=== PATIENT | female | born 1975 | race Caucasian/White ===

== ENCOUNTER 2021-12-21 12:29 | Emergency (ER) | payer MEDICARE, MEDICAID, SELFPAY ==
--- NOTE | ~2021-12-21 | CT_ITS ---
EXAMINATION: CT ABDOMEN AND PELVIS WITH CONTRAST CLINICAL INFORMATION: Right lower quadrant pain with question of appendicitis COMPARISON: CT abdomen pelvis 03/29/2012 TECHNIQUE: Multidetector volumetric images were obtained from the superior aspect of the liver through the pubic symphysis following administration 85 mL of Omnipaque 350 intravenous contrast. Sagittal and coronal reformatted images were obtained on the technologist's workstation. Oral contrast: No This CT examination was performed using dose optimization techniques as appropriate, variously including the following: *Automated exposure control *Adjustment of mA and/or kV according to patient size (this includes techniques or standardized protocols for targeted exams where dose is matched to indication/reason for exam; i.e. extremities or head) *Use of iterative reconstruction technique DLP: 594 mGy-cm FINDINGS: LUNG BASES: The visualized lung bases are unremarkable. LIVER, GALLBLADDER, AND BILIARY TREE: The liver is enlarged measuring 19 cm in greatest length with slightly decreased attenuation suggestive of hepatic steatosis. No focal hepatic lesion or biliary ductal dilatation is present. The gallbladder is unremarkable with no evidence of radiopaque gallstones, gallbladder wall thickening, or obvious pericholecystic inflammatory changes. PANCREAS: Unremarkable. SPLEEN: Unremarkable. ADRENAL GLANDS: Unremarkable. KIDNEYS AND URETERS: The kidneys are normal in size, shape, and attenuation. A 5 mm hypodensity seen in the lower pole the right kidney consistent with a benign cyst which needs no further imaging or follow-up. This was not visible in 2011. No hydronephrosis, hydroureter, or calculi seen. No perinephric stranding. BLADDER: Unremarkable. GASTROINTESTINAL TRACT: The small and large bowel are unremarkable. The appendix is unremarkable. ABDOMINAL WALL: No significant hernia is appreciated. LYMPH NODES: No retroperitoneal lymphadenopathy. VASCULAR: Unremarkable. PELVIC VISCERA: Surgically removed OSSEOUS STRUCTURES: Degenerative changes present at L5-S1 and to a lesser extent at other lumbar levels. Limbus vertebrae at L4. Schmorl's node superior surface of L2 and L3. CT/CT abdomen pelvis w con IMPRESSION: No significant abnormality. The appendix appears normal and an apparent etiology for the patient's right lower quadrant pain is not seen. Fleischner guidelines were followed.
[2021-12-21 13:53] VITALS: BP 143/91; PULSE 94; RESP 18; TEMP 36.8; O2SAT 100; BMI 30.1
[2021-12-21 14:15] LABS: Hematocrit 40.9 % (37.0-47.0); Hemoglobin 13.4 g/dl (12.0-16.0); Mean Corpuscular HGB Conc 32.8 g/dl (31.0-35.0); Mean Corpuscular Hemoglobin 29.5 pg (27.0-33.0); Mean Corpuscular Volume 89.9 fL (80.0-98.0); Mean Platelet Volume 8.7 fL (9.4-12.3); Platelet Count 303 X10*3/uL (160-400); Red Blood Count 4.55 X10*6/uL (4.20-5.50); Red Cell Distribution Width 13.4 % (11.0-16.0); White Blood Count 10.6 X10*3/uL (4.8-10.8)
[2021-12-21 14:24] LABS: COVID-19 Test Negative (Negative); IDNOW Serial# 55D5AD1C
[2021-12-21 14:42] LABS: Anion Gap 9 (12-20); Blood Urea Nitrogen 17 mg/dL (9-16); Calcium 9.4 mg/dL (8.4-10.2); Carbon Dioxide 30 mmol/L (22-29); Chloride 105 mmol/L (96-108); Creatinine Clr Calc Pharmacy 83.5; Estimated Glomerular Filt Rate > 60; Glucose Random 116 mg/dL (60-115); Lipase 22 U/L (8-78); Potassium 4.3 mmol/L (3.3-5.1); Sodium 140 mmol/L (135-145)
--- NOTE | 2021-12-21 18:42 | ED_ITS ---
HPI - Abdominal Pain General Chief Complaint: Abdominal Pain Stated Complaint: lower abd pain-sent from urgent care Time Seen by Provider: 12/21/21 12:50 Source: patient Mode of arrival: ambulatory Limitations: no limitations History of Present Illness HPI narrative: Patient is a 46-year-old female with a past medical history significant for POTS, migraines, depression, s/p partial hysterectomy, history of pyelon ephritis. Patient presents emergency department for evaluation of abdominal pain for 3 days. She reports right greater than left lower abdominal pain and become progressively worse and radiates to her back. She was evaluated at urgent care prior and referred to the emergency department to rule out appendicitis. In addition, she is reporting a migraine headache due to her pain, she takes venlafaxine daily as migraine prevention, reports Tylenol is not helping. Denies fevers, chills, nausea, vomiting, diarrhea, constipation, dysuria, urinary frequency, urinary urgency, hematuria, pelvic pain, vaginal bleeding. MD elicited complaint: abdominal pain and flank pain Onset (ago): day(s) Pain Consistency: constant Location: RLQ and LLQ Severity: moderate Pain scale (0-10): 7 Quality: aching and sharp Radiation: bilateral flank Associated symptoms: denies other symptoms Related Data Previous Rx's Medication Instructions Recorded dicyclomine 10 mg capsule 10 mg PO BID #20 cap 12/21/21 Allergies Allergy/AdvReac Type Severity Reaction Status Date / Time No Known Allergies Allergy Unverified 08/07/20 16:26 Review of Systems Review of Systems Constitutional: No weight loss, fever, chills, weakness or fatigue. HEENT: No visual loss, blurred vision, double vision or yellow sclera. No hearing loss, sneezing, congestion, runny nose or sore throat. Skin: No rash or itching. Cardiovascular: No chest pain, chest pressure or chest discomfort. No palpitations or pedal edema. Respiratory: No shortness of breath, cough or sputum production. Gastrointestinal: + abdominal pain. No anorexia, nausea, vomiting or diarrhea. No blood in stool. Genitourinary: No burning micturition. No urinary frequency or incontinence. Neurologic: No headache, dizziness, syncope, numbness or tingling in the extremities. Musculoskeletal: No muscle pain, back pain, joint pain or stiffness. Hematologic: No bleeding or bruising. Lymphatics: No enlarged lymph nodes. Psychiatric:No depression or anxiety. Endocrine: No polyuria or polydipsia. Physical Exam Verdana 4l Vital Signs: Verdana 4d Verdana 4d Vital Signs: Verdana 4d Verdana 4Bd Last Vital Signs Verdana 4d Rn Case Management New 4d Amelia New 4d Temp 98.0 F 12/21/21 19:42 Rn Case Management New 4d Pulse 86 12/21/21 19:42 Rn Case Management New 4d Resp 17 12/21/21 19:42 BP 155/93 H 12/21/21 19:42 Pulse Ox 98 12/21/21 19:42 BMI result Body Mass Index 30.1 Vital signs have been reviewed as normal and appeared to be correct. Blood pressure initially elevated 143/91. Heart rate normal.? Respiration rate normal. Temperature normal.? Oxygen saturation normal. Appearance: Alert.?Oriented to person, place and time. No acute distress.?Normal affect. Eyes: Pupils equal, round and reactive to light.? ENT: Pharynx normal.?? Neck: Normal inspection.? Neck supple.?? CVS: Heart sounds normal. Normal heart rate and rhythm.? Pulses normal.?? Respiratory: No respiratory distress.? Lung sounds clear to auscultation bilaterally?? Abdomen: Soft with diffuse lower abdominal tenderness, rebound tenderness to the right lower quadrant. Positive psoas sign. Positive obturator sign. Normoactive bowel sounds. No pulsatile mass.?? : bilateral CVA tenderness. Skin: Skin warm and dry.? Normal skin color.? Normal skin turgor.?? Extremities: No lower extremity edema.? Neuro: Moves all extremities spontaneously. Sensation intact bilaterally. No focal neuro deficits. Ambulates with normal steady gait. Course Course Course Narrative: Patient is a 46-year-old female being evaluated for abdominal pain. Will obtain CBC and BMP in addition to urinalysis. CT of the abdomen and pelvis with contrast to exclude appendicitis, though given her bilateral CVA tenderness for there is additional concern for hydronephrosis secondary to renal calculi. Unfortunately, given is the need to rule out appendicitis CT must be performed with contrast which is not exam of choice for renal calculi. History and physical exam not consistent with GI bleed, AAA, aortic dissection. Not consistent with strangulated hernia, bowel obstruction, pulmonary embolism, mesenteric ischemia, diverticulitis. Reevaluation(s) Reevaluation #1: CBC unremarkable without leukocytosis or anemia, BMP unremarkable without abnorm al electrolytes are abnormal renal function. COVID-19 is negative. Urinalysis unremarkable for infection or microscopic hematuria. CT of the abdomen reveals normal-appearing appendix and no etiology for right lower quadrant pain. Kidneys with no hydronephrosis, hydroureter, or calculi seen, no perinephric stranding. Patient is well appearing, remains afebrile, tachycardic. She is tolerating p.o. intake. Patient to be discharged home with new prescription for dicyclomine. Patient noted to have persistent elevated blood pressure while in the ER, she is currently asymptomatic; no persistent headaches, vision changes, dizziness/ lightheadedness, chest pain, shortness of breath, palpitations, dyspnea on exertion or pedal edema. We discussed that she should have her blood pressure re-evaluated with her primary care provider to determine if her blood pressure is persistently elevated and he verbalized understanding. Patient advised to follow-up with the PCP in 1-3 days, discussed reasons to return to the emergency department, questions answered, patient agrees with plan. Time: 20:44 MDM - Abdominal Pain Medical Records Attestation: I reviewed the patient's medical records. Lab Data Attestation: I reviewed the patient's lab results. Result diagrams: 12/21/21 14:02 12/21/21 14:02 Labs: Lab Results 12/21/21 12/21/21 12/21/21 Range/Units 14:02 14:02 14:02 WBC 10.6 (4.8-10.8) X10*3/uL RBC 4.55 (4.20-5.50) X10*6/uL Hgb 13.4 (12.0-16.0) g/dl Hct 40.9 (37.0-47.0) % MCV 89.9 (80.0-98.0) fL MCH 29.5 (27.0-33.0) pg MCHC 32.8 (31.0-35.0) g/dl RDW 13.4 (11.0-16.0) % Plt Count 303 (160-400) X10*3/uL MPV 8.7 L (9.4-12.3) fL Absolute Nucleated RBC 0.000 (0.0-0.012) X10*3/uL Nucleated RBC % (auto) 0.0 (0.0-0.2) /100WBC Sodium 140 (135-145) mmol/L Potassium 4.3 (3.3-5.1) mmol/L Chloride 105 (96-108) mmol/L Carbon Dioxide 30 H (22-29) mmol/L Anion Gap 9 L (12-20) BUN 17 H (9-16) mg/dL Creatinine 0.81 (0.5-1.4) mg/dL Estim Creat Clear Calc 83.5 Estimated GFR > 60 Random Glucose 116 H (60-115) mg/dL Calcium 9.4 (8.4-10.2) mg/dL Lipase 22 (8-78) U/L Urine Color Urine Appearance Urine pH (5.0-8.0) Ur Specific Spooner (1.005-1.025) Urine Protein (NEG-TRACE) MG/DL Urine Glucose (UA) (NEG) MG/DL Urine Ketones (NEG) MG/DL Urine Blood (NEG) Urine Nitrite (NEG) Ur Leukocyte Esterase (NEG) Urine Test (NEGATIVE) COVID-19 ([facility]) Negative (Negative) COVID-19 Clin Com See Note 12/21/21 12/21/21 Range/Units 18:52 18:52 WBC (4.8-10.8) X10*3/uL RBC (4.20-5.50) X10*6/uL Hgb (12.0-16.0) g/dl Hct (37.0-47.0) % MCV (80.0-98.0) fL MCH (27.0-33.0) pg MCHC (31.0-35.0) g/dl RDW (11.0-16.0) % Plt Count (160-400) X10*3/uL MPV (9.4-12.3) fL Absolute Nucleated RBC (0.0-0.012) X10*3/uL Nucleated RBC % (auto) (0.0-0.2) /100WBC Sodium (135-145) mmol/L Potassium (3.3-5.1) mmol/L Chloride (96-108) mmol/L Carbon Dioxide (22-29) mmol/L Anion Gap (12-20) BUN (9-16) mg/dL Creatinine (0.5-1.4) mg/dL Estim Creat Clear Calc Estimated GFR Random Glucose (60-115) mg/dL Calcium (8.4-10.2) mg/dL Lipase (8-78) U/L Urine Color YELLOW Urine Appearance HAZY Urine pH 5.5 (5.0-8.0) Ur Specific Spooner >= 1.030 H (1.005-1.025) Urine Protein NEG (NEG-TRACE) MG/DL Urine Glucose (UA) NEG (NEG) MG/DL Urine Ketones NEG (NEG) MG/DL Urine Blood NEG (NEG) Urine Nitrite NEG (NEG) Ur Leukocyte Esterase NEG (NEG) Urine Test NEGATIVE (NEGATIVE) COVID-19 ([facility]) (Negative) COVID-19 Clin Com Imaging Data CT scan - abdomen: Attestation: I personally reviewed and interpreted this imaging study as follows: Radiologist's impression: IMPRESSION: No significant abnormality. The appendix appears normal and an apparent etiology for the patient's right lower quadrant pain is not seen. ? Fleischner guidelines were followed. Discharge Plan Discharge Clinical Impression: Abdominal pain Patient Disposition: Home, Self-Care Additional Instructions: You were evaluated in the emergency department for concerns of right lower abdominal pain, you had a CT of your abdomen which indicated do not have appendicitis, your kidneys are normal, your blood work was normal, your urine is also normal. The cause of your pain is unclear at this time, you have been given a new prescription for Bentyl for abdominal pain. Please contact your primary care provider to schedule follow-up visit in 1-3 days, you may return to the emergency department with any new or worsening symptoms or concerns. Prescriptions: New dicyclomine 10 mg capsule 10 mg PO BID Qty: 20 0RF Interventions: ED Discharge Assessment Last Done: 12/21/21 20:59 [facility] Past Medical History Attestation statement: The following information was validated with the patient. Source: old records reviewed Medical History Depressed Migraines POTS (postural orthostatic tachycardia syndrome) Surgical History H/O: hysterectomy Social History Social History Alcohol intake: unknown Use of substances other than those prescribed or required for medical reasons: No Advance Directives: No Advance Directives Information Provided: No Patient : No
[2021-12-21 19:09] LABS: Appearance Urine HAZY; Color Urine YELLOW; Glucose Urine UA NEG (NEG); Leukocyte Esterase Urine NEG (NEG); Nitrite Urine NEG (NEG); PH 5.5 (5.0-8.0); Specific Gravity - Urine >= 1.030 (1.005-1.025); Urine Blood NEG (NEG); Urine Ketones NEG (NEG); Urine Protein NEG (NEG-TRACE)
[2021-12-21 19:12] LABS: UPreg QC Valid YES; Urine Pregnancy NEGATIVE (NEGATIVE)
[2021-12-21] MEDS: iohexoL 350 MG/ML 100 ML INFUS..BTL IV (19:16)
[2021-12-21 19:42] VITALS: BP 155/93; PULSE 86; RESP 17; TEMP 36.7; O2SAT 98
[2021-12-21] MEDS: 0.9 % Sodium Chloride 1,000 ML 999 ML IV (19:55)
[2021-12-21] MEDS: Butalb/Acetamin/Caff 50/325/40 TABLET 1 TAB PO (19:55)
== END 2021-12-21 21:18 | disposition home or self-care (01) ==
PROVIDERS: Emergency Provider Emergency Medicine; PCP Internal Medicine
DX: R10.30 Lower abdominal pain, unspecified (principal); R03.0 Elevated blood-pressure reading, without diagnosis of hypertension; Z20.822 Contact with and (suspected) exposure to COVID-19
CPT/HCPCS: 74177; 80048; 81003; 81025; 83690; 85027; 87635; 96360; 99284; 99285; Q9967

== ENCOUNTER 2024-04-06 12:51 | Emergency (ER) | payer MEDICARE, MEDICAID, SELFPAY ==
[2024-04-06 13:03] VITALS: BP 132/87; PULSE 105; RESP 20; TEMP 36.6; O2SAT 98; BMI 32.0
--- NOTE | 2024-04-06 13:03 | ED_ITS ---
HPI - General Adult General Chief complaint: Back Pain/Injury Stated complaint: back pain/leg pain had MRI tuesday Time Seen by Provider: 04/06/24 18:10 Source: patient Mode of arrival: ambulatory Limitations: no limitations History of Present Illness HPI narrative: Patient with chronic back pain for more than 10 years been followed by neurosurgeon who did MRI of the cervical spine and thoracic spine 4 days ago was negative for any surgical management comes here for ongoing pain in the lower spine when goes upstairs radiates to both lower extremity no bladder or bowel involvement no recent trauma Related Data Previous Rx's ?Medication ?Instructions ?Recorded dicyclomine 10 mg capsule 10 mg PO BID #20 caps 12/21/21 cyclobenzaprine 10 mg tablet 10 mg PO Q8H #20 tabs 04/06/24 oxycodone 5 mg tablet 5 mg PO Q6H PRN pain #20 tabs 04/06/24 Allergies Allergy/AdvReac Type Severity Reaction Status Date / Time No Known Allergies Allergy Verified 04/06/24 13:06 Review of Systems Review of Systems: Yes all other systems are reviewed and are negative PMF Past Medical History Medical History Migraines Depressed POTS (postural orthostatic tachycardia syndrome) Surgical History H/O: hysterectomy Social History Social History Alcohol intake: unknown Advance Directives: No Advance Directives Information Provided: Yes Do you have a plan to hurt others: No Plan Physical Exam ED Vital Signs: Vital Signs - 24 hr 04/06/24 13:03 Temperature 97.9 F Pulse Rate 105 H Respiratory Rate 20 Blood Pressure 132/87 Pulse Oximetry 98 Oxygen Delivery Method Room Air BMI result Body Mass Index 32.0 Appearance: Alert. Oriented X3. No acute distress. Eyes: PERRLA, No Nystagmus ENT: Pharynx normal. Oral Mucosa moist Neck: Normal inspection. Neck supple. CVS: Normal heart rate and rhythm. Pulses normal. Respiratory: No respiratory distress. Equal air entry bilateral, no wheezing/rales/rhonchi Abdomen: Soft and nontender. Bowel sounds are present, no mass palpable, no CVA tenderness Skin: Skin warm and dry. Normal skin color. Normal skin turgor. Extremities: No lower extremity edema. No calf tenderness back: Diffuse tenderness lumbar spine area no focal spinal tenderness SLR negative sacral sensation intact Neuro: Oriented X 3. No motor deficit. No sensory deficit.No cerebellar signs , cranial nerves II-XII intact Course Course Course Narrative: 1303 48 year old female hx of POTS, migraines, depression, s/p partial hysterectomy, history of pyelonephritis presents w/ lower back pain b/l w/ radiation to b/l LE down to her toes this has been going on for the past year. Pain has just been worsening now 06/30. Reports numbness to b/l thighs and tingling down both legs this has also been going on for about a year. Normal urinary and bowel habits no incontience. Reports she came in today due to increasing pain. Had an MRI tuesday but no results yet , doesn't have a follow up appointment. MRI done by mobile MRI Will request MRI results from [facility] Appearance: Alert.? Oriented X3.? No acute cardiopulmonary distress distress.? Head: Normocephalic, atraumatic, no step-offs or deformities Neck: Normal inspection.? Neck supple.? CVS: Pulses normal.? Respiratory: No respiratory distress.? Abdomen: Soft and nontender.? Skin: ? Normal skin color. Extremities: 5/5 strength to bilateral upper and lower extremities Back: No midline tenderness, no C-spine tenderness, full range of motion, No CVA tenderness bilaterally + diffuse lower back ttp on exam. Neuro: Oriented X 3.? No motor deficit.? No sensory deficit. No saddle parethesias. Ambulatory into triage Medications Administered Discontinued Medications Generic Name Dose Route Start Last Admin Trade Name Freq PRN Reason Stop Dose Admin Ketorolac Tromethamine 30 mg 04/06/24 13:07 04/06/24 16:19 Ketorolac Tromethamine 30 Mg/Ml Vial IM 04/06/24 13:08 30 mg ONCE ONE Administration Lidocaine 1 patch 04/06/24 13:07 04/06/24 16:19 Lidocaine 4 % Patch Adh..Patch TRANSDERMA 04/06/24 13:08 1 patch ONCE ONE Administration Protocol Medical Decision Making Medical Decision Making [facility] Narrative: Patient with chronic low back lumbar canal stenosis advised to follow with pain clinic Discharge Plan Discharge Clinical Impression: Lumbar canal stenosis Patient Disposition: Home, Self-Care Instructions: Lumbar Spinal Stenosis (ED) Additional Instructions: Take pain medication muscle relaxant as prescribed Follow with pain clinic/neurosurgery for further management Prescriptions: New oxycodone 5 mg tablet 5 mg PO Q6H PRN (Reason: pain) Qty: 20 0RF Rx Instructions: Partial Fill upon patient request. cyclobenzaprine 10 mg tablet 10 mg PO Q8H Qty: 20 0RF No Action dicyclomine 10 mg capsule 10 mg PO BID Qty: 20 0RF Referrals: Bill Vinson MD [Physician] - 1 week Print Language: Georgian
[2024-04-06] MEDS: Lidocaine 4 % Patch ADH..PATCH 1 PATCH TRANSDERMA (16:19)
[2024-04-06] MEDS: Ketorolac Tromethamine 30 MG/ML VIAL IM (16:19)
[2024-04-06 19:06] VITALS: BP 136/85; PULSE 79; RESP 16; TEMP 36.7; O2SAT 100
== END 2024-04-06 19:06 | disposition home or self-care (01) ==
PROVIDERS: Emergency Provider Internal Medicine; PCP Internal Medicine
DX: M48.061 Spinal stenosis, lumbar region without neurogenic claudication (principal); M54.9 Dorsalgia, unspecified
CPT/HCPCS: 96372; 99283; 99284; J1885

== ENCOUNTER 2024-07-13 20:02 | Emergency (ER) | payer MEDICARE, MEDICAID, SELFPAY ==
--- NOTE | ~2024-07-13 | CT_ITS ---
EXAMINATION CT HEAD WITHOUT CONTRAST CT CERVICAL SPINE WITHOUT CONTRAST CLINICAL INFORMATION: Migraine, neck/right upper extremity pain COMPARISON: None TECHNIQUE: CT of the head was performed without intravenous contrast. Reformatted axial, coronal, and sagittal images were reviewed. Then, multidetector CT of the cervical spine was performed without intravenous contrast. Reformatted axial, coronal and sagittal images were reviewed. This CT examination was performed using dose optimization techniques as appropriate, variously including the following: *Automated exposure control *Adjustment of mA and/or kV according to patient size (this includes techniques or standardized protocols for targeted exams where dose is matched to indication/reason for exam; i.e. extremities or head) *Use of iterative reconstruction technique DLP: 436 mGy-cm FINDINGS: HEAD: No intracranial hemorrhage, extra-axial fluid collection, or midline shift is identified. Donaldson-white matter differentiation is preserved. The ventricles are within normal limits. Basal cisterns are within normal limits. Paranasal sinuses are clear. Mastoid air cells and middle ear cavities are clear. No acute calvarial fractures. CERVICAL SPINE: There is no fracture, malalignment or prevertebral soft tissue abnormality seen in the cervical spine. There is no abnormal widening of the predental space, separation of the lateral masses of C1 or facet joint distraction. Anterior cervical fusion of C5-C7 with bony fusion. Large anterior osteophyte at C3-4. No significant central canal or neuroforaminal stenosis. The visualized portions of the lung parenchyma is unremarkable. CT/CT cervical spine wo IV con IMPRESSION: CT HEAD: 1. No acute intracranial abnormality. CT CERVICAL SPINE: 1. No acute fracture or malalignment of the cervical spine. 2. Anterior spinal fixation hardware from C5 to C7 with bony fusion. Electronically signed by: Jeff Hernandez DO 07/13/2024 10:24 PM EDT
--- NOTE | ~2024-07-13 | CT_ITS ---
EXAMINATION CT HEAD WITHOUT CONTRAST CT CERVICAL SPINE WITHOUT CONTRAST CLINICAL INFORMATION: Migraine, neck/right upper extremity pain COMPARISON: None TECHNIQUE: CT of the head was performed without intravenous contrast. Reformatted axial, coronal, and sagittal images were reviewed. Then, multidetector CT of the cervical spine was performed without intravenous contrast. Reformatted axial, coronal and sagittal images were reviewed. This CT examination was performed using dose optimization techniques as appropriate, variously including the following: *Automated exposure control *Adjustment of mA and/or kV according to patient size (this includes techniques or standardized protocols for targeted exams where dose is matched to indication/reason for exam; i.e. extremities or head) *Use of iterative reconstruction technique DLP: 436 mGy-cm FINDINGS: HEAD: No intracranial hemorrhage, extra-axial fluid collection, or midline shift is identified. Donaldson-white matter differentiation is preserved. The ventricles are within normal limits. Basal cisterns are within normal limits. Paranasal sinuses are clear. Mastoid air cells and middle ear cavities are clear. No acute calvarial fractures. CERVICAL SPINE: There is no fracture, malalignment or prevertebral soft tissue abnormality seen in the cervical spine. There is no abnormal widening of the predental space, separation of the lateral masses of C1 or facet joint distraction. Anterior cervical fusion of C5-C7 with bony fusion. Large anterior osteophyte at C3-4. No significant central canal or neuroforaminal stenosis. The visualized portions of the lung parenchyma is unremarkable. CT/CT head/brain wo IV con IMPRESSION: CT HEAD: 1. No acute intracranial abnormality. CT CERVICAL SPINE: 1. No acute fracture or malalignment of the cervical spine. 2. Anterior spinal fixation hardware from C5 to C7 with bony fusion. Electronically signed by: Jeff Hernandez DO 07/13/2024 10:24 PM EDT
[2024-07-13 20:06] VITALS: BP 127/95; PULSE 104; RESP 18; TEMP 36.6; O2SAT 98; BMI 32.2
--- NOTE | 2024-07-13 20:07 | ED_ITS ---
HPI - General Adult General Chief complaint: General Medical Stated complaint: R arm feels heavy, had headache that went away Time Seen by Provider: 07/13/24 23:25 Source: patient Mode of arrival: ambulatory Limitations: no limitations History of Present Illness HPI narrative: Patient is a 48-year-old female presents to the emergency department for evaluation. She reports that she awoke at 02:00 this morning with her right arm feeling numb and tingling, ?like my arm was ?, approximately 45 minutes later she developed a headache on the right side extending into her right lateral neck pain down the arm and into her right anterior chest. She admits to a history of migraine headaches but states that this feels a typical of what she has experienced in the past. She usually takes Excedrin and sumatriptan for her migraines. She tried Excedrin today without improvement. She denies any recent trauma or injury. She does admit to a history of cervical spine fusion, but has not had any chronic radicular like symptoms. She denies recent URI symptoms, shortness of breath, neck stiffness, dizziness, lightheadedness. Related Data Previous Rx's ?Medication ?Instructions ?Recorded dicyclomine 10 mg capsule 10 mg PO BID #20 caps 12/21/21 cyclobenzaprine 10 mg tablet 10 mg PO Q8H #20 tabs 04/06/24 oxycodone 5 mg tablet 5 mg PO Q6H PRN pain #20 tabs 04/06/24 Allergies Allergy/AdvReac Type Severity Reaction Status Date / Time No Known Allergies Allergy Verified 07/13/24 20:11 Review of Systems 2 Review of Systems: Yes all other systems are reviewed and are negative [facility] Past Medical History Attestation statement: The following information was validated with the patient. Source: old records reviewed Medical History Migraines Depressed POTS (postural orthostatic tachycardia syndrome) Surgical History H/O: hysterectomy Social History Social History Alcohol intake: unknown Advance Directives: No Advance Directives Information Provided: No Do you have a plan to hurt others: No Plan Physical Exam ED Vital Signs: Vital Signs - 24 hr 07/13/24 20:06 07/13/24 23:46 Temperature 97.8 F 98.7 F Pulse Rate 104 H 62 Respiratory Rate 18 16 Blood Pressure 127/95 H 123/72 Pulse Oximetry 98 97 Oxygen Delivery Method Room Air Room Air BMI result Body Mass Index 32.2 Appearance: Alert.?Oriented to person, place and time. No acute distress.?Normal affect. Eyes: Pupils equal, round and reactive to light.? EOMI. No nystagmus. ENT: Pharynx normal.??TM normal bilaterally Neck: Normal inspection.? Neck supple.??Full range of motion. No nuchal rigidity. No cervical adenopathy CVS: Heart sounds normal. Normal heart rate and rhythm.? Pulses normal.?? Respiratory: No respiratory distress.? Lung sounds clear to auscultation bilaterally?? Abdomen: Soft and non-tender. Normoactive bowel sounds. Skin: Skin warm and dry.? Normal skin color.? Extremities: No lower extremity edema.? No calf ttp.?full range of motion to right upper extremity. Neuro: Moves all extremities spontaneously. Sensation intact bilaterally. Ambulates with normal steady gait. Course Course Course Narrative: This is a Rapid Medical Examination (RME) performed by Terry Siegel PA-C in triage. Full HPI, ROS, assessment and treatment plan per primary provider in the Main ED. 48 yo female here for eval of RUE pain/ tingling since 0200 this morning. reports pain extends from her head, into her neck, into the right side of her chest and down her RUE. admits to history of migraines. Takes Excedrin and sumatriptan. States this does not feel like her typical migraine. admits to previous cervical spine surgery w/ hardwear. + neurologically intact. ambulating w/ steady gait. rrr. lungs clear. Plan: labs, trop, ekg, cts ordered Medications Administered Discontinued Medications Generic Name Dose Route Start Last Admin Trade Name Freq PRN Reason Stop Dose Admin Ketorolac Tromethamine 15 mg 07/13/24 23:48 07/14/24 00:15 Ketorolac Tromethamine 15 Mg/Ml Vial IM 07/13/24 23:49 15 mg ONCE ONE Administration Medical Decision Making Medical Decision Making MDM Narrative: Patient is a 48-year-old female with past medical history of migraines, depression, PO OTS who presents emergency department for evaluation of headache, chest pain, and right arm pain/paresthesias as per HPI. Overall appears well, nontoxic, afebrile. Admits to a history of similar numbness tingling sensation in her extremities particularly her lower extremities for which she is being followed by Neurology. No precipitating cervical spine injury. Has a history of cervical fusion but denies any chronic radicular symptoms. Has no focal neurological deficits on examination, suspect less likely CVA or intracranial mass. CT of the head was obtained no acute intracranial pathology, CT of the cervical spine anterior fixation hardware from C5-C7 with bony fusion no notable central canal or neuroforaminal stenosis. Right upper extremity is neurovascularly intact distally. CBC is without leukocytosis anemia or thrombocytopenia. No electrolyte derangement. No IZAIAH. High sensitive troponin within normal range, delta troponin negative, EKG revealing sinus tachycardia with ventricular rate of 104, QTC 481, no ST elevation, no ST depression, no acute abnormalities when compared with prior, no acute ischemic findings unlikely ACS. Differential Diagnosis Differential Diagnoses: The differential diagnosis associated with the presentation includes (ACS, muscular strain, cervical radiculopathy, migraine) Admission/Observation Consideration of admission/observation: Escalation of care including admission/observation considered Lab Data MDM Lab Attestation statement: I reviewed the patient's lab results. (See narrative above) 07/13/24 20:26 07/13/24 20:26 Labs: Lab Results 07/13/24 07/14/24 Range/Units 20:26 00:05 WBC 9.5 (4.8-10.8) X10*3/uL RBC 4.39 (4.20-5.50) X10*6/uL Hgb 13.0 (12.0-16.0) g/dl Hct 39.4 (37.0-47.0) % MCV 89.7 (80.0-98.0) fL MCH 29.6 (27.0-33.0) pg MCHC 33.0 (31.0-35.0) g/dl RDW 13.3 (11.0-16.0) % Plt Count 325 (160-400) X10*3/uL MPV 8.7 L (9.4-12.3) fL Immature Gran % (Auto) 0.5 H (0.0-0.4) % Neut % (Auto) 58.9 (45-73) % Lymph % (Auto) 31.9 (20-40) % [place] % (Auto) 6.1 (2-11) % Eos % (Auto) 2.1 (0-4) % Baso % (Auto) 0.5 (0-2) % Lymph # (Auto) 3.0 (1.2-4.9) X10*3/uL [place] # (Auto) 0.6 (0.1-1.2) X10*3/uL Eos # (Auto) 0.2 (0.0-0.4) X10*3/uL Baso # (Auto) 0.1 (0.0-0.2) X10*3/uL Abs Immat Gran (auto) 0.05 H (0.00-0.03) X10*3/uL Absolute Neuts (auto) 5.6 (2.0-8.3) x10*3/uL Absolute Nucleated RBC 0.000 (0.0-0.012) X10*3/uL Nucleated RBC % (auto) 0.0 (0.0-0.2) /100WBC Sodium 140 (135-145) mmol/L Potassium 3.9 (3.3-5.1) mmol/L Chloride 108 (96-108) mmol/L Carbon Dioxide 24 (22-29) mmol/L Anion Gap 12 (12-20) BUN 18 H (9-16) mg/dL Creatinine 0.98 (0.5-1.4) mg/dL Estim Creat Clear Calc 69.8 Estimated GFR > 60 Random Glucose 73 (60-115) mg/dL Calcium 9.3 (8.4-10.2) mg/dL Magnesium 2.3 (1.6-2.6) mg/dL Total Bilirubin 0.4 (0.0-1.0) mg/dL AST 18 (5-31) U/L ALT 14 (0-31) U/L Alkaline Phosphatase 156 H (39-117) U/L Troponin I High Sens 15.8 16.0 (<3.5-17.0) ng/L Total Protein 7.5 (6.5-8.0) g/dL Albumin 4.1 (3.5-5.0) g/dL Lipase 21 (8-78) U/L COVID-19 ([facility]) Negative (Negative) COVID-19 Clin Com See Note Independent Interpretation I performed an independent interpretation of an: EKG (See narrative above) Radiology Impression Discussion of test interpretation with radiology: I have reviewed the radiologist's reading. Radiologist Impression: CT/CT head/brain wo IV con IMPRESSION: CT HEAD: 1. No acute intracranial abnormality. CT CERVICAL SPINE: 1. No acute fracture or malalignment of the cervical spine. 2. Anterior spinal fixation hardware from C5 to C7 with bony fusion. External Record Review External record reviewed: Outpatient record Prescription Management I considered prescription management with: Pain Medication Discharge Plan Discharge Clinical Impression: Arm paresthesia, right, Chest pain, Headache Patient Disposition: Home, Self-Care Instructions: Chest Pain (ED), General Headache (ED), Paresthesia (ED) Additional Instructions: EKG and cardiac enzymes; Troponin were checked twice, no evidence of damage to the heart muscle or heart attack. CT of your head was without abnormality, CT of your cervical spine reveals findings consistent with fixation hardware otherwise no new findings. Blood work today was very reassuring. COVID-19 testing was negative. You can take ibuprofen 200 mg, 3 tablets (600mg) every 6-8 hours as needed for pain, in addition to Tylenol 500 mg, 2 tablets (1,000mg) every 4-6 hours as needed for pain, but not to exceed 3 doses daily (3,000mg).? Please follow-up with your primary care doctor. Return to the emergency department with any new or worsening symptoms or concerns. Prescriptions: No Action dicyclomine 10 mg capsule 10 mg PO BID Qty: 20 0RF oxycodone 5 mg tablet 5 mg PO Q6H PRN (Reason: pain) Qty: 20 0RF Rx Instructions: Partial Fill upon patient request. cyclobenzaprine 10 mg tablet 10 mg PO Q8H Qty: 20 0RF Referrals: Shanice Lr MD [Primary Care Provider] - Print Language: [place] Citizen
--- NOTE | 2024-07-13 20:08 | ECG_ITS ---
Test Reason : HEADACHE/R ARM AND CHEST PAIN Blood Pressure : / mmHG Vent. Rate : 104 BPM Atrial Rate : 104 BPM P-R Int : 130 ms QRS Dur : 086 ms QT Int : 366 ms P-R-T Axes : 046 010 020 degrees QTc Int : 481 ms Sinus tachycardia Possible Left atrial enlargement Left ventricular hypertrophy ( R in aVL , Donato product ) Nonspecific ST abnormality Abnormal ECG When compared with ECG of 29-JAN-2013 17:46, T wave inversion no longer evident in Inferior leads Nonspecific T wave abnormality no longer evident in Lateral leads Referred By: Lisa Siegel Electronically Signed By:VONDA MANJARREZ
--- NOTE | 2024-07-13 20:30 | MHC.EDTECH ---
Patient ekg taken and was read by Provider ,blood drawn and covid swab collected all sent to lab .
[2024-07-13 20:31] LABS: MANUAL DIFF FLAG NO
[2024-07-13 20:32] LABS: Basophils Absolute Auto 0.1 X10*3/uL (0.0-0.2); Basophils Percent Auto 0.5 % (0-2); Eosinophils Absolute Auto 0.2 X10*3/uL (0.0-0.4); Eosinophils Percent Auto 2.1 % (0-4); Hematocrit 39.4 % (37.0-47.0); Imm Gran Abs Auto 0.05 X10*3/uL (0.00-0.03); Imm Gran Pct Auto 0.5 % (0.0-0.4); Lymphocytes Percent Auto 31.9 % (20-40); Mean Corpuscular Hemoglobin 29.6 pg (27.0-33.0); Mean Corpuscular Volume 89.7 fL (80.0-98.0); Mean Platelet Volume 8.7 fL (9.4-12.3); Monocytes Absolute Auto 0.6 X10*3/uL (0.1-1.2); Monocytes Percent Auto 6.1 % (2-11); Neutrophils Absolute Auto 5.6 x10*3/uL (2.0-8.3); Neutrophils Percent Auto 58.9 % (45-73); Platelet Count 325 X10*3/uL (160-400); Red Blood Count 4.39 X10*6/uL (4.20-5.50); Red Cell Distribution Width 13.3 % (11.0-16.0); White Blood Count 9.5 X10*3/uL (4.8-10.8)
[2024-07-13 20:45] LABS: COVID-19 Test Negative (Negative); IDNOW Serial# 6674DD1D
[2024-07-13 20:51] LABS: Alanine Aminotransferase 14 U/L (0-31); Albumin Level 4.1 g/dL (3.5-5.0); Alkaline Phosphatase 156 U/L (39-117); Anion Gap 12 (12-20); Aspartate Amino Transferase 18 U/L (5-31); Bilirubin Total 0.4 mg/dL (0.0-1.0); Blood Urea Nitrogen 18 mg/dL (9-16); Calcium 9.3 mg/dL (8.4-10.2); Carbon Dioxide 24 mmol/L (22-29); Chloride 108 mmol/L (96-108); Creatinine Clr Calc Pharmacy 69.8; Estimated Glomerular Filt Rate > 60; Glucose Random 73 mg/dL (60-115); Lipase 21 U/L (8-78); Magnesium 2.3 mg/dL (1.6-2.6); Potassium 3.9 mmol/L (3.3-5.1); Sodium 140 mmol/L (135-145); Total Protein 7.5 g/dL (6.5-8.0)
[2024-07-13 20:59] LABS: Troponin-I High Sensitivity 15.8 ng/L (<3.5-17.0)
[2024-07-13 23:46] VITALS: BP 123/72; PULSE 62; RESP 16; TEMP 37.1; O2SAT 97
--- NOTE | 2024-07-13 23:55 | MHC.EDTECH ---
This pct assumed care of pt at 2300 ,vitals taken ,no apparent distress noted ,plan of care continue .
[2024-07-14] MEDS: Ketorolac Tromethamine 15 MG/ML VIAL IM (00:15)
[2024-07-14 01:43] VITALS: BP 111/70; PULSE 83; RESP 16; TEMP 36.1; O2SAT 98
[2024-07-14 02:02] VITALS: BP 111/70; PULSE 83; RESP 16; TEMP 36.1; O2SAT 98
== END 2024-07-14 01:47 | disposition home or self-care (01) ==
PROVIDERS: Nurse Practitioner Family; Physician Assistant Medical; Emergency Provider Emergency Medicine Emergency Medical Services; PCP Internal Medicine
DX: R07.9 Chest pain, unspecified (principal); R51.9 Headache, unspecified; R20.2 Paresthesia of skin; M79.601 Pain in right arm; G90.A Postural orthostatic tachycardia syndrome [POTS]
CPT/HCPCS: 36415; 70450; 72125; 80053; 83690; 83735; 84484; 85025; 87635; 93005; 96372; 99284; 99285; J1885

== ENCOUNTER 2024-09-07 06:09 | Emergency (ER) | payer MEDICARE, MEDICAID, SELFPAY ==
[2024-09-07] VITALS (24 sets, daily range): BP systolic 109–158; BP diastolic 65–101; PULSE 110–140; RESP 20–35; TEMP 36.7–36.9; O2SAT 87–99; BMI 33.5
--- NOTE | 2024-09-07 | ECG_ITS ---
Test Reason : SOB/CP Blood Pressure : / mmHG Vent. Rate : 126 BPM Atrial Rate : 126 BPM P-R Int : 136 ms QRS Dur : 080 ms QT Int : 332 ms P-R-T Axes : -01 011 003 degrees QTc Int : 480 ms Sinus tachycardia Premature ventricular complexes Nonspecific ST and T wave abnormality Abnormal ECG When compared with ECG of 13-JUL-2024 20:10, Premature ventricular complexes present Referred By: Generic ED Physician Electronically Signed By:MANUEL MCGUIRE
--- NOTE | ~2024-09-07 | XR_ITS ---
EXAMINATION: XR CHEST CLINICAL INFORMATION: Chest pain, shortness of breath COMPARISON: Chest radiograph 01/29/2013 TECHNIQUE: Frontal view of the chest was obtained. FINDINGS: The lungs are well-expanded. There is bilateral interstitial prominence. Patchy opacities in the right lung base. Small right pleural effusion better evaluated on CT performed on the same date. Stable chronic blunting of the left costophrenic angle. No pneumothorax. The cardiac silhouette is mildly prominent. Degenerative changes of the visualized spine. Cervical spine fusion hardware. XR/XR chest 1V IMPRESSION: Bilateral interstitial prominence which can be seen with mild interstitial edema. Patchy opacities in the right lung base which may represent atelectasis or developing infectious/inflammatory process. Electronically signed by: Heber Isaac MD 09/07/2024 08:46 AM EDT
--- NOTE | ~2024-09-07 | CT_ITS ---
EXAMINATION: CT ANGIOGRAM CHEST CLINICAL INFORMATION: Hypoxia, tachycardia, chest pain COMPARISON: Chest radiograph performed on the same date. TECHNIQUE: Multiple axial images were obtained through the chest after the administration of 65 mL of Omnipaque 350 intravenous contrast. Extensive vascular post-processing including two-dimensional and three-dimensional reformatted images were created and reviewed on an independent workstation. This CT examination was performed using dose optimization techniques as appropriate, variously including the following: *Automated exposure control *Adjustment of mA and/or kV according to patient size (this includes techniques or standardized protocols for targeted exams where dose is matched to indication/reason for exam; i.e. extremities or head) *Use of iterative reconstruction technique DLP: 371 mGy-cm FINDINGS: QUALITY OF STUDY/CONTRAST BOLUS: Satisfactory. PULMONARY ARTERIES: No central or segmental pulmonary emboli. THORACIC AORTA: No aneurysm. LUNG: Evaluation of lung parenchyma is slightly limited due to motion. Central airways are patent. There is bilateral bronchial wall thickening with scattered areas of mucus plugging in the lower lobes. There is bilateral smooth interlobular septal thickening most pronounced within the upper lobes. Patchy groundglass opacities, most pronounced within the right middle and lower lobes. Bibasilar atelectasis. PLEURA: Small right pleural effusion. No significant left-sided pleural effusion. MEDIASTINUM: Heart is mildly enlarged.No pericardial effusion.No hilar or mediastinal lymphadenopathy. No evidence of septal bowing or right heart strain. CORONARY ARTERY CALCIFICATION: None visualized on this study. CHEST WALL/AXILLA: No axillary or internal mammary lymphadenopathy. OSSEOUS STRUCTURES: No acute or suspicious osseous abnormality. Degenerative changes of the visualized spine. UPPER ABDOMEN: Unremarkable. No reflux of contrast into the hepatic veins to suggest elevated right heart pressures. There is a 1.4 cm well-circumscribed enhancing lesion seen in relation to distal splenic artery likely representing splenic artery aneurysm., 19:34 CT/CT angio chest PE protocol IMPRESSION: 1. No central or segmental pulmonary emboli. 2. Bilateral smooth interlobular septal thickening with patchy groundglass opacities most pronounced within the right middle and lower lobes. Findings may represent pulmonary edema. Although superimposed infectious or inflammatory proces is not excluded. Short-term follow-up can be considered to assess for resolution. 3. Bilateral bronchial wall thickening with scattered areas of mucous plugging within the lower lobes. 4. 1.4 cm splenic artery aneurysm. VTE: negative Electronically signed by: Heber Isaac MD 09/07/2024 09:14 AM EDT RP
[2024-09-07 06:37] LABS: MANUAL DIFF FLAG NO
[2024-09-07 06:39] LABS: Basophils Absolute Auto 0.1 X10*3/uL (0.0-0.2); Basophils Percent Auto 0.5 % (0-2); Eosinophils Absolute Auto 0.1 X10*3/uL (0.0-0.4); Eosinophils Percent Auto 1.5 % (0-4); Hematocrit 37.8 % (37.0-47.0); Hemoglobin 12.6 g/dl (12.0-16.0); Imm Gran Abs Auto 0.03 X10*3/uL (0.00-0.03); Imm Gran Pct Auto 0.3 % (0.0-0.4); Lymphocytes Absolute Auto 2.1 X10*3/uL (1.2-4.9); Lymphocytes Percent Auto 22.1 % (20-40); Mean Corpuscular HGB Conc 33.3 g/dl (31.0-35.0); Mean Corpuscular Hemoglobin 30.1 pg (27.0-33.0); Mean Corpuscular Volume 90.4 fL (80.0-98.0); Mean Platelet Volume 8.8 fL (9.4-12.3); Monocytes Absolute Auto 0.5 X10*3/uL (0.1-1.2); Monocytes Percent Auto 5.6 % (2-11); Neutrophils Absolute Auto 6.7 x10*3/uL (2.0-8.3); Platelet Count 285 X10*3/uL (160-400); Red Blood Count 4.18 X10*6/uL (4.20-5.50); Red Cell Distribution Width 14.3 % (11.0-16.0); White Blood Count 9.5 X10*3/uL (4.8-10.8)
--- NOTE | 2024-09-07 06:41 | ED_ITS ---
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 Patient states that over the last 2 days she has had crushing chest pain with shortness of breath. Patient denies any recent travel. Patient states that she is not a smoker. Patient states that her mother of a pulmonary embolism however, she has never had any blood clots. Patient denies any dizziness, lightheadedness, abdominal pain, nausea, vomiting, fever, chills, blurry vision, double vision, loss of vision, back pain, night sweats, pain with urination, increased urinary frequency, increased urinary urgency, blood in her urine or stool, syncope or a near syncopal episode, recent trauma or falls, bowel incontinence, bladder incontinence, or any other complaints at this time. Related Data Previous Rx's ?Medication ?Instructions ?Recorded dicyclomine 10 mg capsule 10 mg PO BID #20 caps 12/21/21 cyclobenzaprine 10 mg tablet 10 mg PO Q8H #20 tabs 04/06/24 oxycodone 5 mg tablet 5 mg PO Q6H PRN pain #20 tabs 04/06/24 Allergies Allergy/AdvReac Type Severity Reaction Status Date / Time No Known Allergies Allergy Verified 09/07/24 06:13 Review of Systems 2 Constitutional: Constitutional: Reports no additional constitutional complaints, Denies chills, Denies fever(s) and Denies night sweats Eyes: Eyes: Reports no additional eye complaints, Denies blurry vision, Denies change in vision, Denies diplopia, Denies eye discharge, Denies loss of vision and Denies eye pain ENT: Denies dizziness Cardiovascular: Cardiovascular: Reports no additional cardiovascular complaints, Reports chest pain, Denies lightheadedness, Denies Loss of Consciousness and Reports dyspnea Respiratory: Respiratory: Reports no additional respiratory complaints and Reports dyspnea Gastrointestinal: Gastrointestinal: Reports no additional gastrointestinal complaints, Denies abdominal pain, Denies melena, Denies hematochezia, Denies change in bowel habits and Denies change in stool character Genitourinary: Genitourinary: Denies hematuria, Denies urinary frequency, Denies dysuria, Denies urinary incontinence, Denies urinary hesitancy and Denies urinary urgency Musculoskeletal: Musculoskeletal: Reports no additional musculoskeletal complaints, Denies numbness and Denies tingling Neurologic: Denies dizziness, Denies loss of vision, Denies numbness and Denies tingling Psychiatric: Psychiatric: Reports no additional psychiatric complaints Endocrine: Endocrine: Reports no additional endocrine complaints Hematologic/Lymphatic: Hematologic/Lymphatic: Reports no additional hematologic/lymphatic complaints Allergic/Immunologic: Allergic/Immunologic: Reports no additional allergic/immunologic complaints PMFSH Past Medical History Attestation statement: The following information was validated with the patient. Source: old records reviewed and nursing notes reviewed Medical History Migraines Depressed POTS (postural orthostatic tachycardia syndrome) Surgical History H/O: hysterectomy Family History Family History (Updated 09/07/24 @ 11:00 by Kaz Rachel MD) Mother Bladder cancer Father Diabetes ALS (amyotrophic lateral sclerosis) Social History Social History Alcohol intake: unknown Smoked in Last 30 Days: No Use of substances other than those prescribed or required for medical reasons: No Advance Directives: No Advance Directives Information Provided: No Do you have a plan to hurt others: No Plan Patient : No Physical Exam 2 Vital Signs: Vital Signs: Last Vital Signs Temp 98.0 F 09/07/24 06:12 Pulse 119 H 09/07/24 11:08 Resp 22 H 09/07/24 11:08 BP 109/73 09/07/24 11:08 Pulse Ox 95 09/07/24 11:08 O2 Del Method BiPAP 09/07/24 11:08 O2 Flow Rate 40 09/07/24 10:42 FiO2 40 09/07/24 09:47 BMI result Body Mass Index 33.5 Const: General: cooperative, no acute distress, alert and awake Nutritional Appearance: well nourished Orientation/consciousness: patient oriented x3 Limitations: no limitations HEENT: Head: Yes normal to inspection and Yes atraumatic Ears: hearing grossly normal bilaterally and external ears normal General nose exam: Normal external nose present, no nasal discharge noted and no epistaxis Face and sinus: Yes normal facial exam, No abrasion and No laceration Mouth: Normal oral and palatal mucosa present, no drooling and no muffled voice Eyes: General: appearance normal, both eyes and all related structures P eriorbital: periorbital findings normal Eyelids: Yes eyelids normal C onjunctivae: conjunctivae normal Pupils: Equal, round and reactive pupils present EOM: EOMs intact bilaterally Neck: Neck: Yes normal visual inspection, Yes full ROM and Yes no lymphadenopathy Chest: Chest palpation & inspection: normal inspection of the chest Resp: Effort & Inspection: normal respiratory effort and able to speak in complete sentences Auscultation: clear to auscultation bilaterally Cardio: Rate: tachycardic Rhythm: regular rhythm GI: Inspection: Yes normal to inspection Neuro: General: patient oriented x3 and moves all extremities Cranial nerves: Yes Equal, round and reactive pupils present Cognition (Neuro): n ormal cognition Extrem: General: Yes normal to inspection, Yes full ROM and Yes capillary refill normal Psych: Appearance: grossly normal Mental Status: mental status grossly normal Affect: normal affect Attitude: cooperative Thought process: N ormal thought process present Thought content: Normal thought content present Insight: Good insight present (Psych) Medications Administered Generic Name Dose Route Start Last Admin Trade Name Freq PRN Reason Stop Dose Admin Heparin Sodium/Sodium Chloride 25,000 unit in 250 mls @ 0 mls/hr 09/07/24 09:30 09/07/24 10:15 Heparin Sodium,Porcine/1/2ns IVCONT 11.64 units/kg/hr .Q0M LOLY 10 mls/hr Administration Protocol Per Protocol Nitroglycerin/Dextrose 100 mg in 250 mls @ 0 mls/hr 09/07/24 10:00 09/07/24 10:33 Nitroglycerin/D5w IVCONT 20 mcg/min .Q0M LOLY 3 mls/hr Administration Protocol Per Protocol Discontinued Medications Generic Name Dose Route Start Last Admin Trade Name Freq PRN Reason Stop Dose Admin Aspirin 324 mg 09/07/24 09:20 09/07/24 09:27 Aspirin 81 Mg Tab.Chew PO 09/07/24 09:21 324 mg ONCE ONE Administration Fentanyl 50 mcg 09/07/24 08:22 09/07/24 08:33 Fentanyl Citrate/Pf 100 Mcg/2 Ml Vial IVPUSH 09/07/24 08:23 50 mcg ONCE ONE Administration Protocol Furosemide 20 mg 09/07/24 09:00 09/07/24 09:03 Furosemide 20 Mg/2 Ml Vial IVPUSH 09/07/24 09:01 20 mg ONCE ONE Administration Protocol Furosemide 20 mg 09/07/24 09:04 09/07/24 09:12 Furosemide 20 Mg/2 Ml Vial IVPUSH 09/07/24 09:05 20 mg ONCE ONE Administration Protocol Furosemide 40 mg 09/07/24 09:54 09/07/24 10:28 Furosemide 40 Mg/4 Ml Vial IVPUSH 09/07/24 09:55 40 mg ONCE ONE Administration Protocol Heparin Sodium (Porcine) 4,000 unit 09/07/24 09:20 09/07/24 10:13 Heparin Sodium,Porcine 5,000 Unit/Ml Vial IVPUSH 09/07/24 09:21 4,000 unit ONCE ONE Administration Sodium Chloride 1,000 mls @ 999 mls/hr 09/07/24 07:00 09/07/24 09:02 Ns IV 09/07/24 08:00 Infused .Q1H1M LOLY Infusion Iohexol 100 ml 09/07/24 08:16 09/07/24 08:16 Iohexol 350 Mg/Ml 100 Ml Infus..Btl IV 09/07/24 08:17 65 ml ONCE ONE Administration Lorazepam 0.5 mg 09/07/24 10:38 09/07/24 10:40 Lorazepam 2 Mg/Ml Vial IVPUSH 09/07/24 10:39 0.5 mg ONCE ONE Administration Lorazepam 0.5 mg 09/07/24 10:47 09/07/24 10:53 Lorazepam 2 Mg/Ml Vial IVPUSH 09/07/24 10:48 0.5 mg STAT STA Administration Morphine Sulfate 2 mg 09/07/24 09:05 09/07/24 09:11 Morphine Sulfate 2 Mg/Ml Cartridge IVPUSH 09/07/24 09:06 2 mg ONCE ONE Administration Protocol Morphine Sulfate 4 mg 09/07/24 09:51 09/07/24 09:56 Morphine Sulfate 4 Mg/Ml Cartridge IVPUSH 09/07/24 09:52 4 mg ONCE ONE Administration Protocol Nitroglycerin 1 inch 09/07/24 09:15 09/07/24 09:22 Nitroglycerin 2 % Oint 1 Gm Packet TRANSDERMA 09/07/24 09:16 1 inch ONCE ONE Administration Medical Decision Making Medical Decision Making [facility] Narrative: Patient is a 49 year old assigned female at with a history of cardiomyopathy and POTS for which she 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 Patient's initial physical exam showed tachycardia. Patient's blood work showed an initial trop of 51 with a first repeat of 58.2 and second repeat of 53.4 with a BNP of 384. The rest of the patient's blood work was unremarkable. Patient's urine showed no acute process. Patient's initial EKG showed sinus tachycardia. Patient's repeat EKG showed the same. Patient's chest x-ray showed evidence of interstitial edema. Patient's CT PE study showed pulmonary edema, scattered areas of mucous plugging in the lower lobes and a 1.4cm splenic artery aneurysm. While in the department the patient began to have increased work of breathing and chest pain. Patient was given IV fentanyl, morphine, lasix, nitro paste, and a nitro drip. Patient continued to have chest pain and increased shortness of breath. Patient was placed on CPAP and then adjusted to BiPaP. I spoke with the exterminator helper, Dr. Rachel who recommended a state echo and transfer to [facility]. Patient's echo showed severe left ventricular dysfunction. Dr. Rachel arranged acceptance of the patient at the [facility] CCU by Dr. Medina. I explained my physical exam findings as well as all test results to the patient and the patient's . I answered all questions asked by the patient and the patient's . Patient and the patient's verbalized agreement and understanding with this treatment plan and transfer to [facility]. Differential Diagnosis Differential Diagnoses: The differential diagnosis associated with the presentation includes Heart failure Congestive heart failure Severe ventricular dysfunction Shortness of breath NSTEMI STEMI Admission/Observation Consideration of admission/observation: Escalation of care including admission/observation considered Patient transferred to [facility] CCU. 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 My interpretation of these results are in the MDM Rationale portion of this note. 09/07/24 06:32 09/07/24 06:32 Labs: Lab Results 09/07/24 09/07/24 09/07/24 Range/Units 06:32 07:54 09:40 WBC 9.5 (4.8-10.8) X10*3/uL RBC 4.18 L (4.20-5.50) X10*6/uL Hgb 12.6 (12.0-16.0) g/dl Hct 37.8 (37.0-47.0) % MCV 90.4 (80.0-98.0) fL MCH 30.1 (27.0-33.0) pg MCHC 33.3 (31.0-35.0) g/dl RDW 14.3 (11.0-16.0) % Plt Count 285 (160-400) X10*3/uL MPV 8.8 L (9.4-12.3) fL Immature Gran % (Auto) 0.3 (0.0-0.4) % Neut % (Auto) 70.0 (45-73) % Lymph % (Auto) 22.1 (20-40) % [place] % (Auto) 5.6 (2-11) % Eos % (Auto) 1.5 (0-4) % Baso % (Auto) 0.5 (0-2) % Lymph # (Auto) 2.1 (1.2-4.9) X10*3/uL [place] # (Auto) 0.5 (0.1-1.2) X10*3/uL Eos # (Auto) 0.1 (0.0-0.4) X10*3/uL Baso # (Auto) 0.1 (0.0-0.2) X10*3/uL Abs Immat Gran (auto) 0.03 (0.00-0.03) X10*3/uL Absolute Neuts (auto) 6.7 (2.0-8.3) x10*3/uL Absolute Nucleated RBC 0.000 (0.0-0.012) X10*3/uL Nucleated RBC % (auto) 0.0 (0.0-0.2) /100WBC PT 10.5 L (10.9-12.4) SEC INR 0.9 (0.9-1.1) APTT 30.0 (26.0-36.8) SEC aPTT Heparin Protocol 29.1 L (53-77.9) SEC Sodium 140 (135-145) mmol/L Potassium 4.1 (3.3-5.1) mmol/L Chloride 106 (96-108) mmol/L Carbon Dioxide 24 (22-29) mmol/L Anion Gap 14 (12-20) BUN 14 (9-16) mg/dL Creatinine 0.95 (0.5-1.4) mg/dL Estim Creat Clear Calc 72.8 Estimated GFR > 60 Random Glucose 121 H (60-115) mg/dL Calcium 9.2 (8.4-10.2) mg/dL Magnesium 1.8 (1.6-2.6) mg/dL Total Bilirubin 0.4 (0.0-1.0) mg/dL Direct Bilirubin 0.1 (0.0-0.5) mg/dL AST 21 (5-31) U/L ALT 20 (0-31) U/L Alkaline Phosphatase 153 H (39-117) U/L Troponin I High Sens 51.0 H* D 58.2 H* 53.4 H* (<3.5-17.0) ng/L B-Natriuretic Peptide 384 H (<100) pg/mL Total Protein 6.9 (6.5-8.0) g/dL Albumin 3.6 (3.5-5.0) g/dL Lipase 26 (8-78) U/L Urine Color Yellow Urine Appearance Clear Urine pH 6.0 (5.0-9.0) Ur Specific [place] 1.015 (1.005-1.025) Urine Protein Negative (Neg-Trace) mg/dL Urine Glucose (UA) Negative (Negative) mg/dL Urine Ketones Negative (Negative) mg/dL Urine Blood Negative (Negative) Urine Nitrite Negative (Negative) Ur Leukocyte Esterase Negative (Negative) Urine Test NEGATIVE (NEGATIVE) Influenza Type A (PCR) NEGATIVE (Negative) Influenza Type B (PCR) NEGATIVE (Negative) RSV RNA Qual (PCR) NEGATIVE (Negative) SARS-CoV-2 RNA (RT-PCR) NEGATIVE (Negative) Independent Interpretation I performed an independent interpretation of an: EKG, Plain X-Ray and CT Scan Interpretation: My interpretation is in agreement with the radiologist's impression of these imaging studies. L EXAMINATION: XR CHEST CLINICAL INFORMATION: Chest pain, shortness of breath COMPARISON: Chest radiograph 01/29/2013 TECHNIQUE: Frontal view of the chest was obtained. FINDINGS: The lungs are well-expanded. There is bilateral interstitial prominence. Patchy opacities in the right lung base. Small right pleural effusion better evaluated on CT performed on the same date. Stable chronic blunting of the left costophrenic angle. No pneumothorax. The cardiac silhouette is mildly prominent. Degenerative changes of the visualized spine. Cervical spine fusion hardware. XR/XR chest 1V IMPRESSION: Bilateral interstitial prominence which can be seen with mild interstitial edema. Patchy opacities in the right lung base which may represent atelectasis or developing infectious/inflammatory process. Electronically signed by: Heber Isaac MD 09/07/2024 08:46 AM EDT Dictated By: Heber Isaac Signed By: Electronically signed by Heber Isaac 09/07/24 0846 EXAMINATION: CT ANGIOGRAM CHEST CLINICAL INFORMATION: Hypoxia, tachycardia, chest pain COMPARISON: Chest radiograph performed on the same date. TECHNIQUE: Multiple axial images were obtained through the chest after the administration of 65 mL of Omnipaque 350 intravenous contrast. Extensive vascular post- processing including two-dimensional and three-dimensional reformatted images were created and reviewed on an independent workstation. This CT examination was performed using dose optimization techniques as appropriate, variously including the following: *Automated exposure control *Adjustment of mA and/or kV according to patient size (this includes techniques or standardized protocols for targeted exams where dose is matched to indication/reason for exam; i.e. extremities or head) *Use of iterative reconstruction technique DLP: 371 mGy-cm FINDINGS: QUALITY OF STUDY/CONTRAST BOLUS: Satisfactory. PULMONARY ARTERIES: No central or segmental pulmonary emboli. THORACIC AORTA: No aneurysm. LUNG: Evaluation of lung parenchyma is slightly limited due to motion. Central airways are patent. There is bilateral bronchial wall thickening with scattered areas of mucus plugging in the lower lobes. There is bilateral smooth interlobular septal thickening most pronounced within the upper lobes. Patchy groundglass opacities, most pronounced within the right middle and lower lobes. Bibasilar atelectasis. PLEURA: Small right pleural effusion. No significant left-sided pleural effusion. MEDIASTINUM: Heart is mildly enlarged.No pericardial effusion.No hilar or mediastinal lymphadenopathy. No evidence of septal bowing or right heart strain. CORONARY ARTERY CALCIFICATION: None visualized on this study. CHEST WALL/AXILLA: No axillary or internal mammary lymphadenopathy. OSSEOUS STRUCTURES: No acute or suspicious osseous abnormality. Degenerative changes of the visualized spine. UPPER ABDOMEN: Unremarkable. No reflux of contrast into the hepatic veins to suggest elevated right heart pressures. There is a 1.4 cm well-circumscribed enhancing lesion seen in relation to distal splenic artery likely representing splenic artery aneurysm., 19:34 CT/CT angio chest PE protocol IMPRESSION: 1. No central or segmental pulmonary emboli. 2. Bilateral smooth interlobular septal thickening with patchy groundglass opacities most pronounced within the right middle and lower lobes. Findings may represent pulmonary edema. Although superimposed infectious or inflammatory proces is not excluded. Short-term follow-up can be considered to assess for resolution. 3. Bilateral bronchial wall thickening with scattered areas of mucous plugging within the lower lobes. 4. 1.4 cm splenic artery aneurysm. VTE: negative Electronically signed by: Heber Isaac MD 09/07/2024 09:14 AM EDT Dictated By: Heber Isaac Signed By: Electronically signed by Heber Isaac 09/07/24 0914 Vent. Rate: 126 BPM Atrial Rate: 126 BPM P-R Int: 136 ms QRS Dur: 080 ms QT Int: 332 ms P-R-T Axes: -01 011 003 degrees QTc Int: 480 ms Sinus tachycardia with Fusion complexes Nonspecific ST and T wave abnormality Abnormal ECG When compared with ECG of 13-JUL-2024 20:10, Fusion complexes are now Present DD/ [id number] Vent. Rate: 133 BPM Atrial Rate: 133 BPM P-R Int: 126 ms QRS Dur: 078 ms QT Int: 306 ms P-R-T Axes: 071 057 074 degrees QTc Int: 455 ms Sinus tachycardia Left atrial enlargement Nonspecific ST and T wave abnormality Abnormal ECG When compared with ECG of 07-SEP-2024 06:08, Fusion complexes are no longer Present Nonspecific T wave abnormality no longer evident in Inferior leads DD/ [id number] Radiology Impression Discussion of test interpretation with radiology: I have reviewed the radiologist's reading. Critical Care Time Critical Care Time Critical Care Time: Yes Total Critical Care Time: 67 Attestation: I spent 67 minutes of Critical Care Time with this patient. This does not include time spent on separately reported billable procedures. Discharge Plan Discharge Clinical Impression: Acute pulmonary edema, Acute systolic (congestive) heart failure Patient Disposition: [facility] Transfer Details: [facility] CCU, accepted by Dr. Medina Prescriptions: No Action dicyclomine 10 mg capsule 10 mg PO BID Qty: 20 0RF oxycodone 5 mg tablet 5 mg PO Q6H PRN (Reason: pain) Qty: 20 0RF Rx Instructions: Partial Fill upon patient request. cyclobenzaprine 10 mg tablet 10 mg PO Q8H Qty: 20 0RF Print Language: Arabic
[2024-09-07 06:51] LABS: Anion Gap 14 (12-20); Blood Urea Nitrogen 14 mg/dL (9-16); Calcium 9.2 mg/dL (8.4-10.2); Carbon Dioxide 24 mmol/L (22-29); Chloride 106 mmol/L (96-108); Creatinine Clr Calc Pharmacy 72.8; Estimated Glomerular Filt Rate > 60; Glucose Random 121 mg/dL (60-115); Potassium 4.1 mmol/L (3.3-5.1); Sodium 140 mmol/L (135-145)
--- NOTE | 2024-09-07 06:55 | PC.NURSE ---
report given to Cris GONZALEZ
--- NOTE | 2024-09-07 07:00 | CA_ITS ---
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 - The left ventricular systolic function is severely decreased. The visually estimated ejection fraction is <10%. - No obvious valvular pathology seen on this study. Findings Left Ventricle Moderately increased left ventricular cavity size. There is normal left ventricular wall thickness. The left ventricular systolic function is severely decreased. The visually estimated ejection fraction is <10%. There is severe global hypokinesis. Diastolic function is indeterminate on the basis of available data. Right Ventricle Normal right ventricular cavity size and systolic function. Atria The left atrium is normal in size. The right atrium is normal in size. Aortic Valve The aortic valve was not well visualized. There is no aortic valve stenosis. There is no aortic valve regurgitation. Mitral Valve The mitral valve appears normal. There is no mitral valve regurgitation. There is no mitral valve stenosis. Pulmonic Valve The pulmonic valve is likely normal. Tricuspid Valve There is trace tricuspid valve regurgitation. There is no evidence of pulmonary hypertension. Great Vessels The asc aorta is normal in size. Venous The inferior vena cava is normal in size and collapses greater than 50% with inspiration. Pericardium/Pleural There is a trivial pericardial effusion. Prior Study Comparison No prior study available for comparison. Recommendations, Care & Conclusions No obvious valvular pathology seen on this study. Measurements 2D Linear Measurements IVSd: 0.92 0.6-0.9/0.6-1.0 cm LVIDd: 6.03 3.9-5.3/4.2-5.9 cm LVIDd Index: 3.19 2.4-3.2/2.2-3.1 cm/m2 LVIDs: 5.32 2.0-3.6 cm LVPWd: 0.87 0.7-1.1 cm LA Diam: 2.60 2.7-3.8/3.0-4.0 cm LAIDs Index: 1.38 1.5-2.3 cm/m2 LV Mass: 268.74 67-162/88-224 g LV Mass Index: 142.19 43-95/49-115 g/m2 LVOT Diam: 1.90 3.0+(-)1.3 cm Mitral Valve MV Pk E: 1.06 MV Decel Time: 103.00 E'Lateral: 10.20 E'Medial: 10.00 E/E' Med: 10.60 E/E' Lat: 10.40 Aortic Valve AoV Pk Kapil: 1.18 AoV Mn Kapil: 0.86 AoV VTI: 0.18 AoV Pk Grad: 6.00 Aov Mn Grad: 3.00 MIKE Cont.VTI: 1.53 LVOT LVOT Pk Kapil: 0.61 LVOT Mn Kapil: 0.41 LVOT VTI: 0.10 LVOT Pk Grad: 2.00 LVOT Mn Grad: 1.00 LVOT Diam: 1.90 LVOT Area: 2.84 Diastolic Function MV Pk E: 1.06 E'Medial: 10.00 E/E' Med: 10.60 E' Laterial: 10.20 E/E' Lat: 10.40 Right Ventricle TAPSE (mm): 25.00 TVS' Kapil: 11.00 Tricuspid Valve TR Pk Kapil: 1.66 TR Pk Grad: 11.00 RA Press: 3.00 RVSP: 14.00 Pulmonary Valve PV Pk Kapil: 0.79 Peak PV Grad: 2.00 Updated in Other Vendor System with Status of Final Kaz Rachel MD electronically signed on 09/07/2024 12:17:50 PM with status of Final
[2024-09-07 08:08] LABS: Appearance Urine Clear; Color Urine Yellow; Glucose Urine UA Negative (Negative); Leukocyte Esterase Urine Negative (Negative); Nitrite Urine Negative (Negative); Specific Gravity - Urine 1.015 (1.005-1.025); Urine Blood Negative (Negative); Urine Ketones Negative (Negative); Urine Protein Negative (Neg-Trace)
[2024-09-07 08:09] LABS: UPreg QC Valid YES; Urine Pregnancy NEGATIVE (NEGATIVE)
[2024-09-07 08:16] LABS: INTERNATIONAL NORM RATIO 0.9 (0.9-1.1); Prothrombin Time 10.5 SEC (10.9-12.4)
[2024-09-07] MEDS: iohexoL 350 MG/ML 100 ML INFUS..BTL IV (08:16)
[2024-09-07] MEDS: 0.9 % Sodium Chloride 1,000 ML 999 ML IV (08:18)
[2024-09-07 08:32] LABS: Troponin-I High Sensitivity 58.2 ng/L (<3.5-17.0)
[2024-09-07] MEDS: fentaNYL citrate/PF 100 MCG/2 ML VIAL 50 MCG IVPUSH (08:33)
--- NOTE | 2024-09-07 08:40 | ECG_ITS ---
Test Reason : repeat ekg Blood Pressure : / mmHG Vent. Rate : 133 BPM Atrial Rate : 133 BPM P-R Int : 126 ms QRS Dur : 078 ms QT Int : 306 ms P-R-T Axes : 071 057 074 degrees QTc Int : 455 ms Sinus tachycardia Left atrial enlargement Nonspecific ST and T wave abnormality Abnormal ECG When compared with ECG of 07-SEP-2024 06:08, Premature ventricular complexes not present Referred By: Soha Garrett Electronically Signed By:MANUEL MCGUIRE
[2024-09-07 08:50] LABS: Influenza A PCR NEGATIVE (Negative); Influenza B PCR NEGATIVE (Negative); Resp Syncy Virus RNA Qual PCR NEGATIVE (Negative); SARS COV2 PCR INHOUSE NEGATIVE (Negative)
[2024-09-07 08:52] LABS: Alanine Aminotransferase 20 U/L (0-31); Albumin Level 3.6 g/dL (3.5-5.0); Alkaline Phosphatase 153 U/L (39-117); Aspartate Amino Transferase 21 U/L (5-31); Bilirubin Direct 0.1 mg/dL (0.0-0.5); Bilirubin Total 0.4 mg/dL (0.0-1.0); Lipase 26 U/L (8-78); Magnesium 1.8 mg/dL (1.6-2.6); Total Protein 6.9 g/dL (6.5-8.0)
--- NOTE | 2024-09-07 08:55 | PC.NURSE ---
Pt presents to ED with sharp chest pains and chest pressure since tuesday worsening, substernal with radiation to left chest. Along with SOB and general malaise. Alert and oriented, breathing labored and elevated, skin clammy. Sinus tach on bedisde monitor.
[2024-09-07] MEDS: Furosemide 20 MG/2 ML VIAL IVPUSH ×2 (09:03→09:12)
--- NOTE | 2024-09-07 09:07 | PC.NURSE ---
Pt had sudden increase in SOB and hypoxia to 87-88% RA, slowly titrated up on O2 until reached 12L Oxy aashish 94-95% and sat upright. RT called, aware
[2024-09-07] MEDS: Morphine Sulfate 2 MG/ML CARTRIDGE IVPUSH (09:11)
[2024-09-07] MEDS: Nitroglycerin 2 % Oint 1 GM Packet 1 INCH TRANSDERMA (09:22)
[2024-09-07 09:27] LABS: B Type Natriuretic Peptide 384 pg/mL (<100)
[2024-09-07] MEDS: Aspirin 81 MG TAB.CHEW 324 MG PO (09:27)
--- NOTE | 2024-09-07 09:36 | PC.NURSE ---
CPAP started by RT, 10 PEEP, 40%, pt tolerated well
--- NOTE | 2024-09-07 09:54 | P.CONCA_ITS ---
History of Present Illness History of Present Illness Date of Service: 09/07/24 Chief complaint: SOB Chest Pain Narrative: This is a cardiology consultation regarding chest pain and shortness of breath. Last seen at [facility], Dr. Kaur 2018. She carries a diagnosis of nonischemic cardiomyopathy and POTS. Per outpatient notes, LVEF in 2010 was around 35-40% and thought to be nonischemic cardiomyopathy as patient had no angina. Her LVEF at different times have apparently range from 35-60%. It does not appear that she is actually on any guideline based medical therapy due to coexisting cardiomyopathy/POTS as well as recovered LVEF. Patient states that for the last 2 days, she is having pain across the front of the chest as well as shortness of breath. This has been somewhat persistent and she presented to the ER. She has been in distress, hypoxic and had to be put on BiPAP. Also hypertensive. We were asked to assess her for further evaluation. Patient states that till 2 days ago she was actually doing fine and did not have any specific concerns. She was functional without any major limitations. She is on the BiPAP and hence history is somewhat limited as she cannot talk appropriately. Review of Systems 2 Review of Systems: Yes all other systems are reviewed and are negative Constitutional: Constitutional: Reports as per HPI and Reports no additional constitutional complaints Eyes: Eyes: Reports as per HPI and Denies no additional eye complaints ENT: Denies system reviewed and no additional complaints, except as documented and Reports as per HPI Cardiovascular: Cardiovascular: Reports as per HPI, Reports no additional cardiovascular complaints, Denies acrocyanosis, Denies cool extremities, Reports chest pain, Denies leg edema, Denies lightheadedness, Denies palpitations and Reports dyspnea Respiratory: Respiratory: Reports as per HPI, Denies no additional respiratory complaints and Reports dyspnea Gastrointestinal: Gastrointestinal: Reports as per HPI and Denies no additional gastrointestinal complaints Genitourinary: Genitourinary: Reports as per HPI Musculoskeletal: Musculoskeletal: Reports no additional musculoskeletal complaints and Reports as per HPI Integumentary/Breasts: Skin/Breast: Reports system reviewed and no additional complaints, except as docu Neurologic: Reports system reviewed and no additional complaints, except as documented and Reports as per HPI Psychiatric: Psychiatric: Reports no additional psychiatric complaints and Reports as per HPI Endocrine: Endocrine: Reports no additional endocrine complaints, Reports as per HPI and Denies palpitations Hematologic/Lymphatic: Hematologic/Lymphatic: Reports no additional hematologic/lymphatic complaints and Reports as per HPI Allergic/Immunologic: Allergic/Immunologic: Reports no additional allergic/immunologic complaints and Reports as per HPI [facility] Past Medical History Medical History Migraines Depressed POTS (postural orthostatic tachycardia syndrome) Family History Family History (Updated 09/07/24 @ 11:00 by Kaz Rachel MD) Mother Bladder cancer Father Diabetes ALS (amyotrophic lateral sclerosis) Surgical History Surgical History H/O: hysterectomy Social History Social History Alcohol intake: unknown Smoked in Last 30 Days: No Use of substances other than those prescribed or required for medical reasons: No Advance Directives: No Advance Directives Information Provided: No Do you have a plan to hurt others: No Plan Patient : No Meds Allergies Allergy/AdvReac Type Severity Reaction Status Date / Time No Known Allergies Allergy Verified 09/07/24 06:13 Active Medications: Current Medications Heparin Sodium (Porcine) (Heparin Sodium,Porcine 5,000 Unit/Ml Vial) 3,400 unit 40 unit/kg (3400 unit) IVPUSH PROTOCOL BOLUS PRN; Protocol PRN Reason: 40 unit/kg - Heparin Protocol Heparin Sodium (Porcine) (Heparin Sodium,Porcine 5,000 Unit/Ml Vial) 6,900 unit 80 unit/kg (6900 unit) IVPUSH PROTOCOL BOLUS PRN; Protocol PRN Reason: 80 unit/kg - Heparin Protocol Heparin Sodium/Sodium Chloride (Heparin Sodium,Porcine/1/2ns) 25,000 unit in 250 mls @ 0 mls/hr IVCONT .Q0M LOLY; Protocol Nitroglycerin/Dextrose (Nitroglycerin/D5w) 100 mg in 250 mls @ 0 mls/hr IVCONT .Q0M LOLY; Protocol Physical Exam 2 Vital Signs: Vital Signs: Last Vital Signs Temp 98.0 F 09/07/24 06:12 Pulse 125 H 09/07/24 09:47 Resp 25 H 09/07/24 09:47 BP 147/89 H 09/07/24 09:47 Pulse Ox 95 09/07/24 09:47 O2 Del Method CPAP 09/07/24 09:47 O2 Flow Rate 12 09/07/24 09:00 FiO2 40 09/07/24 09:47 BMI result Body Mass Index 33.5 Const: General: in distress and ill appearing Orientation/consciousness: p atient oriented x3 HEENT: Other: Unremarkable Head: Yes normal to inspection Neck: Neck: Yes normal visual inspection Chest: Chest palpation & inspection: normal inspection of the chest Resp: Auscultation: crackles, rhonchi and diminished lung sounds Cardio: Palpation: normal PMI Heart sounds: S1 normal heart sound present, S2 normal heart sound present, no gallops, no murmurs and no rubs GI: Palpation (GI): Soft to palpation Back/Spine/Pelvis: Other: unremarkable Skin: General skin exam: no rashes or lesions noted Neuro: General: patient oriented x3 Extrem: General: Yes normal to inspection Psych: Mental Status: mental status grossly normal Objective Labs and Meds 09/07/24 06:32 09/07/24 06:32 Lab results: Laboratory Results - last 24 hr 09/07/24 09/07/24 06:32 07:54 WBC 9.5 RBC 4.18 L Hgb 12.6 Hct 37.8 MCV 90.4 MCH 30.1 MCHC 33.3 RDW 14.3 Plt Count 285 MPV 8.8 L Immature Gran % (Auto) 0.3 Neut % (Auto) 70.0 Lymph % (Auto) 22.1 Coffee % (Auto) 5.6 Eos % (Auto) 1.5 Baso % (Auto) 0.5 Lymph # (Auto) 2.1 Coffee # (Auto) 0.5 Eos # (Auto) 0.1 Baso # (Auto) 0.1 Abs Immat Gran (auto) 0.03 Absolute Neuts (auto) 6.7 Absolute Nucleated RBC 0.000 Nucleated RBC % (auto) 0.0 PT 10.5 L INR 0.9 APTT 30.0 Sodium 140 Potassium 4.1 Chloride 106 Carbon Dioxide 24 Anion Gap 14 BUN 14 Creatinine 0.95 Estim Creat Clear Calc 72.8 Estimated GFR > 60 Random Glucose 121 H Calcium 9.2 Magnesium 1.8 Total Bilirubin 0.4 Direct Bilirubin 0.1 AST 21 ALT 20 Alkaline Phosphatase 153 H Troponin I High Sens 51.0 H* D 58.2 H* B-Natriuretic Peptide 384 H Total Protein 6.9 Albumin 3.6 Lipase 26 Urine Color Yellow Urine Appearance Clear Urine pH 6.0 Ur Specific [place] 1.015 Urine Protein Negative Urine Glucose (UA) Negative Urine Ketones Negative Urine Blood Negative Urine Nitrite Negative Ur Leukocyte Esterase Negative Urine Test NEGATIVE Influenza Type A (PCR) NEGATIVE Influenza Type B (PCR) NEGATIVE RSV RNA Qual (PCR) NEGATIVE SARS-CoV-2 RNA (RT-PCR) NEGATIVE ECG Interpretation: EKG shows sinus tachycardia at 01:26/Min; nonspecific ST-T changes; normal TN and corrected QT. Imaging Radiologist's impression: Impressions Chest X-Ray 09/07/24 06:17 IMPRESSION: Bilateral interstitial prominence which can be seen with mild interstitial edema. Patchy opacities in the right lung base which may represent atelectasis or developing infectious/inflammatory process. Electronically signed by: Heber Isaac MD 09/07/2024 08:46 AM EDT RP Chest CTA 09/07/24 08:07 IMPRESSION: 1. No central or segmental pulmonary emboli. 2. Bilateral smooth interlobular septal thickening with patchy groundglass opacities most pronounced within the right middle and lower lobes. Findings may represent pulmonary edema. Although superimposed infectious or inflammatory proces is not excluded. Short-term follow-up can be considered to assess for resolution. 3. Bilateral bronchial wall thickening with scattered areas of mucous plugging within the lower lobes. 4. 1.4 cm splenic artery aneurysm. VTE: negative Electronically signed by: Heber Isaac MD 09/07/2024 09:14 AM EDT RP Assessment and Plan (1) Acute systolic (congestive) heart failure: Status: Acute (2) Acute pulmonary edema: Status: Acute Plan High sensitivity troponin levels are 51, 58 and 53. Cardiac BNP is 384. Chest x-ray/CT scan shows bilateral pulmonary infiltrates. Bedside echocardiogram with severe LV dysfunction. Overall, acute systolic heart failure/pulmonary edema. Troponin elevation could be just from heart failure itself. Less likely this is ACS. At the current time, continue BiPAP. If respiratory status worsens, consider intubation. For medications, diuretics. IV Lasix boluses and if necessary start IV drip. IV morphine. Nitroglycerin drip. Discussed with CCU attending, Dr. Medina at [facility]. Accepted for transfer. Discussed with ER team as well. Procedures Date of Service Date of Service: 09/07/24
[2024-09-07] MEDS: Morphine Sulfate 4 MG/ML CARTRIDGE IVPUSH (09:56)
[2024-09-07 10:08] LABS: PTT Heparin Drip 29.1 SEC (53-77.9)
[2024-09-07] MEDS: Heparin Sodium,Porcine 5,000 UNIT/ML VIAL 4000 UNIT IVPUSH (10:13)
[2024-09-07] MEDS: Heparin Sodium,Porcine/1/2NS 25,000 UNIT/250 ML IV.SOLN 10 UNIT IVCONT (10:15)
--- NOTE | 2024-09-07 10:20 | PC.NURSE ---
Heparin drip started per protocol, 2 RNs verifying
[2024-09-07 10:28] LABS: Troponin-I High Sensitivity 53.4 ng/L (<3.5-17.0)
[2024-09-07] MEDS: Furosemide 40 MG/4 ML VIAL IVPUSH (10:28)
[2024-09-07] MEDS: Nitroglycerin/D5W 100 MG/250 ML INFUS..BTL IVCONT (10:33)
[2024-09-07] MEDS: LORazepam 2 MG/ML VIAL 0.5 MG IVPUSH ×3 (10:40→12:39)
--- NOTE | 2024-09-07 10:47 | PC.NURSE ---
RT changed resp to BIPAP, 12/, 40%
--- NOTE | 2024-09-07 11:08 | PC.NURSE ---
Pt having improvements with breathing post-ativan and BIPAP
--- NOTE | 2024-09-07 11:09 | PC.NURSE ---
LATE ENTRY: per ED MD and [employer]ia[employer]er, start nitro drip even tho BP is below threshold. VERBAL ORDERS, 2 RNS CONFIRMED. Nitro drip was started per MAR
--- NOTE | 2024-09-07 11:47 | PC.NURSE ---
Verbal report given to Aleksandra RN at [facility]
[2024-09-07 12:35] LABS: ABG Base Excess 2.6 mmol/L; ABG HCO3 26 mmol/L (22-26); ABG pCO2 37 mmHg (32-45); ABG pH 7.45 (7.35-7.45); ABG pO2 118 mmHg (83-108)
--- NOTE | 2024-09-07 12:56 | PC.NURSE ---
total of 1400 cc output of urine since lasix.
== END 2024-09-07 12:58 | disposition short-term general hospital (02) ==
PROVIDERS: Physician Assistant Medical; Emergency Provider Emergency Medicine; PCP Internal Medicine
DX: I50.21 Acute systolic (congestive) heart failure (principal); J81.0 Acute pulmonary edema; R07.9 Chest pain, unspecified; R06.02 Shortness of breath; G90.A Postural orthostatic tachycardia syndrome [POTS]; Z03.818 Encounter for observation for suspected exposure to other biological agents ruled out; Z79.899 Other long term (current) drug therapy
CPT/HCPCS: 0241U; 36415; 71045; 71275; 80048; 80076; 81003; 81025; 82803; 83690; 83735; 83880; 84484; 85025; 85610; 85730; 93005; 93306; 96361; 96374; 96375; 96376; 99285; J1644; J1940; J2060; J2270; J2305; J3010; Q9957; Q9967

== ENCOUNTER → 2024-09-07 06:41 | Outpatient (BNV) | payer MEDICARE, MEDICAID, SELFPAY | PROVIDERS: Emergency Provider Emergency Medicine; PCP Internal Medicine; Visit Provider Internal Medicine | DX: I50.21 Acute systolic (congestive) heart failure (principal); J81.0 Acute pulmonary edema | CPT/HCPCS: 93010; 93306; 99291 ==

== ENCOUNTER 2025-07-08 13:38 | Outpatient (AMB) | payer MEDICARE, MEDICAID, SELFPAY ==
--- OUTSIDE RECORDS SUMMARY | 2025-07-08 14:32 | XMS_ITS ---
Author Name [facility] Organization Unknown Care Team Organization Name Specialty Phone Email Start Date End Da te [facility] [place] Shanice Lr Primary [facility] 11/02/2023 07/09/2024 [facility] [place] Harper Sargent Primary [facility] 01/26/20232023 [facility] [place] Emilia Oneil Primary Care 09/28/2022
--- OUTSIDE RECORDS SUMMARY | 2025-07-08 14:32 | XMS_ITS | Clinical Summary ---
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 03/01/20 22 Active carvediloL (COREG) 3.125 mg tablet TAKE 1 TABLET BY MOUTH TWO TIMES A DAY. FURTHER REFILLS PER CARDIOLOGY 09/12/20 24 Active Entresto 24-26 mg per tablet Take 1 tablet by mouth 2 (two) times a day. 09/12/20 24 Active spironolactone (ALDACTONE) 25 mg tablet TAKE 1 TABLET BY MOUTH EVERY DAY. FURTHER REFILLS PER CARDIOLOGY 09/12/20 24 Active dapagliflozin propanediol (Farxiga) 10 mg tablet Take 1 tablet (10 mg total) by mouth 1 (one) time each day. Active Emgality Pen 120 mg/mL injection pen USE SUBCUTANEOUSLY MONTHLY DIRECTED 11/29/19 25 Active buPROPion XL (WELLBUTRIN XL) 300 mg 24 hr tablet Take 1 tablet (300 mg total) by mouth 1 (one) time each day. 30 each 5 06/11/20 25 026 Active naltrexone (DEPADE) 50 mg tabletIndicatio ns:Over weight Take 0.5 tablets (25 mg total) by mouth 1 (one) time each day. 15 each 5 06/11/20 25 026 Active buPROPion XL (WELLBUTRIN XL) 300 mg 24 hr tablet Take 1 tablet (300 mg total) by mouth 1 (one) time each day in the morning. 06/23/20 23 025 Discontin ued(Reord er) naltrexone (DEPADE) 50 mg tabletIndicatio ns:Over weight Take 0.5 tablets (25 mg total) by mouth 1 (one) time each day. 15 each 2 03/07/20 25 025 Discontin ued(Reord er) Active Problems Problem Noted Date Diagnosed Date Overweight (BMI 25.0-29.9) 01/17/2025 Acute on chronic systolic he art failure (CMS/HCC V24, CMS/HCC V28) 11/20/2024 Aneurysm of other specified arteries (CMS/[facility] V2 4) 11/20/2024 Low back pain, unspecified 11/20/2024 Alcohol use, unspecified, uncomplicated 11/20/20 24 Depression, unspecified 11/20/2024 Prediabetes 09/29/2023 Overview (09/14/2024): Lab Results Component Value Date HGBA1C 6.1 09/22/2023 Assessment & Plan (12/30/2024 6:07 PM EST): Well controlled. Currently on Semaglutide for weight management. Orders: Comprehensive metabolic panel; Future Lipid panel with reflex to direct LDL; Future Nonischemic congestive cardi omyopathy (CMS/HCC V24, CMS/HCC V28) 09/08/2021 Overview (09/14/2024): Nonischemic congestive cardiomyopathy Assessment & Plan (06/04/2025 3:30 PM EDT): Follows with cardiology. On Entresto, carvedilol, farxiga, spironolactone. No signs of exacerbation. Continue Cervicalgia 10/10/2015 Chronic low back pain 10/10/2015 POTS (postural orthostatic tachycardia syndrome) 10/09/2013 Overview (09/14/2024): Previously dx with this by Arturo - Francesco - no longer taking ,no symptoms. ILR no arrhythmia Excessive or frequent menstruation 06/14/2013 Dysmenorrhea 06/14/2013 Headache 08/31/2011 Overview (09/14/2024): Being treated by Dr. Pitts for migraine Vitamin D deficiency 07/02/2011 Bradycardia 09/14/2010 Anxiety 09/11/2010 Resolved Problems Problem Noted Date Diagnosed Date Resolved Date Acute respiratory failure wi th hypoxia ([facility] V24, [facility] V28) 11/20/2024 06/04/2025 Encounters Date Type Department Care Team Description 06/11/2025 8:30 AM EDT Office Visit Bariatric Surgery [facility] [address] [facility] [address] [place] [address] Alexander Silva MD Over weight 06/07/2025 8:00 AM EDT Telemedicine Bariatric Surgery [facility] [address] [facility] [address] [place] [phone] Overweight (BMI 25.0-29.9) (Primary Dx) 06/04/2025 3:00 PM EDT Office Visit Adult Medicine [address] [phone] Shanice Shelton MD Adult general medical examination (Primary Dx); Acute bilateral thoracic back pain; Nonischemic congestive cardiomyopathy ([facility] V24, CMS/[facility] V28) 05/23/2025 9:30 AM EDT Office Visit Vascular Surgery [facility] [address] [facility] [address] [place] [phone] Veronika Lamb MD Splenic artery aneurysm ([facility] V24) (Primary Dx) from Last 3 Months Immunizations Name Administration Dates Next Due Pfizer SARS-CoV-2 COVID-19, mRNA, LNP-S, preservative free 09/02/2021,02/24/2021 Surgical History Surgery Date Site/Laterality Comments WISDOM TOOTH EXTRACTION PROCEDURE: HISTORICAL WISDOM TEETH EXTRACTION OTHER SURGICAL HISTORY PROCEDURE: IL DILATION & CURETTAGE DX&/THER NONOBSTETRIC NECK SURGERY 07/01/2008 PROCEDURE: HISTORICAL NECK SURGERY; COMMENT: decompression and fusion C5-6, C6-7 ENDOMETRIAL ABLATION 2009 PROCEDURE: IL ENDOMETRIAL ABLTJ THERMAL W/O HYSTEROSCOPIC GUID HYSTERECTOMY 09/12/2013 PROCEDURE: HISTORICAL VAGINAL HYSTERECTOMY W/O BSO; COMMENT: da Raisa total hysterectomy performed by Dr. Marks OTHER SURGICAL HISTORY 09/12/2013 PROCEDURE: INSERT URETERAL CATHETER/STENT; COMMENT: urgently done during hysterectomy OTHER SURGICAL HISTORY PROCEDURE: ---- OTHER ----; COMMENT: sebaceous cyst back BREAST BIOPSY 12/2015 Right PROCEDURE: BX BREAST; PERC NEEDLE CORE W/IMAG GUID; COMMENT: benign EYE SURGERY 2016 Bilateral PROCEDURE: IL TRABECULOPLASTY BY LASER SURGERY; COMMENT: Dr. Marylou Key Medical History Medical History Date Comments Migraines DX:Migraines Cardiomyopathy (CMS/HCC V24, CMS/HCC V28) 09/14/2010 DX:Cardiomyopathy (HCC) Anxiety 09/11/2010 DX:Anxiety FH: migraines DX:FH: migraines HTN (hypertension) 04/02/2011 DX:HTN (hyper tension) Vitamin D deficiency 07/02/2011 DX:Vitamin D deficiency Cervicalgia 10/10/2015 DX:Cervicalgia Chronic low back pain 10/10/2015 DX:Chronic low back pain POTS (postural orthostatic t achycardia syndrome) 10/09/2013 DX:POTS (postural orthostati c tachycardia syndrome); COMMENT: Previously dx with this by Cardio - Kimf - no longer taking ,no symptoms. ILR no arrhythmia Excessive or frequent menstruation 06/14/2013 DX:Excessive or frequent menstruation Dysmenorrhea 06/14/2013 DX:Dysmenorrhea Bradycardia 09/14/2010 DX:Bradycardia Sebaceous cyst DX:Sebaceous cys t Acute respiratory failure wi th hypoxia (CMS/HCC V24, CMS/HCC V28) 11/20/2024 Family History Medical History Relation Name Comments No Known Problems Brother 1 No Known Problems Brother 2 No Known Problems Daughter ALS Father Diabetes Father peripheral neur opathy, htn Bladder Cancer Mother bladder cance r, stomach, age 49 Lung cancer Paternal Grandfather PA, dec eased Diabetes Paternal Grandmother d No Known Problems Sister Other: Autism Son 1 No Known Problems Son 2 Breast cancer Neg Hx Cervical cancer Neg Hx Colon cancer Neg Hx Ovarian cancer Neg Hx Relation Name Status Comments Brother 1 Alive Brother 2 Alive Daughter Alive Father Maternal Grandfather Maternal Grandmother Mother Paternal Grandfather Paternal Grandmother Sister Alive Son 1 Alive Son 2 Alive Social History Tobacco Use Types Packs/Day Years Used Date Smoking Tobacco: Never Smokeless Tobacco: Never Tobacco Cessation:Counseling Given: Not Answered Alcohol Use Standard Drinks/Week Comments Yes 0 (1 standard drink = 0.6 oz pur e alcohol) Housing Instability Answer Date Recorde d Are you worried that in the next 2 months you may not have stable housing? No 09/24/2024 Food Access & Nutrition Answer Date Rec orded Do you have access to a vari ety of food including fruits and vegetables? Yes 09/24/2024 Access to Healthcare Answer Date Record ed Within the last 3 months, ho w many times did you visit the emergency department for your medical care? 2 09/24/2024 Health Literacy Answer Date Recorded How often do you need to hav e someone help you when you read instructions, pamphlets, or other written material from your doctor or pharmacy? Never 09/24/2024 Caregiver: How often do you need to have someone help you when you read instructions, pamphlets, or other written material from your doctor or pharmacy? Not on file 09/24/2024 Financial Risk Answer Date Recorded How hard is it for you to pa y for the very basics like food, housing, medical care, and air conditioning / heating? Not very hard 09/24/2024 Transportation Answer Date Recorded Has the lack of transportati on kept you from meetings, work, or from getting things needed for daily living? No Has the lack of transportati on kept you from medical appointments or from getting medications? No 09/24/2024 Social Isolation Answer Date Recorded How often do you feel lonely or isolated from th ose around you? Always 09/24/2024 Food Risk Answer Date Recorded Within the past 12 months we worried whether our food would run out before we got money to buy more. Never true 09/24/2024 Within the past 12 months th e food we bought just didn't last and we didn't have money to get more. Never true 09/24/2024 Dependent Care Answer Date Recorded Do you need help finding or paying for care for your loved ones. For example, early childhood associate teacher or elderly care for an older adult? No 09/24/2024 Education Answer Date Recorded Do you think completing more education or training, like finishing a GED, going to college, or learning a trade, would be helpful for you? No 09/24/2024 Employment and Income Answer Date Recor ded During the last four weeks, have you been actively looking for work? No 09/24/2024 Living Situation Answer Date Recorded What is your living situation? 1 11/24/2023 Comments No Sex and Gender Information Value Date Recorded Sex Assigned at Not on file Legal Sex Female 12:58 PM EST Gender Identity Not on file Sexual Orientation Not on file Obstetrics History Para Term AB IAB SAB Ectopic Multiple Livin g Live Births 3 3 3 3 Date Outcome GA Total Labor Labor/2nd/3rd Weight Sex Type Anes PTL Alondra A1 A5 Name Clin Term Term Term Last Filed Vital Signs Vital Sign Reading Time Taken Comments Blood Pressure 87/48 06/11/2025 8:44 AM EDT Pulse 51 06/11/2025 8:44 AM EDT Temperature 36.4 C (97.6 F) 06/11/2025 8:44 AM EDT Respiratory Rate 15 06/04/2025 3:00 PM EDT Oxygen Saturation - - Inhaled Oxygen Concentration - - Weight 72.6 kg (160 lb) 06/11/2025 8:44 AM EDT Height 160 cm (5' 3 ) 06/11/2025 8:44 AM EDT Body Mass Index 28.34 06/11/2025 8:44 AM EDT Plan of Treatment Upcoming Encounters Date Type Department Care Team (Late st Contact Info) Description 07/10/2025 4:30 PM EDT Evaluation Outpatient Rehabilitation - [address] [phone] Mike Crawford, PT 08/30/2025 12:30 PM EDT Telemedicine Bariatric Surgery - [address] [phone] Nevaeh Cunha, RD [address] [phone] 12/12/2025 9:15 AM EST Office Visit Bariatric Surgery - [place] [address] [place] [address] Alexander Silva MD [address] [place] [address] 05/28/2026 9:30 AM EDT Office Visit Vascular Surgery - [place] [address] [place] [phone] Veronika Lamb MD [address] [place] [address] Health Maintenance Due Date Last Done Comments Medicare Annual Wellness Visit 10/30/2022 COVID-19 Vaccine ( season) 2024 09/24/2021, 09/02/2021, 02/24/2021, Additional history exists Social Influencers of Health Screening 09/24/2025 09/24/2024 Hypertension/CHF/CAD Annual BMP Blood Test 06/04/2026 06/04/2025 Colorectal Cancer Screening: FIT-DNA (Cologuard) 10/05/2026 10/05/2023, 10/05/2023 Breast Cancer Screening 01/16/2027 01/16/20 25, 01/13/2024, 01/06/2023, Additional history exists Cholesterol Screening (Lipid Panel) 06/04/2030 06/04/2025, 09/22/2023 Hepatitis C Screening Completed 05/25/2012 Depression Screening Completed 12/27/2024 DTaP,Tdap,and Td Vaccines Discontinued HIB Vaccines Aged Out No longer eligi ble based on patient's age to complete this topic HIV Screening Discontinued HPV Vaccines Aged Out No longer eligi ble based on patient's age to complete this topic Hepatitis A Vaccines Discontinued Hepatitis B Vaccines Discontinued IPV Vaccines Aged Out No longer eligi ble based on patient's age to complete this topic Influenza Vaccine Discontinued MMR Vaccines Aged Out No longer eligi ble based on patient's age to complete this topic Meningococcal ACWY Vaccine Aged Out N o longer eligible based on patient's age to complete this topic Meningococcal B Vaccine Aged Out No l onger eligible based on patient's age to complete this topic Pneumococcal Vaccine: 50+ Years Discontinued RSV Immunization Patients Under 20 months Aged Out No longer eligible based on patient's age to complete this topic Varicella Vaccines Aged Out No longer eligible based on patient's age to complete this topic Zoster Vaccines Discontinued Procedures Procedure Name Priority Date/Time Associated Diagnosis Comments COMPREHENSIVE METABOLIC PANEL Routine 06/04/2025 1:08 PM EDT Other cardiomyopathy (CMS/HCC V24, CMS/HCC V28) LIPID PANEL WITH REFLEX TO DIRECT LDL Routine 06/04/2025 1:08 PM EDT Other cardiomyopathy (CMS/HCC V24, CMS/HCC V28) Essential (primary) hypertension MG MAMMO DIGITAL SCREENING W JEFFREY BILAT Routine 01/16/2025 7:52 AM EST Encounter for screening mammogram for breast cancer FIT-DNA Routine 10/05/2023 HEPATITIS C SCREENING Routine 05/25/2012 from Last 3 Months or Most Recently Relevant to Health Maintenance Results * (ABNORMAL) Lipid panel with reflex to direct LDL (06/04/2025 1:08 PM EDT) Cholesterol 163 0 - 200 mg/dL LAB CHEMISTRY METHOD 06/04/2025 5:25 PM EDT [facility] Triglycerides 91 0 - 150 mg/dL LAB CHEMISTRY METHOD 06/04/2025 5:25 PM EDT [facility] HDL 43 >=40 mg/dL LAB CHEMISTRY METHOD 06/04/2025 5:25 PM EDT [facility] LDL Calculated 102(H) 0 - 100 mg/dL LAB CHEMISTRY METHOD 06/04/2025 5:25 PM EDT [facility] VLDL Cholesterol Myke 18.2 mg/dL LAB CHEMISTRY METHOD 06/04/2025 5:25 PM EDT [facility] Non HDL Chol. (LDL+VLDL) 120 <145 mg/dL LAB CHEMISTRY METHOD 06/04/2025 5:25 PM EDT [facility] Chol/HDL Ratio 3.8 0.0 - 4.4 LAB CHEMISTRY METHOD 06/04/2025 5:25 PM [facility] Blood Venous blood specimen / Unknown Venipuncture / Unknown 06/04/2025 1:08 PM EDT 06/04/2025 1:08 PM EDT us Shanice Shelton MD LAB BLOOD ORDERABL ES Final Result [facility] [address] [place] [address], [place] [phone] * (ABNORMAL) Comprehensive metabolic panel (06/04/2025 1:08 PM EDT) Sodium 137 133 - 145 mmol/L LAB CHEMISTRY METHOD 06/04/2025 5:41 PM [facility] Potassium 4.0 3.5 - 5.5 mmol/L LAB CHEMISTRY METHOD 06/04/2025 5:41 PM [facility] Chloride 107 96 - 110 mmol/L LAB CHEMISTRY METHOD 06/04/2025 5:41 PM [facility] CO2 26 21 - 32 mmol/L LAB CHEMISTRY METHOD 06/04/2025 5:41 PM [facility] Anion Gap 4 3 - 11 LAB CHEMISTRY METHOD 06/04/2025 5:41 PM [facility] Glucose 79 70 - 100 mg/dL LAB CHEMISTRY METHOD 06/04/2025 5:41 PM [facility] BUN 14 5 - 25 mg/dL LAB CHEMISTRY METHOD 06/04/2025 5:41 PM [facility] Creatinine 0.86 0.50 - 1.10 mg/dL LAB CHEMISTRY METHOD 06/04/2025 5:41 PM [facility] eGFR 82 >=60 mL/min/1. 73m2 LAB CHEMISTRY METHOD 06/04/2025 5:41 PM [facility] Comment:Calculation based on the Chronic Kidney Disease Epidemiology Collaboration (CKD-EPI) equation refit without adjustment for race. BUN/Creatinine Ratio 16.3 LAB CHEMISTRY METHOD 06/04/2025 5:41 PM [facility] Calcium 9.2 8.5 - 10.5 mg/dL LAB CHEMISTRY METHOD 06/04/2025 5:41 PM [facility] AST (SGOT) 11 10 - 42 unit/L LAB CHEMISTRY METHOD 06/04/2025 5:41 PM [facility] ALT (SGPT) 21 10 - 60 unit/L LAB CHEMISTRY METHOD 06/04/2025 5:41 PM [facility] Alkaline Phosphatase 134(H) 42 - 121 unit/L LAB CHEMISTRY METHOD 06/04/2025 5:41 PM [facility] Total Protein 7.3 6.0 - 8.0 g/dL LAB CHEMISTRY METHOD 06/04/2025 5:41 PM [facility] Albumin 3.3 3.2 - 5.0 g/dL LAB CHEMISTRY METHOD 06/04/2025 5:41 PM [facility] Total Bilirubin 0.3 0.0 - 1.4 mg/dL LAB CHEMISTRY METHOD 06/04/2025 5:41 PM [facility] Blood Venous blood specimen / Unknown Venipuncture / Unknown 06/04/2025 1:08 PM EDT 06/04/2025 1:08 PM EDT us Shanice Shelton MD LAB BLOOD ORDERABL ES Final Result [facility] [address] [place] [address], [place] [phone] * MG Mammo Digital Screening w Jeffrey bilat (01/16/2025 7:52 AM EST) Anatomical Region Laterality Modality Breast Bilateral Mammography 01/16/2025 3:09 PM EST Impressions 01/16/2025 3:11 PM EST BILATERAL BREASTS: Benign, no evidence of malignancy. Normal interval follow-up is recommended in 12 months. BREAST DENSITY: B - There are scattered areas of fibroglandular density. BI-RADS CATEGORY: 2 - BENIGN RECOMMENDATION: Screening bilateral mammogram is recommended in 1 year. Mammo Location: [facility], [address] [place] [address], [id number], . -------- FINAL REPORT -------- Dictated By: Rosa Maria Elizabeth Dictated Date: 01/16/2025 15:09 ET Assigned Physician: Rosa Maria Elizabeth Reviewed and Electronically Signed By: Rosa Maria Elizabeth Signed Date: 01/16/2025 15:11 ET Workstation ID: [id number] Transcribed By: Self Edit Transcribed Date: 01/16/2025 15:09 ET Narrative 01/16/2025 3:11 PM EST STUDY: Bilateral screening mammography with tomosynthesis and CAD TECHNIQUE: Bilateral full-field digital screening mammography is obtained and read in conjunction with computer-aided detection. Tomosynthesis as well as 2-D C view imaging were obtained. COMPARISON: Comparison made to multiple prior, most recent January 13, 2024, and most remote December 11, 2015. RIGHT BREAST: Tissue marker from previous needle core biopsy. No significant masses, suspicious calcifications or other abnormalities are seen. LEFT BREAST: No significant masses, suspicious calcifications or other abnormalities are seen. Procedure Note Rosa Maria Elizabeth MD - 01/16/2025 STUDY: Bilateral screening mammography with tomosynthesis and CAD TECHNIQUE: Bilateral full-field digital screening mammography is obtainedand read in conjunction with computer-aided detection. Tomosynthesis aswell as 2-D C view imaging were obtained. COMPARISON: Comparison made to multiple prior, most recent December, and most remote December 11, 2015. RIGHT BREAST: Tissue marker from previous needle core biopsy. Nosignificant masses, suspicious calcifications or other abnormalities areseen. LEFT BREAST: No significant masses, suspicious calcifications or otherabnormalities are seen. IMPRESSION: BILATERAL BREASTS: Benign, no evidence of malignancy. Normal intervalfollow-up is recommended in 12 months. BREAST DENSITY: B - There are scattered areas of fibroglandular density. BI-RADS CATEGORY: 2 - BENIGN RECOMMENDATION: Screening bilateral mammogram is recommended in 1 year. Mammo Location: [facility], [address] [place] [address], [id number], . -------- FINAL REPORT -------- Dictated By: Rosa Maria Elizabeth Dictated Date: 01/16/2025 15:09 ET Assigned Physician: Rosa Maria Elizabeth Reviewed and Electronically Signed By: Rosa Maria Elizabeth Signed Date: 01/16/2025 15:11 ET Workstation ID: [id number] Transcribed By: Self Edit Transcribed Date: 01/16/2025 15:09 ET Shanice Shelton MD IMG BI PROCEDURES Final Result * FIT-DNA (Cologuard) (10/05/2023) [facility] Colorectal Cancer Screening: FIT-DNA (Cologuard) Negative, Abstracted Historical Provider HEALTH MAINTENANCE Final Result * Hepatitis C Screening (05/25/2012) [facility] Hepatitis C Screening Abstracted Historical Provider HEALTH MAINTENANCE Final Result from Last 3 Months or Most Recently Relevant to Health Maintenance Insurance MEDICARE [place]ICAID - [place] Care Teams Radius Corner Machine Operator Relationship Specialty Start Date End Date Shanice Shelton MD [address] [place] [id number] PCP - General Internal Medicine 08/16/22
== END 2025-07-08 13:45 | disposition home or self-care (01) ==
LOC: HO.HMGAL 13:38
PROVIDERS: PCP Internal Medicine; Visit Provider Registered Nurse Emergency
DX: J30.89 Other allergic rhinitis (principal)
CPT/HCPCS: 95117; 95165

== ENCOUNTER 2025-07-15 13:18 | Outpatient (AMB) | payer MEDICARE, MEDICAID, SELFPAY ==
--- OUTSIDE RECORDS SUMMARY | 2025-07-10 10:30 | XMS_ITS | Encounter Summary ---
Author Organization [facility] Address [address] [place] [address] Care Team Providers Care Specialized Developer Name Role Phone Shanice Shelton MD Primary Care Prov ider Reason for Visit * Consultation (Routine) - Authorized Specialty Diagnoses / Procedures Referred By Mc gallardo Referred To Contact Physical Therapy Diagnoses Acute bilateral thoracic back pain Shanice Shelton MD [address] [place] [address] Phone: tel: fax: Outpatient Rehabilitation - [address] Phone: tel: fax: Referral ID Status Reason Start Date Expiration Date Visits Requested Visits Authorized [id number] Authorized Specialty Services Required 06/04/2025 06/04/2026 1 12 Encounter Details Date Type Department Care Team (Latest Contact Info) Description 07/10/2025 10:30 AM EDT Evaluation Outpatient Rehabilitation [address] [phone] Mike Crawford PT Acute bilateral thoracic back pain Social History Tobacco Use Types Packs/Day Years Used Date Smoking Tobacco: Never Smokeless Tobacco: Never Alcohol Use Standard Drinks/Week Comments Yes 0 [...] your loved ones. For example, early childhood lead teacher or elderly care for an older [...] Information Value Date Recorded Sex Assigned at Female 07/11/2025 8:34 AM EDT Legal Sex Female 12:58 PM EST Gender Identity Female 07/11/2025 8:34 AM EDT Sexual Orientation Choose not to disclose 2024 8:34 AM EDT documented as of this encounter Last Filed Vital Signs Vital Sign Reading Time Taken Comments Blood Pressure 93/62 07/10/2025 10:00 AM EDT Pulse 75 07/10/2025 10:00 AM EDT Temperature - - Respiratory Rate - - Oxygen Saturation - - Inhaled Oxygen Concentration - - Weight - - Height - - Body Mass Index - - documented in this encounter Progress Notes * Mike Crawford PT - 07/10/2025 10:30 AM EDT Images from the original note were not included. [facility] - Outpatient [facility] PHYSICAL THERAPY EVALUATION Date: 07/10/2025 Visit Number: 1 Patient Name: Annabelle Coppola : 1975 Age: 49 y.o. Gender: female Diagnosis: ICD-10-CM ICD-9-CM 1. Acute bilateral thoracic back pain M54.6 724.1 Ambulatory referral to Physical Therapy and Athletic Training Date of Referral: 06/04/2025 Referring Provider: Shanice Shelton* Insurance: Payor: MEDICARE / Plan: MEDICARE PART A & B / Product Type: Medicare / Patient identified by: Mike Crawford PT Language: Speaks and understands Swedish as preferred language with no apprenticeship consultant required Swedish Chart Reviewed: Yes Medications: Current Outpatient Medications on File Prior to Visit Medication Sig Dispense Refill buPROPion XL (WELLBUTRIN XL) 300 mg 24 hr tablet Take 1 tablet (300 mg total) by mouth 1 (one) timeeach day. 30 each 5 carvediloL (COREG) 3.125 mg tablet TAKE 1 TABLET BY MOUTH TWO TIMES A DAY. FURTHER REFILLS PER CARDIOLOGY dapagliflozin propanediol (Farxiga) 10 mg tablet Take 1 tablet (10 mg total) by mouth 1 (one) time each day. Emgality Pen 120 mg/mL injection pen USE SUBCUTANEOUSLY MONTHLY DIRECTED Entresto 24-26 mg per tablet Take 1 tablet by mouth 2 (two) times a day. meclizine (ANTIVERT) 25 mg tablet Take 1 Tablet by mouth 3 times daily as needed (dizziness). naltrexone (DEPADE) 50 mg tablet Take 0.5 tablets (25 mg total) by mouth 1 (one) time each day. 15 each 5 spironolactone (ALDACTONE) 25 mg tablet TAKE 1 TABLET BY MOUTH EVERY DAY. FURTHER REFILLS PER CARDIOLOGY No current facility-administered medications on file prior to visit. Discussed current medications that may impact therapy. Medication list obtained and reviewed. Referto document in medical record. Advised Patient to contact MD with any questions regarding medications and importance of managing medication information. Past Medical History: has a past medical history of Acute respiratory failure with hypoxia (CMS/[facility] V24, CMS/[facility] V28) (11/20/2024), Anxiety (09/11/2010), Bradycardia (09/14/2010), Cardiomyopathy (CMS/[facility] V24, [facility] V28)(09/14/2010), Cervicalgia (10/10/2015), Chronic low back pain (10/10/2015), Dysmenorrhea (06/14/2013), Excessive or frequent menstruation (06/14/2013), FH: migraines, HTN (hypertension) (04/02/2011),Migraines, POTS (postural orthostatic tachycardia syndrome) (10/09/2013), Sebaceous cyst, and Vitamin D deficiency (07/02/2011). Past Surgical History: has a past surgical history that includes [place] tooth extraction; Other surgical history; Neck surgery (07/01/2008); Endometrial ablation (2009); Hysterectomy (09/12/2013); Other surgical history (09/12/2013); Other surgical history; Breast biopsy (Right, 12/2015); and Eye surgery (Bilateral, 2017). Allergies: has No Known Allergies. Precautions: Precautions Medical Precautions: (Cardiac- hx of CHF. (+) Arrythmia- will be seeing someone for potential defib. implantation, (+) C/S fusion 2007). Was also recently diagnosed w/ POTS. Concurrent Services: none Previous Medical Care/Therapy: none SUBJECTIVE History of Present Illness/Subjective Report: Onset of upper back pain a couple of mos ago w/o incident or injury questions if it was due to increased workload that week at work. Discussed the sxs w/her PCP at the time of her 06/04/25 for her Annual Wellness Visit. Was referred to PT. Here today for PT ganesh. Did see a Neurologist and had EMGs today. Was told she has CTS B. Pain: Does get a pressure in her upper back w/ pn. Feels like she is being squeezed from the front and the back. Sxs come and go and it has felt like this for the past 3 days. Did see Cardio 2 weeks ago, did EKG and was told that they are going to do more testing including a stress test. Will get pain in the upper back that travels to the UT and neck. (+) EDWARD's- a lot, 5 of 7 d/wk.) Tylenol does not help. Best: 03/30 Current: 06/30 Worst: 08/30 - last happened on Tuesday when getting OOB. Quality: Tightness, throb, ache, sometimes sharp - Provocation: work, reaching up; simple housework, standing doing dishes - Alleviation: nothing Current Functional Limitations: Reported by Patient: has poor sleep due to pain and other issues, wakes 3-5x/night Prior Level of Function: Cardiac hx, chronic LBP. Imaging: C/S Xray 09/09/2022 Narrative & Impression History: Increasing neck pain. Work injury. Cervical spine, 4 views: There has been anterior plate and screw fixation at C5- C7. There is some anterior bowing of the mid plate and an oblique orientation, of uncertain significance. There is a large anterior marginal endplate spur at C3-4 and disc space narrowing at C4-5. There is severe neuroforaminal narrowing on the right at C3-4 mild narrowing at C4-6. On the left and neuroforamina are patent. Alignment is normal. Soft tissues are unremarkable. IMPRESSION: IMPRESSION: Postoperative and degenerative changes as above with neuroforaminal narrowing most significant at C3-4 on the right. Home Environment: Lives w/ w/ 2 of her 3 kids in a single level home w/ the W/D in the basement which her son does as she struggles w/ stairs. 3 steps then landing and 4 steps to enter the home w/ B railing on the 2nd set of steps. 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 OBJECTIVE: Vitals: Vitals: 07/10/25 1000 BP: 93/62 BP Location: Left arm Patient Position: Sitting Pulse: 75 ; Vital Signs Heart Rate: 75 BP: 93/62 MAP (Calculated): 72 mm Hg BP Method: Automatic BP Location: Left arm Patient Position: Sitting Functional Mobility/Gait: Fwd flexed posture, w/ decreased arm swing Extremity Dominance: UE: [x] Right [] Left [] Ambidextrous [] N/A LE: [] Right [] Left [] Ambidextrous [x] N/A Posture: Mod FHP, rounded shlds B, L>R w/ scap ant tilt/protraction Range of Motion: T/L ROM AROM Flexion 13 in from the floor w/ LBP PMH Extension 11 deg, midline T to L pn Right Side bend 14 deg w/ midline T/S pn Left Side bend 12 deg w/ midline T/S pn Right Rotation 31 deg Left Rotation 35 deg C/S SB R= 23 deg w/ L UT/cervical sxs; L=20 deg CROT R= 62 deg, L=65 deg Shld flex AROM R=138 deg L=135 deg each limited by pain, Full PROM w/ increased L/S lordosis due toLAT tightness and decreased T/S extension mobility Shld Abd 165 deg B w/ general UT and mid back pn Strength: UT 5/5 w/ sxs Shld flex 4/5 w/ inc upper T pn Shld Abd R=5/5, L=4+/5 w/ mild inc upper back sx Shld ER 4+/5 B Shld IR 5/5 B MT 4-/5 B w/ general pn RH R=4/5, L=4-/5 w/ general pn LAT 5/5 B w/ general pn LT 3-/5- unable to fully raise arms prone. AAROM- FROM achieved Palpation: Mod TTP w/ withdrawal B MT/RH/LT, L>R lev, B UT, B thoracic paraspinals Mod T/S segmental hypomobility all levels T1-12 PA mobs and R/L UPA Rib springing is painful w/o referral/radiation Special Tests: Mild lat tightness B w/ PROM shld flex supine as noted by inc L/S lordosis TREATMENT INTERVENTION: Therapeutic exercise: [x] N/A Manual: [x] N/A Modalities: [x] N/A Patient Education: [x] Discussed, with patient the evaluation findings, the recommended plan of care/goals, the importance of therapy and appointment compliance in order to achieve goals in a timely manner. Education provided: Postural importance stressed w/ demonstration and cues. Added to HEP: shld girdle rolls, no minies w/o resistance, pec stretch low hold in doorway (HEP2Go Code [id number]). Education Provided To: Patient utilizing Explanation, Demonstration, and Printed Material as mode(s) of education. Response to Education: Verbal Understanding and Demonstrated Skills ASSESSMENT: Annabelle Coppola is a 49 y.o. female w/ PMH of C/S fusion, chronic LBP, CHF w/ arrhythmia, recent POTS dx, presenting for outpatient physical therapy evaluation with complaints of mid back pain that radiates to the neck w/ decreased ADL tolerances w/o incident or injury. Significant clinical findings include: moderate postural faults; impaired ROM; moderate segmental hypomobility; weakness; and TTP w/ withdrawal. Skilled Physical therapy is medically necessary to address these findings and meet the established goals. Rehabilitation Potential: Rehab Potential: Condition Has Potential to Improve Motivation for Rehab: Good Support Structure: Good Learning Needs: Were Patient Learning needs assessed: Yes Learning Preferences: Explanation Barriers to Learning: No Barriers to Learning Response to Therapy Session: Fair Comments: Pt was able to complete all eval procedures. Pt is w/o questions after instruction and review. GOALS: Short Term Goals: Demo I w/ initial HEP; progress to include T/S ext ROM (static w/ towel roll and/or AROM) and beginning postural strengthening Demo improved postural awareness when asked w/o cues Increase seated T/S ROT to >/= 40 deg B Increase LAT length to allow full PROM shld ext Be able to stand >/= 10 min doing dishes w/o mid back pn Bliss Press Operator Goals: (12 visits) Demo I w/ final HEP of postural mm strengthening Improve upper to mid T segmental mobility to min restrictions w/o provocations Increase MT/RH MMT to 5/5, LT to >/= 4/5 to allow greater ease assuming and maintaining proper posture Decrease max T/S pn to </= 2/10 after work Sleep >/= 5n/wk w/o waking due to upper back pain PLAN: POC Development/Review: Initial Evaluation; Participants: Patient Skilled Therapy Plan Required: YES- Reasons for Rehab and Medical Necessity -- Return to Premorbid Environment, Reduce Need for Assist with Functional Activity/ADL's/Mobility, and Function in Community Planned Therapy Interventions: Hot Pack, Kinesiotaping, Manual Therapy, and Therapeutic Exercise Recommended Consults: Pt may benefit from thoracic xrays for further assessment Equipment Recommended: none; Equipment Provided: none Frequency/Duration: 2x/wk x 12 visits BILLING: Interventions Time Entry: Modalities: Therapeutic procedures: TOTAL TREATMENT TIME: 55 Minutes Evaluation Medium Complexity Justification ::: A history of present problem with 1 - 2 personal factors and/or co-morbidities that impact the plan of care, An examination of body systems using standardized tests and measures in addressing a total of 3 or more elements from any of the following bodystructures and functions, activity limitations, and/or participation restrictions, and An evolving clinical presentation with changing characteristics Documentation completed by Mike Crawford PT OUTPATIENT [address] Dept: [phone] Dept PATIENT NAME: Annabelle Coppola : 1975 Referring provider : Shanice Shelton documented in this encounter Plan of Treatment Upcoming Encounters Date Type Department Care Team (Late st Contact Info) Description 07/29/2025 5:00 PM EDT Treatment Outpatient [address] [phone] Usha Williamson PTA 08/01/2025 3:30 PM EDT Treatment Outpatient [address] [phone] Usha Williamson, LIFE GUARD 08/05/2025 5:00 PM EDT Treatment Outpatient Rehabilitation - [address] [phone] Usha Williamson, LIFE GUARD 08/08/2025 3:30 PM EDT Treatment Outpatient Rehabilitation - [address] [phone] Usha Williamson, LIFE GUARD 08/12/2025 5:00 PM EDT Treatment Outpatient Rehabilitation - [address] [phone] Mike Crawford, PT 08/15/2025 3:30 PM EDT Treatment Outpatient Rehabilitation - [address] [phone] Usha Williamson, LIFE GUARD 08/19/2025 5:00 PM EDT Treatment Outpatient Rehabilitation - [address] [phone] Usha Williamson, LIFE GUARD 08/23/2025 1:30 PM EDT Treatment Outpatient Rehabilitation - [address] [phone] Mike Crawford, PT 08/30/2025 12:30 PM EDT Telemedicine Bariatric Surgery [facility] [address] [phone] Nevaeh Cunha, JOANNA [address] [phone] 12/12/2025 9:15 AM EST Office Visit Bariatric Surgery [facility] [address] [phone] Alexander Silva MD [address] [phone] 05/28/2026 9:30 AM EDT Office Visit Vascular Surgery - [place] [address] [place] [address] Veronika Lamb MD [address] [place] [address] documented as of this encounter Visit Diagnoses Diagnosis Acute bilateral thoracic back pain documented in this encounter Orders Outpatient Referral Count Last Ordered Date Fir st Ordered Date AMB REFERRAL TO [facility]ICAL [facility] 1 07/10/2025 documented in this encounter Additional Health Concerns Assessment Noted Time PHQ-9 Depression Total Score: 23 025 4:56 PM EST documented as of this encounter Care Teams Specialized Developer Relationship Specialty Start Date End Date Shanice Shelton MD [address] [place] [phone] PCP - General Internal Medicine 08/16/22 documented as of this encounter
--- OUTSIDE RECORDS SUMMARY | 2025-07-15 14:40 | XMS_ITS | Encounter Summary ---
Author Organization [facility] Address [address] [place] [address] Care Team Providers Care Water Pipe Installer Name Role Phone Shanice Shelton MD Primary Care Prov ider Encounter Details Date Type Department Care Team (Latest Contact Info) Description 07/10/2025 Plan of Care Documentation Outpatient Rehabilitation - [address] [phone] Social History Tobacco Use Types Packs/Day Years [...] care for your loved ones. For example, child support officer or elderly care for an older adult? [...] AM EDT documented as of this encounter Progress Notes * Mike Crawford, PT - 07/10/2025 1:10 PM EDT Images from the original note were not included. [facility] Rehabilitation - Outpatient Physical Therapy[facility] PHYSICAL THERAPY EVALUATION Date: 07/10/2025 Visit Number: [...] Mike Crawford PT Language: Speaks and understands Citizen Of [place] as preferred language with no cigar packer and grader required Citizen Of [place] Chart Reviewed: Yes Medications: Current Outpatient Medications [...] history of Acute respiratory failure with hypoxia (CMS/[facility] V24, CMS/[facility] V28) (11/20/2024), Anxiety (09/11/2010), Bradycardia (09/14/2010), Cardiomyopathy (CMS/[facility] V24, CMS/[facility] V28)(09/14/2010), Cervicalgia (10/10/2015), Chronic low back pain (10/10/2015), Dysmenorrhea (06/14/2013), Excessive or frequent menstruation (06/14/2013), FH: migraines, HTN (hypertension) (04/02/2011),Migraines, POTS (postural orthostatic tachycardia syndrome) (10/09/2013), Sebaceous cyst, and Vitamin D deficiency (07/02/2011). Past Surgical History: has a past surgical history that includes [place] tooth extraction; Other surgical history; Neck surgery (07/01/2008); Endometrial ablation (2009); Hysterectomy (09/12/2013); Other surgical history (09/12/2013); Other surgical history; Breast biopsy (Right, 12/2015); and Eye surgery (Bilateral, 2016). Allergies: has No Known Allergies. Precautions: Precautions [...] of steps. 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 Education Provided To: Patient utilizing Explanation, Demonstration, and Printed Material as mode(s) of education. Response to Education: Verbal Understanding and Demonstrated Skills ASSESSMENT: Ananbelle Coppola is a 49 y.o. female w/ [...] min doing dishes w/o mid back pn Skilled Nursing Goals: (12 visits) Demo I w/ final [...] Documentation completed by Mike Crawford PT OUTPATIENT REHABILITATION - [address] Dept: [phone] Dept PATIENT NAME: Annabelle Coppola : 1975 Referring provider : Shanice Shelton documented in this encounter Plan of Treatment Upcoming Encounters Date Type Department Care Team (Late st Contact Info) Description 07/29/2025 5:00 PM EDT Treatment Outpatient [facility] - [address] [phone] Usha Williamson, TARIFF PUBLISHING AGENT 08/01/2025 3:30 PM EDT Treatment Outpatient [facility] - [address] [phone] Usha Williamson, TARIFF PUBLISHING AGENT 08/05/2025 5:00 PM EDT Treatment Outpatient [facility] - [address] [phone] Usha Williamson, TARIFF PUBLISHING AGENT 08/08/2025 3:30 PM EDT Treatment Outpatient [address] [phone] Usha Williamson, TARIFF PUBLISHING AGENT 08/12/2025 5:00 PM EDT Treatment Outpatient Rehabilitation - [address] [phone] Mike Crawford, PT 08/15/2025 3:30 PM EDT Treatment Outpatient [address] [phone] Usha Williamson, TARIFF PUBLISHING AGENT 08/19/2025 5:00 PM EDT Treatment Outpatient [address] [phone] Usha Williamson, TARIFF PUBLISHING AGENT 08/23/2025 1:30 PM EDT Treatment Outpatient Rehabilitation [facility] [address] [place] [address] Mike Crawford, PT 08/30/2025 12:30 PM EDT Telemedicine Bariatric Surgery - [place] [address] [phone] Nevaeh Cunha, RD [address] [phone] 12/12/2025 9:15 AM EST Office Visit Bariatric Surgery [facility] [address] [phone] Alexander Silva MD [address] [phone] 05/28/2026 9:30 AM EDT Office Visit Vascular Surgery - [place] [address] [phone] Veronika Lamb MD [address] [address] documented as of this encounter Visit Diagnoses Not on filedocumented in this encounter Additional Health Concerns Assessment Noted Time PHQ-9 Depression Total Score: 23 025 4:56 PM EST documented as of this encounter Care Teams Water Pipe Installer Relationship Specialty Start Date End Date Shanice Shelton MD [address] [place] [phone] PCP - General Internal Medicine 08/16/22 documented as of this encounter
--- OUTSIDE RECORDS SUMMARY | 2025-07-15 14:40 | XMS_ITS | Clinical Summary ---
Author Organization [facility] [address] [place] [address] Address [address] [place] [address] Phone Care Team Providers Care Solar Designer/Installer Name Role Phone Shanice Shelton MD Primary [...] 15 each 5 06/11/20 25 026 Active Active Problems Problem Noted Date Diagnosed Date Overweight (BMI 25.0-29.9) 01/17/2025 Acute on chronic systolic he art failure ([facility] V24, [facility] V28) 11/20/2024 Aneurysm of other specified arteries ([facility] V2 4) 11/20/2024 Low back pain, unspecified 11/20/2024 Alcohol use, unspecified, uncomplicated 11/20/20 24 Depression, unspecified 11/20/2024 Prediabetes 09/29/2023 Overview (09/14/2024): Lab Results Component Value Date HGBA1C 6.1 09/22/2023 Assessment & Plan (12/30/2024 6:07 PM EST): Well controlled. Currently on Semaglutide for weight management. Orders: Comprehensive metabolic panel; Future Lipid panel with reflex to direct LDL; Future Nonischemic congestive cardi omyopathy ([facility] V24, [facility] V28) 09/08/2021 Overview (09/14/2024): Nonischemic congestive cardiomyopathy Assessment & Plan (06/04/2025 3:30 PM EDT): Follows with cardiology. On Entresto, carvedilol, farxiga, spironolactone. No signs of exacerbation. Continue Cervicalgia 10/10/2015 Chronic low back pain 10/10/2015 POTS (postural orthostatic tachycardia syndrome) 10/09/2013 Overview (09/14/2024): Previously dx with this by Cardio - Kimf - no longer taking ,no symptoms. ILR no arrhythmia Excessive or frequent menstruation 06/14/2013 Dysmenorrhea 06/14/2013 Headache 08/31/2011 Overview (09/14/2024): Being treated by Dr. Hazratji for migraine Vitamin D deficiency 07/02/2011 Bradycardia 09/14/2010 Anxiety 09/11/2010 Resolved Problems Problem Noted Date Diagnosed Date Resolved Date Acute respiratory failure wi th hypoxia ([facility] V24, [facility] V28) 11/20/2024 06/04/2025 Encounters Date Type Department Care Team Description 07/10/2025 10:30 AM EDT Evaluation Outpatient Rehabilitation [address] [phone] Mike Crawford, PT Acute bilateral thoracic back pain 07/10/2025 Plan of Care Documentation Outpatient Rehabilitation [address] [phone] 06/11/2025 8:30 AM EDT Office Visit Bariatric Surgery [address] [phone] Alexander Silva MD Over weight 06/07/2025 8:00 AM EDT Telemedicine Bariatric Surgery [address] [phone] Norman cardenas, Nevaeh, RD Overweight (BMI 25.0-29.9) (Primary Dx) 06/04/2025 3:00 PM EDT Office Visit Adult Medicine [address] [phone] Shanice Gutierrez MD Adult general medical examination (Primary Dx); Acute bilateral thoracic back pain; Nonischemic congestive cardiomyopathy ([facility] V24, [facility] V28) 05/23/2025 9:30 AM EDT Office Visit Vascular Surgery [facility] [address] [place] [phone] Veronika Lamb MD Splenic artery aneurysm ([facility] V24) (Primary Dx) from Last 3 Months Immunizations Name Administration Dates Next Due Pfizer SARS-CoV-2 COVID-19, mRNA, LNP-S, preservative free 09/02/2021,02/24/2021 Surgical History Surgery Date Site/Laterality Comments WISDOM TOOTH EXTRACTION PROCEDURE: HISTORICAL WISDOM TEETH EXTRACTION OTHER SURGICAL HISTORY PROCEDURE: ND DILATION & CURETTAGE DX&/THER NONOBSTETRIC NECK SURGERY 07/01/2008 PROCEDURE: HISTORICAL NECK SURGERY; COMMENT: decompression and fusion C5-6, C6-7 ENDOMETRIAL ABLATION 2009 PROCEDURE: ND ENDOMETRIAL ABLTJ THERMAL W/O HYSTEROSCOPIC GUID HYSTERECTOMY [...] COMMENT: benign EYE SURGERY 2016 Bilateral PROCEDURE: ND TRABECULOPLASTY BY LASER SURGERY; COMMENT: Dr. Marylou [...] stomach, age 47 Lung cancer Paternal Grandfather [place], dec eased Diabetes Paternal Grandmother d No [...] care for your loved ones. For example, childcare worker or elderly care for an older adult? [...] not to disclose 2024 8:34 AM EDT Obstetrics History Para Term AB IAB SAB Ectopic Multiple Livin g Live Births 3 3 3 3 Date Outcome GA Total Labor Labor/2nd/3rd Weight Sex Type Anes PTL Alondra A1 A5 Name Clin Term Term Term Last Filed Vital Signs Vital Sign Reading Time Taken Comments Blood Pressure 93/62 07/10/2025 10:00 AM EDT Pulse 75 07/10/2025 10:00 AM EDT Temperature 36.4 C (97.6 F) [...] Description 07/29/2025 5:00 PM EDT Treatment Outpatient Rehabilitation - [address] [phone] Usha Williamson, RIVKA 08/01/2025 3:30 PM EDT Treatment Outpatient Rehabilitation - [address] [phone] Usha Williamson PTA 08/05/2025 5:00 PM EDT Treatment Outpatient Rehabilitation - [address] [phone] Usha Williamson, SPECIMEN TECHNICIAN 08/08/2025 3:30 PM EDT Treatment Outpatient Rehabilitation - [address] [phone] Usha Williamson, SPECIMEN TECHNICIAN 08/12/2025 5:00 PM EDT Treatment Outpatient Rehabilitation - [address] [phone] Mike Crawford, PT 08/15/2025 3:30 PM EDT Treatment Outpatient Rehabilitation - [address] [phone] Usha Williamson, SPECIMEN TECHNICIAN 08/19/2025 5:00 PM EDT Treatment Outpatient Rehabilitation - [address] [phone] Usha Williamson, SPECIMEN TECHNICIAN 08/23/2025 1:30 PM EDT Treatment Outpatient Rehabilitation - [address] [phone] Mike Crawford, PT 08/30/2025 12:30 PM EDT Telemedicine Bariatric Surgery [address] [phone] Nevaeh Cunha, RD [address] [phone] 12/12/2025 9:15 AM EST Office Visit Bariatric Surgery [facility] [address] [phone] Alexander Silva MD [address] [phone] 05/28/2026 9:30 AM EDT Office Visit Vascular Surgery - [place] [address] [facility] [address] [place] [phone] Veronika Lamb MD [address] [phone] Health Maintenance Due Date Last Done Comments Medicare Annual Wellness Visit 10/30/2022 COVID-19 Vaccine ( season) 2024 09/24/2021, 09/02/2021, 02/24/2021, Additional history exists Social Influencers of Health Screening 09/24/2025 09/24/2024 Hypertension/CHF/CAD Annual BMP Blood Test 06/04/2026 06/04/2025 Colorectal Cancer Screening: FIT-DNA (Cologuard) 10/05/2026 10/05/2023, 10/05/2023 Breast Cancer Screening 01/16/2027 01/16/20, 01/13/2024, 01/06/2023, Additional history exists Cholesterol Screening [...] LAB CHEMISTRY METHOD 06/04/2025 5:25 PM EDT [facility] Triglycerides 91 0 - 150 mg/dL LAB CHEMISTRY METHOD 06/04/2025 5:25 PM EDT [facility] HDL 43 >=40 mg/dL LAB CHEMISTRY METHOD 06/04/2025 5:25 PM EDT [facility] LDL Calculated 102(H) 0 - 100 mg/dL LAB CHEMISTRY METHOD 06/04/2025 5:25 PM EDT [facility] VLDL Cholesterol Myke 18.2 mg/dL LAB CHEMISTRY METHOD 06/04/2025 5:25 PM EDT [facility] Non HDL Chol. (LDL+VLDL) 120 <145 mg/dL LAB CHEMISTRY METHOD 06/04/2025 5:25 PM EDT [facility] Chol/HDL Ratio 3.8 0.0 - 4.4 LAB CHEMISTRY METHOD 06/04/2025 5:25 PM EDT [facility] Blood Venous blood specimen / Unknown Venipuncture / Unknown 06/04/2025 1:08 PM EDT 06/04/2025 1:08 PM EDT us Shanice Jessica Meléndez-Foss MD LAB BLOOD ORDERABL ES Final Result [facility] [address] [place] [address], * (ABNORMAL) Comprehensive metabolic panel (06/04/2025 1:08 PM EDT) Sodium 137 133 - 145 mmol/L LAB CHEMISTRY METHOD 06/04/2025 5:41 PM EDT [facility] Potassium 4.0 3.5 - 5.5 mmol/L LAB CHEMISTRY METHOD 06/04/2025 5:41 PM [facility] Chloride 107 96 - 110 mmol/L LAB CHEMISTRY METHOD 06/04/2025 5:41 PM [facility] CO2 26 21 - 32 mmol/L LAB CHEMISTRY METHOD 06/04/2025 5:41 PM [facility] Anion Gap 4 3 - 11 LAB CHEMISTRY METHOD 06/04/2025 5:41 PM [facility] Glucose 79 70 - 100 mg/dL LAB CHEMISTRY METHOD 06/04/2025 5:41 PM [facility] BUN 14 5 - 25 mg/dL LAB CHEMISTRY METHOD 06/04/2025 5:41 PM [facility] Creatinine 0.86 0.50 - 1.10 mg/dL LAB CHEMISTRY METHOD 06/04/2025 5:41 PM [facility] eGFR 82 >=60 mL/min/1. 73m2 LAB CHEMISTRY METHOD 06/04/2025 5:41 PM [facility] Comment:Calculation based on the Chronic Kidney Disease Epidemiology Collaboration (CKD-EPI) equation refit without adjustment for race. BUN/Creatinine Ratio 16.3 LAB CHEMISTRY METHOD 06/04/2025 5:41 PM [facility] Calcium 9.2 8.5 - 10.5 mg/dL LAB CHEMISTRY METHOD 06/04/2025 5:41 PM EDT [facility] AST (SGOT) 11 10 - 42 unit/L LAB CHEMISTRY METHOD 06/04/2025 5:41 PM EDT [facility] ALT (SGPT) 21 10 - 60 unit/L LAB CHEMISTRY METHOD 06/04/2025 5:41 PM T [facility] Alkaline Phosphatase 134(H) 42 - 121 unit/L LAB CHEMISTRY METHOD 06/04/2025 5:41 PM EDT [facility] Total Protein 7.3 6.0 - 8.0 g/dL LAB CHEMISTRY METHOD 06/04/2025 5:41 PM EDT [facility] Albumin 3.3 3.2 - 5.0 g/dL LAB CHEMISTRY METHOD 06/04/2025 5:41 PM [facility] Total Bilirubin 0.3 0.0 - 1.4 mg/dL LAB CHEMISTRY METHOD 06/04/2025 5:41 PM EDT [facility] Blood Venous blood specimen / Unknown Venipuncture / Unknown 06/04/2025 1:08 PM EDT 06/04/2025 1:08 PM EDT us Shanice Shelton MD LAB BLOOD ORDERABL ES Final Result [facility] [address] [place] [address], [place] [phone] * MG Mammo Digital Screening w Jeffrey [...] is recommended in 1 year. Mammo Location: [facility], [address] [place] [address], [address], . -------- FINAL REPORT -------- Dictated By: Rosa Maria Elizabeth Dictated Date: 01/16/2025 15:09 ET Assigned Physician: Rosa Maria Elizabeth Reviewed and Electronically Signed By: Rosa Maria Elizabeth Signed Date: 01/16/2025 15:11 ET Workstation ID: [id number] Transcribed By: Self Edit Transcribed Date: 01/16/2025 [...] is recommended in 1 year. Mammo Location: [facility], [address] [place] [address], [address], . -------- FINAL REPORT -------- Dictated By: Rosa Maria Elizabeth Dictated Date: 01/16/2025 15:09 ET Assigned Physician: Rosa Maria Elizabeth Reviewed and Electronically Signed By: Rosa Maria Elizabeth Signed Date: 01/16/2025 15:11 ET Workstation ID: [id number] Transcribed By: Self Edit Transcribed Date: 01/16/2025 15:09 ET Shanice Shelton MD IM BI PROCEDURES Final Result * FIT-DNA (Cologuard) (10/05/2023) [facility] Colorectal Cancer Screening: FIT-DNA (Cologuard) Negative, Abstracted Historical Provider HEALTH MAINTENANCE Final Result * Hepatitis C Screening (05/25/2012) [facility] Hepatitis C Screening Abstracted Historical Provider HEALTH MAINTENANCE Final Result from Last 3 Months or Most Recently Relevant to Health Maintenance Insurance MEDICARE MEDICAID - [place] Care Teams Solar Designer/Installer Relationship Specialty Start Date End Date Shanice Shelton MD [address] [place] [id number] PCP - General Internal Medicine 08/16/22
== END 2025-07-16 11:31 | disposition home or self-care (01) ==
LOC: HO.HMGAL 13:18
PROVIDERS: PCP Internal Medicine; Visit Provider Registered Nurse Emergency
DX: J30.89 Other allergic rhinitis (principal)
CPT/HCPCS: 95117; 95165

== ENCOUNTER 2025-07-29 13:14 | Outpatient (AMB) | payer MEDICARE, MEDICAID, SELFPAY ==
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
--- OUTSIDE RECORDS SUMMARY | 2025-07-29 15:35 | XMS_ITS | Clinical Summary ---
Author Organization [facility] [address] [place] [address] Address [address] [place] [address] Phone Care Team Providers Care Tile Fitter Name Role Phone Shanice Shelton MD Primary [...] 15 each 5 06/11/20 25 026 Active furosemide (LASIX) 20 mg tablet Take 1 tablet (20 mg total) by mouth 1 (one) time each day. 07/15/20 25 Active zolpidem (AMBIEN) 10 mg tablet Take 1 tablet (10 mg total) by mouth at bedtime as needed. Max Daily Amount: 10 mg 03/26/20 25 Active lidocaine (LIDODERM) 5 % patch Apply 1 patch topically 1 (one) time each day. Remove & discard patch within 12 hours. 28 patch 07/18/20 25 Active doxycycline hyclate (VIBRA-TABS) 100 mg tablet Take 1 tablet (100 mg total) by mouth 2 (two) times a day for 21 days. Take with a full glass of water and do not lie down for at least 30 minutes after. 42 tablet 07/19/20 25 025 Active Active Problems Problem Noted Date Diagnosed Date Lyme disease 07/19/2025 Paresthesia of hand, bilateral 07/18/2025 Myalgia 07/18/2025 Overweight (BMI 25.0-29.9) 01/17/2025 Acute on chronic systolic he art failure ([facility] V24, [facility] V28) 11/20/2024 Aneurysm of other specified arteries ([facility] V2 4) 11/20/2024 Low back pain, unspecified 11/20/2024 Alcohol use, unspecified, uncomplicated 11/20/20 24 Depression, unspecified 11/20/2024 Prediabetes 09/29/2023 Overview (09/14/2024): Lab Results Component Value Date HGBA1C 6.1 09/22/2023 Assessment & Plan (12/30/2024 6:07 PM EST): Well controlled. Currently on Semaglutide for weight management. Orders: Comprehensive metabolic panel; Future Lipid panel with reflex to direct LDL; Future Nonischemic congestive cardi omyopathy (CMS/[facility] V24, CMS/[facility] V28) 09/08/2021 Overview (09/14/2024): Nonischemic congestive cardiomyopathy [...] Date Acute respiratory failure wi th hypoxia (CMS/HCC V24, CMS/HCC V28) 11/20/2024 06/04/2025 Encounters Date Type Department Care Team Description 07/18/2025 10:25 AM EDT - 07/18/2025 11:59 PM EDT Hospital Encounter [address] [phone] Acute bilateral thoracic back pain Discharge Disposition: Home or Self Care 07/18/2025 10:24 AM EDT - 07/18/2025 11:59 PM EDT Hospital Encounter [address] [phone] Chronic bilateral low back pain, unspecified whether sciatica present; Acute bilateral low back pain, unspecified whether sciatica present Discharge Disposition: Home or Self Care 07/18/2025 10:00 AM EDT Office Visit Adult Medicine [address] [phone] Anastasiya Reis PA Acute bilateral thoracic back pain (Primary Dx); Chronic bilateral low back pain, unspecified whether sciatica present; Acute bilateral low back pain, unspecified whether sciatica present; Myalgia; Cervicalgia; Paresthesia of hand, bilateral; Nonintractable episodic headache, unspecified headache type; Chronic systolic heart failure (CMS/HCC V24, CMS/HCC V28); Lyme disease 07/18/2025 Telephone Adult Medicine [address] [phone] Anastasiya Reis PA 07/17/2025 Telephone Adult Medicine [address] [phone] Shanice Gutierrez MD 07/16/2025 Telephone Adult [address] [phone] Shanice Gutierrez MD 07/10/2025 10:30 AM EDT Evaluation Outpatient Rehabilitation [address] [phone] Mike Crawford PT Acute bilateral thoracic back pain 07/10/2025 Plan of Care Documentation Outpatient Rehabilitation [address] [phone] 06/11/2025 8:30 AM EDT Office Visit Bariatric Surgery [address] [phone] Alexander Silva MD Over weight 06/07/2025 8:00 AM EDT Telemedicine Bariatric Surgery [address] [phone] Nevaeh Blanco, RD Overweight (BMI 25.0-29.9) (Primary Dx) 06/04/2025 3:00 PM EDT Office Visit Adult [address] [phone] Shanice Gutierrez MD Adult general medical examination (Primary Dx); Acute bilateral thoracic back pain; Nonischemic congestive cardiomyopathy (CMS/HCC V24, CMS/HCC V28) 05/23/2025 9:30 AM EDT Office Visit Vascular Surgery - [place] [address] [place] [address] Veronika Lamb MD Splenic artery aneurysm ([facility] V24) (Primary Dx) from Last 3 Months Immunizations Name Administration Dates Next Due Pfizer SARS-CoV-2 COVID-19, mRNA, LNP-S, preservative free 09/02/2021,02/24/2021 Surgical History Surgery Date Site/Laterality Comments WISDOM TOOTH EXTRACTION PROCEDURE: HISTORICAL WISDOM TEETH EXTRACTION OTHER SURGICAL HISTORY PROCEDURE: NV DILATION & CURETTAGE DX&/THER NONOBSTETRIC NECK SURGERY 07/01/2008 PROCEDURE: HISTORICAL NECK SURGERY; COMMENT: decompression and fusion C5-6, C6-7 ENDOMETRIAL ABLATION 2009 PROCEDURE: NV ENDOMETRIAL ABLTJ THERMAL W/O HYSTEROSCOPIC GUID HYSTERECTOMY [...] COMMENT: benign EYE SURGERY 2016 Bilateral PROCEDURE: NV TRABECULOPLASTY BY LASER SURGERY; COMMENT: Dr. Marylou Key Medical History Medical History Date Comments Migraines DX:Migraines Cardiomyopathy ([facility] V24, [facility] V28) 09/14/2010 DX:Cardiomyopathy (HCC) Anxiety 09/11/2010 DX:Anxiety FH: migraines DX:FH: migraines HTN (hypertension) 04/02/2011 DX:HTN (hyper tension) Vitamin D deficiency 07/02/2011 DX:Vitamin D deficiency Cervicalgia 10/10/2015 DX:Cervicalgia Chronic low back pain 10/10/2015 DX:Chronic low back pain POTS (postural orthostatic t achycardia syndrome) 10/09/2013 DX:POTS (postural orthostati c tachycardia syndrome); COMMENT: Previously dx with this by Cardio - Florinef - no longer taking ,no symptoms. ILR no arrhythmia Excessive or frequent menstruation 06/14/2013 DX:Excessive or frequent menstruation Dysmenorrhea 06/14/2013 DX:Dysmenorrhea Bradycardia 09/14/2010 DX:Bradycardia Sebaceous cyst DX:Sebaceous cys t Acute respiratory failure wi th hypoxia ([facility] V24, [facility] V28) 11/20/2024 Family History Medical History Relation Name Comments No Known Problems Brother 1 No Known Problems Brother 2 No Known Problems Daughter ALS Father Diabetes Father peripheral neur opathy, htn Bladder Cancer Mother bladder cance r, stomach, age 49 Lung cancer Paternal Grandfather [place], dec eased Diabetes Paternal Grandmother d No [...] Not Answered Alcohol Use Standard Drinks/Week Comments Not Currently 0 (1 standard drink = 0.6 oz [...] care for your loved ones. 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 [...] Sign Reading Time Taken Comments Blood Pressure 91/53 07/18/2025 9:54 AM EDT Pulse 71 07/18/2025 9:54 AM EDT Temperature 36.3 C (97.4 F) 07/18/2025 9:54 AM EDT Respiratory Rate 13 07/18/2025 9:54 AM EDT Oxygen Saturation 97% 07/18/2025 9:54 AM EDT Inhaled Oxygen Concentration - - Weight 69.6 kg (153 lb 6.4 oz) 07/18/2025 9:54 A M EDT Height 160 cm (5' 3 ) 07/18/2025 9:54 AM EDT Body Mass Index 27.17 07/18/2025 9:54 AM EDT Plan of Treatment Upcoming Encounters Date Type Department Care Team (Late st Contact Info) Description 07/29/2025 5:00 PM EDT Treatment Outpatient Rehabilitation - [address] [phone] Usha Williamson, SIDE SEAM TENDER 08/01/2025 3:30 PM EDT Treatment Outpatient Rehabilitation - [address] [phone] Usha Williamson, SIDE SEAM TENDER 08/05/2025 5:00 PM EDT Treatment Outpatient Rehabilitation - [address] [phone] Usha Williamson, SIDE SEAM TENDER 08/08/2025 3:30 PM EDT Treatment Outpatient [facility] - [address] [phone] Usha Williamson, SIDE SEAM TENDER 08/12/2025 5:00 PM EDT Treatment Outpatient [facility] - [address] [phone] Mike Crawford, PT 08/15/2025 3:30 PM EDT Treatment Outpatient [facility] - [address] [phone] Usha Williamson, SIDE SEAM TENDER 08/19/2025 5:00 PM EDT Treatment Outpatient Rehabilitation - [address] [phone] Usha Williamson, SIDE SEAM TENDER 08/23/2025 1:30 PM EDT Treatment Outpatient Rehabilitation - [address] [phone] Mike Crawford, PT 08/30/2025 12:30 PM EDT Telemedicine Bariatric Surgery - [address] [place] [phone] Nevaeh Cunha, RD [address] [facility] [address] [place] [address] 12/12/2025 9:15 AM EST Office Visit Bariatric Surgery - [place] [address] [facility] [address] [place] [phone] Alexander Silva MD [address] [place] [phone] 05/28/2026 9:30 AM EDT Office Visit Vascular Surgery - [place] [address] [place] [address] Veronika Lamb MD [address] [place] [address] Health Maintenance Due Date Last Done Comments Medicare Annual Wellness Visit 10/30/2022 COVID-19 Vaccine ( season) 2025 09/24/2021, 09/02/2021, 02/24/2021, Additional history exists Social Influencers of Health Screening 09/24/2025 09/24/2024 Hypertension/CHF/CAD Annual BMP Blood Test 07/18/2026 07/18/2025, 06/04/2025 Colorectal Cancer Screening: FIT-DNA (Cologuard) 10/05/2026 10/05/2023, 10/05/2023 Breast Cancer Screening 01/16/2027 01/16/20 25, 01/13/2024, 01/06/2023, Additional history exists Cholesterol Screening (Lipid Panel) 07/18/2030 07/18/2025, 06/04/2025, 09/22/2023 Hepatitis C Screening Completed 05/25/2012 [...] Associated Diagnosis Comments COMPREHENSIVE METABOLIC PANEL Routine 07/18/2025 11:04 AM EDT Other cardiomyopathy (CMS/HCC V24, CMS/HCC V28) Prediabetes Mixed hyperlipidemia LIPID PANEL WITH REFLEX TO DIRECT LDL Routine 07/18/2025 11:04 AM EDT Other cardiomyopathy (CMS/HCC V24, CMS/HCC V28) Prediabetes Mixed hyperlipidemia SYED IFA WITH TITER AND PATTERN Routine 07/18/2025 11:04 AM EDT Chronic bilateral low back pain, unspecified whether sciatica present Myalgia BORRELIA BURGDORFERI ANTIBODY Routine 07/18/2025 11:04 AM EDT Chronic bilateral low back pain, unspecified whether sciatica present Myalgia C-REACTIVE PROTEIN Routine 07/18/2025 11 :04 AM EDT Chronic bilateral low back pain, unspecified whether sciatica present Myalgia RHEUMATOID FACTOR Routine 07/18/2025 11: 04 AM EDT Chronic bilateral low back pain, unspecified whether sciatica present Myalgia URIC ACID Routine 07/18/2025 11:04 AM EDT Chronic bilateral low back pain, unspecified whether sciatica present Myalgia XR THORACIC SPINE 2 VIEWS Routine 07/18/2025 10:45 AM EDT Acute bilateral thoracic back pain XR LUMBAR SPINE 4+ VIEWS Routine 07/18/2025 10:45 AM EDT Chronic bilateral low back pain, unspecified whether sciatica present Acute bilateral low back pain, unspecified whether sciatica present EXTERNAL NEUROLOGY REPORT Routine 07/10/2025 3:20 PM EDT COMPREHENSIVE METABOLIC PANEL Routine 06/04/2025 1:08 PM [...] Recently Relevant to Health Maintenance Results * Lipid panel with reflex to direct LDL (07/18/2025 11:04 AM EDT) Only the most recent of2 resultswithin the time period is included. Cholesterol 155 0 - 200 mg/dL LAB CHEMISTRY METHOD 07/18/2025 3:02 PM EDT [facility] Triglycerides 81 0 - 150 mg/dL LAB CHEMISTRY METHOD 07/18/2025 3:02 PM EDT [facility] HDL 41 >=40 mg/dL LAB CHEMISTRY METHOD 07/18/2025 3:02 PM EDT [facility] LDL Calculated 98 0 - 100 mg/dL LAB CHEMISTRY METHOD 07/18/2025 3:02 PM EDT [facility] Comment:Estimated LDL Calcul ated using equation: Total cholesterol - HDL cholesterol - (Triglycerides/5) VLDL Cholesterol Myke 16.2 mg/dL LAB CHEMISTRY METHOD 07/18/2025 3:02 PM EDT [facility] Non HDL Chol. (LDL+VLDL) 114 <145 mg/dL LAB CHEMISTRY METHOD 07/18/2025 3:02 PM EDT [facility] Chol/HDL Ratio 3.8 0.0 - 4.4 LAB CHEMISTRY METHOD 07/18/2025 3:02 PM EDT [facility] Blood Venous blood specimen / Unknown Venipuncture / Unknown 07/18/2025 11:04 AM EDT 07/18/2025 11:04 AM EDT Shanice Shelton MD LAB BLOOD ORDERABL ES Final Result Performing Organization Address [facility]/ZIP Co de Phone Number [facility] [address] [place] [address], [place] [phone] * SYED IFA with titer and pattern (07/18/2025 11:04 AM EDT) Pathologist [facility] SYED Negative Negative 07/23/2025 3:12 PM EDT [facility] Comment:SYED performed by ind irect immunofluorescence (IFA) using HEp-2 substrate. Blood Venous blood specimen / Unknown Venipuncture / Unknown 07/18/2025 11:04 AM EDT 07/18/2025 11:04 AM EDT Anastasiya MCLAUGHLIN LAB BLOOD ORDERABLES Final Resul t Performing Organization Address [facility]/ZIP Co de Phone Number [facility] [address] [place] [address], [place] [phone] * (ABNORMAL) Borrelia burgdorferi antibody (07/18/2025 11:04 AM EDT) Lyme IgG Antibody Positive( A) Negative LAB CHEMISTRY METHOD 07/19/2025 9:35 AM EDT [facility] Lyme IgM Antibody Positive( A) Negative LAB CHEMISTRY METHOD 07/19/2025 9:35 AM EDT [facility] Lyme Ab Positive( A) Negative LAB CHEMISTRY METHOD 07/19/2025 9:35 AM EDT [facility] Comment: Results are consistent with B. burgdorferi (Lyme disease) in the recent or remote past. Antibodies may remain detectable for months to years following resolution of infection. Results SHOULD NOT be used to monitor or establish adequate response to therapy. Response to therapy is confirmed through resolution of clinical symptoms; additional laboratory testing SHOULD NOT be performed. If both tests are equivocal consider repeat testing in 7-14 days if clinically warranted Blood Venous blood specimen / Unknown Venipuncture / Unknown 07/18/2025 11:04 AM EDT 07/18/2025 11:04 AM EDT Anastasiya MCLAUGHLIN LAB BLOOD ORDERABLES Final Resul t Performing Organization Address City/[facility] Co de Phone Number [facility] [address] [place] [address], * Rheumatoid factor (07/18/2025 11:04 AM EDT) Rheumatoid Factor <10.0 <15.0 I Unit/mL LAB CHEMISTRY METHOD 07/18/2025 3:02 PM EDT [facility] Blood Venous blood specimen / Unknown Venipuncture / Unknown 07/18/2025 11:04 AM EDT 07/18/2025 11:04 AM EDT Anastasiya MCLAUGHLIN LAB BLOOD ORDERABLES Final Resul t [facility] [address] [place] [address], [place] [phone] * (ABNORMAL) C-reactive protein (07/18/2025 11:04 AM EDT) C-Reactive Protein 9.15(H) <=0.50 mg/dL LAB CHEMISTRY METHOD 07/18/2025 2:58 PM EDT [facility] Blood Venous blood specimen / Unknown Venipuncture / Unknown 07/18/2025 11:04 AM EDT 07/18/2025 11:04 AM EDT Anastasiya MCLAUGHLIN LAB BLOOD ORDERABLES Final Resul t Performing Organization Address [facility]/ZIP Co de Phone Number [facility] [address] [place] [address], [place] [phone] * Uric acid (07/18/2025 11:04 AM EDT) [facility] Uric Acid 4.3 3.1 - 7.8 mg/dL LAB CHEMISTRY METHOD 07/18/2025 2:58 PM EDT [facility] Blood Venous blood specimen / Unknown Venipuncture / Unknown 07/18/2025 11:04 AM EDT 07/18/2025 11:04 AM EDT Anastasiya MCLAUGHLIN LAB BLOOD ORDERABLES Final Resul t Performing Organization Address [facility] Co de Phone Number [facility] [address] [place] [address], [place] [phone] * Comprehensive metabolic panel (07/18/2025 11:04 AM EDT) Only the most recent of2 resultswithin the time period is included. Pathologist [facility] Sodium 136 133 - 145 mmol/L LAB CHEMISTRY METHOD 07/18/2025 3:02 PM EDT [facility] Potassium 4.3 3.5 - 5.5 mmol/L LAB CHEMISTRY METHOD 07/18/2025 3:02 PM EDT [facility] Chloride 104 96 - 110 mmol/L LAB CHEMISTRY METHOD 07/18/2025 3:02 PM EDT [facility] CO2 28 21 - 32 mmol/L LAB CHEMISTRY METHOD 07/18/2025 3:02 PM EDT [facility] Anion Gap 4 3 - 11 LAB CHEMISTRY METHOD 07/18/2025 3:02 PM EDT [facility] Glucose 89 70 - 100 mg/dL LAB CHEMISTRY METHOD 07/18/2025 3:02 PM [facility] BUN 20 5 - 25 mg/dL LAB CHEMISTRY METHOD 07/18/2025 3:02 PM [facility] Creatinine 1.03 0.50 - 1.10 mg/dL LAB CHEMISTRY METHOD 07/18/2025 3:02 PM [facility] eGFR 66 >=60 mL/min/1. 73m2 LAB CHEMISTRY METHOD 07/18/2025 3:02 PM [facility] Comment:Calculation based on the Chronic Kidney Disease Epidemiology Collaboration (CKD-EPI) equation refit without adjustment for race. BUN/Creatinine Ratio 19.4 LAB CHEMISTRY METHOD 07/18/2025 3:02 PM [facility] Calcium 9.4 8.5 - 10.5 mg/dL LAB CHEMISTRY METHOD 07/18/2025 3:02 PM [facility] AST (SGOT) 10 10 - 42 unit/L LAB CHEMISTRY METHOD 07/18/2025 3:02 PM [facility] ALT (SGPT) 23 10 - 60 unit/L LAB CHEMISTRY METHOD 07/18/2025 3:02 PM [facility] Alkaline Phosphatase 111 42 - 121 unit/L LAB CHEMISTRY METHOD 07/18/2025 3:02 PM [facility] Total Protein 7.2 6.0 - 8.0 g/dL LAB CHEMISTRY METHOD 07/18/2025 3:02 PM [facility] Albumin 3.3 3.2 - 5.0 g/dL LAB CHEMISTRY METHOD 07/18/2025 3:02 PM [facility] Total Bilirubin 0.4 0.0 - 1.4 mg/dL LAB CHEMISTRY METHOD 07/18/2025 3:02 PM [facility] Blood Venous blood specimen / Unknown Venipuncture / Unknown 07/18/2025 11:04 AM EDT 07/18/2025 11:04 AM EDT us Shanice Shelton MD LAB BLOOD ORDERABL ES Final Result [facility] ([facility]) [facility] [address] [place] [address], [place] [phone] * XR Thoracic Spine 2 Views (07/18/2025 10:45 AM EDT) Anatomical Region Laterality Modality Spine, T-spine Radiographic Yanelis ging 07/19/2025 11:5 8 AM EDT Impressions 07/19/2025 12:01 PM EDT Mild degenerative changes. POS - [id number] -------- FINAL REPORT -------- Dictated By: Lisa Collins Dictated Date: 07/19/2025 11:58 ET Assigned Physician: Lisa Collins Reviewed and Electronically Signed By: Lisa Collins Signed Date: 07/19/2025 12:01 ET Workstation ID: [id number] Transcribed By: Self Edit Transcribed Date: 07/19/2025 11:58 ET Narrative 07/19/2025 12:01 PM EDT EXAM: Thoracic spine x-ray HISTORY: Acute bilateral thoracic back pain. COMPARISON: None, correlation with chest radiography 04/13/2021 FINDINGS: AP and lateral views performed. Vertebral body heights are maintained. Multilevel mild disc space narrowing and endplate spurring. No subluxation. Pedicles are intact. Anterior spinal fusion plate superimposes the lower cervical spine. Procedure Note Lisa Collins MD - 07/19/2025 EXAM: Thoracic spine x-ray HISTORY: Acute bilateral thoracic back pain. COMPARISON: None, correlation with chest radiography 04/13/2021 FINDINGS: AP and lateral views performed. Vertebral body heights are maintained. Multilevel mild disc spacenarrowing and endplate spurring. No subluxation. Pedicles are intact.Anterior spinal fusion plate superimposes the lower cervical spine. IMPRESSION: Mild degenerative changes. POS - [id number] -------- FINAL REPORT -------- Dictated By: Lisa Collins Dictated Date: 07/19/2025 11:58 ET Assigned Physician: Lisa Collins Reviewed and Electronically Signed By: Lisa Collins Signed Date: 07/19/2025 12:01 ET Workstation ID: [id number] Transcribed By: Self Edit Transcribed Date: 07/19/2025 11:58 ET Anastasiya MCLAUGHLIN IMG XR PROCEDURES Final Result * XR Lumbar Spine 4+ Views (07/18/2025 10:45 AM EDT) Anatomical Region Laterality Modality Spine, L-spine Radiographic Yanelis ging 07/19/2025 12:0 1 PM EDT Impressions 07/19/2025 12:07 PM EDT Multilevel degenerative changes with progressive facet arthropathy. POS - [id number] -------- FINAL REPORT -------- Dictated By: Lisa Collins Dictated Date: 07/19/2025 12:01 ET Assigned Physician: Lisa Collins Reviewed and Electronically Signed By: Lisa Collins Signed Date: 07/19/2025 12:07 ET Workstation ID: [id number] Transcribed By: Self Edit Transcribed Date: 07/19/2025 12:01 ET Narrative 07/19/2025 12:07 PM EDT EXAM: Lumbar spine x-ray HISTORY: Chronic bilateral low back pain. COMPARISON: 09/20/2023 FINDINGS: 4 views of the lumbar spine were performed. 5 lumbar type vertebral bodies. No new compression deformities. Severe disc space narrowing again noted at L5-S1. Stable bulky bridging endplate osteophytes on the left side at L1-2. Milder spurring at other levels. No definite spondylolysis or spondylolisthesis. Progressive multilevel facet arthropathy. 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 Procedure Note Lisa Collins MD - 07/19/2025 EXAM: Lumbar spine x-ray HISTORY: Chronic bilateral low back pain. COMPARISON: 09/20/2023 FINDINGS: 4 views of the lumbar spine were performed. 5 lumbar type vertebral bodies. No new compression deformities. Severedisc space narrowing again noted at L5-S1. Stable bulky bridging endplateosteophytes on the left side at L1-2. Milder spurring at other levels. Nodefinite spondylolysis or spondylolisthesis. Progressive multilevel facetarthropathy. Chronic ossification of the left iliolumbar ligament from theleft L5 transverse process to the ileum. IMPRESSION: Multilevel degenerative changes with progressive facet arthropathy. POS - [id number] -------- FINAL REPORT -------- Dictated By: Lisa Collins Dictated Date: 07/19/2025 12:01 ET Assigned Physician: Lisa Collins Reviewed and Electronically Signed By: Lisa Collins Signed Date: 07/19/2025 12:07 ET Workstation ID: [id number] Transcribed By: Self Edit Transcribed Date: 07/19/2025 12:01 ET Anastasiya MCLAUGHLIN IMG XR PROCEDURES Final Result * External Neurology Report (07/10/2025 3:20 PM EDT) Historical Provider NEUROLOGY ORDERABLES Michaelle ledezma Result * MG Mammo Digital Screening w Jeffrey [...] is recommended in 1 year. Mammo Location: [facility], [address] [place] [address], [id number], . -------- FINAL REPORT -------- Dictated By: Rosa Maria Elizabeth Dictated Date: 01/16/2025 15:09 ET Assigned Physician: Rosa Maria Elizabeth Reviewed and Electronically Signed By: Rosa Maria Elizabeth Signed Date: 01/16/2025 15:11 ET Workstation ID: [id number] Transcribed By: Self Edit Transcribed Date: 01/16/2025 [...] is recommended in 1 year. Mammo Location: [facility], [address] [place] [address], [id number], . -------- FINAL REPORT -------- Dictated By: Rosa Maria Elizabeth Dictated Date: 01/16/2025 15:09 ET Assigned Physician: Rosa Maria Elizabeth Reviewed and Electronically Signed By: Rosa Maria Elizabeth Signed Date: 01/16/2025 15:11 ET Workstation ID: [id number] Transcribed By: Self Edit Transcribed Date: 01/16/2025 15:09 ET Shanice Shelton MD IMG BI PROCEDURES Final Result * FIT-DNA (Cologuard) (10/05/2023) [facility] Colorectal Cancer Screening: FIT-DNA (Cologuard) Negative, Abstracted Historical Provider HEALTH MAINTENANCE Final Result * Hepatitis C Screening (05/25/2012) [facility] Hepatitis C Screening Abstracted Historical Provider HEALTH MAINTENANCE Final Result from Last 3 Months or Most Recently Relevant to Health Maintenance Insurance MEDICARE MEDICA[place] - [place] Care Teams Tile Fitter Relationship Specialty Start Date End Date Shanice Shelton MD [address] [place] [address] PCP - General Internal Medicine 08/16/22
--- OUTSIDE RECORDS SUMMARY | 2025-07-29 15:35 | XMS_ITS | Encounter Summary ---
Author Organization [facility] Address [address] [place] [address] Care Team Providers Care Historical Society Director Name Role Phone Shanice Shelton MD Primary Care Prov ider Reason for Visit * Reason Onset Date Comments Error 07/17/2025 Encounter Details Date Type Department Care Team (Late st Contact Info) Description 07/17/[address] [facility] [address] [place] [address] Shanice Shelton MD [address] [place], [place] Social History Tobacco Use Types Packs/Day [...] for your loved ones. For example, child adolescent psychiatrist or elderly care for an older adult? [...] AM EDT documented as of this encounter Plan of Treatment Upcoming Encounters Date Type Department Care Team (Late st Contact Info) Description 07/29/2025 5:00 PM EDT Treatment Outpatient Rehabilitation [address] [phone] Usha Williamson, CONFERENCE SERVICES COORDINATOR 08/01/2025 3:30 PM EDT Treatment Outpatient Rehabilitation - [address] [phone] Usha Williamson, CONFERENCE SERVICES COORDINATOR 08/05/2025 5:00 PM EDT Treatment Outpatient Rehabilitation - [address] [phone] Usha Williamson, CONFERENCE SERVICES COORDINATOR 08/08/2025 3:30 PM EDT Treatment Outpatient Rehabilitation - [address] [phone] Usha Williamson, CONFERENCE SERVICES COORDINATOR 08/12/2025 5:00 PM EDT Treatment Outpatient Rehabilitation - [address] [phone] Mike Crawford, PT 08/15/2025 3:30 PM EDT Treatment Outpatient Rehabilitation - [address] [phone] Usha Williamson, CONFERENCE SERVICES COORDINATOR 08/19/2025 5:00 PM EDT Treatment Outpatient Rehabilitation - [address] [phone] Usha Williamson, CONFERENCE SERVICES COORDINATOR 08/23/2025 1:30 PM EDT Treatment Outpatient Rehabilitation - [address] [phone] Mike Crawford, PT 08/30/2025 12:30 PM EDT Telemedicine Bariatric Surgery - [address] [phone] Nevaeh Cunha, RD [address] [phone] 12/12/2025 9:15 AM EST Office Visit Bariatric Surgery - [address] [phone] Alexander Silva MD [address] [place] [address] 05/28/2026 9:30 AM EDT Office Visit Vascular Surgery - [place] [address] [place] [address] Veronika Lamb MD [address] [place] [address] documented as of this encounter Visit Diagnoses Not on filedocumented in this encounter Additional Health Concerns Assessment Noted Time PHQ-9 Depression Total Score: 23 025 4:56 PM EST documented as of this encounter Care Teams Historical Society Director Relationship Specialty Start Date End Date Shanice Shelton MD [address] [place] [address] PCP - General Internal Medicine 08/16/22 documented as of this encounter
== END 2025-07-29 13:16 | disposition home or self-care (01) ==
LOC: HO.HMGAL 13:14
PROVIDERS: PCP Internal Medicine; Visit Provider Registered Nurse Emergency
DX: J30.89 Other allergic rhinitis (principal)
CPT/HCPCS: 95117; 95165

== ENCOUNTER 2025-08-05 13:29 | Outpatient (AMB) | payer MEDICARE, MEDICAID, SELFPAY ==
--- OUTSIDE RECORDS SUMMARY | 2025-08-01 15:30 | XMS_ITS | Encounter Summary ---
Author Organization [facility] Address [address] [place] [address] Care Team Providers Care Sonography Technologist Name Role Phone Shanice Shelton MD Primary Care Prov ider Reason for Visit * Consultation (Routine) - Authorized Specialty Diagnoses / Procedures Referred By Mc t Referred To Contact Physical Therapy Diagnoses Acute bilateral thoracic back pain Shanice Shelton MD [address] [place] [address] Phone: tel: fax: Outpatient Rehabilitation [address] Phone: tel: fax: Referral ID Status Reason Start Date Expiration Date Visits Requested Visits Authorized [id number] Authorized Specialty Services Required 06/04/2025 06/04/2026 1 12 Encounter Details Date Type Department Care Team (Late st Contact Info) Description 08/01/2025 3:30 PM EDT Treatment Outpatient Rehabilitation [address] [phone] Usha Williamson PTA Acute bilateral thoracic back pain (Primary Dx) Social History Tobacco Use Types Packs/Day Years Used Date Smoking Tobacco: Never Smokeless Tobacco: Never Alcohol Use Standard Drinks/Week Comments Not Currently [...] care for your loved ones. For example, rn maternal child or elderly care for an older adult? [...] as of this encounter Progress Notes * Usha Williamson PTA - 08/01/2025 3:30 PM EDT [facility] - Outpatient PHYSICAL THERAPY DAILY TREATMENT NOTE - OP Date: 08/01/2025 Visit Number: 3 Patient Name: Annabelle Coppola : 1975 Age: 49 y.o. Gender: female Diagnosis: ICD-10-CM ICD-9-CM 1. Acute bilateral thoracic back pain M54.6 724.1 Date of Onset/Surgery: 06/04/2025 Referring Provider: Shanice Shelton* Insurance: Payor: MEDICARE / Plan: MEDICARE PART A & B / Product Type: Medicare / Patient Identified by: Usha Williamson PTA Language: Argentine Medications: Current Outpatient Medications on File Prior [...] by mouth 1 (one) time each day. doxycycline hyclate (VIBRA-TABS) 100 mg tablet Take 1 tablet (100 mg total) by mouth 2 (two) times a day for 21 days. Take with a full glass of water and do not lie down for at least 30 minutes after. 42 tablet 0 Emgality Pen 120 mg/mL injection pen USE SUBCUTANEOUSLY MONTHLY DIRECTED Entresto 24-26 mg per tablet Take 1 tablet by mouth 2 (two) times a day. furosemide (LASIX) 20 mg tablet Take 1 tablet (20 mg total) by mouth 1 (one) time each day. lidocaine (LIDODERM) 5 % patch APPLY 1 PATCH TOPICALLY ONCE DAILY. REMOVE AND DISCARD PATCH WITHIN 12 HOURS. 28 each 0 meclizine (ANTIVERT) 25 mg tablet Take 1 Tablet by mouth 3 times daily as needed (dizziness). naltrexone (DEPADE) 50 mg tablet Take 0.5 tablets (25 mg total) by mouth 1 (one) time each day. 15 each 5 spironolactone (ALDACTONE) 25 mg tablet TAKE 1 TABLET BY MOUTH EVERY DAY. FURTHER REFILLS PER CARDIOLOGY zolpidem (AMBIEN) 10 mg tablet Take 1 tablet (10 mg total) by mouth at bedtime as needed. Max DailyAmount: 10 mg [DISCONTINUED] lidocaine (LIDODERM) 5 % patch Apply 1 patch topically 1 (one) time each day. Remove& discard patch within 12 hours. 28 patch 0 No current facility-administered medications on file prior to visit. Allergies: has No Known Allergies. Precautions: Fall risk: No Patient/Caregiver Goals: SUBJECTIVE Subjective Report: I fell at work the other day, my legs give out. I was sore and tired after the last rx Chart Reviewed: Yes Pain 7/10 all over OBJECTIVE TREATMENT INTERVENTION: Modalities: None performed Procedures: Nustep UE/LE x5min Seated red ball roll out 10 sec hold x10.. small range LTR x10 .. Small range Supine march with abd brace 2x10 Supine shoulder flexion with cane x10 Manual .. Prone STM to MIGDALIA QL . light touch due to pain HEP: shld girdle rolls, no monies w/o resistance, pec stretch low hold in doorway ASSESSMENT/Response to Treatment Good Low tolerance due to high pain levels, discussed call to MD to discuss xray, MRI and pain control to allow participation in PT. Pt educated to use TENS at home Patient Education: Education provided: Yes Education Provided To: Patient utilizing Explanation and Demonstration mode(s) of education Response to Education: Applied Knowledge and Verbal Understanding PLAN POC Development/Review: No Change in the Plan of Care; Participants: Patient Total Treatment Time: 30 Modalities: Therapeutic procedures: Documentation completed by Usha Williamson PTA documented in this encounter Plan of Treatment Upcoming Encounters Date Type Department Care Team (Late st Contact Info) Description 08/30/2025 12:30 PM EDT Telemedicine Bariatric Surgery [facility] [address] [facility] [address] [place] [phone] Nevaeh Cunha, RD 175 [facility] [address] [place] [phone] 09/24/2025 9:30 AM EST Office Visit Adult Medicine [facility] [address] [place], [place] [phone] Shanice Shelton MD [address] [place] [address] 12/12/2025 9:15 AM EST Office Visit Bariatric Surgery [facility] [address] [facility] [address] [place] [phone] Alexander Silva MD [address] [place] [phone] 05/28/2026 9:30 AM EDT Office Visit Vascular Surgery [facility] [address] [facility] [address] [place] [phone] Veronika Lamb MD [address] [place] [phone] documented as of this encounter Visit Diagnoses Diagnosis Acute bilateral thoracic back pain- Primary documented in this encounter Additional Health Concerns Assessment Noted Time PHQ-9 Depression Total Score: 23 025 4:56 PM EST documented as of this encounter Care Teams Sonography Technologist Relationship Specialty Start Date End Date Shanice Shelton MD [address] [place] [address] PCP - General Internal Medicine 08/16/22 documented as of this encounter
--- OUTSIDE RECORDS SUMMARY | 2025-08-05 18:45 | XMS_ITS | Clinical Summary ---
Author Organization [facility] [address] [place] [address] Address [address] [place] [address] Phone Care Team Providers Care Senior Technical Architect Name Role Phone Shanice Shelton MD Primary Care Prov ider Allergies No known active allergies Medications meclizine (ANTIVERT) 25 mg tablet Take 1 Tablet by mouth 3 times daily as needed (dizziness). Active carvediloL (COREG) 3.125 mg tablet TAKE 1 TABLET BY MOUTH TWO TIMES A DAY. FURTHER REFILLS PER CARDIOLOGY Active Entresto 24-26 mg per tablet Take 1 tablet by mouth 2 (two) times a day. Active spironolactone (ALDACTONE) 25 mg tablet TAKE 1 TABLET BY MOUTH EVERY DAY. FURTHER REFILLS PER CARDIOLOGY Active dapagliflozin propanediol (Farxiga) 10 mg tablet Take 1 tablet (10 mg total) by mouth 1 (one) time each day. Active Emgality Pen 120 mg/mL injection pen USE SUBCUTANEOUSLY MONTHLY DIRECTED Active buPROPion XL (WELLBUTRIN XL) 300 mg 24 hr tablet Take 1 tablet (300 mg total) by mouth 1 (one) time each day. 30 each 5 025 2025 Active naltrexone (DEPADE) 50 mg tabletIndicati ons:Over weight Take 0.5 tablets (25 mg total) by mouth 1 (one) time each day. 15 each 5 025 2025 Active furosemide (LASIX) 20 mg tablet Take 1 tablet (20 mg total) by mouth 1 (one) time each day. Active zolpidem (AMBIEN) 10 mg tablet Take 1 tablet (10 mg total) by mouth at bedtime as needed. Max Daily Amount: 10 mg Active doxycycline hyclate (VIBRA-TABS) 100 mg tablet Take 1 tablet (100 mg total) by mouth 2 (two) times a day for 21 days. Take with a full glass of water and do not lie down for at least 30 minutes after. 42 tablet 2024 Active lidocaine (LIDODERM) 5 % patchIndicatio ns:Lyme disease,Acute bilateral low back pain, unspecified whether sciatica present,Acute bilateral thoracic back pain,Myalgia APPLY 1 PATCH TOPICALLY ONCE DAILY. REMOVE AND DISCARD PATCH WITHIN 12 HOURS. 28 each Active lidocaine (LIDODERM) 5 % patch Apply 1 patch topically 1 (one) time each day. Remove & discard patch within 12 hours. 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) 11/20/2024 Low back pain, unspecified [...] Previously dx with this by Cardio - Francesco - no longer taking ,no [...] Encounters Date Type Department Care Team Description 08/01/2025 3:30 PM EDT Treatment Outpatient Rehabilitation [address] [phone] Usha Williamson, CATTLE DEHORNER Acute bilateral thoracic back pain (Primary Dx) 08/01/2025 Telephone Adult Medicine [facility] - [address] [phone] Shanice Gutierrez MD 07/29/2025 5:00 PM EDT Treatment Outpatient Rehabilitation [address] [phone] Weidler, Usha, CATTLE DEHORNER Acute bilateral thoracic back pain (Primary Dx) 07/18/2025 10:25 AM EDT - 07/18/2025 11:59 PM EDT Hospital Encounter [address] [phone] Acute bilateral thoracic back pain Discharge Disposition: Home or Self Care 07/18/2025 10:24 AM EDT - 07/18/2025 11:59 PM EDT Hospital Encounter [address] [phone] Chronic bilateral low back pain, unspecified whether sciatica present; Acute bilateral low back pain, unspecified whether sciatica present Discharge Disposition: Home or Self Care 07/18/2025 10:00 AM EDT Office Visit Adult Medicine [address] [phone] Anastasiya Reis PA Acute bilateral thoracic back pain (Primary Dx); Chronic bilateral low back pain, unspecified whether sciatica present; Acute bilateral low back pain, unspecified whether sciatica present; Myalgia; Cervicalgia; Paresthesia of hand, bilateral; Nonintractable episodic headache, unspecified headache type; Chronic systolic heart failure (CMS/HCC V24, CMS/HCC V28); Lyme disease 07/18/2025 Telephone Adult Medicine [address] [phone] Anastasiya Reis PA 07/17/2025 Telephone Adult Medicine [address] [phone] Shanice Gutierrez MD 07/16/2025 Telephone Adult Medicine [address] [phone] Shanice Gutierrez MD 07/10/2025 10:30 AM EDT Evaluation Outpatient Rehabilitation [address] [phone] Mike Crawford, PT Acute bilateral thoracic back pain 07/10/2025 Plan of Care Documentation Outpatient Rehabilitation [address] [phone] 06/11/2025 8:30 AM EDT Office Visit Bariatric Surgery [facility] 175 [facility] [address] [place] [phone] Alexander Silva MD Over weight 06/07/2025 8:00 AM EDT Telemedicine Bariatric Surgery [facility] 175 [facility] [address] [place] [phone] Norman cardenas, Nevaeh, RD Overweight (BMI 25.0-29.9) (Primary Dx) 06/04/2025 3:00 PM EDT Office Visit Adult Medicine [facility] [address] [place] [address] Talia glaser, Shanice Lopez MD Adult general medical examination (Primary Dx); Acute bilateral thoracic back pain; Nonischemic congestive cardiomyopathy (CMS/HCC V24, CMS/HCC V28) 05/23/2025 9:30 AM EDT Office Visit Vascular Surgery [facility] [address] [facility] [address] [place] [phone] Veronika Lamb MD Splenic artery aneurysm (CMS/HCC V24) (Primary Dx) from Last 3 Months Immunizations Name Administration Dates Next Due Pfizer SARS-CoV-2 COVID-19, mRNA, LNP-S, preservative free 09/02/2021,02/24/2021 Surgical History Surgery Date Site/Laterality Comments WISDOM TOOTH EXTRACTION PROCEDURE: HISTORICAL WISDOM TEETH EXTRACTION OTHER SURGICAL HISTORY PROCEDURE: [place] DILATION & CURETTAGE DX&/THER NONOBSTETRIC NECK SURGERY 07/01/2008 PROCEDURE: HISTORICAL NECK SURGERY; COMMENT: decompression and fusion C5-6, C6-7 ENDOMETRIAL ABLATION 2009 PROCEDURE: [place] ENDOMETRIAL ABLTJ THERMAL W/O HYSTEROSCOPIC GUID HYSTERECTOMY [...] COMMENT: benign EYE SURGERY 2016 Bilateral PROCEDURE: [place] TRABECULOPLASTY BY LASER SURGERY; COMMENT: Dr. Marylou [...] stomach, age 47 Lung cancer Paternal Grandfather [place], dec eased Diabetes Paternal Grandmother d No [...] for your loved ones. For example, childcare provider or elderly care for an older adult? [...] 08/30/2025 12:30 PM EDT Telemedicine Bariatric Surgery [address] [phone] Nevaeh Cunha, RD [address] [phone] 09/24/2025 9:30 AM EST Office Visit Adult [address] [phone] Shanice Shelton MD [address] [place] [address] 12/12/2025 9:15 AM EST Office Visit Bariatric Surgery [address] [phone] Alexander Silva MD [address] [place] [phone] 05/28/2026 9:30 AM EDT Office Visit Vascular Surgery - [place] [address] [place] [phone] Veronika Lamb MD [address] [place] [phone] Health Maintenance Due Date Last [...] mg/dL LAB CHEMISTRY METHOD 07/18/2025 3:02 PM [facility] Triglycerides 81 0 - 150 mg/dL LAB CHEMISTRY METHOD 07/18/2025 3:02 PM [facility] HDL 41 >=40 mg/dL LAB CHEMISTRY METHOD 07/18/2025 3:02 PM [facility] LDL Calculated 98 0 - 100 mg/dL LAB CHEMISTRY METHOD 07/18/2025 3:02 PM [facility] Comment:Estimated LDL Calcul ated using equation: Total cholesterol - HDL cholesterol - (Triglycerides/5) VLDL Cholesterol Myke 16.2 mg/dL LAB CHEMISTRY METHOD 07/18/2025 3:02 PM [facility] Non HDL Chol. (LDL+VLDL) 114 <145 mg/dL LAB CHEMISTRY METHOD 07/18/2025 3:02 PM [facility] Chol/HDL Ratio 3.8 0.0 - 4.4 LAB CHEMISTRY METHOD 07/18/2025 3:02 PM [facility] Blood Venous blood specimen / Unknown Venipuncture / Unknown 07/18/2025 11:04 AM EDT 07/18/2025 11:04 AM EDT Shanice Shelton MD LAB BLOOD ORDERABL ES Final Result Performing Organization Address [facility]/ZIP Co de Phone Number [facility] [address] [place] [address], * SYED IFA with titer and pattern (07/18/2025 11:04 AM EDT) SYED Negative Negative 07/23/2025 3:12 PM EDT [facility] Comment:SYED performed by ind irect immunofluorescence (IFA) using HEp-2 substrate. Blood Venous blood specimen / Unknown Venipuncture / Unknown 07/18/2025 11:04 AM EDT 07/18/2025 11:04 AM EDT Anastasiya MCLAUGHLIN LAB BLOOD ORDERABLES Final Resul t Performing Organization Address [facility]/ZIP Co de Phone Number [facility] [address] [place] [address], [place] [phone] * (ABNORMAL) Borrelia burgdorferi antibody (07/18/2025 11:04 AM EDT) Lyme IgG Antibody Positive( A) Negative LAB CHEMISTRY METHOD 07/19/2025 9:35 AM EDT [facility] Lyme IgM Antibody Positive( A) Negative LAB CHEMISTRY METHOD 07/19/2025 9:35 AM EDT [facility] Lyme Ab Positive( A) Negative LAB CHEMISTRY METHOD 07/19/2025 9:35 AM EDT [facility] Comment: Results are consistent with [...] ORDERABLES Final Resul t Performing Organization Address City/[facility]/ZIP Co de Phone Number [facility] [address] [place] [address], [place] [phone] * Rheumatoid factor (07/18/2025 11:04 AM EDT) Rheumatoid Factor <10.0 <15.0 I Unit/mL LAB CHEMISTRY METHOD 07/18/2025 3:02 PM EDT [facility] Blood Venous blood specimen / Unknown Venipuncture / Unknown 07/18/2025 11:04 AM EDT 07/18/2025 11:04 AM EDT us Anastasiya MCLAUGHLIN LAB BLOOD ORDERABLES Final Resul t Performing Organization Address [facility] de Phone Number [facility] [address] [place] [address], [place] [phone] * (ABNORMAL) C-reactive protein (07/18/2025 11:04 AM EDT) C-Reactive Protein 9.15(H) <=0.50 mg/dL LAB CHEMISTRY METHOD 07/18/2025 2:58 PM EDT [facility] Blood Venous blood specimen / Unknown Venipuncture / Unknown 07/18/2025 11:04 AM EDT 07/18/2025 11:04 AM EDT Anastasiya MCLAUGHLIN LAB BLOOD ORDERABLES Final Resul t Performing Organization Address City/[facility]/ZIP Co de Phone Number [facility] [address] [place] [address], [place] [phone] * Uric acid (07/18/2025 11:04 AM EDT) [facility] Uric Acid 4.3 3.1 - 7.8 mg/dL LAB CHEMISTRY METHOD 07/18/2025 2:58 PM EDT [facility] Blood Venous blood specimen / Unknown Venipuncture / Unknown 07/18/2025 11:04 AM EDT 07/18/2025 11:04 AM EDT Anastasiya MCLAUGHLIN LAB BLOOD ORDERABLES Final Resul t [facility] [address] [place] [address], [place] [phone] * Comprehensive metabolic panel (07/18/2025 11:04 AM EDT) Only the most recent of2 resultswithin the time period is included. [facility] Sodium 136 133 - 145 mmol/L LAB CHEMISTRY METHOD 07/18/2025 3:02 PM [facility] Potassium 4.3 3.5 - 5.5 mmol/L LAB CHEMISTRY METHOD 07/18/2025 3:02 PM [facility] Chloride 104 96 - 110 mmol/L LAB CHEMISTRY METHOD 07/18/2025 3:02 PM [facility] CO2 28 21 - 32 mmol/L LAB CHEMISTRY METHOD 07/18/2025 3:02 PM [facility] Anion Gap 4 3 - 11 LAB CHEMISTRY METHOD 07/18/2025 3:02 PM [facility] Glucose 89 70 - 100 mg/dL LAB CHEMISTRY METHOD 07/18/2025 3:02 PM [facility] BUN 20 5 - 25 mg/dL LAB CHEMISTRY METHOD 07/18/2025 3:02 PM [facility] Creatinine 1.03 0.50 - 1.10 mg/dL LAB CHEMISTRY METHOD 07/18/2025 3:02 PM [facility] eGFR 66 >=60 mL/min/1. 73m2 LAB CHEMISTRY METHOD 07/18/2025 3:02 PM [facility] Comment:Calculation based on the Chronic Kidney Disease Epidemiology Collaboration (CKD-EPI) equation refit without adjustment for race. BUN/Creatinine Ratio 19.4 LAB CHEMISTRY METHOD 07/18/2025 3:02 PM [facility] Calcium 9.4 8.5 - 10.5 mg/dL LAB CHEMISTRY METHOD 07/18/2025 3:02 PM [facility] AST (SGOT) 10 10 - 42 unit/L LAB CHEMISTRY METHOD 07/18/2025 3:02 PM [facility] ALT (SGPT) 23 10 - 60 unit/L LAB CHEMISTRY METHOD 07/18/2025 3:02 PM [facility] Alkaline Phosphatase 111 42 - 121 unit/L LAB CHEMISTRY METHOD 07/18/2025 3:02 PM [facility] Total Protein 7.2 6.0 - 8.0 g/dL LAB CHEMISTRY METHOD 07/18/2025 3:02 PM [facility] Albumin 3.3 3.2 - 5.0 g/dL LAB CHEMISTRY METHOD 07/18/2025 3:02 PM [facility] Total Bilirubin 0.4 0.0 - 1.4 mg/dL LAB CHEMISTRY METHOD 07/18/2025 3:02 PM [facility] Blood Venous blood specimen / Unknown Venipuncture / Unknown 07/18/2025 11:04 AM EDT 07/18/2025 11:04 AM EDT us Shanice Shelton MD LAB BLOOD ORDERABL ES Final Result [facility] [address] [place] [address], * XR Thoracic Spine 2 Views (07/18/2025 10:45 AM EDT) Anatomical Region Laterality Modality Spine, T-spine Radiographic Yanelis ging 07/19/2025 11:5 8 AM EDT Impressions 07/19/2025 12:01 PM EDT Mild degenerative changes. POS - [id number] -------- FINAL REPORT -------- Dictated By: Lisa Collins Dictated Date: 07/19/2025 11:58 ET Assigned Physician: Lisa Collins Reviewed and Electronically Signed By: Lisa Collins Signed Date: 07/19/2025 12:01 ET Workstation ID: [id number] Transcribed By: Self Edit Transcribed Date: 07/19/2025 [...] spine. IMPRESSION: Mild degenerative changes. POS - [id number] -------- FINAL REPORT -------- Dictated By: Lisa Collins Dictated Date: 07/19/2025 11:58 ET Assigned Physician: Lisa Collins Reviewed and Electronically Signed By: Lisa Collins Signed Date: 07/19/2025 12:01 ET Workstation ID: [id number] Transcribed By: Self Edit Transcribed Date: 07/19/2025 11:58 ET Anastasiya MCLAUGHLIN IMG XR PROCEDURES Final Result * XR Lumbar Spine 4+ Views (07/18/2025 10:45 AM EDT) Anatomical Region Laterality Modality Spine, L-spine Radiographic Yanelis ging 07/19/2025 12:0 1 PM EDT Impressions 07/19/2025 12:07 PM EDT Multilevel degenerative changes with progressive facet arthropathy. POS - [id number] -------- FINAL REPORT -------- Dictated By: Lisa Collins Dictated Date: 07/19/2025 12:01 ET Assigned Physician: Lisa Collins Reviewed and Electronically Signed By: Lisa Collins Signed Date: 07/19/2025 12:07 ET Workstation ID: [id number] Transcribed By: Self Edit Transcribed Date: 07/19/2025 [...] changes with progressive facet arthropathy. POS - [id number] -------- FINAL REPORT -------- Dictated By: Lisa Collins Dictated Date: 07/19/2025 12:01 ET Assigned Physician: Lisa Collins Reviewed and Electronically Signed By: Lisa Collins Signed Date: 07/19/2025 12:07 ET Workstation ID: [id number] Transcribed By: Self Edit Transcribed Date: 07/19/2025 12:01 ET Anastasiya MCLAUGHLIN IMG XR PROCEDURES Final Result * External Neurology Report (07/10/2025 3:20 PM EDT) Historical Provider NEUROLOGY ORDERABLES Michaelle l Result * MG Mammo Digital Screening w Jeffrey bilat (01/16/2025 7:52 AM EST) Anatomical Region Laterality Modality Breast Bilateral Mammography 01/16/2025 3:0 9 PM EST Impressions 01/16/2025 3:11 PM EST BILATERAL BREASTS: Benign, no evidence of malignancy. Normal interval follow-up is recommended in 12 months. BREAST DENSITY: B - There are scattered areas of fibroglandular density. BI-RADS CATEGORY: 2 - BENIGN RECOMMENDATION: Screening bilateral mammogram is recommended in 1 year. Mammo Location: [facility], [address] [place] [address], [id number], . -------- FINAL REPORT -------- Dictated By: Rosa Maria Elizabeth Dictated Date: 01/16/2025 15:09 ET Assigned Physician: Rosa Maria Elizabeth Reviewed and Electronically Signed By: Rosa Maria Elizabeth Signed Date: 01/16/2025 15:11 ET Workstation ID: [id number] Transcribed By: Self Edit Transcribed Date: 01/16/2025 [...] is recommended in 1 year. Mammo Location: [facility], [address] [place] [address], [address], . -------- FINAL REPORT -------- Dictated By: Rosa Maria Elizabeth Dictated Date: 01/16/2025 15:09 ET Assigned Physician: Rosa Maria Elizabeth Reviewed and Electronically Signed By: Rosa Maria Elizabeth Signed Date: 01/16/2025 15:11 ET Workstation ID: [id number] Transcribed By: Self Edit Transcribed Date: 01/16/2025 15:09 ET Shanice Shelton MD IMG BI PROCEDURES Final Result * FIT-DNA (Cologuard) (10/05/2023) [facility] Colorectal Cancer Screening: FIT-DNA (Cologuard) Negative, Abstracted Historical Provider HEALTH MAINTENANCE Final Result * Hepatitis C Screening (05/25/2012) [facility] Hepatitis C Screening Abstracted Historical Provider HEALTH MAINTENANCE Final Result from Last 3 Months or Most Recently Relevant to Health Maintenance Insurance MEDICARE MEDICAID - [place] Care Teams Senior Technical Architect Relationship Specialty Start Date End Date Shanice Shelton MD [address] [place] [phone] PCP - General Internal Medicine 08/16/22
--- OUTSIDE RECORDS SUMMARY | 2025-08-05 18:45 | XMS_ITS | Encounter Summary ---
Author Organization [facility] Address [address] [place] [address] Care Team Providers Care Cellar Pumper Name Role Phone Shanice Shelton MD Primary Care Prov ider Reason for Visit * Reason Onset Date Comments Error 07/17/2025 Encounter Details Date Type Department Care Team (Late st Contact Info) Description 07/17/2025 Telephone Adult Medicine [facility] [address] [place] [address] Shanice Shelton MD [address] [place], [place] Social History Tobacco Use Types Packs/Day [...] care for your loved ones. For example, child's nurse or elderly care for an older adult? [...] 12:30 PM EDT Telemedicine Bariatric Surgery - [place] 175 [facility] 120 [place] [phone] Alphonse Nevaeh, RD 175 [facility] [address] [place] [phone] 09/24/2025 9:30 AM EST Office Visit Adult Medicine [facility] [address] [place], [place] [phone] Shanice Shelton MD [address] [place] [address] 12/12/2025 9:15 AM EST Office Visit Bariatric Surgery [facility] 175 [facility] [address] [place] [phone] Alexander Silva MD [address] [place] [phone] 05/28/2026 9:30 AM EDT Office Visit Vascular Surgery [facility] [address] [facility] [address] [place] [phone] Veronika Lamb MD [address] [place] [phone] documented as of this encounter Visit Diagnoses Not on filedocumented in this encounter Additional Health Concerns Assessment Noted Time PHQ-9 Depression Total Score: 23 025 4:56 PM EST documented as of this encounter Care Teams Cellar Pumper Relationship Specialty Start Date End Date Shanice Shelton MD [address] [place] [address] PCP - General Internal Medicine 08/16/22 documented as of this encounter
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
--- OUTSIDE RECORDS SUMMARY | 2025-08-05 18:45 | XMS_ITS | Encounter Summary ---
Author Organization [facility] Address [address] [place] [address] Care Team Providers Care Emergency Medical Service Manager Name Role Phone Shanice Shelton MD Primary Care Prov ider Reason for Visit * Reason Onset Date Comments Medication Problem 08/01/2025 Encounter Details Date Type Department Care Team (Late st Contact Info) Description 08/01/[address] [facility] [address] [place] [address] Shanice Shelton MD [address] [place], [place] Social History Tobacco Use Types Packs/Day [...] for your loved ones. For example, child custody evaluator or elderly care for an older adult? [...] as of this encounter Progress Notes * Marybeth Brown MA - 08/02/2025 11:[address] Meléndez please advise on what else patient can take for pain * Miriam Jaquez - 08/01/2025 4:12 PM EDT Medication Problem: What is the name of the medication patient is having a problem with?: Would like to know what else she can take for her back pain. What is the problem?: increase back pain Who is calling about the problem? : The patient Is this a NEW medication?: How long has the patient been taking this medication? Who prescribed this medication for the patient? Who is patients PCP?: Shanice Foss MD Payor: MEDICARE / Plan: MEDICARE PART A & B / Product Type: Medicare / documented in this encounter Plan of Treatment Upcoming Encounters Date Type Department Care Team (Late st Contact Info) Description 08/30/2025 12:30 PM EDT Telemedicine Bariatric Surgery [facility] [address] [phone] Nevaeh Cunha, RD [address] [phone] 09/24/2025 9:30 AM EST Office Visit Adult Medicine [facility] [address] [place] [address] Shanice Shelton MD [address] [place], [place] 12/12/2025 9:15 AM EST Office Visit Bariatric Surgery [address] [phone] Alexander Silva MD [address] [place] [phone] 05/28/2026 9:30 AM EDT Office Visit Vascular Surgery - [place] [address] [place] [phone] Veronika Lamb MD [address] [place] [phone] documented as of this encounter Visit Diagnoses Not on filedocumented in this encounter Additional Health Concerns Assessment Noted Time PHQ-9 Depression Total Score: 23 025 4:56 PM EST documented as of this encounter Care Teams Emergency Medical Service Manager Relationship Specialty Start Date End Date Shanice Shelton MD [address] [place] [phone] PCP - General Internal Medicine 08/16/22 documented as of this encounter
== END 2025-08-05 13:31 | disposition home or self-care (01) ==
LOC: HO.HMGAL 13:29
PROVIDERS: PCP Internal Medicine; Visit Provider Registered Nurse Emergency
DX: J30.89 Other allergic rhinitis (principal)
CPT/HCPCS: 95117; 95165

== ENCOUNTER 2025-08-12 13:38 | Outpatient (AMB) | payer MEDICARE, MEDICAID, SELFPAY | END 2025-08-12 13:39 | disposition home or self-care (01) | LOC: HO.HMGAL 13:38 | PROVIDERS: PCP Internal Medicine; Visit Provider Registered Nurse Emergency | DX: J30.89 Other allergic rhinitis (principal) | CPT/HCPCS: 95117; 95165 ==

== ENCOUNTER 2025-08-28 13:50 | Outpatient (AMB) | payer MEDICARE, MEDICAID, SELFPAY | END 2025-08-28 13:51 | disposition home or self-care (01) | LOC: HO.HMGAL 13:50 | PROVIDERS: PCP Internal Medicine; Visit Provider Registered Nurse Emergency | DX: J30.89 Other allergic rhinitis (principal) | CPT/HCPCS: 95117; 95165 ==

== ENCOUNTER 2025-09-04 13:49 | Outpatient (AMB) | payer MEDICARE, MEDICAID, SELFPAY ==
--- OUTSIDE RECORDS SUMMARY | 2025-08-30 12:30 | XMS_ITS | Encounter Summary ---
Author Organization [facility] Address [address] [place] [address] Care Team Providers Care Job Specification Writer Name Role Phone Shanice Shelton MD Primary Care Prov ider Reason for Visit * Reason Comments Obesity Encounter Details Date Type Department Care Team ([facility] Contact Info) Description 08/30/2025 12:30 PM EDT Telemedicine Bariatric Surgery - [address] [phone] Nevaeh Cunha, RD [address] [phone] Overweight (Primary Dx) Social History Tobacco Use Types [...] Record ed Within the last 3 months, gabe w many times did you visit the [...] do you feel lonely or isolated from ose around you? Always 09/24/2024 Food Risk [...] for your loved ones. For example, child specialist or elderly care for an older adult? [...] Date Recorded What is your living situation? Unrecognized valu e 09/24/2024 Comments No Sex and Gender Information Value Date Recorded Sex Assigned at Female 07/11/2025 8:34 AM EDT Legal Sex Female 12:58 PM EST Gender Identity Female 07/11/2025 8:34 AM EDT Sexual Orientation Choose not to disclose 2024 8:34 AM EDT documented as of this encounter Last Filed Vital Signs Vital Sign Reading Time Taken Comments Blood Pressure - - Pulse - - Temperature - - Respiratory Rate - - Oxygen Saturation - - Inhaled Oxygen Concentration - - Weight 67.5 kg (148 lb 12.8 oz) 025 12:00 PM EDT Height - - Body Mass Index 26.36 07/18/2025 9:54 AM EDT documented in this encounter Progress Notes * Nevaeh Cunha RD - 08/30/2025 12:30 PM EDT Patient-created Goals: -60-80 grams protein/day -Add protein drink within 8 hour window of eating time -10-15 strength after work (utube) -You lost 37 lb since September, keep up the good work! Nevaeh Cunha RDN Bariatric Dietitian [email or web address] W [phone] F [phone] 175 [facility] 120 * Nevaeh Cunha RD - 08/30/2025 12:30 PM EDT The patient received guidance on receiving healthcare through telehealth, including the use of HIPAA privacy -compliant technology for remote communication and its associated privacy risks. The patient was also informed of the limitations of treatment provided through telehealth and that in the event of a lost or failed video connection, the provider may call back or reschedule the visit. Alternatively, the patient may opt for an in-person visit. The patient gave consent for the use of video communication and provided care and confirmed that they were in a quiet and private location to discuss their health freely. The patient understands the visit will be submitted to their insurance and that they are responsible for any copay or deductible charges. Additionally, if the patient is LimitedEnglish Proficient, deaf, or hard of hearing, speech impaired, or has another disability which impairs their ability to communicate, the services of a qualified freelance interpreter/translator will be provided during the visit. Patients Location: car Total Time: 30 minutes NUTRITION FOLLOW-UP NOTE: Patient Name: Annabelle Coppola Date of : 1975 Date of Service: 08/30/2025 SURGEON: Alexander Silva MD DESIRED SURGERY: Medication Management _never approved Pt losing on her own CHIEF COMPLAINT: Obesity HISTORY: Annabelle Coppola is a 49 y.o. female who presents for nutrition visit for Weight loss management 5th Ht Readings from Last 1 Encounters: 07/18/25 1.6 m (63 ) Wt today: Wt Readings from Last 14 Encounters: 08/30/25 67.5 kg (148 lb 12.8 oz) 07/18/25 69.6 kg (153 lb 6.4 oz) 06/11/25 72.6 kg (160 lb) 06/07/25 70.3 kg (155 lb) 06/04/25 71.2 kg (157 lb) 05/23/25 71.7 kg (158 lb) 03/08/25 72.1 kg (159 lb) 03/07/25 72.1 kg (159 lb) 01/17/25 75.3 kg (166 lb) 12/28/24 77.3 kg (170 lb 6.4 oz) 12/17/24 78 kg (172 lb) 12/11/24 78.9 kg (174 lb) 11/15/24 82.5 kg (181 lb 12.8 oz) 09/24/24 84.3 kg (185 lb 12.8 oz) Body mass index is 26.36 kg/m??. Wt at initial: 185 Wt change since initial: -37 EBW = current - wt at BMI of 25: 148 - 140 = 8 Challenges: defibrillator in October Changes since last visit: none EATING HABITS/DIET RECALL: skipping breakfast 3 days a week Breakfast: (9-12), apple with peanut butter, sometimes fruit and cheese (15 small cubes) Lunch: (11-12 pm) will skip if eat for breakfast, if no breakfast, will eat the same for lunch Dinner: (5-6 pm) small steak, potatoes and salad, salads and chicken Snacks: sherbet Beverages: water (45-60 ounces) Dines out: 1 x a week Exercise: work (12k-14k a day) Reasons pt cannot exercise: none Nutrition diagnosis: Overweight related to Inadequate Physical Activity as evidenced by A BMI 26 Patient-created Goals: -Add protein drink within 8 hour window of eating time -10-15 strength after work (utube) Literature Provided: Goal sheets and RD contact information Interventions: Discussed the importance of including protein with each meal and snack Nutrition assessment: Pt is 49 y.o. Female with h/o has a past medical history of Acute respiratoryfailure with hypoxia (CMS/HCC V24, CMS/HCC V28) (11/20/2024), Anxiety (09/11/2010), Bradycardia (09/14/2010), Cardiomyopathy (CMS/HCC V24, CMS/HCC V28) (09/14/2010), Cervicalgia (10/10/2015), Chroniclow back pain (10/10/2015), Dysmenorrhea (06/14/2013), Excessive or frequent menstruation (06/14/2013), FH: migraines, HTN (hypertension) (04/02/2011), Migraines, POTS (postural orthostatic tachycardia syndrome) (10/09/2013), Sebaceous cyst, and Vitamin D deficiency (07/02/2011). Overweight Stage of change/Barriers to understanding: Pt is motivated to make changes to diet and lifestyle and No barriers to understanding Concerns regarding considerations for bariatric surgery: No surgery plan for pt a this time Monitoring/Evaluation: Monitor weight and Monitor progress toward nutrition goals Patient nutritionally ready for surgery: n/a RD to see patient for follow-up nutrition visit in 4 months Visit Time: Total time of the visit was spent face to face in medical nutritional therapy was [address] NUTRITION SERVICES documented in this encounter Plan of Treatment Upcoming Encounters Date Type Department Care Team (Late st Contact Info) Description 09/24/2025 9:30 AM EST Office Visit Adult Medicine [address] [phone] Shanice Shelton MD [address] [place] [address] 12/12/2025 9:15 AM EST Office Visit Bariatric Surgery - [place] 175 [facility] 120 [place] [phone] Alexander Silva MD 230 [place] [phone] 01/03/2026 12:30 PM EST Telemedicine Bariatric Surgery - [place] 175 [facility] 120 [place] [phone] Nevaeh Cunha, RD 175 [facility] 120 [place] [phone] 05/28/2026 9:30 AM EDT Office Visit Vascular Surgery - [place] [address] [facility] 210 [place] [phone] Veronika Lamb MD [address] [place] [phone] documented as of this encounter Visit Diagnoses Diagnosis Overweight- Primary documented in this encounter Additional Health Concerns Assessment Noted Time PHQ-9 Depression Total Score: 23 025 4:56 PM EST documented as of this encounter Care Teams Job Specification Writer Relationship Specialty Start Date End Date Shanice Shelton MD [address] [place] [phone] PCP - General Internal Medicine 08/16/22 documented as of this encounter
--- OUTSIDE RECORDS SUMMARY | 2025-09-04 17:33 | XMS_ITS | Clinical Summary ---
Author Organization [facility] Address [address] [place] [address] Care Team Providers Care Life Skills Teacher Name Role Phone Provider, Generic External Data Primary Care Pro vider Unavailable Encounters Date Type Department Care Team Description 08/20/2025 Transcribe Orders [facility] - Electrophysiology [address] [place] [address] Yanick Caballero MD POTS (postural orthostatic tachycardia syndrome) (Primary Dx) 07/29/2025 Scanned Document [facility] - Electrophysiology [address] [place] [address] Yanick Caballero MD from Last 3 Months Social History Tobacco Use Types Packs/Day Years Used Date Smoking Tobacco: Never Assessed Comments Unknown Sex and Gender Information Value Date Recorded Sex Assigned at Not on file Legal Sex Female 6:46 PM EST Gender Identity Not on file Sexual Orientation Not on file Plan of Treatment Upcoming Encounters Date Type Department Care Team (Late st Contact Info) Description 01/09/2026 9:30 AM EST Consult [facility] - Electrophysiology [address] [place] [address] Yanick Caballero MD [address] [place] [phone] Health Maintenance Due Date Last Done Comments Hepatitis C Virus Screening 1975 HIV Screening 1986 DTaP/Tdap/Td Vaccines (1 - Tdap) 1992 Hepatitis B Vaccines (1 of 3 - 19+ 3-dose series) 08/21 Pneumococcal Vaccines 50+ (1 of 1 - PCV) 2023 Zoster (Shingles) Vaccine (1 of 2) 2023 COVID-19 Vaccine ( season) 2025 Care Teams Life Skills Teacher Relationship Specialty Start Date End Date Provider, Generic External Data PCP - General 08/21/25
--- OUTSIDE RECORDS SUMMARY | 2025-09-04 17:33 | XMS_ITS | Encounter Summary ---
Author Organization [facility] Address [address] [place] [address] Care Team Providers Care Commercial Journeyman Electrician Name Role Phone Provider, Generic External Data Primary Care Pro vider Unavailable Encounter Details Date Type Department Care Team (Late st Contact Info) Description 07/29/2025 Scanned Document [facility] Heart & Vascular [facility] - Electrophysiology [address] [place] [phone] Yanick Caballero MD [address] [place] [address] Social History Tobacco Use Types Packs/Day Years Used Date Smoking Tobacco: Never Assessed Comments Unknown Sex and Gender Information Value Date Recorded Sex Assigned at Not on file Legal Sex Female 6:46 PM EST Gender Identity Not on file Sexual Orientation Not on file documented as of this encounter Plan of Treatment Upcoming Encounters Date Type Department Care Team (Late st Contact Info) Description 01/09/2026 9:30 AM EST Consult [facility] Heart Vascular [facility] - Electrophysiology [address] [place] [phone] Yanick Caballero MD [address] [place] [address] documented as of this encounter Visit Diagnoses Not on filedocumented in this encounter Care Teams Commercial Journeyman Electrician Relationship Specialty Start Date End Date Provider, Generic External Data PCP - General 08/21/25 documented as of this encounter
--- OUTSIDE RECORDS SUMMARY | 2025-09-04 17:33 | XMS_ITS | Encounter Summary ---
Author Organization [facility] Address [address] [place] [address] Care Team Providers Care Industrial Engineering Technician Name Role Phone Shanice Shelton MD Primary Care Prov ider Reason for Visit * Reason Onset Date Comments Prior Authorization 08/06/2025 Encounter Details Date Type Department Care Team (Late st Contact Info) Description 08/06/2025 Telephone Adult Medicine [facility] [address] [place] [address] Shanice Shelton MD [address] [place], [place] Social History Tobacco Use Types Packs/Day [...] care for your loved ones. For example, children's lunchroom supervisor or elderly care for an older adult? [...] of this encounter Progress Notes * Mya Baez MA - 08/06/2025 2:14 PM EDT In response to you or your physician???s or other prescriber???s recent request, we have approved coverage of LIDOCAINE 5% PATCH. This authorization is good until 11/20/2025. * Mya Baez MA - 08/06/2025 2:05 PM EDT PA for Lidocaine patches initiated on cmm Dx M54.50, M79.10 * Lucho Conley - 08/06/2025 10:23 AM EDT Prior Authorization for Medication-do not complete and send this encounter unless you have the fax from the pharmacy. Is this a Cover My Meds request: Yes -- Olea Code [id number] Name of Medication lidocaine (LIDODERM) 5 % patch Sig: APPLY 1 PATCH TOPICALLY ONCE DAILY. REMOVE AND DISCARD PATCH WITHIN 12 HOURS. Sent to pharmacy as: lidocaine 5 % topical patch (LIDODERM) Class: Normal Notes to Pharmacy: DX CODE: M54.50, M54.6 E-Prescribing Status: Receipt confirmed by pharmacy (08/01/2025 1:45 PM EDT) What Pharmacy did the fax come from: [facility] Pharmacy fax #: [phone] documented in this encounter Plan of Treatment Upcoming Encounters Date Type Department Care Team (Late st Contact Info) Description 09/24/2025 9:30 AM EST Office Visit Adult Medicine [address] [phone] Shanice Shelton MD [address] [place] [address] 12/12/2025 9:15 AM EST Office Visit Bariatric Surgery [address] [phone] Alexander Silva MD [address] [place] [phone] 01/03/2026 12:30 PM EST Telemedicine Bariatric Surgery - [place] 175 [facility] 120 [place] [phone] Nevaeh Cunha, RD 175 [facility] 120 [place] [phone] 05/28/2026 9:30 AM EDT Office Visit Vascular Surgery - [place] [address] [facility] 210 [place] [phone] Veronika Lamb MD [address] [place] [phone] documented as of this encounter Visit Diagnoses Not on filedocumented in this encounter Additional Health Concerns Assessment Noted Time PHQ-9 Depression Total Score: 23 025 4:56 PM EST documented as of this encounter Care Teams Industrial Engineering Technician Relationship Specialty Start Date End Date Shanice Shelton MD [address] [place] [address] PCP - General Internal Medicine 08/16/22 documented as of this encounter
--- OUTSIDE RECORDS SUMMARY | 2025-09-04 17:33 | XMS_ITS | Clinical Summary ---
Author Organization [facility] [address] [place] [address] Address [address] [place] [address] Phone Care Team Providers Care Board Setter Name Role Phone Shanice Shelton MD Primary [...] 03/26/20 25 Active lidocaine (LIDODERM) 5 % patchIndication s:Lyme disease,Acute bilateral low back pain, unspecified whether sciatica present,Acute bilateral thoracic back pain,Myalgia APPLY 1 PATCH TOPICALLY ONCE DAILY. REMOVE AND DISCARD PATCH WITHIN 12 HOURS. 28 each 08/01/20 25 Active doxycycline hyclate (VIBRA-TABS) 100 mg tablet Take 1 tablet (100 mg total) by mouth 2 (two) times a day for 21 days. Take with a full glass of water and do not lie down for at least 30 minutes after. 42 tablet 07/19/20 25 025 Active Problems Problem Noted Date Diagnosed Date Lyme disease 07/19/2025 Paresthesia of hand, bilateral 07/18/2025 Myalgia 07/18/2025 Overweight 01/17/2025 Acute on chronic systolic he art failure ([facility] V24, CMS/[facility] V28) 11/20/2024 Aneurysm of other specified arteries ([facility] V2 4) 11/20/2024 Low back pain, unspecified 11/20/2024 Alcohol use, unspecified, uncomplicated 11/20/20 24 Depression, unspecified 11/20/2024 Prediabetes 09/29/2023 Overview (09/14/2024): Lab Results Component Value Date HGBA1C 6.1 09/22/2023 Assessment & Plan (12/30/2024 6:07 PM EST): Well controlled. Currently on Semaglutide for weight management. Orders: Comprehensive metabolic panel; Future Lipid panel with reflex to direct LDL; Future Nonischemic congestive cardi omyopathy ([facility] V24, CMS/[facility] V28) 09/08/2021 Overview (09/14/2024): Nonischemic congestive cardiomyopathy [...] Date Acute respiratory failure wi th hypoxia ([facility] V24, CMS/[facility] V28) 11/20/2024 06/04/2025 Encounters Date Type Department Care Team Description 08/30/2025 12:30 PM EDT Telemedicine Bariatric Surgery [address] [place] [address] Overweight (Primary Dx) 08/06/2025 Telephone Adult Medicine [address] [phone] Shanice Gutierrez MD 08/01/2025 3:30 PM EDT Treatment Outpatient Rehabilitation [address] [phone] Usha Williamson PTA Acute bilateral thoracic back pain (Primary Dx) 08/01/2025 Telephone Adult Medicine [address] [phone] Shanice Gutierrez MD 07/29/2025 5:00 PM EDT Treatment Outpatient Rehabilitation [address] [phone] Usha Williamson PTA Acute bilateral thoracic back pain (Primary Dx) 07/18/2025 10:25 AM EDT - 07/18/2025 11:59 PM EDT Hospital Encounter [address] [phone] Acute bilateral thoracic back pain Discharge Disposition: Home or Self Care 07/18/2025 10:24 AM EDT - 07/18/2025 11:59 PM EDT Hospital Encounter [address] [phone] Chronic bilateral low back pain, unspecified whether sciatica present; Acute bilateral low back pain, unspecified whether sciatica present Discharge Disposition: Home or Self Care 07/18/2025 10:00 AM EDT Office Visit Adult Medicine [address] [phone] Anastasiya Reis PA Acute bilateral thoracic back pain (Primary Dx); Chronic bilateral low back pain, unspecified whether sciatica present; Acute bilateral low back pain, unspecified whether sciatica present; Myalgia; Cervicalgia; Paresthesia of hand, bilateral; Nonintractable episodic headache, unspecified headache type; Chronic systolic heart failure (CMS/HCC V24, CMS/HCC V28); Lyme disease 07/18/2025 Telephone Adult Medicine [address] [phone] Anastasiya Reis PA 07/16/2025 Telephone Adult Medicine [address] [phone] Shanice Gutierrez MD 07/10/2025 10:30 AM EDT Evaluation Outpatient Rehabilitation [address] [phone] Mike Crawford, PT Acute bilateral thoracic back pain 07/10/2025 Plan of Care Documentation Outpatient Rehabilitation [address] [phone] 06/11/2025 8:30 AM EDT Office Visit Bariatric Surgery [address] [phone] Alexander Silva MD Over weight 06/07/2025 8:00 AM EDT Telemedicine Bariatric Surgery [address] [phone] Norman cardenas, Nevaeh, RD Overweight (BMI 25.0-29.9) (Primary Dx) 06/04/2025 3:00 PM EDT Office Visit Adult Medicine [address] [phone] Shanice Gutierrez MD Adult general medical examination (Primary Dx); Acute bilateral thoracic back pain; Nonischemic congestive cardiomyopathy (CMS/HCC V24, CMS/HCC V28) from Last 3 Months Immunizations Immunization Administration Dates Next Due Pfizer SARS-CoV-2 COVID-19, mRNA, LNP-S, preservative free 09/02/2021,02/24/2021 Surgical History Surgery Date Site/Laterality Comments WISDOM TOOTH EXTRACTION PROCEDURE: HISTORICAL WISDOM TEETH EXTRACTION OTHER SURGICAL HISTORY PROCEDURE: MI DILATION & CURETTAGE DX&/THER NONOBSTETRIC NECK SURGERY 07/01/2008 PROCEDURE: HISTORICAL NECK SURGERY; COMMENT: decompression and fusion C5-6, C6-7 ENDOMETRIAL ABLATION 2009 PROCEDURE: MI ENDOMETRIAL ABLTJ THERMAL W/O HYSTEROSCOPIC GUID HYSTERECTOMY 09/12/2013 PROCEDURE: HISTORICAL VAGINAL HYSTERECTOMY W/O BSO; COMMENT: da Raisa total hysterectomy performed by Dr. Marks OTHER SURGICAL HISTORY 09/12/2013 PROCEDURE: INSERT URETERAL CATHETER/STENT; COMMENT: urgently done during hysterectomy OTHER SURGICAL HISTORY PROCEDURE: ---- OTHER ----; COMMENT: sebaceous cyst back BREAST BIOPSY 12/2015 Right PROCEDURE: BX BREAST; PERC NEEDLE CORE W/IMAG GUID; COMMENT: benign EYE SURGERY 2017 Bilateral PROCEDURE: MI TRABECULOPLASTY BY LASER SURGERY; COMMENT: Dr. Marylou Key Medical History Medical History Date Comments Migraines DX:Migraines Cardiomyopathy (CMS/HCC V24, [facility] V28) 09/14/2010 DX:Cardiomyopathy (HCC) Anxiety 09/11/2010 DX:Anxiety FH: migraines DX:FH: migraines HTN (hypertension) 04/02/2011 DX:HTN (hyper tension) Vitamin D deficiency 07/02/2011 DX:Vitamin D deficiency Cervicalgia 10/10/2015 DX:Cervicalgia Chronic low back pain 10/10/2015 DX:Chronic low back pain POTS (postural orthostatic t achycardia syndrome) 10/09/2013 DX:POTS (postural orthostati c tachycardia syndrome); COMMENT: Previously dx with this by Arturo - Francesco - no longer taking ,no symptoms. ILR no arrhythmia Excessive or frequent menstruation 06/14/2013 DX:Excessive or frequent menstruation Dysmenorrhea 06/14/2013 DX:Dysmenorrhea Bradycardia 09/14/2010 DX:Bradycardia Sebaceous cyst DX:Sebaceous cys t Acute respiratory failure wi th hypoxia ([facility] V24, [facility] V28) 11/20/2024 Family History Medical History Relation Name Comments No Known Problems Brother 1 No Known Problems Brother 2 No Known Problems Daughter ALS Father Diabetes Father peripheral neur opathy, htn Bladder Cancer Mother bladder cance r, stomach, age 49 Lung cancer Paternal Grandfather ID, dec eased Diabetes Paternal Grandmother d No [...] ed Within the last 3 months, gabe hunt many times did you visit the emergency [...] for your loved ones. For example, child and family services specialist or elderly care for an older [...] EDT Inhaled Oxygen Concentration - - Weight 67.5 kg (148 lb 12.8 oz) 025 12:00 PM EDT Height 160 cm (5' 3 ) 07/18/2025 9:54 AM EDT Body Mass Index 26.36 07/18/2025 9:54 AM EDT Plan of Treatment Upcoming Encounters Date Type Department Care Team (Late st Contact Info) Description 09/24/2025 9:30 AM EST Office Visit Adult Medicine [address] [phone] Shanice Shelton MD [address] [place] [address] 12/12/2025 9:15 AM EST Office Visit Bariatric Surgery [facility] [address] [phone] Alexander Silva MD [address] [place] [address] 01/03/2026 12:30 PM EST Telemedicine Bariatric Surgery [address] [phone] Nevaeh Cunha, RD [address] [phone] 05/28/2026 9:30 AM EDT Office Visit Vascular Surgery - [place] [address] [place] [address] Veronika Lamb MD [facility] [place] [address] Health Maintenance Due Date Last Done Comments Medicare Annual Wellness Visit 10/30/2022 RSV Immunization Adult Patients (1 - Risk 50-74 years 1-dose series) 2023 COVID-19 Vaccine ( season) 2025 09/24/2021, 09/02/2021, [...] mg/dL LAB CHEMISTRY METHOD 07/18/2025 3:02 PM [facility] Triglycerides 81 0 - 150 mg/dL LAB CHEMISTRY METHOD 07/18/2025 3:02 PM [facility] HDL 41 >=40 mg/dL LAB CHEMISTRY METHOD 07/18/2025 3:02 PM [facility] LDL Calculated 98 0 - 100 mg/dL LAB CHEMISTRY METHOD 07/18/2025 3:02 PM [facility] Comment:Estimated LDL Calcul ated using equation: Total cholesterol - HDL cholesterol - (Triglycerides/5) VLDL Cholesterol Myke 16.2 mg/dL LAB CHEMISTRY METHOD 07/18/2025 3:02 PM [facility] Non HDL Chol. (LDL+VLDL) 114 <145 mg/dL LAB CHEMISTRY METHOD 07/18/2025 3:02 PM [facility] Chol/HDL Ratio 3.8 0.0 - 4.4 LAB CHEMISTRY METHOD 07/18/2025 3:02 PM [facility] Blood Venous blood specimen / Unknown Venipuncture / Unknown 07/18/2025 11:04 AM EDT 07/18/2025 11:04 AM EDT Shanice Shelton MD LAB BLOOD ORDERABL ES Final Result Performing Organization Address City/[facility]/ZIP Co de Phone Number [facility] [address] [place] [address], [place] [phone] * SYED IFA with titer and pattern (07/18/2025 11:04 AM EDT) [facility] SYED Negative Negative 07/23/2025 3:12 PM EDT [facility] Comment:SYED performed by ind irect immunofluorescence (IFA) using HEp-2 substrate. Blood Venous blood specimen / Unknown Venipuncture / Unknown 07/18/2025 11:04 AM EDT 07/18/2025 11:04 AM EDT Anastasiya MCLAUGHLIN LAB BLOOD ORDERABLES Final Resul t Performing Organization Address City/[facility]/ZIP Co de Phone Number [facility] [address] [place] [address], [place] [phone] * (ABNORMAL) Borrelia burgdorferi antibody (07/18/2025 11:04 AM EDT) [facility] Lyme IgG Antibody Positive( A) Negative LAB CHEMISTRY METHOD 07/19/2025 9:35 AM EDT [facility] Lyme IgM Antibody Positive( A) Negative LAB CHEMISTRY METHOD 07/19/2025 9:35 AM EDT [facility] Lyme Ab Positive( A) Negative LAB CHEMISTRY METHOD 07/19/2025 9:35 AM EDT [facility] Comment: Results are consistent with B. [...] ORDERABLES Final Resul t Performing Organization Address [facility]/ZIP Co de Phone Number [facility] [address] [place] [address], [place] [phone] * Rheumatoid factor (07/18/2025 11:04 AM EDT) Rheumatoid Factor <10.0 <15.0 I Unit/mL LAB CHEMISTRY METHOD 07/18/2025 3:02 PM EDT [facility] Blood Venous blood specimen / Unknown Venipuncture / Unknown 07/18/2025 11:04 AM EDT 07/18/2025 11:04 AM EDT Anastasiya MCLAUGHLIN LAB BLOOD ORDERABLES Final Resul t Performing Organization Address [facility]/ZIP Co de Phone Number [facility] [address] [place] [address], [place] [phone] * (ABNORMAL) C-reactive protein (07/18/2025 11:04 AM EDT) Pathologist [facility] C-Reactive Protein 9.15(H) <=0.50 mg/dL LAB CHEMISTRY METHOD 07/18/2025 2:58 PM EDT [facility] Blood Venous blood specimen / Unknown Venipuncture / Unknown 07/18/2025 11:04 AM EDT 07/18/2025 11:04 AM EDT Anastasiya MCLAUGHLIN LAB BLOOD ORDERABLES Final Resul t [facility] [address] [place] [address], [place] [phone] * Uric acid (07/18/2025 11:04 AM EDT) Uric Acid 4.3 3.1 - 7.8 mg/dL LAB CHEMISTRY METHOD 07/18/2025 2:58 PM [facility] Blood Venous blood specimen / Unknown Venipuncture / Unknown 07/18/2025 11:04 AM EDT 07/18/2025 11:04 AM EDT us Anastasiya MCLAUGHLIN LAB BLOOD ORDERABLES Final Resul t [facility] [address] [place] [address], [place] [phone] * Comprehensive metabolic panel (07/18/2025 11:04 AM EDT) Only the most recent of2 resultswithin the time period is included. Sodium 136 133 - 145 mmol/L LAB CHEMISTRY METHOD 07/18/2025 3:02 PM [facility] Potassium 4.3 3.5 - 5.5 mmol/L LAB CHEMISTRY METHOD 07/18/2025 3:02 PM [facility] Chloride 104 96 - 110 mmol/L LAB CHEMISTRY METHOD 07/18/2025 3:02 PM [facility] CO2 28 21 - 32 mmol/L LAB CHEMISTRY METHOD 07/18/2025 3:02 PM [facility] Anion Gap 4 3 - 11 LAB CHEMISTRY METHOD 07/18/2025 3:02 PM [facility] Glucose 89 70 - 100 mg/dL LAB CHEMISTRY METHOD 07/18/2025 3:02 PM [facility] BUN 20 5 - 25 mg/dL LAB CHEMISTRY METHOD 07/18/2025 3:02 PM [facility] Creatinine 1.03 0.50 - 1.10 mg/dL LAB CHEMISTRY METHOD 07/18/2025 3:02 PM [facility] eGFR 66 >=60 mL/min/1. 73m2 LAB CHEMISTRY METHOD 07/18/2025 3:02 PM T [facility] Comment:Calculation based on the Chronic Kidney Disease Epidemiology Collaboration (CKD-EPI) equation refit without adjustment for race. BUN/Creatinine Ratio 19.4 LAB CHEMISTRY METHOD 07/18/2025 3:02 PM [facility] Calcium 9.4 8.5 - 10.5 mg/dL LAB CHEMISTRY METHOD 07/18/2025 3:02 PM [facility] AST (SGOT) 10 10 - 42 unit/L LAB CHEMISTRY METHOD 07/18/2025 3:02 PM [facility] ALT (SGPT) 23 10 - 60 unit/L LAB CHEMISTRY METHOD 07/18/2025 3:02 PM [facility] Alkaline Phosphatase 111 42 - 121 unit/L LAB CHEMISTRY METHOD 07/18/2025 3:02 PM [facility] Total Protein 7.2 6.0 - 8.0 g/dL LAB CHEMISTRY METHOD 07/18/2025 3:02 PM [facility] Albumin 3.3 3.2 - 5.0 g/dL LAB CHEMISTRY METHOD 07/18/2025 3:02 PM [facility] Total Bilirubin 0.4 0.0 - 1.4 mg/dL LAB CHEMISTRY METHOD 07/18/2025 3:02 PM [facility] Blood Venous blood specimen / Unknown Venipuncture / Unknown 07/18/2025 11:04 AM EDT 07/18/2025 11:04 AM EDT us Shanice Shelton MD LAB BLOOD ORDERABL ES Final Result [facility] [address] [place] [address], * XR Thoracic Spine 2 Views (07/18/2025 10:45 AM EDT) Anatomical Region Laterality Modality Spine, T-spine Radiographic Yanelis ging 07/19/2025 11:5 8 AM EDT Impressions 07/19/2025 12:01 PM EDT Mild degenerative changes. POS - [id number] -------- FINAL REPORT -------- Dictated By: Lisa Collins Dictated Date: 07/19/2025 11:58 ET Assigned Physician: Lisa Collins Reviewed and Electronically Signed By: Lisa Collins Signed Date: 07/19/2025 12:01 ET Workstation ID: [id number] Transcribed By: Self Edit Transcribed Date: 07/19/2025 [...] spine. IMPRESSION: Mild degenerative changes. POS - [id number] -------- FINAL REPORT -------- Dictated By: Lisa Collins Dictated Date: 07/19/2025 11:58 ET Assigned Physician: Lisa Collins Reviewed and Electronically Signed By: Lisa Collins Signed Date: 07/19/2025 12:01 ET Workstation ID: [id number] Transcribed By: Self Edit Transcribed Date: 07/19/2025 11:58 ET Anastasiya MCLAUGHLIN IMG XR PROCEDURES Final Result * XR Lumbar Spine 4+ Views (07/18/2025 10:45 AM EDT) Anatomical Region Laterality Modality Spine, L-spine Radiographic Yanelis ging 07/19/2025 12:0 1 PM EDT Impressions 07/19/2025 12:07 PM EDT Multilevel degenerative changes with progressive facet arthropathy. POS - [id number] -------- FINAL REPORT -------- Dictated By: Lisa Collins Dictated Date: 07/19/2025 12:01 ET Assigned Physician: Lisa Collins Reviewed and Electronically Signed By: Lisa Collins Signed Date: 07/19/2025 12:07 ET Workstation ID: [id number] Transcribed By: Self Edit Transcribed Date: 07/19/2025 [...] changes with progressive facet arthropathy. POS - [id number] -------- FINAL REPORT -------- Dictated By: Lisa Collins Dictated Date: 07/19/2025 12:01 ET Assigned Physician: Lisa Collins Reviewed and Electronically Signed By: Lisa Collins Signed Date: 07/19/2025 12:07 ET Workstation ID: [id number] Transcribed By: Self Edit Transcribed Date: 07/19/2025 [...] is recommended in 1 year. Mammo Location: [facility], [address] [place] [address], [address], . -------- FINAL REPORT -------- Dictated By: Rosa Maria Elizabeth Dictated Date: 01/16/2025 15:09 ET Assigned Physician: Rosa Maria Elizabeth Reviewed and Electronically Signed By: Rosa Maria Elizabeth Signed Date: 01/16/2025 15:11 ET Workstation ID: [id number] Transcribed By: Self Edit Transcribed Date: 01/16/2025 [...] is recommended in 1 year. Mammo Location: [facility], [address] [place] [address], [address], . -------- FINAL REPORT -------- Dictated By: Rosa Maria Elizabeth Dictated Date: 01/16/2025 15:09 ET Assigned Physician: Rosa Maria Elizabeth Reviewed and Electronically Signed By: Rosa Maria Elizabeth Signed Date: 01/16/2025 15:11 ET Workstation ID: [id number] Transcribed By: Self Edit Transcribed Date: 01/16/2025 15:09 ET us Shanice Shelton MD IMG BI PROCEDURES Final Result * Hm FIT-DNA (Cologuard) (10/05/2023) [facility] Colorectal Cancer Screening: FIT-DNA (Cologuard) Negative, Abstracted Historical Provider HEALTH MAINTENANCE Final Result * Hepatitis C Screening (05/25/2012) [facility] Hepatitis C Screening Abstracted Historical Provider HEALTH MAINTENANCE Final Result from Last 3 Months or Most Recently Relevant to Health Maintenance Insurance MEDICARE [place]ICA[place] - [place] Care Teams Board Setter Relationship Specialty Start Date End Date Shanice Shelton MD [place], [place] PCP - General Internal Medicine 08/16/22
== END 2025-09-04 13:49 | disposition home or self-care (01) ==
LOC: HO.HMGAL 13:49
PROVIDERS: PCP Internal Medicine; Visit Provider Registered Nurse Emergency
DX: J30.89 Other allergic rhinitis (principal)
CPT/HCPCS: 95117; 95165

== ENCOUNTER 2025-09-09 13:23 | Outpatient (AMB) | payer MEDICARE, MEDICAID, SELFPAY ==
--- OUTSIDE RECORDS SUMMARY | 2025-09-09 16:26 | XMS_ITS | Encounter Summary ---
Author Organization [facility] Address [address] [place] [address] Care Team Providers Care Logging Worker Name Role Phone Shanice Shelton MD Primary Care Prov ider Reason for Visit * Reason Onset Date Comments Prior Authorization 08/06/2025 Encounter Details Date Type Department Care Team (Late st Contact Info) Description 08/06/2025 Telephone Adult Medicine [facility] [address] [place] [address] Shanice Shelton MD [address] [place], [place] Social History Tobacco Use Types Packs/Day [...] care for your loved ones. For example, residential child care counselor or elderly care for an older adult? [...] My Meds request: Yes -- Olea Code [id number] Name of Medication lidocaine (LIDODERM) 5 % patch Sig: APPLY 1 PATCH TOPICALLY ONCE DAILY. REMOVE AND DISCARD PATCH WITHIN 12 HOURS. Sent to pharmacy as: lidocaine 5 % topical patch (LIDODERM) Class: Normal Notes to Pharmacy: DX CODE: M54.50, M54.6 E-Prescribing Status: Receipt confirmed by pharmacy (08/01/2025 1:45 PM EDT) What Pharmacy did the fax come from: [facility] Pharmacy fax #: [phone] documented in this encounter Plan of Treatment Upcoming Encounters Date Type Department Care Team (Late st Contact Info) Description 09/24/2025 9:30 AM EST Office Visit Adult Medicine [address] [phone] Shanice Shelton MD [address] [place] [address] 12/12/2025 9:15 AM EST Office Visit Bariatric Surgery [address] [phone] Alexander Silva MD [address] [place] [phone] 01/03/2026 12:30 PM EST Telemedicine Bariatric Surgery - [place] 175 [facility] [address] [place] [phone] Nevaeh Cunha, RD 175 [facility] [address] [place] [phone] 05/28/2026 9:30 AM EDT Office Visit Vascular Surgery - [place] [address] [facility]3] [address] [place] [phone] Veronika Lamb MD [address] [place] [phone] documented as of this encounter Visit Diagnoses Not on filedocumented in this encounter Additional Health Concerns Assessment Noted Time PHQ-9 Depression Total Score: 23 025 4:56 PM EST documented as of this encounter Care Teams Logging Worker Relationship Specialty Start Date End Date Shanice Shelton MD [address] [place] [address] PCP - General Internal Medicine 08/16/22 documented as of this encounter
--- OUTSIDE RECORDS SUMMARY | 2025-09-09 16:26 | XMS_ITS | Clinical Summary ---
Author Organization [facility] Address [address] [place] [address] Care Team Providers Care Medical Insurance Verifier Name Role Phone Provider, Generic External Data Primary Care Pro vider Unavailable Encounters Date Type Department Care Team Description 08/20/2025 Transcribe Orders [facility] - Electrophysiology [address] [place] [address] Yanick Caballero MD POTS (postural orthostatic tachycardia syndrome) (Primary Dx) 07/29/2025 Scanned Document [facility] - Electrophysiology [address] [place] [address] Yanick Caballero MD from Last [...] Info) Description 01/09/2026 9:30 AM EST Consult [facility] - Electrophysiology [address] [place] [address] Yanick Caballero MD [address] [place] [address] Health Maintenance Due Date Last Done Comments Hepatitis C Virus Screening 1973 HIV Screening 1986 DTaP/Tdap/Td Vaccines (1 - Tdap) 1992 Hepatitis B Vaccines (1 of 3 - 19+ 3-dose series) 08/21 Pneumococcal Vaccines 50+ (1 of 1 - PCV) 2023 Zoster (Shingles) Vaccine (1 of 2) 2023 COVID-19 Vaccine ( season) 2025 RSV Vaccine 50 years and old er and Patients (1 - 1-dose 75+ series) 2048 Care Teams Medical Insurance Verifier Relationship Specialty Start Date End Date Provider, Generic External Data PCP - General 08/21/25
--- OUTSIDE RECORDS SUMMARY | 2025-09-09 16:26 | XMS_ITS | Encounter Summary ---
Author Organization [facility] Address [address] [place] [address] Care Team Providers Care Director Facilities Maintenance Name Role Phone Provider, Generic External Data Primary Care Pro vider Unavailable Encounter Details Date Type Department Care Team (Late st Contact Info) Description 07/29/2025 Scanned Document [facility] Heart & Vascular [facility] - Electrophysiology [address] [place] [phone] Yanick Caballero MD [address] [place] [address] Social History Tobacco Use Types Packs/Day Years [...] Description 01/09/2026 9:30 AM EST Consult [facility] Heart Vascular [facility] - Electrophysiology [address] [place] [phone] Yanick Caballero MD [address] [place] [address] documented as of this encounter Visit Diagnoses Not on filedocumented in this encounter Care Teams Director Facilities Maintenance Relationship Specialty Start Date End Date Provider, Generic External Data PCP - General 08/21/25 documented as of this encounter
--- OUTSIDE RECORDS SUMMARY | 2025-09-09 16:26 | XMS_ITS | Clinical Summary ---
Author Organization [facility] [address] [place] [address] Address [address] [place] [address] Phone Care Team Providers Care Framing Mill Supervisor Name Role Phone Shanice Shelton MD Primary [...] needed. Max Daily Amount: 10 mg Active lidocaine (LIDODERM) 5 % patchIndicatio ns:Lyme disease,Acute bilateral low back pain, unspecified whether sciatica present,Acute bilateral thoracic back pain,Myalgia USE 1 PATCH TOPICALLY ONCE DAILY. REMOVE AND DISCARD PATCH WITHIN 12 HOURS. 28 patch 2 025 Active lidocaine (LIDODERM) 5 % patchIndicatio ns:Lyme disease,Acute bilateral low back pain, unspecified whether sciatica present,Acute bilateral thoracic back pain,Myalgia APPLY 1 PATCH TOPICALLY ONCE DAILY. REMOVE AND DISCARD PATCH WITHIN 12 HOURS. 28 each 025 2024 Discontinued Active Problems Problem Noted Date Diagnosed Date Lyme disease 07/19/2025 Paresthesia of hand, bilateral 07/18/2025 Myalgia 07/18/2025 Overweight 01/17/2025 Acute on chronic systolic he art failure (CMS/[facility] V24, CMS/[facility] V28) 11/20/2024 Aneurysm of other specified arteries ([facility] V2 4) 11/20/2024 Low back pain, unspecified 11/20/2024 Alcohol use, unspecified, uncomplicated 11/20/20 24 Depression, unspecified 11/20/2024 Prediabetes 09/29/2023 Overview (09/14/2024): Lab Results Component Value Date HGBA1C 6.1 09/22/2023 Assessment & Plan (12/30/2024 6:07 PM EST): Well controlled. Currently on Semaglutide for weight management. Orders: Comprehensive metabolic panel; Future Lipid panel with reflex to direct LDL; Future Nonischemic congestive cardi omyopathy (CMS/HCC V24, CMS/[facility] V28) 09/08/2021 Overview (09/14/2024): Nonischemic congestive cardiomyopathy Assessment & Plan (06/04/2025 3:30 PM EDT): Follows with cardiology. On Entresto, carvedilol, farxiga, spironolactone. No signs of exacerbation. Continue Cervicalgia 10/10/2015 Chronic low back pain 10/10/2015 POTS (postural orthostatic tachycardia syndrome) 10/09/2013 Overview (09/14/2024): Previously dx with this by Cardio - Flordavidf - no longer taking ,no symptoms. ILR no arrhythmia Excessive or frequent menstruation 06/14/2013 Dysmenorrhea 06/14/2013 Headache 08/31/2011 Overview (09/14/2024): Being treated by Dr. Pitts for migraine Vitamin D deficiency 07/02/2011 Bradycardia 09/14/2010 Anxiety 09/11/2010 Resolved Problems Problem Noted Date Diagnosed Date Resolved Date Acute respiratory failure wi th hypoxia (CMS/[facility] V24, [facility] V28) 11/20/2024 06/04/2025 Encounters Date Type Department Care Team Description 08/30/2025 12:30 PM EDT Telemedicine Bariatric Surgery [address] [place] [address] Overweight (Primary Dx) 08/06/2025 Telephone Adult Medicine [address] [phone] Shanice Barboza MD 08/01/2025 3:30 PM EDT Treatment Outpatient Rehabilitation [address] [phone] Usha Williamson PTA Acute bilateral thoracic back pain (Primary Dx) 08/01/2025 Telephone Adult Medicine [address] [phone] Shanice Barboza MD 07/29/2025 5:00 PM EDT Treatment Outpatient Rehabilitation [address] [phone] Usha Williamson PTA Acute bilateral thoracic back pain (Primary Dx) 07/18/2025 10:25 AM EDT - 07/18/2025 11:59 PM EDT Hospital Encounter [address] [phone] Acute bilateral thoracic back pain Discharge Disposition: Home or Self Care 07/18/2025 10:24 AM EDT - 07/18/2025 11:59 PM EDT Hospital Encounter [address] [phone] Chronic bilateral low back pain, unspecified whether sciatica present; Acute bilateral low back pain, unspecified whether sciatica present Discharge Disposition: Home or Self Care 07/18/2025 10:00 AM EDT Office Visit Adult Medicine [address] [phone] Anastasiya Reis PA Acute bilateral thoracic back pain (Primary Dx); Chronic bilateral low back pain, unspecified whether sciatica present; Acute bilateral low back pain, unspecified whether sciatica present; Myalgia; Cervicalgia; Paresthesia of hand, bilateral; Nonintractable episodic headache, unspecified headache type; Chronic systolic heart failure (CMS/HCC V24, CMS/HCC V28); Lyme disease 07/18/2025 Telephone Adult Medicine [address] [phone] Anastasiya Reis PA 07/16/2025 Telephone Adult Medicine [address] [phone] Shanice Barboza MD 07/10/2025 10:30 AM EDT Evaluation Outpatient [address] [phone] Mike Crawford PT Acute bilateral thoracic back pain 07/10/2025 Plan of Care Documentation Outpatient Rehabilitation - [place] [id number] [place] [phone] 06/11/2025 8:30 AM EDT Office Visit Bariatric Surgery - [place] [address] [facility] [address] [place] [address] Alexander Silva MD Over weight from Last 3 Months Immunizations Immunization Administration Dates Next Due Pfizer SARS-CoV-2 COVID-19, mRNA, LNP-S, preservative free 09/02/2021,02/24/2021 Surgical History Surgery Date Site/Laterality Comments WISDOM TOOTH EXTRACTION PROCEDURE: HISTORICAL WISDOM TEETH EXTRACTION OTHER SURGICAL HISTORY PROCEDURE: WI DILATION & CURETTAGE DX&/THER NONOBSTETRIC NECK SURGERY 07/01/2008 PROCEDURE: HISTORICAL NECK SURGERY; COMMENT: decompression and fusion C5-6, C6-7 ENDOMETRIAL ABLATION 2009 PROCEDURE: WI ENDOMETRIAL ABLTJ THERMAL W/O HYSTEROSCOPIC GUID HYSTERECTOMY [...] COMMENT: benign EYE SURGERY 2016 Bilateral PROCEDURE: WI TRABECULOPLASTY BY LASER SURGERY; COMMENT: Dr. Marylou [...] stomach, age 47 Lung cancer Paternal Grandfather [place], dec eased Diabetes Paternal Grandmother d No [...] care for your loved ones. For example, childbirth educator or elderly care for an older adult? [...] 9:30 AM EST Office Visit Adult Medicine [facility] [address] [place] [address] Shanice Shelton MD [address] [place] [phone] 12/12/2025 9:15 AM EST Office Visit Bariatric Surgery [facility] 175 [facility] 120 [place] [phone] Alexander Silva MD [address] [place] [phone] 01/03/2026 12:30 PM EST Telemedicine Bariatric Surgery [facility] [address] [phone] Nevaeh Cunha, RD 175 [facility] [address] [place] [phone] 05/28/2026 9:30 AM EDT Office Visit Vascular Surgery [facility] 300 [facility] 210 [place] [phone] Veronika Lamb MD [address] [place] [phone] Health Maintenance Due Date Last Done Comments [...] NEUROLOGY REPORT Routine 07/10/2025 3:20 PM EDT MG MAMMO DIGITAL SCREENING W JEFFREY BILAT Routine 01/16/2025 7:52 AM EST Encounter for screening mammogram for breast cancer FIT-DNA Routine 10/05/2023 HEPATITIS C SCREENING Routine 05/25/2012 from Last 3 Months or Most Recently Relevant to Health Maintenance Results * Lipid panel with reflex to direct LDL (07/18/2025 11:04 AM EDT) Cholesterol 155 0 - 200 mg/dL LAB CHEMISTRY METHOD 07/18/2025 3:02 PM EDT [facility] Triglycerides 81 0 - 150 mg/dL LAB CHEMISTRY METHOD 07/18/2025 3:02 PM EDT [facility] HDL 41 >=40 mg/dL LAB CHEMISTRY METHOD 07/18/2025 3:02 PM EDT [facility] LDL Calculated 98 0 - 100 mg/dL LAB CHEMISTRY METHOD 07/18/2025 3:02 PM EDT [facility] Comment:Estimated LDL Calcul ated using equation: Total cholesterol - HDL cholesterol - (Triglycerides/5) VLDL Cholesterol Myke 16.2 mg/dL LAB CHEMISTRY METHOD 07/18/2025 3:02 PM EDT [facility] Non HDL Chol. (LDL+VLDL) 114 <145 mg/dL LAB CHEMISTRY METHOD 07/18/2025 3:02 PM EDT [facility] Chol/HDL Ratio 3.8 0.0 - 4.4 LAB CHEMISTRY METHOD 07/18/2025 3:02 PM EDT [facility] Blood Venous blood specimen / Unknown Venipuncture / Unknown 07/18/2025 11:04 AM EDT 07/18/2025 11:04 AM EDT Shanice Shelton MD LAB BLOOD ORDERABL ES Final Result [facility] [address] [place] [address], * SYED IFA with titer and pattern (07/18/2025 11:04 AM EDT) SYED Negative Negative 07/23/2025 3:12 PM EDT [facility] Comment:SYED performed by ind irect immunofluorescence (IFA) using HEp-2 substrate. Blood Venous blood specimen / Unknown Venipuncture / Unknown 07/18/2025 11:04 AM EDT 07/18/2025 11:04 AM EDT Anastasiya MCLAUGHLIN LAB BLOOD ORDERABLES Final Resul t [facility] [address] [place] [address], [place] [phone] * (ABNORMAL) Borrelia burgdorferi antibody (07/18/2025 11:04 AM EDT) [facility] Lyme IgG Antibody Positive( A) Negative LAB CHEMISTRY METHOD 07/19/2025 9:35 AM EDT [facility] Lyme IgM Antibody Positive( A) Negative LAB CHEMISTRY METHOD 07/19/2025 9:35 AM EDT [facility] Lyme Ab Positive( A) Negative LAB CHEMISTRY METHOD 07/19/2025 9:35 AM EDT [facility] Comment: Results are consistent [...] MCLAUGHLIN LAB BLOOD ORDERABLES Final Resul t [facility] [address] [place] [address], [place] [phone] * Rheumatoid factor (07/18/2025 11:04 AM EDT) [facility] Rheumatoid Factor <10.0 <15.0 I Unit/mL LAB CHEMISTRY METHOD 07/18/2025 3:02 PM EDT [facility] Blood Venous blood specimen / Unknown Venipuncture / Unknown 07/18/2025 11:04 AM EDT 07/18/2025 11:04 AM EDT Anastasiya MCLAUGHLIN LAB BLOOD ORDERABLES Final Resul t [facility] [address] [place] [address], [place] [phone] * (ABNORMAL) C-reactive protein (07/18/2025 11:04 AM EDT) Pathologist [facility] C-Reactive Protein 9.15(H) <=0.50 mg/dL LAB CHEMISTRY METHOD 07/18/2025 2:58 PM EDT [facility] Blood Venous blood specimen / Unknown Venipuncture / Unknown 07/18/2025 11:04 AM EDT 07/18/2025 11:04 AM EDT Anastasiya MCLAUGHLIN LAB BLOOD ORDERABLES Final Resul t Performing Organization Address City/[facility] [[email or web address]] Co de Phone Number [facility] [address] [place] [address], [place] [phone] * Uric acid (07/18/2025 11:04 AM EDT) [facility] Uric Acid 4.3 3.1 - 7.8 mg/dL LAB CHEMISTRY METHOD 07/18/2025 2:58 PM EDT [facility] Blood Venous blood specimen / Unknown Venipuncture / Unknown 07/18/2025 11:04 AM EDT 07/18/2025 11:04 AM EDT Anastasiya MCLAUGHLIN LAB BLOOD ORDERABLES Final Resul t [facility] [address] [place] [address], [place] [phone] * Comprehensive metabolic panel (07/18/2025 11:04 AM EDT) Pathologist [facility] Sodium 136 133 - 145 mmol/L LAB CHEMISTRY METHOD 07/18/2025 3:02 PM EDT [facility] Potassium 4.3 3.5 - 5.5 mmol/L LAB CHEMISTRY METHOD 07/18/2025 3:02 PM [facility] Chloride 104 96 - 110 mmol/L LAB CHEMISTRY METHOD 07/18/2025 3:02 PM [facility] CO2 28 21 - 32 mmol/L LAB CHEMISTRY METHOD 07/18/2025 3:02 PM [facility] Anion Gap 4 3 - 11 LAB CHEMISTRY METHOD 07/18/2025 3:02 PM [facility] Glucose 89 70 - 100 mg/dL LAB CHEMISTRY METHOD 07/18/2025 3:02 PM [facility] BUN 20 5 - 25 mg/dL LAB CHEMISTRY METHOD 07/18/2025 3:02 PM [facility] Creatinine 1.03 0.50 - 1.10 mg/dL LAB CHEMISTRY METHOD 07/18/2025 3:02 PM [facility] eGFR 66 >=60 mL/min/1. 73m2 LAB CHEMISTRY METHOD 07/18/2025 3:02 PM [facility] Comment:Calculation based on the Chronic Kidney Disease Epidemiology Collaboration (CKD-EPI) equation refit without adjustment for race. BUN/Creatinine Ratio 19.4 LAB CHEMISTRY METHOD 07/18/2025 3:02 PM [facility] Calcium 9.4 8.5 - 10.5 mg/dL LAB CHEMISTRY METHOD 07/18/2025 3:02 PM [facility] AST (SGOT) 10 10 - 42 unit/L LAB CHEMISTRY METHOD 07/18/2025 3:02 [facility] ALT (SGPT) 23 10 - 60 unit/L LAB CHEMISTRY METHOD 07/18/2025 3:02 PM [facility] Alkaline Phosphatase 111 42 - 121 unit/L LAB CHEMISTRY METHOD 07/18/2025 3:02 PM [facility] Total Protein 7.2 6.0 - 8.0 g/dL LAB CHEMISTRY METHOD 07/18/2025 3:02 PM EDT [facility] Albumin 3.3 3.2 - 5.0 g/dL LAB CHEMISTRY METHOD 07/18/2025 3:02 PM EDT [facility] Total Bilirubin 0.4 0.0 - 1.4 mg/dL LAB CHEMISTRY METHOD 07/18/2025 3:02 PM EDT [facility] Blood Venous blood specimen / Unknown Venipuncture / Unknown 07/18/2025 11:04 AM EDT 07/18/2025 11:04 AM EDT us Shanice Shelton MD LAB BLOOD ORDERABL ES Final Result [facility]) [facility] [address] [place] [address], [place] [phone] * XR Thoracic Spine 2 Views (07/18/2025 10:45 AM EDT) Anatomical Region Laterality Modality Spine, T-spine Radiographic Yanelis ging 07/19/2025 11:5 8 AM EDT Impressions 07/19/2025 12:01 PM EDT Mild degenerative changes. POS - [id number] -------- FINAL REPORT -------- Dictated By: Lisa Collins Dictated Date: 07/19/2025 11:58 ET Assigned Physician: Lisa Collins Reviewed and Electronically Signed By: Lisa Collins Signed Date: 07/19/2025 12:01 ET Workstation ID: [id number] Transcribed By: Self Edit Transcribed Date: 07/19/2025 [...] spine. IMPRESSION: Mild degenerative changes. POS - [id number] -------- FINAL REPORT -------- Dictated By: Lisa Collins Dictated Date: 07/19/2025 11:58 ET Assigned Physician: Lisa Collins Reviewed and Electronically Signed By: Lisa Collins Signed Date: 07/19/2025 12:01 ET Workstation ID: [id number] Transcribed By: Self Edit Transcribed Date: 07/19/2025 11:58 ET Anastasiya MCLAUGHLIN IMG XR PROCEDURES Final Result * XR Lumbar Spine 4+ Views (07/18/2025 10:45 AM EDT) Anatomical Region Laterality Modality Spine, L-spine Radiographic Yanelis ging 07/19/2025 12:0 1 PM EDT Impressions 07/19/2025 12:07 PM EDT Multilevel degenerative changes with progressive facet arthropathy. POS - [id number] -------- FINAL REPORT -------- Dictated By: Lisa Collins Dictated Date: 07/19/2025 12:01 ET Assigned Physician: Lisa Collins Reviewed and Electronically Signed By: Lisa Collins Signed Date: 07/19/2025 12:07 ET Workstation ID: [id number] Transcribed By: Self Edit Transcribed Date: 07/19/2025 [...] changes with progressive facet arthropathy. POS - [id number] -------- FINAL REPORT -------- Dictated By: Lisa Collins Dictated Date: 07/19/2025 12:01 ET Assigned Physician: Lisa Collins Reviewed and Electronically Signed By: Lisa Collins Signed Date: 07/19/2025 12:07 ET Workstation ID: [id number] Transcribed By: Self Edit Transcribed Date: 07/19/2025 [...] is recommended in 1 year. Mammo Location: [facility], [address] [place] [address], [id number], . -------- FINAL REPORT -------- Dictated By: Rosa Maria Elizabeth Dictated Date: 01/16/2025 15:09 ET Assigned Physician: Rosa Maria Elizabeth Reviewed and Electronically Signed By: Rosa Maria Elizabeth Signed Date: 01/16/2025 15:11 ET Workstation ID: [id number] Transcribed By: Self Edit Transcribed Date: 01/16/2025 [...] is recommended in 1 year. Mammo Location: [facility], [address] [place] [address], [id number], . -------- FINAL REPORT -------- Dictated By: Rosa Maria Elizabeth Dictated Date: 01/16/2025 15:09 ET Assigned Physician: Rosa Maria Elizabeth Reviewed and Electronically Signed By: Rosa Maria Elizabeth Signed Date: 01/16/2025 15:11 ET Workstation ID: [id number] Transcribed By: Self Edit Transcribed Date: 01/16/2025 15:09 ET Shanice Shelton MD IMG BI PROCEDURES Final Result * FIT-DNA (Cologuard) (10/05/2023) [facility] Colorectal Cancer Screening: FIT-DNA (Cologuard) Negative, Abstracted Historical Provider HEALTH MAINTENANCE Final Result * Hepatitis C Screening (05/25/2012) [facility] Hepatitis C Screening Abstracted Historical Provider HEALTH MAINTENANCE Final Result from Last 3 Months or Most Recently Relevant to Health Maintenance Insurance MEDICARE MEDICAID - [place] Care Teams Framing Mill Supervisor Relationship Specialty Start Date End Date Shanice Shelton MD [address] [place] [phone] PCP - General Internal Medicine 08/16/22
== END 2025-09-09 14:05 | disposition home or self-care (01) ==
LOC: HO.HMGAL 13:23
PROVIDERS: PCP Internal Medicine; Visit Provider Registered Nurse Emergency
DX: J30.89 Other allergic rhinitis (principal)
CPT/HCPCS: 95117; 95165

== ENCOUNTER 2025-09-16 13:24 | Outpatient (AMB) | payer MEDICARE, MEDICAID, SELFPAY ==
--- OUTSIDE RECORDS SUMMARY | 2025-09-16 17:03 | XMS_ITS | Clinical Summary ---
Author Organization [facility] [address] [place] [address] Address [address] [place] [address] Phone Care Team Providers Care Customer Agent Name Role Phone Shanice Shelton MD Primary [...] Acute on chronic systolic he art failure (CMS/[facility] V24, CMS/[facility] V28) 11/20/2024 Aneurysm of other specified arteries ([facility] V2 4) 11/20/2024 Low back pain, [...] Future Nonischemic congestive cardi omyopathy (CMS/HCC V24, CMS/[facility] V28) 09/08/2021 Overview (09/14/2024): Nonischemic congestive [...] Date Acute respiratory failure wi th hypoxia (CMS/[facility] V24, [facility] V28) 11/20/2024 06/04/2025 Encounters Date Type Department Care Team Description 08/30/2025 12:30 PM EDT Telemedicine Bariatric Surgery [address] [place] [address] Nevaeh Meza ch, RD Overweight (Primary Dx) 08/06/2025 Telephone Adult Medicine [address] [phone] Shanice Villagomez MD 08/01/2025 3:30 PM EDT Treatment Outpatient Rehabilitation [address] [phone] Usha Williamson PTA Acute bilateral thoracic back pain (Primary Dx) 08/01/2025 Telephone Adult Medicine [address] [phone] Shanice Villagomez MD 07/29/2025 5:00 PM EDT Treatment Outpatient Rehabilitation [address] [phone] Usha Williamson PTA Acute bilateral thoracic back pain (Primary Dx) 07/18/2025 10:25 AM EDT - 07/18/2025 11:59 PM EDT Hospital Encounter [address] [phone] Acute bilateral thoracic back pain Discharge Disposition: Home or Self Care 07/18/2025 10:24 AM EDT - 07/18/2025 11:59 PM EDT Hospital Encounter [address] [phone] Chronic bilateral low back pain, unspecified whether sciatica present; Acute bilateral low back pain, unspecified whether sciatica present Discharge Disposition: Home or Self Care 07/18/2025 10:00 AM EDT Office Visit Adult Medicine [address] [phone] Anastasiya Reis PA Acute bilateral thoracic back pain (Primary Dx); Chronic bilateral low back pain, unspecified whether sciatica present; Acute bilateral low back pain, unspecified whether sciatica present; Myalgia; Cervicalgia; Paresthesia of hand, bilateral; Nonintractable episodic headache, unspecified headache type; Chronic systolic heart failure (CMS/HCC V24, CMS/HCC V28); Lyme disease 07/18/2025 Telephone Adult Medicine [address] [phone] Anastasiya Reis PA 07/16/2025 Telephone Adult Medicine [address] [phone] Shanice Villagomez MD 07/10/2025 10:30 AM EDT Evaluation Outpatient [address] [phone] Mike Crawford PT Acute bilateral thoracic back pain 07/10/2025 Plan of Care Documentation Outpatient [address] [phone] from Last 3 Months Immunizations Immunization Administration Dates Next Due Pfizer SARS-CoV-2 COVID-19, mRNA, LNP-S, preservative free 09/02/2021,02/24/2021 Surgical History Surgery Date Site/Laterality Comments WISDOM TOOTH EXTRACTION PROCEDURE: HISTORICAL WISDOM TEETH EXTRACTION OTHER SURGICAL HISTORY PROCEDURE: WA DILATION & CURETTAGE DX&/THER NONOBSTETRIC NECK SURGERY 07/01/2008 PROCEDURE: HISTORICAL NECK SURGERY; COMMENT: decompression and fusion C5-6, C6-7 ENDOMETRIAL ABLATION 2009 PROCEDURE: WA ENDOMETRIAL ABLTJ THERMAL W/O HYSTEROSCOPIC GUID HYSTERECTOMY [...] COMMENT: benign EYE SURGERY 2016 Bilateral PROCEDURE: WA TRABECULOPLASTY BY LASER SURGERY; COMMENT: Dr. Marylou [...] respiratory failure wi th hypoxia (CMS/HCC V24, [facility] V28) 11/20/2024 Family History Medical History Relation Name Comments No Known Problems Brother 1 No Known Problems Brother 2 No Known Problems Daughter ALS Father Diabetes Father peripheral neur opathy, htn Bladder Cancer Mother bladder cance r, stomach, age 49 Lung cancer Paternal Grandfather [place], dec eased Diabetes Paternal Grandmother d No [...] ed Within the last 3 months, ho gilbert many times did you visit the emergency [...] your loved ones. For example, child development instructor or elderly care for an older adult? [...] Medicine [facility] [address] [place], [place] [phone] Shanice Shelton MD [address] [place] [phone] 12/12/2025 9:15 AM EST Office Visit Bariatric Surgery [facility] 175 [facility] 120 [place] [phone] Alexander Silva MD [address] [place] [phone] 01/03/2026 12:30 PM EST Telemedicine Bariatric Surgery [facility] 175 [facility] 120 [place] [phone] Nevaeh Cunha, RD 175 [facility] 120 [place] [phone] 05/28/2026 9:30 AM EDT Office Visit Vascular Surgery [facility] [address] [facility] [address] [place] [phone] Veronika Lamb MD [address] [place] [phone] Health Maintenance Due Date Last Done Comments [...] LAB CHEMISTRY METHOD 07/18/2025 3:02 PM EDT [facility] Triglycerides 81 0 - 150 mg/dL LAB CHEMISTRY METHOD 07/18/2025 3:02 PM EDT [facility] HDL 41 >=40 mg/dL LAB CHEMISTRY METHOD 07/18/2025 3:02 PM EDT [facility] LDL Calculated 98 0 - 100 mg/dL LAB CHEMISTRY METHOD 07/18/2025 3:02 PM EDT [facility] Comment:Estimated LDL Calcul ated using equation: Total cholesterol - HDL cholesterol - (Triglycerides/5) VLDL Cholesterol Myke 16.2 mg/dL LAB CHEMISTRY METHOD 07/18/2025 3:02 PM EDT [facility] Non HDL Chol. (LDL+VLDL) 114 <145 mg/dL LAB CHEMISTRY METHOD 07/18/2025 3:02 PM EDT [facility] Chol/HDL Ratio 3.8 0.0 - 4.4 LAB CHEMISTRY METHOD 07/18/2025 3:02 PM EDT [facility] Blood Venous blood specimen / Unknown Venipuncture / Unknown 07/18/2025 11:04 AM EDT 07/18/2025 11:04 AM EDT Shanice Shelton MD LAB BLOOD ORDERABL ES Final Result Performing Organization Address City/[facility]/ZIP Co de Phone Number [facility] [address] [place] [address], [place] [phone] * SYED IFA with titer and pattern (07/18/2025 11:04 AM EDT) [facility] SYED Negative Negative 07/23/2025 3:12 PM EDT [facility] Comment:SYED performed by ind irect immunofluorescence (IFA) using HEp-2 substrate. Blood Venous blood specimen / Unknown Venipuncture / Unknown 07/18/2025 11:04 AM EDT 07/18/2025 11:04 AM EDT Anastasiya MCLAUGHLIN LAB BLOOD ORDERABLES Final Resul t [facility] [address] [place] [address], [place] [phone] * (ABNORMAL) Borrelia burgdorferi antibody (07/18/2025 11:04 AM EDT) [facility] Lyme IgG Antibody Positive( A) Negative LAB CHEMISTRY METHOD 07/19/2025 9:35 AM EDT [facility] Lyme IgM Antibody Positive( A) Negative LAB CHEMISTRY METHOD 07/19/2025 9:35 AM EDT [facility] Lyme Ab Positive( A) Negative LAB CHEMISTRY METHOD 07/19/2025 9:35 AM EDT [facility] Comment: Results are consistent [...] MCLAUGHLIN LAB BLOOD ORDERABLES Final Resul t [facility] [address] [place] [address], [place] [phone] * Rheumatoid factor (07/18/2025 11:04 AM EDT) Pathologist [facility] Rheumatoid Factor <10.0 <15.0 I Unit/mL LAB CHEMISTRY METHOD 07/18/2025 3:02 PM EDT [facility] Blood Venous blood specimen / Unknown Venipuncture / Unknown 07/18/2025 11:04 AM EDT 07/18/2025 11:04 AM EDT Anastasiya MCLAUGHLIN LAB BLOOD ORDERABLES Final Resul t [facility] [address] [place] [address], [place] [phone] * (ABNORMAL) C-reactive protein (07/18/2025 11:04 AM EDT) [facility] C-Reactive Protein 9.15(H) <=0.50 mg/dL LAB CHEMISTRY METHOD 07/18/2025 2:58 PM EDT [facility] Blood Venous blood specimen / Unknown Venipuncture / Unknown 07/18/2025 11:04 AM EDT 07/18/2025 11:04 AM EDT Anastasiya MCLAUGHLIN LAB BLOOD ORDERABLES Final Resul t Performing Organization Address City/[facility]/ZIP Co de Phone Number [facility] [address] [place] [address], [place] [phone] * Uric acid (07/18/2025 11:04 AM EDT) [facility] Uric Acid 4.3 3.1 - 7.8 mg/dL LAB CHEMISTRY METHOD 07/18/2025 2:58 PM EDT [facility] Blood Venous blood specimen / Unknown Venipuncture / Unknown 07/18/2025 11:04 AM EDT 07/18/2025 11:04 AM EDT Anastasiya MCLAUGHLIN LAB BLOOD ORDERABLES Final Resul t Performing Organization Address City/[facility]/ZIP Co de Phone Number [facility] [address] [place] [address], [place] [phone] * Comprehensive metabolic panel (07/18/2025 11:04 AM EDT) [facility] Sodium 136 133 - 145 mmol/L LAB CHEMISTRY METHOD 07/18/2025 3:02 PM EDT [facility] Potassium 4.3 3.5 - 5.5 mmol/L LAB CHEMISTRY METHOD 07/18/2025 3:02 PM EDT [facility] Chloride 104 96 - 110 mmol/L LAB CHEMISTRY METHOD 07/18/2025 3:02 PM EDT [facility] CO2 28 21 [...] LAB CHEMISTRY METHOD 07/18/2025 3:02 PM EDT [facility] Blood Venous blood specimen / Unknown Venipuncture / Unknown 07/18/2025 11:04 AM EDT 07/18/2025 11:04 AM EDT us Shanice Shelton MD LAB BLOOD ORDERABL ES Final Result [facility] [address] [place] [address], [place] [phone] * XR Thoracic Spine 2 Views (07/18/2025 10:45 AM EDT) Anatomical Region Laterality Modality Spine, T-spine Radiographic Yanelis ging 07/19/2025 11:5 8 AM EDT Impressions 07/19/2025 12:01 PM EDT Mild degenerative changes. POS - [id number] -------- FINAL REPORT -------- Dictated By: Lisa Collins Dictated Date: 07/19/2025 11:58 ET Assigned Physician: Lisa Collins Reviewed and Electronically Signed By: Lisa Collins Signed Date: 07/19/2025 12:01 ET Workstation ID: [id number] Transcribed By: Self Edit Transcribed Date: 07/19/2025 [...] spine. IMPRESSION: Mild degenerative changes. POS - [id number] -------- FINAL REPORT -------- Dictated By: Lisa Collins Dictated Date: 07/19/2025 11:58 ET Assigned Physician: Lisa Collins Reviewed and Electronically Signed By: Lisa Collins Signed Date: 07/19/2025 12:01 ET Workstation ID: [id number] Transcribed By: Self Edit Transcribed Date: 07/19/2025 11:58 ET Anastasiya MCLAUGHLIN IMG XR PROCEDURES Final Result * XR Lumbar Spine 4+ Views (07/18/2025 10:45 AM EDT) Anatomical Region Laterality Modality Spine, L-spine Radiographic Yanelis ging 07/19/2025 12:0 1 PM EDT Impressions 07/19/2025 12:07 PM EDT Multilevel degenerative changes with progressive facet arthropathy. POS - [id number] -------- FINAL REPORT -------- Dictated By: Lisa Collins Dictated Date: 07/19/2025 12:01 ET Assigned Physician: Lisa Collins Reviewed and Electronically Signed By: Lisa Collins Signed Date: 07/19/2025 12:07 ET Workstation ID: [id number] Transcribed By: Self Edit Transcribed Date: 07/19/2025 [...] changes with progressive facet arthropathy. POS - [id number] -------- FINAL REPORT -------- Dictated By: Lisa Collins Dictated Date: 07/19/2025 12:01 ET Assigned Physician: Lisa Collins Reviewed and Electronically Signed By: Lisa Collins Signed Date: 07/19/2025 12:07 ET Workstation ID: [id number] Transcribed By: Self Edit Transcribed Date: 07/19/2025 12:01 ET Anastasiya MCLAUGHLIN IMG XR PROCEDURES Final Result * External Neurology Report (07/10/2025 3:20 PM EDT) us Historical Provider NEUROLOGY ORDERABLES Michaelle ledezma Result [...] is recommended in 1 year. Mammo Location: [facility], [address] [place] [address], [address], . -------- FINAL REPORT -------- Dictated By: Rosa Maria Elizabeth Dictated Date: 01/16/2025 15:09 ET Assigned Physician: Rosa Maria Elizabeth Reviewed and Electronically Signed By: Rosa Maria Elizabeth Signed Date: 01/16/2025 15:11 ET Workstation ID: [id number] Transcribed By: Self Edit Transcribed Date: 01/16/2025 [...] is recommended in 1 year. Mammo Location: [facility], [address] [place], [place], [address], . -------- FINAL REPORT -------- Dictated By: Rosa Maria Elizabeth Dictated Date: 01/16/2025 15:09 ET Assigned Physician: Rosa Maria Elizabeth Reviewed and Electronically Signed By: Rosa Maria Elizabeth Signed Date: 01/16/2025 15:11 ET Workstation ID: [id number] Transcribed By: Self Edit Transcribed Date: 01/16/2025 15:09 ET Shanice Shelton MD IMG BI PROCEDURES Final Result * FIT-DNA (Cologuard) (10/05/2023) [facility] Colorectal Cancer Screening: FIT-DNA (Cologuard) Negative, Abstracted Historical Provider HEALTH MAINTENANCE Final Result * Hepatitis C Screening (05/25/2012) [facility] Hepatitis C Screening Abstracted Historical Provider HEALTH MAINTENANCE Final Result from Last 3 Months or Most Recently Relevant to Health Maintenance Insurance MEDICARE MEDICAID - [place] Care Teams Customer Agent Relationship Specialty Start Date End Date Shanice Shelton MD [address] [place] [phone] PCP - General Internal Medicine 08/16/22
--- OUTSIDE RECORDS SUMMARY | 2025-09-16 17:03 | XMS_ITS | Clinical Summary ---
Author Organization [facility] Address [address] [place] [address] Care Team Providers Care Warehouse Unloader Name Role Phone Provider, Generic External Data Primary Care Pro vider Unavailable Encounters Date Type Department Care Team Description 08/20/2025 Transcribe Orders [facility] - Electrophysiology [address] [place] [address] Yanick Caballero MD POTS (postural orthostatic tachycardia syndrome) (Primary Dx) 07/29/2025 Scanned Document [facility] - Electrophysiology [address] [place] [address] Yanick Caballero MD from Last [...] Info) Description 01/09/2026 9:30 AM EST Consult [facility] - Electrophysiology [address] [place] [address] Yanick Caballero MD [address] [place] [address] Health Maintenance Due Date Last Done Comments [...] - 1-dose 75+ series) 2048 Care Teams Warehouse Unloader Relationship Specialty Start Date End Date Provider, Generic External Data PCP - General 08/21/25
--- OUTSIDE RECORDS SUMMARY | 2025-09-16 17:03 | XMS_ITS | Encounter Summary ---
Author Organization [facility] Address [address] [place] [address] Care Team Providers Care Oliver Filter Operator Name Role Phone Provider, Generic External Data Primary Care Pro vider Unavailable Encounter Details Date Type Department Care Team (Late st Contact Info) Description 07/29/2025 Scanned Document [facility] Heart & Vascular [facility] - Electrophysiology [address] [place] [phone] Yanick Caballero MD [address] [place] [phone] Social History Tobacco Use Types Packs/Day Years [...] Info) Description 01/09/2026 9:30 AM EST Consult [facility] Heart Vascular [facility] - Electrophysiology [address] [place] [phone] Yanick Caballero MD [address] [place] [address] documented as of this encounter Visit Diagnoses Not on filedocumented in this encounter Care Teams Oliver Filter Operator Relationship Specialty Start Date End Date Provider, Generic External Data PCP - General 08/21/25 documented as of this encounter
== END 2025-09-16 13:25 | disposition home or self-care (01) ==
LOC: HO.HMGAL 13:24
PROVIDERS: PCP Internal Medicine; Visit Provider Registered Nurse Emergency
DX: J30.89 Other allergic rhinitis (principal)
CPT/HCPCS: 95117; 95165

== ENCOUNTER 2025-09-23 13:20 | Outpatient (AMB) | payer MEDICARE, MEDICAID, SELFPAY | END 2025-09-23 13:21 | disposition home or self-care (01) | LOC: HO.HMGAL 13:20 | PROVIDERS: PCP Internal Medicine; Visit Provider Registered Nurse Emergency | DX: J30.89 Other allergic rhinitis (principal) | CPT/HCPCS: 95117; 95165 ==

== ENCOUNTER 2025-09-30 13:30 | Outpatient (AMB) | payer MEDICARE, MEDICAID, SELFPAY ==
--- OUTSIDE RECORDS SUMMARY | 2025-09-25 17:57 | XMS_ITS | Encounter Summary ---
Author Organization [facility] Address [address] [place] [address] Care Team Providers Care Plant Nursery Worker Name Role Phone Shanice Shelton MD Primary Care Prov ider Reason for Referral * Imaging (Routine) - Closed Specialty Diagnoses / Procedures Referred By Mc gallardo Referred To Contact Radiology Diagnoses Chronic bilateral thoracic back pain Procedures MR Thoracic Spine wo Contrast Shanice Shelton MD [address] [place] [address] Phone: tel: fax: [address] [address] Phone: tel: Referral ID Status Reason Start Date Expiration Date Visits Re quested Visits Authorized [id number] Closed 09/24/2025 09/24/2026 1 1 Reason for Visit * Imaging (Routine) - Closed Specialty Diagnoses / Procedures Referred By Mc t Referred To Contact Radiology Diagnoses Chronic bilateral thoracic back pain Procedures MR Thoracic Spine wo Contrast Shanice Shelton MD [address] [place] [address] Phone: tel: fax: [address] [place] [address] Phone: tel: Referral ID Status Reason Start Date Expiration Date Visits Re quested Visits Authorized [id number] Closed 09/24/2025 09/24/2026 1 1 Encounter Details Date Type Department Care Team (Latest Contact Info) Description 09/25/2025 5:57 PM EST - 09/25/2025 11:59 PM EST Hospital Encounter Radiology Department - [address] [phone] Chronic bilateral thoracic back pain Discharge Disposition: Home or Self Care Social History Tobacco Use Types Packs/Day Years [...] for your loved ones. For example, child watch attendant or elderly care for an older adult? [...] AM EDT documented as of this encounter Medications at Time of Discharge buPROPion XL (WELLBUTRIN XL) 300 mg 24 hr tablet Take 1 tablet (300 mg total) by mouth 1 (one) time each day. 30 each 5 06/11/2025 12/08/19 26 carvediloL (COREG) 3.125 mg tablet TAKE 1 TABLET BY MOUTH TWO TIMES A DAY. FURTHER REFILLS PER CARDIOLOGY 09/12/2024 dapagliflozin propanediol (Farxiga) 10 mg tablet Take 1 tablet (10 mg total) by mouth 1 (one) time each day. Emgality Pen 120 mg/mL injection pen USE SUBCUTANEOUSLY MONTHLY DIRECTED 11/29/2024 Entresto 24-26 mg per tablet Take 1 tablet by mouth 2 (two) times a day. 09/12/2024 furosemide (LASIX) 20 mg tablet Take 1 tablet (20 mg total) by mouth 1 (one) time each day. 07/15/2025 lidocaine (LIDODERM) 5 % patchIndications :Lyme disease,Acute bilateral low back pain, unspecified whether sciatica present,Acute bilateral thoracic back pain,Myalgia USE 1 PATCH TOPICALLY ONCE DAILY. REMOVE AND DISCARD PATCH WITHIN 12 HOURS. 28 patch 2 09/09/2025 meclizine (ANTIVERT) 25 mg tablet Take 1 Tablet by mouth 3 times daily as needed (dizziness). 03/01/2022 naltrexone (DEPADE) 50 mg tabletIndication s:Over weight Take 0.5 tablets (25 mg total) by mouth 1 (one) time each day. 15 each 5 06/11/2025 12/08/19 26 spironolactone (ALDACTONE) 25 mg tablet TAKE 1 TABLET BY MOUTH EVERY DAY. FURTHER REFILLS PER CARDIOLOGY 09/12/2024 zolpidem (AMBIEN) 10 mg tablet Take 1 tablet (10 mg total) by mouth at bedtime as needed. Max Daily Amount: 10 mg 03/26/2025 documented as of this encounter Discharge Disposition Disposition Code Departure Means Destination Home or Self Care documented in this encounter Plan of Treatment Upcoming Encounters Date Type Department Care Team (Late st Contact Info) Description 12/12/2025 9:15 AM EST Office Visit Bariatric Surgery - [place] [address] [facility] [address] [place] [address] Alexander Silva MD [address] [place] [phone] 01/03/2026 12:30 PM EST Telemedicine Bariatric Surgery - [place] 175 [facility] [address] [place] [phone] Nevaeh Cunha, RD 175 [facility] [address] [place] [phone] 05/28/2026 9:30 AM EDT Office Visit Vascular Surgery - [place] [address] [facility] [address] [place] [phone] Veronika Lamb MD [address] [place] [address] documented as of this encounter Procedures Procedure Name Priority Date/Time Associated Diagnosis Comments THORACIC SPINE WO CONTRAST Routine 09/25/2025 6:31 PM EST Chronic bilateral thoracic back pain documented in this encounter Results * MR Thoracic Spine wo Contrast (09/25/2025 6:31 PM EST) Anatomical Region Laterality Modality T-spine, Spine Magnetic Resonan ce 09/27/2025 12:1 9 PM EST Impressions 09/27/2025 12:59 PM EST Impression: 1. Normal thoracic spine. 2. Incidentally noted are postoperative changes of the cervical spine and high signal abnormality at the cervical spine on the STIR images. This may represent sequela of postoperative changes. Recommend dedicated MRI of the cervical spine with IV contrast. -------- FINAL REPORT -------- Dictated By: Benja Hardwick Dictated Date: 09/27/2025 12:19 ET Assigned Physician: Benja Hardwick Reviewed and Electronically Signed By: Benja Hardwick Signed Date: 09/27/2025 12:59 ET Workstation ID: [id number] Transcribed By: Self Edit Transcribed Date: 09/27/2025 12:19 ET Narrative 09/27/2025 12:59 PM EST MRI THORACIC SPINE Clinical Statement: Chronic thoracic pain Comparison: None Technique: Multiplanar, multisequence MRI images of the thoracic spine were obtained without intravenous contrast. Findings: There is a normal thoracic kyphosis. Vertebral body and intervertebral disc space height are normal. Vertebral marrow and intervertebral disc signal are normal. Cord signal is normal. There is no evidence of significant neural foraminal stenosis or canal compromise. Incidentally noted are postoperative changes of the cervical spine and high signal abnormality at the cervical spine on the STIR images. Procedure Note Benja Hardwick MD - 09/27/2025 MRI THORACIC SPINE Clinical Statement: Chronic thoracic pain Comparison: None Technique: Multiplanar, multisequence MRI images of the thoracic spinewere obtained without intravenous contrast. Findings: There is a normal thoracic kyphosis. Vertebral body andintervertebral disc space height are normal. Vertebral marrow andintervertebral disc signal are normal. Cord signal is normal. There isno evidence of significant neural foraminal stenosis or canalcompromise. Incidentally noted are postoperative changes of the cervical spine andhigh signal abnormality at the cervical spine on the STIR images. IMPRESSION: Impression: 1. Normal thoracic spine. 2. Incidentally noted are postoperative changes of the cervical spine andhigh signal abnormality at the cervical spine on the STIR images. This mayrepresent sequela of postoperative changes. Recommend dedicated MRI of thecervical spine with IV contrast. -------- FINAL REPORT -------- Dictated By: Benja Hardwick Dictated Date: 09/27/2025 12:19 ET Assigned Physician: Benja Hardwick Reviewed and Electronically Signed By: Benja Hardwick Signed Date: 09/27/2025 12:59 ET Workstation ID: [id number] Transcribed By: Self Edit Transcribed Date: 09/27/2025 12:19 ET Shanice Shelton MD IMG MRI PROCEDURES Final Result documented in this encounter Visit Diagnoses Diagnosis Chronic bilateral thoracic back pain documented in this encounter Additional Health Concerns Assessment Noted Time PHQ-9 Depression Total Score: 23 025 4:56 PM EST documented as of this encounter Care Teams Plant Nursery Worker Relationship Specialty Start Date End Date Shanice Shelton MD [address] [place] [phone] PCP - General Internal Medicine 08/16/22 documented as of this encounter
--- OUTSIDE RECORDS SUMMARY | 2025-09-30 15:34 | XMS_ITS | Encounter Summary ---
Author Organization [facility] Address [address] [place] [address] Care Team Providers Care Summer Counselor Name Role Phone Shanice Shelton MD Primary Care Prov ider Reason for Referral * Imaging (Routine) - Authorized Specialty Diagnoses / Procedures Referred By Contac t Referred To Contact Radiology Diagnoses Abnormal MRI Procedures MR Cervical Spine wo and w Contrast MR Cervical Spine w Contrast Shanice Shelton MD [address] [place] [address] Phone: tel: fax: [address] [address] Phone: tel: Referral ID Status Reason Start Date Expiration Date V isits Requested Visits Authorized [id number] Authorized 09/30/2025 09/30/2026 1 1 * Consultation (Routine) - Closed Specialty Diagnoses / Procedures Referred By Contact Referred To Contact Physical Medicine and Rehabilitation Diagnoses Chronic bilateral thoracic back pain Shanice Shelton MD [address] [place] [address] Phone: tel: fax: Armando Vásquez DO [address] [address] Phone: tel:[phone] fax:[phone] Referral ID Status Reason Start Date Expiration Date V isits Requested Visits Authorized [id number] Closed Specialty Services Required 09/30/2025 09/30/2026 1 1 Encounter Details Date Type Department Care Team ([facility] st Contact Info) Description 09/30/2025 Results Follow-Up Adult Medicine [facility] [address] [place] [address] Shanice Shelton MD [address] [place], [place] Social History Tobacco Use Types Packs/Day [...] for your loved ones. For example, child care assistant or elderly care for an older [...] 9:15 AM EST Office Visit Bariatric Surgery [address] [address] Alexander Silva MD [address] [place] [phone] 01/03/2026 12:30 PM EST Telemedicine Bariatric Surgery - [address] [address] Nevaeh Cunha, RD [address] [address] 05/28/2026 9:30 AM EDT Office Visit Vascular Surgery - [place] [address] [place] [phone] Veronika Lamb MD [address] [place] [address] Scheduled Orders Name Type Priority Associated Diagnoses Orde r Schedule MR Cervical Spine wo and w Contrast Imaging Routine Abnormal MRI Expected: 09/30/2025, Expires: 09/30/2026 Scheduled Referrals Name Type Priority Associated Diagnoses Order Schedule Ambulatory referral to Physical Medicine Rehab Outpatient Referral Routine Chronic bilateral thoracic back pain 1 Occurrences starting 09/30/2025 until 09/30/2026 documented as of this encounter Visit Diagnoses Diagnosis Abnormal MRI- Primary Other nonspecific (abnormal) findings on radiological and other examinations of body structure Chronic bilateral thoracic back pain documented in this encounter Additional Health Concerns Assessment Noted Time PHQ-9 Depression Total Score: 23 025 4:56 PM EST documented as of this encounter Care Teams Summer Counselor Relationship Specialty Start Date End Date Shanice Shelton MD [address] [place] [phone] PCP - General Internal Medicine 08/16/22 documented as of this encounter
--- OUTSIDE RECORDS SUMMARY | 2025-09-30 15:34 | XMS_ITS | Clinical Summary ---
Author Organization [facility] [address] [place] [address] Address [address] [place] [address] Phone Care Team Providers Care Eyelet Riveter Name Role Phone Shanice Shelton MD Primary [...] Acute on chronic systolic he art failure (CMS/[facility] V24, CMS/[facility] V28) 11/20/2024 Aneurysm of other specified arteries ([facility] V2 4) 11/20/2024 Low back pain, unspecified 11/20/2024 Alcohol use, unspecified, uncomplicated 11/20/20 24 Depression, unspecified 11/20/2024 Prediabetes 09/29/2023 Overview (09/14/2024): Lab Results Component Value Date HGBA1C 6.1 09/22/2023 Assessment & Plan (12/30/2024 6:07 PM EST): Well controlled. Currently on Semaglutide for weight management. Orders: Comprehensive metabolic panel; Future Lipid panel with reflex to direct LDL; Future Nonischemic congestive cardi omyopathy (CMS/HCC V24, CMS/[facility] V28) 09/08/2021 Overview (09/14/2024): Nonischemic congestive cardiomyopathy [...] Date Acute respiratory failure wi th hypoxia (CMS/[facility] V24, CMS/[facility] V28) 11/20/2024 06/04/2025 Encounters Date Type Department Care Team Description 09/30/2025 Results Follow-Up Adult Medicine [address] [phone] Shanice Villagomez MD 09/25/2025 5:57 PM EST - 09/25/2025 11:59 PM EST Hospital Encounter Radiology Department - [address] [phone] Chronic bilateral thoracic back pain Discharge Disposition: Home or Self Care 09/24/2025 9:30 AM EST Office Visit Adult Medicine [address] [phone] Shanice Villagomez MD Chronic bilateral thoracic back pain (Primary Dx) 08/30/2025 12:30 PM EDT Telemedicine Bariatric Surgery [address] [phone] Nevaeh Meza ch, RD Overweight (Primary Dx) 08/06/2025 Telephone Adult Medicine [address] [phone] Shanice Villagomez MD 08/01/2025 3:30 PM EDT Treatment Outpatient Rehabilitation - [address] [phone] Usha Williamson PTA Acute bilateral thoracic back pain (Primary Dx) 08/01/[address] [phone] Shanice Villagomez MD 07/29/2025 5:00 PM EDT Treatment Outpatient [facility] - [address] [phone] Usha Williamson PTA Acute bilateral thoracic back pain (Primary Dx) 07/18/2025 10:25 AM EDT - 07/18/2025 11:59 PM EDT Hospital Encounter [address] [phone] Acute bilateral thoracic back pain Discharge Disposition: Home or Self Care 07/18/2025 10:24 AM EDT - 07/18/2025 11:59 PM EDT Hospital Encounter [address] [phone] Chronic bilateral low back pain, unspecified whether sciatica present; Acute bilateral low back pain, unspecified whether sciatica present Discharge Disposition: Home or Self Care 07/18/2025 10:00 AM EDT Office Visit Adult [address] [phone] Anastasiya Reis PA Acute bilateral thoracic back pain (Primary Dx); Chronic bilateral low back pain, unspecified whether sciatica present; Acute bilateral low back pain, unspecified whether sciatica present; Myalgia; Cervicalgia; Paresthesia of hand, bilateral; Nonintractable episodic headache, unspecified headache type; Chronic systolic heart failure (CMS/HCC V24, CMS/HCC V28); Lyme disease 07/18/2025 Telephone Adult Medicine [address] [phone] Anastasiya Reis PA 07/16/2025 Telephone Adult Medicine [address] [phone] Shanice Villagomez MD 07/10/2025 10:30 AM EDT Evaluation Outpatient Rehabilitation - [address] [phone] Mike Crawford, AJIT Acute bilateral thoracic back pain 07/10/2025 Plan of Care Documentation Outpatient Rehabilitation - [address] [phone] from Last 3 Months Immunizations Immunization Administration Dates Next Due Pfizer SARS-CoV-2 COVID-19, mRNA, LNP-S, preservative free 09/02/2021,02/24/2021 Surgical History Surgery Date Site/Laterality Comments WISDOM TOOTH EXTRACTION PROCEDURE: HISTORICAL WISDOM TEETH EXTRACTION OTHER SURGICAL HISTORY PROCEDURE: AL DILATION & CURETTAGE DX&/THER NONOBSTETRIC NECK SURGERY 07/01/2008 PROCEDURE: HISTORICAL NECK SURGERY; COMMENT: decompression and fusion C5-6, C6-7 ENDOMETRIAL ABLATION 2009 PROCEDURE: AL ENDOMETRIAL ABLTJ THERMAL W/O HYSTEROSCOPIC GUID HYSTERECTOMY [...] COMMENT: benign EYE SURGERY 2016 Bilateral PROCEDURE: AL TRABECULOPLASTY BY LASER SURGERY; COMMENT: Dr. Marylou [...] COMMENT: Previously dx with this by Arturo Maya - no longer taking ,no symptoms. ILR no arrhythmia Excessive or frequent menstruation 06/14/2013 DX:Excessive or frequent menstruation Dysmenorrhea 06/14/2013 DX:Dysmenorrhea Bradycardia 09/14/2010 DX:Bradycardia Sebaceous cyst DX:Sebaceous cys t Acute respiratory failure wi th hypoxia ([facility] V24, CMS/[facility] V28) 11/20/2024 Family History Medical History Relation Name Comments No Known Problems Brother 1 No Known Problems Brother 2 No Known Problems Daughter ALS Father Diabetes Father peripheral neur opathy, htn Bladder Cancer Mother bladder cance r, stomach, age 49 Lung cancer Paternal Grandfather [place], dec eased Diabetes Paternal Grandmother d No [...] Sign Reading Time Taken Comments Blood Pressure 101/57 09/24/2025 9:50 AM EST Pulse 64 09/24/2025 9:50 AM EST Temperature 36 C (96.8 F) 09/24/2025 9:50 AM EST Respiratory Rate 14 09/24/2025 9:50 AM EST Oxygen Saturation 94% 09/24/2025 9:50 AM EST Inhaled Oxygen Concentration - - Weight 68.7 kg (151 lb 6.4 oz) 09/24/2025 9:50 A M EST Height 160 cm (5' 3 ) 09/24/2025 9:50 AM EST Body Mass Index 26.82 09/24/2025 9:50 AM EST Plan of Treatment Upcoming Encounters Date Type Department Care Team (Late st Contact Info) Description 12/12/2025 9:15 AM EST Office Visit Bariatric Surgery [facility] 175 [facility] [address] [place] [address] Alexander Silva MD [address] [place] [phone] 01/03/2026 12:30 PM EST Telemedicine Bariatric Surgery [facility] 175 [facility] [address] [place] [address] Nevaeh Cunha, RD 175 [facility] [address] [place] [address] 05/28/2026 9:30 AM EDT Office Visit Vascular Surgery [facility] [address] [place] [phone] Veronika Lamb MD [address] [place] [phone] Health Maintenance Due Date Last Done Comments [...] Procedure Name Priority Date/Time Associated Diagnosis Comments MR THORACIC SPINE WO CONTRAST Routine 09/25/2025 6:31 PM EST Chronic bilateral thoracic back pain COMPREHENSIVE METABOLIC PANEL Routine 07/18/2025 11:04 AM EDT Other cardiomyopathy (CMS/HCC V24, CMS/HCC V28) Prediabetes Mixed hyperlipidemia LIPID PANEL WITH REFLEX TO DIRECT LDL Routine 07/18/2025 11:04 AM EDT Other cardiomyopathy (CMS/HCC V24, CMS/[facility] V28) Prediabetes Mixed hyperlipidemia SYED IFA WITH [...] Recently Relevant to Health Maintenance Results * MR Thoracic Spine wo Contrast [...] Signed Date: 09/27/2025 12:59 ET Workstation ID: [id number] Transcribed By: Self Edit Transcribed Date: 09/27/2025 [...] Signed Date: 09/27/2025 12:59 ET Workstation ID: [id number] Transcribed By: Self Edit Transcribed Date: 09/27/2025 12:19 ET us Shanice Shelton MD IM MRI PROCEDURES Final Result * Lipid panel with reflex to direct LDL (07/18/2025 11:04 AM EDT) Cholesterol 155 0 - 200 mg/dL LAB CHEMISTRY METHOD 07/18/2025 3:02 PM EDT [facility] Triglycerides 81 0 - 150 mg/dL LAB CHEMISTRY METHOD 07/18/2025 3:02 PM EDT [facility] HDL 41 >=40 mg/dL LAB CHEMISTRY METHOD 07/18/2025 3:[address] [facility] LDL Calculated 98 0 - 100 mg/dL LAB CHEMISTRY METHOD 07/18/2025 3:[address] [facility] Comment:Estimated LDL Calcul ated using equation: Total cholesterol - HDL cholesterol - (Triglycerides/5) VLDL Cholesterol Myke 16.2 mg/dL LAB CHEMISTRY METHOD 07/18[facility]2025 [facility] Non HDL Chol. (LDL+VLDL) 114 <145 mg/dL LAB CHEMISTRY METHOD 07/18/2025 3:[address] [facility] Chol/HDL Ratio 3.8 0.0 - 4.4 LAB CHEMISTRY METHOD 07/18/2025 3:[address] [facility] Blood Venous blood specimen / Unknown Venipuncture / Unknown 07/18/2025 11:04 AM EDT 07/18/2025 11:04 AM EDT us Shanice Shelton MD LAB BLOOD ORDERABL ES Final Result Performing Organization Address City/[facility]/ZIP Co de Phone Number [facility] [address] [place] [address], * SYED IFA with titer and pattern (07/18/2025 11:04 AM EDT) Pathologist [facility] SYED Negative Negative 07/23/2025 3:12 PM EDT [facility] Comment:SYED performed by ind irect immunofluorescence (IFA) using HEp-2 substrate. Blood Venous blood specimen / Unknown Venipuncture / Unknown 07/18/2025 11:04 AM EDT 07/18/2025 11:04 AM EDT Anastasiya MCLAUGHLIN LAB BLOOD ORDERABLES Final Resul t Performing Organization Address City/[facility]/ZIP Co de Phone Number [facility] [address] [place] [address], [place] [phone] * (ABNORMAL) Borrelia burgdorferi antibody (07/18/2025 11:04 AM EDT) [facility] Lyme IgG Antibody Positive( A) Negative LAB CHEMISTRY METHOD 07/19/2025 9:35 AM EDT [facility] Lyme IgM Antibody Positive( A) Negative LAB CHEMISTRY METHOD 07/19/2025 9:35 AM EDT [facility] Lyme Ab Positive( A) Negative LAB CHEMISTRY METHOD 07/19/2025 9:35 AM EDT [facility] Comment: Results are consistent with [...] ORDERABLES Final Resul t Performing Organization Address City/[facility]/ZIP Co de Phone Number [facility] [address] [place] [address], [place] [phone] * Rheumatoid factor (07/18/2025 11:04 AM EDT) Pathologist [facility] Rheumatoid Factor <10.0 <15.0 I Unit/mL LAB CHEMISTRY METHOD 07/18/2025 3:02 PM EDT [facility] Blood Venous blood specimen / Unknown Venipuncture / Unknown 07/18/2025 11:04 AM EDT 07/18/2025 11:04 AM EDT us Anastasiya MCLAUGHLIN LAB BLOOD ORDERABLES Final Resul t Performing Organization Address [facility] Co de Phone Number [facility] [address] [place] [address], [place] [phone] * (ABNORMAL) C-reactive protein (07/18/2025 11:04 AM EDT) [facility] C-Reactive Protein 9.15(H) <=0.50 mg/dL LAB CHEMISTRY METHOD 07/18/2025 2:58 PM EDT [facility] Blood Venous blood specimen / Unknown Venipuncture / Unknown 07/18/2025 11:04 AM EDT 07/18/2025 11:04 AM EDT Anastasiya MCLAUGHLIN LAB BLOOD ORDERABLES Final Resul t Performing Organization Address City/[facility]/ZIP Co de Phone Number [facility] [address] [place] [address], [place] [phone] * Uric acid (07/18/2025 11:04 AM EDT) [facility] Uric Acid 4.3 3.1 - 7.8 mg/dL LAB CHEMISTRY METHOD 07/18/2025 2:[address] [facility] Blood Venous blood specimen / Unknown Venipuncture / Unknown 07/18/2025 11:04 AM EDT 07/18/2025 11:04 AM EDT us Anastasiya MCLAUGHLIN LAB BLOOD ORDERABLES Final Resul t [facility] [address] [place] [address], [place] [phone] * Comprehensive metabolic panel (07/18/2025 11:04 AM EDT) Sodium 136 133 - 145 mmol/L LAB CHEMISTRY METHOD 07/18/2025 3:[address] [facility] Potassium 4.3 3.5 - 5.5 mmol/L LAB CHEMISTRY METHOD 07/18/2025 3:[address] [facility] Chloride 104 96 - 110 mmol/L LAB CHEMISTRY METHOD 07/18/2025 3:[address] [facility] CO2 28 21 - 32 mmol/L LAB CHEMISTRY METHOD 07/18/2025 3:[address] [facility] Anion Gap 4 3 - 11 LAB CHEMISTRY METHOD 07/18/2025 3:[address] [facility] Glucose 89 70 - 100 mg/dL LAB CHEMISTRY METHOD 07/18/2025 3:[address] [facility] BUN 20 5 - 25 mg/dL LAB CHEMISTRY METHOD 07/18/2025 3:[address] [facility] Creatinine 1.03 0.50 - 1.10 mg/dL LAB CHEMISTRY METHOD 07/18/2025 3:[address] [facility] eGFR 66 >=60 mL/min/1. 73m2 LAB CHEMISTRY METHOD 07/18/2025 3:[address] [facility] Comment:Calculation based on the Chronic Kidney Disease Epidemiology Collaboration (CKD-EPI) equation refit without adjustment for race. BUN/Creatinine Ratio 19.4 LAB CHEMISTRY METHOD 07/18/2025 3:[address] [facility] Calcium 9.4 8.5 - 10.5 mg/dL LAB CHEMISTRY METHOD 07/18/2025 3:[address] [facility] AST (SGOT) 10 10 - 42 unit/L LAB CHEMISTRY METHOD 07/18/2025 3:[address] [facility] ALT (SGPT) 23 10 - 60 unit/L LAB CHEMISTRY METHOD 07/18/2025 3:[address] [facility] Alkaline Phosphatase 111 42 - 121 unit/L LAB CHEMISTRY METHOD 07/18/2025 3:[address] [facility] Total Protein 7.2 6.0 - 8.0 g/dL LAB CHEMISTRY METHOD 07/18/2025 3:[address] [facility] Albumin 3.3 3.2 - 5.0 g/dL LAB CHEMISTRY METHOD 07/18/2025 3:[address] [facility] Total Bilirubin 0.4 0.0 - 1.4 mg/dL LAB CHEMISTRY METHOD 07/18/2025 3:[address] [facility] Blood Venous blood specimen / Unknown Venipuncture / Unknown 07/18/2025 11:04 AM EDT 07/18/2025 11:04 AM EDT us Shanice Shelton MD LAB BLOOD ORDERABL ES Final Result [facility] [address] [place] [address], * XR Thoracic Spine 2 Views (07/18/2025 10:45 AM EDT) Anatomical Region Laterality Modality Spine, T-spine Radiographic Yanelis ging 07/19/2025 11:5 8 AM EDT Impressions 07/19/2025 12:01 PM EDT Mild degenerative changes. POS - [id number] -------- FINAL REPORT -------- Dictated By: Lisa Collins Dictated Date: 07/19/2025 11:58 ET Assigned Physician: Lisa Collins Reviewed and Electronically Signed By: Lisa Collins Signed Date: 07/19/2025 12:01 ET Workstation ID: [id number] Transcribed By: Self Edit Transcribed Date: 07/19/2025 [...] spine. IMPRESSION: Mild degenerative changes. POS - [id number] -------- FINAL REPORT -------- Dictated By: Lisa Collins Dictated Date: 07/19/2025 11:58 ET Assigned Physician: Lisa Collins Reviewed and Electronically Signed By: Lisa Collins Signed Date: 07/19/2025 12:01 ET Workstation ID: [id number] Transcribed By: Self Edit Transcribed Date: 07/19/2025 11:58 ET us Anastasiya MCLAUGHLIN IMG XR PROCEDURES Final Result * XR Lumbar Spine 4+ Views (07/18/2025 10:45 AM EDT) Anatomical Region Laterality Modality Spine, L-spine Radiographic Yanelis ging 07/19/2025 12:0 1 PM EDT Impressions 07/19/2025 12:07 PM EDT Multilevel degenerative changes with progressive facet arthropathy. POS - [id number] -------- FINAL REPORT -------- Dictated By: Lisa Collins Dictated Date: 07/19/2025 12:01 ET Assigned Physician: Lisa Collins Reviewed and Electronically Signed By: Lisa Collins Signed Date: 07/19/2025 12:07 ET Workstation ID: [id number] Transcribed By: Self Edit Transcribed Date: 07/19/2025 [...] changes with progressive facet arthropathy. POS - [id number] -------- FINAL REPORT -------- Dictated By: Lisa Collins Dictated Date: 07/19/2025 12:01 ET Assigned Physician: Lisa Collins Reviewed and Electronically Signed By: Lisa Collins Signed Date: 07/19/2025 12:07 ET Workstation ID: [id number] Transcribed By: Self Edit Transcribed Date: 07/19/2025 [...] is recommended in 1 year. Mammo Location: [facility], [address] [place] [address], [id number], . -------- FINAL REPORT -------- Dictated By: Rosa Maria Elizabeth Dictated Date: 01/16/2025 15:09 ET Assigned Physician: Rosa Maria Elizabeth Reviewed and Electronically Signed By: Rosa Maria Elizabeth Signed Date: 01/16/2025 15:11 ET Workstation ID: [id number] Transcribed By: Self Edit Transcribed Date: 01/16/2025 [...] is recommended in 1 year. Mammo Location: [facility], [address] [place] [address], [address], . -------- FINAL REPORT -------- Dictated By: Rosa Maria Elizabeth Dictated Date: 01/16/2025 15:09 ET Assigned Physician: Rosa Maria Elizabeth Reviewed and Electronically Signed By: Rosa Maria Elizabeth Signed Date: 01/16/2025 15:11 ET Workstation ID: [id number] Transcribed By: Self Edit Transcribed Date: 01/16/2025 15:09 ET us Shanice Shelton MD IMG BI PROCEDURES Final Result * FIT-DNA (Cologuard) (10/05/2023) Colorectal Cancer Screening: FIT-DNA (Cologuard) Negative, Abstracted us Historical Provider HEALTH MAINTENANCE Final Result * Hepatitis C Screening (05/25/2012) HM Hepatitis C Screening Abstracted Historical Provider HEALTH MAINTENANCE Final Result from Last 3 Months or Most Recently Relevant to Health Maintenance Insurance MEDICARE [place]ICAID - [place] Care Teams Eyelet Riveter Relationship Specialty Start Date End Date Shanice Shelton MD [address] [place] [phone] PCP - General Internal Medicine 08/16/22
--- OUTSIDE RECORDS SUMMARY | 2025-09-30 15:34 | XMS_ITS | Clinical Summary ---
Author Organization [facility] Address [address] [place] [address] Care Team Providers Care Diversified Crops Supervisor Name Role Phone Provider, Generic External Data Primary Care Pro vider Unavailable Encounters Date Type Department Care Team Description 07/29/2025 Scanned Document [facility] Heart & Vascular [place] - Electrophysiology [address] [place] [address] Yanick Caballero MD from Last 3 Months Social History Tobacco Use Types Packs/Day Years Used Date Smoking Tobacco: Never Assessed Comments Unknown Sex and Gender Information Value Date Recorded Sex Assigned at Not on file Legal Sex Female 6:46 PM EST Gender Identity Not on file Sexual Orientation Not on file Plan of Treatment Health Maintenance Due Date Last Done Comments Hepatitis C Virus Screening 1973 HIV Screening 1986 DTaP/Tdap/Td Vaccines (1 - Tdap) 1992 Hepatitis B Vaccines (1 of 3 - 19+ 3-dose series) 08/21 Pneumococcal Vaccines 50+ (1 of 1 - PCV) 2023 Zoster (Shingles) Vaccine (1 of 2) 2023 COVID-19 Vaccine ( - season) 2025 RSV Vaccine 50 years and old er and Patients (1 - 1-dose 75+ series) 2048 Care Teams Diversified Crops Supervisor Relationship Specialty Start Date End Date Provider, Generic External Data PCP - General 08/21/25
--- OUTSIDE RECORDS SUMMARY | 2025-09-30 15:35 | XMS_ITS | Encounter Summary ---
Author Organization [facility] Address [address] [place] [address] Care Team Providers Care Supervisor Printing [employer] Stamping Name Role Phone Provider, Generic External Data Primary Care Pro vider Unavailable Encounter Details Date Type Department Care Team (Late st Contact Info) Description 07/29/2025 Scanned Document [facility] Heart & Vascular [place] - Electrophysiology [address] [place] [address] Yanick Caballero MD [address] [place], [place] [id number] Social History Tobacco Use Types Packs/Day Years Used Date Smoking Tobacco: Never Assessed Comments Unknown Sex and Gender Information Value Date Recorded Sex Assigned at Not on file Legal Sex Female 6:46 PM EST Gender Identity Not on file Sexual Orientation Not on file documented as of this encounter Plan of Treatment Not on file documented as of this encounter Visit Diagnoses Not on filedocumented in this encounter Care Teams Supervisor [employer]ing [employer] Stamping Relationship Specialty Start Date End Date Provider, Generic External Data PCP - General 08/21/25 documented as of this encounter
== END 2025-09-30 13:33 | disposition home or self-care (01) ==
LOC: HO.HMGAL 13:30
PROVIDERS: PCP Internal Medicine; Visit Provider Registered Nurse Emergency
DX: J30.89 Other allergic rhinitis (principal)
CPT/HCPCS: 95117; 95165

== ENCOUNTER 2025-10-07 13:29 | Outpatient (AMB) | payer MEDICARE, MEDICAID, SELFPAY | END 2025-10-07 13:30 | disposition home or self-care (01) | LOC: HO.HMGAL 13:29 | PROVIDERS: PCP Internal Medicine; Visit Provider Registered Nurse Emergency | DX: J30.89 Other allergic rhinitis (principal) | CPT/HCPCS: 95117; 95165 ==

== ENCOUNTER 2025-10-14 13:25 | Outpatient (AMB) | payer MEDICARE, MEDICAID, SELFPAY ==
--- OUTSIDE RECORDS SUMMARY | 2025-10-14 18:04 | XMS_ITS | Clinical Summary ---
Author Organization [facility] [address] [place] [address] Address [address] [place] [address] Phone Care Team Providers Care Workshop Manager Name Role Phone Shanice Shelton MD [...] mouth 1 (one) time each day. 07/15/20 Active zolpidem (AMBIEN) 10 mg tablet Take 1 tablet (10 mg total) by mouth at bedtime as needed. Max Daily Amount: 10 mg 03/26/20 Active lidocaine (LIDODERM) 5 % patchIndication s:Lyme disease,Acute bilateral low back pain, unspecified whether sciatica present,Acute bilateral thoracic back pain,Myalgia USE 1 PATCH TOPICALLY ONCE DAILY. REMOVE AND DISCARD PATCH WITHIN 12 HOURS. 28 patch 2 09/09/20 Active Active Problems Problem Noted Date Diagnosed [...] Team Description 09/30/2025 Results Follow-Up Adult Medicine [address] [phone] Shanice Villagomez MD 09/25/2025 5:57 PM EST - 09/25/2025 11:59 PM EST Hospital Encounter Radiology Department - [address] [phone] Chronic bilateral thoracic back pain Discharge Disposition: Home or Self Care 09/24/2025 9:30 AM EST Office Visit Adult Medicine [address] [phone] Shanice Villagomez MD Chronic bilateral thoracic back pain (Primary Dx) 08/30/2025 12:30 PM EDT Telemedicine Bariatric Surgery [address] [phone] Nevaeh Meza ch, RD Overweight (Primary Dx) 08/06/2025 Telephone Adult Medicine [address] [phone] Shanice Villagomez MD 08/01/2025 3:30 PM EDT Treatment Outpatient [address] [phone] Usha Williamson PTA Acute bilateral thoracic back pain (Primary Dx) 08/01/2025 Telephone Adult Medicine [address] [phone] Shanice Villagomez MD 07/29/2025 5:00 PM EDT Treatment Outpatient [address] [phone] Usha Williamson NUTRITION HELPER Acute bilateral thoracic back pain (Primary Dx) 07/18/2025 10:25 AM EDT - 07/18/2025 11:59 PM EDT Hospital Encounter [address] [phone] Acute bilateral thoracic back pain Discharge Disposition: Home or Self Care 07/18/2025 10:24 AM EDT - 07/18/2025 11:59 PM EDT Hospital Encounter [address] [phone] Chronic bilateral low back pain, unspecified whether sciatica present; Acute bilateral low back pain, unspecified whether sciatica present Discharge Disposition: Home or Self Care 07/18/2025 10:00 AM EDT Office Visit Adult [address] [phone] Anastasiya Reis PA Acute bilateral thoracic back pain (Primary Dx); Chronic bilateral low back pain, unspecified whether sciatica present; Acute bilateral low back pain, unspecified whether sciatica present; Myalgia; Cervicalgia; Paresthesia of hand, bilateral; Nonintractable episodic headache, unspecified headache type; Chronic systolic heart failure (CMS/HCC V24, CMS/HCC V28); Lyme disease 07/18/2025 Telephone Adult Medicine [address] [phone] Estes PA 07/16/2025 Telephone Adult Medicine [address] [phone] Shanice Villagomez MD from Last 3 Months Immunizations Immunization Administration Dates Next Due Pfizer SARS-CoV-2 COVID-19, mRNA, LNP-S, preservative free 09/02/2021,02/24/2021 Surgical History Surgery Date Site/Laterality Comments WISDOM TOOTH EXTRACTION PROCEDURE: HISTORICAL WISDOM TEETH EXTRACTION OTHER SURGICAL HISTORY PROCEDURE: CA DILATION & CURETTAGE DX&/THER NONOBSTETRIC NECK SURGERY 07/01/2008 PROCEDURE: HISTORICAL NECK SURGERY; COMMENT: decompression and fusion C5-6, C6-7 ENDOMETRIAL ABLATION 2009 PROCEDURE: CA ENDOMETRIAL ABLTJ THERMAL W/O HYSTEROSCOPIC GUID HYSTERECTOMY [...] COMMENT: benign EYE SURGERY 2016 Bilateral PROCEDURE: CA TRABECULOPLASTY BY LASER SURGERY; COMMENT: Dr. Marylou [...] t Acute respiratory failure wi th hypoxia ([facility] V24, CMS/[facility] V28) 11/20/2024 Family History Medical History Relation Name Comments No Known Problems Brother 1 No Known Problems Brother 2 No Known Problems Daughter ALS Father Diabetes Father peripheral neur opathy, htn Bladder Cancer Mother bladder cance r, stomach, age 49 Lung cancer Paternal Grandfather [place], dec eased Diabetes Paternal Grandmother d No [...] your loved ones. For example, child development consultant or elderly care for an older adult? [...] Care Team (Late st Contact Info) Description 10/15/2025 2:30 PM EST Appointment [facility] MRI [address] [place] [phone] 12/12/2025 9:15 AM EST Office Visit Bariatric Surgery - [facility] [address] [facility] [address] [place] [address] Alexander Silva MD [address] [place] [phone] 01/03/2026 12:30 PM EST Telemedicine Bariatric Surgery - [facility] [address] [phone] Nevaeh Cunha, RD [address] [phone] 05/28/2026 9:30 AM EDT Office Visit Vascular Surgery - [facility] [address] [place] [phone] Veronika Lamb MD [address] [place] [phone] Health Maintenance Due Date Last Done Comments [...] low back pain, unspecified whether sciatica present MG MAMMO DIGITAL SCREENING W JEFFREY BILAT [...] Signed Date: 09/27/2025 12:59 ET Workstation ID: [id number] Transcribed By: Self Edit Transcribed Date: 09/27/2025 [...] Signed Date: 09/27/2025 12:59 ET Workstation ID: [id number] Transcribed By: Self Edit Transcribed Date: 09/27/2025 12:19 ET us Shanice Shelton MD [facility] MRI PROCEDURES Final Result * Lipid panel with reflex to direct LDL (07/18/2025 11:04 AM EDT) Cholesterol 155 0 - 200 mg/dL LAB CHEMISTRY METHOD 07/18/2025 3:02 PM EDT [facility] Triglycerides 81 0 - 150 mg/dL LAB CHEMISTRY METHOD 07/18/2025 3:[address] [facility] HDL 41 >=40 mg/dL LAB CHE[facility]STR[facility] LDL Calculated 98 0 - 100 mg/dL LAB CHEMISTRY METHOD 07/18/2025 3:[address] [facility] Comment:Estimated LDL Calcul ated using equation: Total cholesterol - HDL cholesterol - (Triglycerides/5) VLDL Cholesterol Myke 16.2 mg/dL LAB CHEMISTRY METHOD 07/18/2025 3:[address] [facility] Non HDL Chol. (LDL+VLDL) 114 <145 mg/dL LAB CHEMISTRY METHOD 07/18/2025 3:[address] [facility] Chol/HDL Ratio 3.8 0.0 - 4.4 LAB CHEMISTRY METHOD 07/18/2025 3:[address] [facility] Blood Venous blood specimen / Unknown Venipuncture / Unknown 07/18/2025 11:04 AM EDT 07/18/2025 11:04 AM EDT us Shanice Shelton MD LAB BLOOD ORDERABL ES Final Result [facility] [address] [place] [address], [place] [phone] * SYED IFA with titer and pattern (07/18/2025 11:04 AM EDT) SYED Negative Negative 07/23/2025 3:12 PM EDT [facility] Comment:SYED performed by ind irect immunofluorescence (IFA) using HEp-2 substrate. Blood Venous blood specimen / Unknown Venipuncture / Unknown 07/18/2025 11:04 AM EDT 07/18/2025 11:04 AM EDT Anastasiya MCLAUGHLIN LAB BLOOD ORDERABLES Final Resul t Performing Organization Address City/[facility]/ZIP Co de Phone Number [facility] [address] [place] [address], * (ABNORMAL) Borrelia burgdorferi antibody (07/18/2025 11:04 AM EDT) [facility] Lyme IgG Antibody Positive( A) Negative [...] Final Resul t [facility] [address] [place] [address], [place] [phone] * Rheumatoid factor (07/18/2025 11:04 AM EDT) [facility] Rheumatoid Factor <10.0 <15.0 I Unit/mL LAB CHEMISTRY METHOD 07/18/2025 3:02 PM EDT [facility] Blood Venous blood specimen / Unknown Venipuncture / Unknown 07/18/2025 11:04 AM EDT 07/18/2025 11:04 AM EDT Anastasiya MCLAUGHLIN LAB BLOOD ORDERABLES Final Resul t Performing Organization Address City/[facility]/ZIP Co de Phone Number [facility] [address] [place] [address], [place] [phone] * (ABNORMAL) C-reactive protein (07/18/2025 11:04 AM EDT) C-Reactive Protein 9.15(H) <=0.50 mg/dL LAB CHEMISTRY METHOD 07/18/2025 2:58 PM EDT [facility] Blood Venous blood specimen / Unknown Venipuncture / Unknown 07/18/2025 11:04 AM EDT 07/18/2025 11:04 AM EDT us Anastasiya MCLAUGHLIN LAB BLOOD ORDERABLES Final Resul t Performing Organization Address [facility] Co de Phone Number [facility] [address] [place] [address], [place] [phone] * Uric acid (07/18/2025 11:04 AM EDT) Uric Acid 4.3 3.1 - 7.8 mg/dL LAB CHEMISTRY METHOD 07/18/2025 2:58 PM EDT [facility] Blood Venous blood specimen / Unknown Venipuncture / Unknown 07/18/2025 11:04 AM EDT 07/18/2025 11:04 AM EDT Anastasiya MCLAUGHLIN LAB BLOOD ORDERABLES Final Resul t Performing Organization Address City/[facility]/ZIP Co de Phone Number [facility] [address] [place] [address], [place] [phone] * Comprehensive metabolic panel (07/18/2025 11:04 AM EDT) Sodium 136 133 - 145 mmol/L LAB CHEMISTRY METHOD 07/18/2025 3:[address] [facility] Potassium 4.3 3.5 - 5.5 mmol/L LAB CHEMISTRY METHOD 07/18/2025 3:[address] [facility] Chloride 104 96 - 110 mmol/L LAB CHEMISTRY METHOD 07/18/2025 3:[address] [facility] CO2 28 21 - 32 mmol/L LAB CHEMISTRY METHOD 07/18/2025 3:[address] [facility] Anion Gap 4 3 - 11 LAB CHEMISTRY METHOD 07/18/2025 3:[address] [facility] Glucose 89 70 - 100 mg/dL LAB CHEMISTRY METHOD 07/18/2025 3:[address] [facility] BUN 20 5 - 25 mg/dL LAB CHEMISTRY METHOD 07/18/2025 3:[address] [facility] Creatinine 1.03 0.50 - 1.10 mg/dL LAB CHEMISTRY METHOD 07/18/2025 3:[address] [facility] eGFR 66 >=60 mL/min/1. 73m2 LAB CHEMISTRY METHOD 07/18/2025 3:[address] [facility] Comment:Calculation based on the Chronic Kidney Disease Epidemiology Collaboration (CKD-EPI) equation refit without adjustment for race. BUN/Creatinine Ratio 19.4 LAB CHEMISTRY METHOD 07/18/2025 3:[address] [facility] Calcium 9.4 8.5 - 10.5 mg/dL LAB CHEMISTRY METHOD 07/18/2025 3:[address] [facility] AST (SGOT) 10 10 - 42 unit/L LAB CHEMISTRY METHOD 07/18/2025 3:[address] [facility] ALT (SGPT) 23 10 - 60 unit/L LAB CHEMISTRY METHOD 07/18/2025 3:02 PM EDT [facility] Alkaline Phosphatase 111 42 - 121 unit/L LAB CHEMISTRY METHOD 07/18/2025 3:02 PM EDT [facility] Total Protein 7.2 6.0 - 8.0 g/dL LAB CHEMISTRY METHOD 07/18/2025 3:02 PM EDT [facility] Albumin 3.3 3.2 - 5.0 g/dL LAB CHEMISTRY METHOD 07/18/2025 3:02 PM EDT [facility] Total Bilirubin 0.4 0.0 - 1.4 mg/dL LAB CHEMISTRY METHOD 07/18/2025 3:02 PM EDT [facility] Blood Venous blood specimen / Unknown Venipuncture / Unknown 07/18/2025 11:04 AM EDT 07/18/2025 11:04 AM EDT us Shanice Shelton MD LAB BLOOD ORDERABL ES Final Result [facility] [address] [place] [address], * XR Thoracic Spine 2 Views (07/18/2025 10:45 AM EDT) Anatomical Region Laterality Modality Spine, T-spine Radiographic Yanelis ging 07/19/2025 11:5 8 AM EDT Impressions 07/19/2025 12:01 PM EDT Mild degenerative changes. POS - [id number] -------- FINAL REPORT -------- Dictated By: Lisa Collins Dictated Date: 07/19/2025 11:58 ET Assigned Physician: Lisa Collins Reviewed and Electronically Signed By: Lisa Collins Signed Date: 07/19/2025 12:01 ET Workstation ID: [id number] Transcribed By: Self Edit Transcribed Date: 07/19/2025 [...] spine. IMPRESSION: Mild degenerative changes. POS - [id number] -------- FINAL REPORT -------- Dictated By: Lisa Collins Dictated Date: 07/19/2025 11:58 ET Assigned Physician: Lisa Collins Reviewed and Electronically Signed By: Lisa Collins Signed Date: 07/19/2025 12:01 ET Workstation ID: [id number] Transcribed By: Self Edit Transcribed Date: 07/19/2025 11:58 ET Anastasiya MCLAUGHLIN IMG XR PROCEDURES Final Result * XR Lumbar Spine 4+ Views (07/18/2025 10:45 AM EDT) Anatomical Region Laterality Modality Spine, L-spine Radiographic Yanelis ging 07/19/2025 12:0 1 PM EDT Impressions 07/19/2025 12:07 PM EDT Multilevel degenerative changes with progressive facet arthropathy. POS - [id number] -------- FINAL REPORT -------- Dictated By: Lisa Collins Dictated Date: 07/19/2025 12:01 ET Assigned Physician: Lisa Collins Reviewed and Electronically Signed By: Lisa Collins Signed Date: 07/19/2025 12:07 ET Workstation ID: [id number] Transcribed By: Self Edit Transcribed Date: 07/19/2025 [...] changes with progressive facet arthropathy. POS - [id number] -------- FINAL REPORT -------- Dictated By: Lisa Clolins Dictated Date: 07/19/2025 12:01 ET Assigned Physician: Lisa Collins Reviewed and Electronically Signed By: Lisa Collins Signed Date: 07/19/2025 12:07 ET Workstation ID: [id number] Transcribed By: Self Edit Transcribed Date: 07/19/2025 12:01 ET us Anastasiya MCLAUGHLIN IMG XR PROCEDURES Final Result * MG Mammo Digital Screening w [...] is recommended in 1 year. Mammo Location: [facility], [address] [place] [address], [address], . -------- FINAL REPORT -------- Dictated By: Rosa Maria Elizabeth Dictated Date: 01/16/2025 15:09 ET Assigned Physician: Rosa Maria Elizabeth Reviewed and Electronically Signed By: Rosa Maria Elizabeth Signed Date: 01/16/2025 15:11 ET Workstation ID: [id number] Transcribed By: Self Edit Transcribed Date: 01/16/2025 [...] is recommended in 1 year. Mammo Location: [facility], [address] [place] [address], [address], . -------- FINAL REPORT -------- Dictated By: Rosa Maria Elizabeth Dictated Date: 01/16/2025 15:09 ET Assigned Physician: Rosa Maria Elizabeth Reviewed and Electronically Signed By: Rosa Maria Elizabeth Signed Date: 01/16/2025 15:11 ET Workstation ID: [id number] Transcribed By: Self Edit Transcribed Date: 01/16/2025 15:09 ET Shanice Shelton MD IM BI PROCEDURES Final Result * FIT-DNA (Cologuard) (10/05/2023) [facility] Colorectal Cancer Screening: FIT-DNA (Cologuard) Negative, Abstracted Historical Provider HEALTH MAINTENANCE Final Result * Hepatitis C Screening (05/25/2012) [facility] Hepatitis C Screening Abstracted Historical Provider HEALTH MAINTENANCE Final Result from Last 3 Months or Most Recently Relevant to Health Maintenance Insurance MEDICARE MEDICAID - [place] Care Teams Workshop Manager Relationship Specialty Start Date End Date Shanice Shelton MD [address] [place] [phone] PCP - General Internal Medicine 08/16/22
--- OUTSIDE RECORDS SUMMARY | 2025-10-14 18:04 | XMS_ITS | Encounter Summary ---
Author Organization [facility] Address [address] [place] [address] Care Team Providers Care Communications Programmer Name Role Phone Shanice Shelton MD Primary Care Prov ider Reason for Referral * Imaging (Routine) - Authorized Specialty Diagnoses / Procedures Referred By Contac t Referred To Contact Radiology Diagnoses Abnormal MRI Procedures MR Cervical Spine wo and w Contrast MR Cervical Spine w Contrast Shanice Shelton MD [address] [place] [address] Phone: tel: fax: [address] [phone] Phone: tel: Referral ID Status Reason Start Date Expiration Date V isits Requested Visits Authorized [id number] Authorized 09/30/2025 09/30/2026 1 1 * Consultation (Routine) - Closed Specialty Diagnoses / Procedures Referred By Contact Referred To Contact Physical Medicine and Rehabilitation Diagnoses Chronic bilateral thoracic back pain Shanice Shelton MD [address] [place] [address] Phone: tel: fax: Armando Vásquez DO [address] [address] Phone: tel:[phone] fax:[phone] Referral ID Status Reason Start Date Expiration Date V isits Requested Visits Authorized [id number] Closed Specialty Services Required 09/30/2025 09/30/2026 1 1 Encounter Details Date Type Department Care Team ([facility] st Contact Info) Description 09/30/2025 Results Follow-Up Adult Medicine [facility] [address] [place] [address] Shanice Shelton MD [address] [place], [place] Social History Tobacco Use Types Packs/Day [...] your loved ones. For example, child care coordinator or elderly care for an older adult? [...] Info) Description 10/15/2025 2:30 PM EST Appointment [facility] MRI [address] [place] [phone] 12/12/2025 9:15 AM EST Office Visit Bariatric Surgery [facility] [address] [phone] Alexander Silva MD [address] [place] [phone] 01/03/2026 12:30 PM EST Telemedicine Bariatric Surgery - [address] [phone] ShakaErnestineOmar Nevaeh, RD 175 [facility] [address] [place] [address] 05/28/2026 9:30 AM EDT Office Visit Vascular Surgery - [place] [address] [place] [address] Veronika Lamb MD [address] [place] [phone] Scheduled Orders Name Type Priority Associated Diagnoses [...] documented as of this encounter Care Teams Communications Programmer Relationship Specialty Start Date End Date Shanice Shelton MD [address] [place] [phone] PCP - General Internal Medicine 08/16/22 documented as of this encounter
--- OUTSIDE RECORDS SUMMARY | 2025-10-14 18:04 | XMS_ITS | Encounter Summary ---
Author Organization [facility] Address [address] [place] [address] Care Team Providers Care Insurance Actuary Name Role Phone Provider, Generic External Data Primary Care Pro vider Unavailable Encounter Details Date Type Department Care Team (Late st Contact Info) Description 07/29/2025 Scanned Document [facility] Heart & Vascular [place] - Electrophysiology [address] [place] [address] Yanick Caballero MD [address] [place], [place] [id number] Social History Tobacco Use Types Packs/Day Years [...] on filedocumented in this encounter Care Teams Insurance Actuary Relationship Specialty Start Date End Date Provider, Generic External Data PCP - General 08/21/25 documented as of this encounter
--- OUTSIDE RECORDS SUMMARY | 2025-10-14 18:04 | XMS_ITS | Clinical Summary ---
Author Organization [facility] Address [address] [place] [address] Care Team Providers Care Garment Fitter Name Role Phone Provider, Generic External Data Primary Care Pro vider Unavailable Encounters Date Type Department Care Team Description 07/29/2025 Scanned Document [facility] Heart & Vascular [place] - Electrophysiology [address] [place] [address] Yanick Caballero MD from Last [...] - 1-dose 75+ series) 2048 Care Teams Garment Fitter Relationship Specialty Start Date End Date Provider, Generic External Data PCP - General 08/21/25
== END 2025-10-14 13:25 | disposition home or self-care (01) ==
LOC: HO.HMGAL 13:25
PROVIDERS: PCP Internal Medicine; Visit Provider Registered Nurse Emergency
DX: J30.89 Other allergic rhinitis (principal)
CPT/HCPCS: 95117; 95165

== ENCOUNTER 2025-11-04 13:54 | Outpatient (AMB) | payer MEDICARE, MEDICAID, SELFPAY ==
--- OUTSIDE RECORDS SUMMARY | 2025-11-01 08:30 | XMS_ITS | Encounter Summary ---
Author Organization [facility] Address [address] [place] [address] Care Team Providers Care Strategic Planning Analyst Name Role Phone Shanice Shelton MD Primary Care Prov ider Reason for Referral * Consultation (Urgent) - Authorized Specialty Diagnoses / Procedures Referred By Mc t Referred To Contact Cardiology Diagnoses Chronic systolic (congestive) heart failure (CMS/HCC V24, CMS/HCC V28) Nonischemic congestive cardiomyopathy (CMS/HCC V24, CMS/HCC V28) POTS (postural orthostatic tachycardia syndrome) Anastasiya Reis PA [address] [place] [address] Phone: tel: fax: Referral ID Status Reason Start Date Expiration Date Visits Requested Visits Authorized [id number] Authorized Specialty Services Required 11/01/2026 1 1 * Consultation (Urgent) - Canceled Specialty Diagnoses / Procedures Referred By Contleobardo t Referred To Contact Infectious Diseases Diagnoses Other osteomyelitis, other site (CMS/HCC V24, CMS/HCC V28) Anastasiya Reis PA [address] [place], [place] Phone: tel: fax: [facility] [place] [address] [facility] [address] [place] [phone] Phone: tel: fax: Referral ID Status Reason Start Date Expiration Date Visits Requested Visits Authorized [id number] Canceled Specialty Services Required 11/01/2025 11/01/2026 1 1 Reason for Visit * Reason Comments Hospital Follow-up [facility] Encounter Details Date Type Department Care Team ([facility] st Contact Info) Description 11/01/2025 8:30 AM EST Office Visit Adult Medicine [facility] [address] [place], [place] [phone] Anastasiya Reis PA [address] [place], [place] Other osteomyelitis, other site (CMS/HCC V24, [...] 8:30 AM EST CHIEF COMPLAINT: Hospital Follow-up ([facility] IDENTIFIER: Annabelle Coppola is a 50 y.o. old female. HPI: Patient presents to the office today for evaluation of osteomyelitis and epidural abscess. Patient was initially seen at [facility] emergency room on [facility] line in place. Was advised that she would require 6 weeks of IV vancomycin through PICC line followed by instrumentation removal and osteophytectomy. She was given oxycodone at hospital discharge although this was unable to be dispensed in [place] as was provided by provider with [place] license. Has visiting nurse. Molly alvarado. Nurse Loren. Has been compliant with daily heparin. Having weekly labs including CBC, LFTs, creatinine, CRP, ESR, vancomycin trough level to be faxed to Dr. Casillas ([place]) at [phone]. CBC from 10/30/2025 scanned into chart without leukocytosis or anemia. Normal platelet count. Vancomycin trough level elevated at 28.2 and vancomycin currently on hold until random vancomycin drops below 20. Scheduled for random vancomycin and creatinine level today. Had normal creatinine and GFR. Albumin 3.7. Bilirubin normal. Normal LFTs. GGT normal. ESR normal. CRP normal. She presented to [facility] on 10/25/2025 because she was having drainage at PICC line site. Line was flushed and she was discharged from the ED. She then presented to [facility] emergency room on 10/26/2025 endorsing significant pain [...] CHF, cardiomyopathy, and POTS. Patient follows with [facility] cardiology. She does chronic episodic chest heaviness. [...] Active Problem List Diagnosis Date Noted Osteomyelitis ([facility] V24, [facility] V28) 10/16/2025 Lyme disease 07/19/2025 Paresthesia of hand, bilateral 07/18/2025 Myalgia 07/18/2025 Overweight 01/17/2025 Acute on chronic systolic heart failure ([facility] V24, [facility] V28) 11/20/2024 Aneurysm of other specified arteries ([facility] V24) 11/20/2024 Low back pain, unspecified 11/20/2024 Alcohol use, unspecified, uncomplicated 11/20/2024 Depression, unspecified 11/20/2024 Prediabetes 09/29/2023 Nonischemic congestive cardiomyopathy ([facility] V24, [facility] V28) 09/08/2021 Cervicalgia 10/10/2015 Chronic low back [...] Signed Date: 11/01/2025 11:55 ET Workstation ID: [id number] Transcribed By: Self Edit Transcribed Date: 11/01/2025 [...] referral to Cardiology Please send referral to: [facility] cardiology. Established patient. CHF. Ischemic cardiomyopathy. POTS. [...] Diabetes Paternal Grandmother Lung cancer Paternal Grandfather [place], No Known Problems Daughter Other (Other: Autism) [...] Care Team (Late st Contact Info) Description 11/05/2025 10:30 AM EST Office Visit Adult Medicine [facility] [address], [place] [phone] Srinath Nolan MD [address] [place], [place] 11/26/2025 10:00 AM EST Office Visit Infectious Disease - [place] [address] [place] [address] Olivier Casillas MD [address] [place], [place] [phone] 12/12/2025 9:15 AM EST Office Visit Bariatric Surgery - [place] [address] [phone] Alexander Silva MD [address] [place] [phone] 12/17/2025 8:00 AM EST Office Visit Neurosurgery - [place] [address] [place] [phone] Brain Griffin MD [address] [place] [address] [place] [phone] 01/03/2026 12:30 PM EST Telemedicine Bariatric Surgery - [place] [address] [phone] Nevaeh Cunha, JOANNA [address] [phone] 05/28/2026 9:30 AM EDT Office Visit Vascular Surgery - [place] [address] [place] [address] Veronika Lamb MD [address] [place] [phone] Scheduled Referrals Name Type Priority Associated Diagnoses Orde r Schedule Ambulatory referral to Infectious Disease Outpatient Referral Routine Other osteomyelitis, other site ([facility] V24, [facility] V28) 1 Occurrences starting 11/01/2025 until 11/01/2026 Ambulatory referral to Cardiology Outpatient Referral Routine Chronic systolic (congestive) heart failure ([facility] V24, [facility] V28) Nonischemic congestive cardiomyopathy ([facility] V24, [facility] V28) POTS (postural orthostatic tachycardia syndrome) 1 Occurrences starting 11/01/2025 until 11/01/2026 documented as of this encounter Visit Diagnoses Diagnosis Other osteomyelitis, other site ([facility] V24, [facility] V28)- Primary Epidural abscess Intracranial abscess Superficial venous thrombosis of right upper extremity Left arm pain Pain in soft tissues of limb Superficial venous thrombosis of upper extremity, left Chronic systolic (congestive) heart failure ([facility] V24, [facility] V28) Nonischemic congestive cardiomyopathy ([facility] V24, [facility] V28) POTS (postural orthostatic tachycardia syndrome) Unspecified [...] documented as of this encounter Care Teams Strategic Planning Analyst Relationship Specialty Start Date End Date Shanice Shelton MD [address] [place] [phone] PCP - General Internal Medicine 08/16/22 documented as of this encounter
--- OUTSIDE RECORDS SUMMARY | 2025-11-01 09:41 | XMS_ITS | Encounter Summary ---
Author Organization [facility] Address [address] [place] [address] Care Team Providers Care Product Manager Medical Device Name Role Phone Shanice Shelton MD Primary Care Prov ider Reason for Visit * Imaging (Emergency) - Authorized Specialty Diagnoses / Procedures Referred By Mc gallardo Referred To Contact Diagnoses Left arm pain Procedures Vascular US duplex upper extremity venous left Vascular US duplex lower extremity venous left Anastasiya Reis PA [address] [place], [place] Phone: tel: fax: [facility] Referral ID Status Reason Start Date Expiration Date V isits Requested Visits Authorized [id number] Authorized 11/01/2025 11/01/2026 1 1 Encounter Details Date Type Department Care Team (Latest Contact Info) Description 11/01/2025 9:41 AM EST - 11/01/2025 11:59 PM EST Hospital Encounter Radiology Department - [address] [phone] Left arm pain Discharge Disposition: Home or Self Care [...] your loved ones. For example, child care counselor or elderly care for [...] AM EDT documented as of this encounter Functional Status * Are you [...] 10/16/2025 10:55 PM Mike Mo RN * Calculated C-SSRS Risk Score (Lifetime/Recent) Answer Date of Assessment Author No Risk Indicated 11/01/2025 1:53 PM Ambrocio Jackson RN * [place] Suicide Severity Rating Scale (Screener/Recent Self-Report) Question Answer Date of Assessment Author 1. Wish to be (Past 1 Month) No 025 1:53 PM Ambrocio Jackson RN 2. Non-Specific Active Suici graciela Thoughts (Past 1 Month) No 11/01/2025 1:53 PM Norma Jackson RN 6. Suicidal Behavior (Lifetime) No 1:53 PM Ambrocio Jackson RN documented as of this encounter Mental Status * Because of a physical, mental, or emotional condition, do you have serious difficulty concentrating, remembering, or making decisions? (5 years old or older) Answer Entry Date Author No 10/16/2025 10:55 PM EST Ragazzi, Melvin, RN documented in this encounter Medications at Time of Discharge acetaminophen (TYLENOL) 325 mg tablet Take 2 tablets (650 mg total) by mouth every 6 (six) hours if needed for mild pain for up to 12 days. 90 tablet 10/27/2025 11/08/20 25 buPROPion XL (WELLBUTRIN XL) 300 mg 24 hr tablet Take 1 tablet (300 mg total) by mouth 1 (one) time each day. 30 each 5 06/11/2025 12/08/19 26 carvediloL (COREG) 3.125 mg tablet TAKE 1 TABLET BY MOUTH TWO TIMES A DAY. FURTHER REFILLS PER CARDIOLOGY 09/12/2024 cefTRIAXone 2 g in sterile water 20 mL syringe Infuse 2 g into a venous catheter 1 (one) time each day at the same time for 23 doses. 11/03/2025 11/26/19 26 dapagliflozin propanediol (Farxiga) 10 mg tablet Take 1 tablet (10 mg total) by mouth 1 (one) time each day. Emgality Pen 120 mg/mL injection pen USE SUBCUTANEOUSLY MONTHLY DIRECTED 11/29/2024 Entresto 24-26 mg per tablet Take 1 tablet by mouth 2 (two) times a day. 09/12/2024 gabapentin (NEURONTIN) 100 mg capsule Take 1 capsule (100 mg total) by mouth every 8 (eight) hours. 90 each 11 10/24/2025 10/24/20 26 heparin sodium,bovine (HEPARIN, BOVINE, INJ) Inject 5 mL as directed 1 (one) time each day. lidocaine (LIDODERM) 5 % patchIndications :Lyme disease,Acute bilateral low back pain, unspecified whether sciatica present,Acute bilateral thoracic back pain,Myalgia USE 1 PATCH TOPICALLY ONCE DAILY. REMOVE AND DISCARD PATCH WITHIN 12 HOURS. 28 patch 2 09/09/2025 meclizine (ANTIVERT) 25 mg tablet Take 1 Tablet by mouth 3 times daily as needed (dizziness). 03/01/2022 naloxone (NARCAN) 4 mg/0.1 mL nasal spray Administer 1 each (4 mg total) into affected nostril(s) if needed for opioid reversal. Give 4 mg (1 spray) into one nostril. May repeat every 2-3 minutes if needed, alternating nostrils, until medical assistance becomes available. 2 each 10/27/2025 10/27/20 26 naltrexone (DEPADE) 50 mg tabletIndication s:Over weight Take 0.5 tablets (25 mg total) by mouth 1 (one) time each day. 15 each 06/11/2025 12/08/19 26 oxyCODONE (ROXICODONE) 5 mg immediate release tablet Take 1 tablet (5 mg total) by mouth every 6 (six) hours if needed for severe pain for up to 3 days. Max Daily Amount: 20 mg 12 each 11/03/2025 11/06/20 25 rivaroxaban (XARELTO) 15 mg tablet Take 1 tablet (15 mg total) by mouth 2 (two) times a day with meals. Take with food. 40 each 11/03/2025 11/23/19 26 rivaroxaban (XARELTO) 20 mg tablet Take 1 tablet (20 mg total) by mouth 1 (one) time each day with dinner. Take with food. 30 each 2 11/23/2025 02/22/20 26 senna (SENOKOT) 8.6 mg tablet Take 1 tablet (8.6 mg total) by mouth 2 (two) times a day. 60 each 11/03/2025 12/03/19 26 spironolactone (ALDACTONE) 25 mg tablet TAKE 1 TABLET BY MOUTH EVERY DAY. FURTHER REFILLS PER CARDIOLOGY 09/12/2024 vancomycin (VANCOCIN) 1500 mg/500 mL solution IVPB Infuse 500 mL (1,500 mg total) into a venous catheter every 12 (twelve) hours for 48 doses. 11/03/2025 11/27/19 26 zolpidem (AMBIEN) 10 mg tablet Take 1 tablet (10 mg total) by mouth at bedtime as needed. Max Daily Amount: 10 mg 03/26/2025 furosemide (LASIX) 20 mg tablet Take 1 tablet (20 mg total) by mouth 1 (one) time each day. As needed for edema 07/15/2025 11/03/20 25 HYDROcodone-acet aminophen (NORCO) 5-325 mg per tablet Take 1 tablet by mouth every 6 (six) hours if needed for severe pain for up to 3 days. Max Daily Amount: 4 tablets 12 tablet 10/27/2025 11/03/20 25 vancomycin (VANCOCIN) 10 gram recon soln 10/30/2025 11/03/20 25 documented as of this encounter Discharge Disposition Disposition Code Departure Means Destination Home or Self Care documented in this encounter Plan of Treatment Upcoming Encounters Date Type Department Care Team (Late st Contact Info) Description 11/05/2025 10:30 AM EST Office Visit Adult Medicine [facility] [address] [place], [place] [phone] Srinath Nolan MD [address] [place], [place] 11/26/2025 10:00 AM EST Office Visit Infectious Disease - [place] [address] [place] [address] Olivier Casillas MD [address] [place] [phone] 12/12/2025 9:15 AM EST Office Visit Bariatric Surgery - [place] [address] [phone] Alexander Silva MD [address] [place] [phone] 12/17/2025 8:00 AM EST Office Visit Neurosurgery - [place] [address] [place] [phone] Brain Griffin MD [address] [place] [address] [place] [phone] 01/03/2026 12:30 PM EST Telemedicine Bariatric Surgery - [place] [address] [phone] Nevaeh Cunha, RD [address] [phone] 05/28/2026 9:30 AM EDT Office Visit Vascular Surgery - [place] [address] [place] [address] Veronika Lamb MD [address] [place] [phone] documented as of this encounter Procedures Procedure Name Priority Date/Time Associated Diagnosis Comments VAS US DUPLEX UPPER EXT VENOUS LEFT STAT 11/01/2025 11:22 AM EST Left arm pain documented in this encounter Results * Vascular US duplex upper extremity venous left (11/01/2025 11:22 AM EST) Anatomical Region Laterality Modality Vascular, Abdomen Ultrasound 11/01/2025 11:4 0 AM EST Impressions 11/01/2025 11:55 AM EST Findings concerning for nonocclusive thrombus in the left cephalic, brachial veins, and basilic veins. -------- FINAL REPORT -------- Dictated By: Lisa Collins Dictated Date: 11/01/2025 11:40 ET Assigned Physician: Lisa Collins Reviewed and Electronically Signed By: Lisa Collins Signed Date: 11/01/2025 11:55 ET Workstation ID: [id number] Transcribed By: Self Edit Transcribed Date: 11/01/2025 11:40 ET Narrative 11/01/2025 11:55 AM EST EXAM: Unilateral upper extremity venous ultrasound. HISTORY: Pain at left PICC line. History of superficial thrombus on the right at prior PICC line. COMPARISON: None FINDINGS: Duplex Doppler examination of the left upper extremity venous system was performed using grayscale, pulsed wave, color and, where appropriate, compression sonography. The internal jugular vein is normally compressible with normal color Doppler flow and waveforms. Subclavian vein shows normal color Doppler flow and waveforms. Axillary vein is normally compressible with normal color Doppler flow. Cephalic and brachial veins are partially compressible and demonstrate blood flow on color Doppler. Basilic vein is noncompressible and demonstrates preserved blood flow. Procedure Note Lisa Collins MD - 11/01/2025 EXAM: Unilateral upper extremity venous ultrasound. HISTORY: Pain at left PICC line. History of superficial thrombus on theright at prior PICC line. COMPARISON: None FINDINGS: Duplex Doppler examination of the left upper extremity venous system wasperformed using grayscale, pulsed wave, color and, where appropriate,compression sonography. The internal jugular vein is normally compressible with normal colorDoppler flow and waveforms. Subclavian vein shows normal color Dopplerflow and waveforms. Axillary vein is normally compressible with normalcolor Doppler flow. Cephalic and brachial veins are partially compressible and demonstrateblood flow on color Doppler. Basilic vein is noncompressible anddemonstrates preserved blood flow. IMPRESSION: Findings concerning for nonocclusive thrombus in the left cephalic,brachial veins, and basilic veins. -------- FINAL REPORT -------- Dictated By: Lisa Collins Dictated Date: 11/01/2025 11:40 ET Assigned Physician: Lisa Collins Reviewed and Electronically Signed By: Lisa Collins Signed Date: 11/01/2025 11:55 ET Workstation ID: [id number] Transcribed By: Self Edit Transcribed Date: 11/01/2025 11:40 ET us Anastasiya MCLAUGHLIN CV VASCULAR PROCEDURES Final Res ult documented in this encounter Visit Diagnoses Diagnosis Left arm pain Pain in soft tissues of limb documented in this encounter Additional Health Concerns Assessment Noted Time PHQ-9 Depression Total Score: 23 025 4:56 PM EST documented as of this encounter Care Teams Product Manager Medical Device Relationship Specialty Start Date End Date Shanice Shelton MD [address] [place] [address] PCP - General Internal Medicine 08/16/22 documented as of this encounter
--- OUTSIDE RECORDS SUMMARY | 2025-11-01 12:00 | XMS_ITS | Encounter Summary ---
Author Organization [facility] Address [address] [place] [address] Care Team Providers Care Senior Director Marketing Name Role Phone Shanice Shelton MD Primary Care Prov ider Encounter Details Date Type Department Care Team (Late st Contact Info) Description 11/01/2025 12:00 PM EST Lab Draw Station [address] [phone] Overweight (Primary Dx); Depression, unspecified depression type; [...] for your loved ones. For example, children's program coordinator or elderly care for an older [...] 11/01/2025 1:53 PM Ambrocio Jackson RN * [place] Suicide Severity Rating Scale (Screener/Recent Self-Report) Question [...] 10:30 AM EST Office Visit Adult Medicine [facility] [address] [place], [place] [phone] Srinath Nolan MD [address] [place], [place] 11/26/2025 10:00 AM EST Office Visit Infectious Disease - [place] [address] [place] [phone] Olivier Casillas MD [address] [place] [phone] 12/12/2025 9:15 AM EST Office Visit Bariatric Surgery - [place] [address] [phone] Alexander Silva MD [address] [place] [phone] 12/17/2025 8:00 AM EST Office Visit Neurosurgery - [place] [address] [place] [phone] Brain Griffin MD [address] [place] [address] [place] [address] [phone] 01/03/2026 12:30 PM EST Telemedicine Bariatric Surgery - [place] [address] [phone] Nevaeh Cunha, RD [address] [phone] 05/28/2026 9:30 AM EDT Office Visit Vascular Surgery - [place] [address] [place] [address] Veronika Lamb MD [address] [place] [phone] documented as of this encounter Procedures [...] disease Prediabetes Osteomyelitis, unspecified site, unspecified type ([facility] V24, CMS/[facility] V28) Excessive or frequent menstruation Vitamin D deficiency Aneurysm of other specified arteries ([facility] V24) Acute on chronic systolic heart failure ([facility]/HCC V24, CMS/HCC V28) Nonischemic congestive cardiomyopathy (CMS/HCC [...] disease Prediabetes Osteomyelitis, unspecified site, unspecified type ([facility] V24, CMS/[facility] V28) Excessive or frequent menstruation Vitamin D deficiency Aneurysm of other specified arteries ([facility]/HCC V24) Acute on chronic systolic heart failure ([facility] V24, CMS/[facility] V28) Nonischemic congestive cardiomyopathy (CMS/HCC V24, CMS/HCC [...] D deficiency Aneurysm of other specified arteries ([facility]/HCC V24) Acute on chronic systolic heart failure ([facility] V24, CMS/[facility] V28) Nonischemic congestive cardiomyopathy (CMS/HCC V24, CMS/HCC [...] disease Prediabetes Osteomyelitis, unspecified site, unspecified type ([facility] V24, [facility] V28) Excessive or frequent menstruation Vitamin D deficiency Aneurysm of other specified arteries ([facility] V24) Acute on chronic systolic heart failure ([facility] V24, [facility] V28) Nonischemic congestive cardiomyopathy ([facility] V24, [facility] V28) Bradycardia Myalgia Paresthesia of hand, bilateral Low back pain, unspecified back pain laterality, unspecified chronicity, unspecified whether sciatica present Chronic bilateral low back pain, unspecified whether sciatica present Cervicalgia POTS (postural orthostatic tachycardia syndrome) Dysmenorrhea Nonintractable episodic headache, unspecified headache type documented in this encounter Results * (ABNORMAL) CBC auto differential (11/01/2025 11:45 AM EST) [facility] WBC 5.2 4.8 - 10.8 K/mcL LAB HEMETOLOGY METHOD 11/01/2025 2:20 PM [facility] RBC 4.50 3.80 - 4.80 M/mcL LAB HEMETOLOGY METHOD 11/01/2025 2:20 PM [facility] Hemoglobin 12.2 11.5 - 16.0 g/dL LAB HEMETOLOGY METHOD 11/01/2025 2:20 PM [facility] Hematocrit 38.9 35.0 - 47.0 % LAB HEMETOLOGY METHOD 11/01/2025 2:20 PM [facility] MCV 87.0 79.0 - 98.0 FL LAB HEMETOLOGY METHOD 11/01/2025 2:20 PM [facility] MCH 27.3 27.0 - 32.0 pcg LAB HEMETOLOGY METHOD 11/01/2025 2:20 PM [facility] MCHC 31.4(L) 32.0 - 37.0 g/dL LAB HEMETOLOGY METHOD 11/01/2025 2:20 PM [facility] RDW 14.6 11.0 - 15.0 % LAB HEMETOLOGY METHOD 11/01/2025 2:20 PM [facility] Platelets 263 130 - 400 K/mcL LAB HEMETOLOGY METHOD 11/01/2025 2:20 PM [facility] MPV 9.0 7.0 - 11.0 FL LAB HEMETOLOGY METHOD 11/01/2025 2:20 PM [facility] NRBC 0.0 <1.0 % LAB HEMETOLOGY METHOD 11/01/2025 2:20 PM [facility] NRBC Absolute 0.00 <0.10 K/mcL LAB HEMETOLOGY METHOD 11/01/2025 2:20 PM [facility] Neutrophils Relative 48.3 % LAB HEMETOLOGY METHOD 11/01/2025 2:20 PM [facility] Lymphocytes Relative 36.7 % LAB HEMETOLOGY METHOD 11/01/2025 2:20 PM [facility] Monocytes Relative 7.6 % LAB HEMETOLOGY METHOD 11/01/2025 2:20 PM [facility] Eosinophils Relative 5.9 % LAB HEMETOLOGY METHOD 11/01/2025 2:20 PM [facility] Basophils Relative 1.3 % LAB HEMETOLOGY METHOD 11/01/2025 2:20 PM [facility] Immature Granulocytes Relative 0.2 % LAB HEMETOLOGY METHOD 11/01/2025 2:20 PM [facility] Neutrophils Absolute 2.52 1.50 - 7.00 K/mcL LAB HEMETOLOGY METHOD 11/01/2025 2:20 PM EST [facility] Lymphocytes Absolute 1.92 1.00 - 5.00 K/mcL LAB HEMETOLOGY METHOD 11/01/2025 2:20 PM EST [facility] Monocytes Absolute 0.40 0.20 - 1.00 K/mcL LAB HEMETOLOGY METHOD 11/01/2025 2:20 PM EST [facility] Eosinophils Absolute 0.31 0.00 - 0.50 K/mcL LAB HEMETOLOGY METHOD 11/01/2025 2:20 PM EST [facility] Basophils Absolute 0.07 0.00 - 0.20 K/mcL LAB HEMETOLOGY METHOD 11/01/2025 2:20 PM EST [facility] Immature Granulocytes Absolute 0.01 0.00 - 0.03 K/mcL LAB HEMETOLOGY METHOD 11/01/2025 2:20 PM EST [facility] Blood Venous blood specimen / Unknown Venipuncture / Unknown 11/01/2025 11:45 AM EST 11/01/2025 11:45 AM EST us Clifton Bear MD LAB BLOOD ORDERABLES Final Resul t Performing Organization Address City/[facility]/ZIP Co de Phone Number [facility] [address] [place] [address], * Vancomycin random (11/01/2025 11:45 AM EST) Vancomycin Rm 10.3 mcg/mL 11/01/2025 4:18 PM EST [facility] Blood Venous blood specimen / Unknown Venipuncture / Unknown 11/01/2025 11:45 AM EST 11/01/2025 11:45 AM EST us Clifton Bear MD LAB BLOOD ORDERABLES Final Resul t [facility] [address] [place] [address], [place] [phone] * Sedimentation rate (11/01/2025 11:45 AM EST) [facility] Sed Rate 22 0 - 30 mm/hr LAB HEMETOLOGY METHOD 11/01/2025 2:28 PM EST [facility] Blood Venous blood specimen / Unknown Venipuncture / Unknown 11/01/2025 11:45 AM EST 11/01/2025 11:45 AM EST us Clifton Bear MD LAB BLOOD ORDERABLES Final Resul t [facility] [address] [place] [address], [place] [phone] * (ABNORMAL) C-reactive protein (11/01/2025 11:45 AM EST) [facility] C-Reactive Protein 0.57(H) <=0.50 mg/dL 11/01/2025 4:21 PM EST [facility] Blood Venous blood specimen / Unknown Venipuncture / Unknown 11/01/2025 11:45 AM EST 11/01/2025 11:45 AM EST us Clifton Bear MD LAB BLOOD ORDERABLES Final Resul t [facility] [address] [place] [address], [place] [phone] * (ABNORMAL) Comprehensive metabolic panel (11/01/2025 11:45 AM EST) [facility] Sodium 142 133 - 145 mmol/L 11/01/2025 4:18 PM EST [facility] Potassium 4.4 3.5 - 5.5 mmol/L 11/01/2025 4:18 PM EST [facility] Chloride 105 96 - 110 mmol/L 11/01/2025 4:18 PM [facility] CO2 28 21 - 32 mmol/L 11/01/2025 4:18 PM [facility] Anion Gap 9 3 - 11 11/01/2025 4:18 PM [facility] Glucose 79 70 - 100 mg/dL 11/01/2025 4:18 PM [facility] BUN 16 5 - 25 mg/dL 11/01/2025 4:18 PM [facility] Creatinine 0.87 0.50 - 1.10 mg/dL 11/01/2025 4:18 PM [facility] eGFR 80 >=60 mL/min/1. 73m2 11/01/2025 4:18 PM [facility] Comment:Calculation based on the Chronic Kidney Disease Epidemiology Collaboration (CKD-EPI) equation refit without adjustment for race. BUN/Creatinine Ratio 18.4 11/01/2025 4:18 PM [facility] Calcium 9.4 8.5 - 10.5 mg/dL 11/01/2025 4:18 PM [facility] AST (SGOT) 34 10 - 42 unit/L 11/01/2025 4:18 PM [facility] ALT (SGPT) 36 10 - 60 unit/L 11/01/2025 4:18 PM [facility] Alkaline Phosphatase 133(H) 42 - 121 unit/L 11/01/2025 4:18 PM [facility] Total Protein 7.5 6.0 - 8.0 g/dL 11/01/2025 4:18 PM [facility] Albumin 4.3 3.2 - 5.0 g/dL 11/01/2025 4:18 PM [facility] Total Bilirubin 0.3 0.0 - 1.4 mg/dL 11/01/2025 4:18 PM EST [facility] Blood Venous blood specimen / Unknown Venipuncture / Unknown 11/01/2025 11:45 AM EST 11/01/2025 11:45 AM EST us Clifton Bear MD LAB BLOOD ORDERABLES Final Resul t [facility] [address] [place] [address], documented in this encounter Visit Diagnoses Diagnosis Overweight- Primary Depression, unspecified depression type Alcohol use, unspecified, uncomplicated Anxiety Anxiety state, unspecified Lyme disease Prediabetes Other abnormal glucose Osteomyelitis, unspecified site, unspecified type ([facility] V24, [facility] V28) Excessive or frequent menstruation Vitamin D deficiency Aneurysm of other specified arteries ([facility] V24) Acute on chronic systolic heart failure ([facility] V24, [facility] V28) Acute on chronic systolic heart failure Nonischemic congestive cardiomyopathy ([facility] V24, [facility] V28) Bradycardia Other specified cardiac dysrhythmias Myalgia [...] documented as of this encounter Care Teams Senior Director Marketing Relationship Specialty Start Date End Date Shanice Shelton MD [address] [place] [phone] PCP - General Internal Medicine 08/16/22 documented as of this encounter
--- OUTSIDE RECORDS SUMMARY | 2025-11-01 17:50 | XMS_ITS | Encounter Summary ---
Author Organization [facility] Address [address] [place] [address] Care Team Providers Care Wood Barker Name Role Phone Shanice Shelton MD Primary Care Prov ider Reason for Referral * Home Health (Routine) - Closed Specialty Diagnoses / Procedures Referred By Mc gallardo Referred To Contact Home Health Services Diagnoses Acute on chronic systolic heart failure ([facility] V24, [facility] V28) Velasquez Chaparro MD [address] [place] [id number] Phone: tel: fax: Molly [address], [address] [place] [address] Phone: tel: fax: Referral ID Status Reason Start Date Expiration Date V isits Requested Visits Authorized [id number] Closed Consult and Treat 11/03/2025 11/03/2026 1 1 Reason for Visit * Reason Comments Vascular Access Problem FROM PCP KNOWN C LOT TO LT ARM W/PICC * Auth/Cert (Routine) Specialty Diagnoses / Procedures Referred By Mc gallardo Referred To Contact Diagnoses Splenic artery aneurysm ([facility] V24) Extravasation injury of IV catheter site with other complication, initial encounter ([facility] V24) Thrombosis in peripherally inserted central catheter (PICC) ([facility] V24) Chest pain, unspecified type Procedures [place] COMPREHENSIVE AUDIOMETRY THRESHOLD EVALUATION AND SPEECH RECOGNITION Wilder Warren MD [address] [place] [address] Phone: tel: fax: [facility] [address] [place] [phone] Phone: tel: Referral ID Status Reason Start Date Expiration Date Visits Re quested Visits Authorized [id number] 1 1 Encounter Details Date Type Department Care Team (Latest Contact Info) Description 11/01/2025 5:50 PM EST - 11/03/2025 10:22 AM EST Hospital Encounter [facility] [address] [place] [phone] Mariam Dupree MD [address] [place] [address] [phone] Nila Diaz MD [address] [place] [address] [phone] Wilder Warren MD [address] [place] [address] [phone] Velasquez Chaparro MD [address] [place] [phone] Extravasation injury of IV catheter site with other complication, initial encounter ([facility] V24) (Primary Dx); Chest pain, unspecified type; Splenic artery aneurysm ([facility] V24); Acute on chronic systolic heart failure ([facility] V24, [facility] V28) Discharge Disposition: Home-Health Care Svc Social History Tobacco Use Types Packs/Day Years [...] care for your loved ones. 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 [...] Sign Reading Time Taken Comments Blood Pressure 125/77 11/03/2025 8:13 AM EST Pulse 53 11/03/2025 8:13 AM EST Temperature 36.4 C (97.5 F) 11/03/2025 8:13 AM EST Respiratory Rate 16 11/03/2025 8:13 AM EST Oxygen Saturation 100% 11/03/2025 8:13 AM EST Inhaled Oxygen Concentration - - Weight 69.4 kg (153 lb) 11/01/2025 1:53 PM EST Height 160 cm (5' 3 ) 11/01/2025 1:53 PM EST Body Mass Index 27.1 11/01/2025 1:53 PM EST documented in this encounter Functional Status [...] 11/01/2025 1:53 PM Ambrocio Jackson RN * [place] Suicide Severity Rating Scale (Screener/Recent Self-Report) Question Answer Date of Assessment Author 1. Wish to be (Past 1 Month) No 025 1:53 PM Ambrocio Jackson RN 2. Non-Specific Active Suici graciela Thoughts (Past 1 Month) No 11/01/2025 1:53 PM Norma Jackson RN 6. Suicidal Behavior (Lifetime) No 5 1:53 PM Ambrocio Jackson RN documented as of this encounter Mental Status * Because of a physical, mental, or emotional condition, do you have serious difficulty concentrating, remembering, or making decisions? (5 years old or older) Answer Entry Date Author No 10/16/2025 10:55 PM Mike Mo RN documented in this encounter Discharge Summaries * Velasquez Chaparro MD - 11/03/2025 9:03 AM EST Images from the original note were not included. [place] DISCHARGE SUMMARY Patient Information Annabelle Coppola : 1975 [50 y.o.] Admitting Provider Wilder Warren MD Discharge Provider Velasquez Chaparro MD, Velasquez Chaparro MD Primary Care Physician Shanice Foss MD Admission Date 11/01/2025 Discharge Date 11/03/2025 Summary of Hospital Problems Primary Discharge Diagnosis: Thrombosis in peripherally inserted central catheter (PICC) ([facility] V24) Discharge Destination: Home with VNA Code Status at Discharge: Full Code - Default Hospital Course Summary LOS: 0 days 50 year-old female with history of C5-C7 spinal epidural abscess and vertebral osteomyelitis/discitis at site of C5-C7 cervical fusion in 2007, heart failure with recovered ejection fraction LVED 55-60%, postural orthostatic tachycardia syndrome, splenic artery aneurysm, hypertension, and migraine headaches presents with PICC associated non-occlusive superficial and deep thromboses of the left upper extremity and vancomycin extravasation. PICC associated nonocclusive superficial and deep thrombosis of the left upper extremity- After discussion with the ER provider, the patient will be placed in observation. The patient reported pain and swelling in her left arm after having a PICC placed. Previously, she had developed superficial thrombosis in the right arm due to her PICC line. The patient has nonocclusive thrombi in the basilic and cephalic veins as well as extension into the brachial vein, part of the deep venous system. We will treat the patient with rivaroxaban 15 mg twice daily for 21 days followed by 20 days thereafter. As the clots are nonocclusive and the patient has had a recent PICC placement on the opposite arm and now extravasation into the tissues of the upper arm, the current PICC line may remain in place while we treat the patient with anticoagulation. Once treatment is complete, the patient will require 3 months anticoagulation after catheter removal. The patient has been taking naltrexone and bupropion for weight loss. We will hold the naltrexone so that the patient may receive opioid medications for pain. Spinal epidural abscess and vertebral osteomyelitis/discitis- Patient will continue ceftriaxone 2 g IV daily and IV vancomycin through 11/26/2026. She will continue follow-up with Dr. Richard and infectious diseases clinic. Update 11/03/2025: Patient is medically cleared for discharge. Home care encounter performed. Prescription sent to patient's preferred pharmacy. Patient will follow-up with PCP and infectious diseasein outpatient setting. Follow-Up Instructions and Recommendations Molly Henley [address] [place] [address] , [address] [facility] [phone] Molly Sinha [place] [address] [place] [address] , [address] [facility] [phone] Primary care provider (PCP) Shanice Shelton MD [address] [facility] [phone] Olivier Casillas MD [address] [facility] [address] [place] [address] Discharge Procedure Orders Ambulatory referral to Home Health Standing Status: Future Referral Priority: Routine Referral Type: Home Health Referral Reason: Consult and Treat Referral Location: [facility] ([facility]) Requested Specialty: Home Health Services Number of Visits Requested: 1 Discharge Diet: Regular Diet Order Specific Question Answer Comments Discharge diet you should follow at home Regular Diet No restrictions, resume your usual activities Primary care provider (PCP) Order Specific Question Answer Comments Follow-Up as Needed Follow-Up as Needed Provider: Order Specific Question Answer Comments Follow-Up as Needed Follow-Up as Needed There are no outpatient Patient Instructions on file for this admission. Discharge Medications Your medication list PAUSE taking these medications Instructions Last Dose Given Next Dose Due carvedilol 3.125 mg tablet Wait to take this until your doctor or other care provider tells you to start again. Commonly known as: COREG TAKE 1 TABLET BY MOUTH TWO TIMES A DAY. FURTHER REFILLS PER CARDIOLOGY spironolactone 25 mg tablet Wait to take this until your doctor or other care provider tells you to start again. Commonly known as: ALDACTONE TAKE 1 TABLET BY MOUTH EVERY DAY. FURTHER REFILLS PER CARDIOLOGY START taking these medications Instructions Last Dose Given Next Dose Due cefTRIAXone 2 g in sterile water 20 mL syringe Infuse 2 g into a venous catheter 1 (one) time each day at the same time for 23 doses. Entresto 24-26 mg per tablet Generic drug: sacubitriL-valsartan Take 1 tablet by mouth 2 (two) times a day. Farxiga 10 mg tablet Generic drug: dapagliflozin propanediol Take 1 tablet (10 mg total) by mouth 1 (one) time each day. naltrexone 50 mg tablet Commonly known as: DEPADE Take 0.5 tablets (25 mg total) by mouth 1 (one) time each day. oxyCODONE 5 mg immediate release tablet Commonly known as: ROXICODONE Take 1 tablet (5 mg total) by mouth every 6 (six) hours if needed for severe pain for up to 3 days.Max Daily Amount: 20 mg rivaroxaban 15 mg tablet Commonly known as: XARELTO Take 1 tablet (15 mg total) by mouth 2 (two) times a day with meals. Take with food. rivaroxaban 20 mg tablet Commonly known as: XARELTO Start taking on: November 23, 2025 Take 1 tablet (20 mg total) by mouth 1 (one) time each day with dinner. Take with food. senna 8.6 mg tablet Commonly known as: SENOKOT Take 1 tablet (8.6 mg total) by mouth 2 (two) times a day. vancomycin 1500 mg/500 mL solution IVPB Commonly known as: VANCOCIN Infuse 500 mL (1,500 mg total) into a venous catheter every 12 (twelve) hours for 48 doses. CONTINUE taking these medications Instructions Last Dose Given Next Dose Due acetaminophen 325 mg tablet Commonly known as: TYLENOL Take 2 tablets (650 mg total) by mouth every 6 (six) hours if needed for mild pain for up to 12 days. buPROPion XL 300 mg 24 hr tablet Commonly known as: WELLBUTRIN XL Take 1 tablet (300 mg total) by mouth 1 (one) time each day. Emgality Pen 120 mg/mL injection pen Generic drug: galcanezumab-gnlm USE SUBCUTANEOUSLY MONTHLY DIRECTED gabapentin 100 mg capsule Commonly known as: NEURONTIN Take 1 capsule (100 mg total) by mouth every 8 (eight) hours. HEPARIN (BOVINE) INJ Inject 5 mL as directed 1 (one) time each day. lidocaine 5 % patch Commonly known as: LIDODERM USE 1 PATCH TOPICALLY ONCE DAILY. REMOVE AND DISCARD PATCH WITHIN 12 HOURS. meclizine 25 mg tablet Commonly known as: ANTIVERT Take 1 Tablet by mouth 3 times daily as needed (dizziness). naloxone 4 mg/0.1 mL nasal spray Commonly known as: NARCAN Administer 1 each (4 mg total) into affected nostril(s) if needed for opioid reversal. Give 4 mg (1spray) into one nostril. May repeat every 2-3 minutes if needed, alternating nostrils, until medical assistance becomes available. zolpidem 10 mg tablet Commonly known as: AMBIEN Take 1 tablet (10 mg total) by mouth at bedtime as needed. Max Daily Amount: 10 mg STOP taking these medications furosemide 20 mg tablet Commonly known as: LASIX HYDROcodone-acetaminophen 5-325 mg per tablet Commonly known as: NORCO vancomycin 10 gram recon soln Commonly known as: VANCOCIN Where to Get Your Medications These medications were sent to [facility] [address] [place] [address] [place] [id number] oxyCODONE 5 mg immediate release tablet rivaroxaban 15 mg tablet rivaroxaban 20 mg tablet senna 8.6 mg tablet Information about where to get these medications is not yet available Ask your nurse or doctor about these medications cefTRIAXone 2 g in sterile water 20 mL syringe vancomycin 1500 mg/500 mL solution IVPB Vitals Visit Vitals BP 125/77 (BP Location: Right arm, Patient Position: Sitting) Pulse 53 Temp 36.4 ??C (97.5 ??F) (Oral) Resp 16 Temp (24hrs), Av.6 ??C (97.9 ??F), Min:36.3 ??C (97.3 ??F), Max:36.9 ??C (98.4 ??F) Body mass index is 27.1 kg/m??. No results found for: PTWT , PTHT Greater than 30 minutes spent preparing this discharge, evaluating patient, discussing care plan with nursing and ICC. documented in this encounter Medications at Time [...] day. 15 each 5 06/11/2025 12/08/19 26 oxyCODONE (ROXICODONE) 5 mg [...] mg 03/26/2025 documented as of this encounter Ordered Prescriptions Prescription Sig Dispense Quantity Refills Last Filled Start Date End Date senna (SENOKOT) 8.6 mg tablet Take 1 tablet (8.6 mg total) by mouth 2 (two) times a day. 60 each 11/03/2025 6 oxyCODONE (ROXICODONE) 5 mg immediate release tablet Take 1 tablet (5 mg total) by mouth every 6 (six) hours if needed for severe pain for up to 3 days. Max Daily Amount: 20 mg 12 each 11/03/2025 5 vancomycin (VANCOCIN) 1500 mg/500 mL solution IVPB Infuse 500 mL (1,500 mg total) into a venous catheter every 12 (twelve) hours for 48 doses. 11/03/2025 6 rivaroxaban (XARELTO) 20 mg tablet Take 1 tablet (20 mg total) by mouth 1 (one) time each day with dinner. Take with food. 30 each 2 11/23/2025 6 rivaroxaban (XARELTO) 15 mg tablet Take 1 tablet (15 mg total) by mouth 2 (two) times a day with meals. Take with food. 40 each 11/03/2025 6 cefTRIAXone 2 g in sterile water 20 mL syringe Infuse 2 g into a venous catheter 1 (one) time each day at the same time for 23 doses. 11/03/2025 6 documented in this encounter Discharge Disposition Disposition Code Departure Means Destination Comment s Home-Health Care [facility] documented in this encounter Progress Notes * Apryl Conde RN - 11/03/2025 9:45 AM EST Education provided with regards to scripts/IV infusion/meds and f/u appointments. Patient acknowledged. * Margarita Lorenzana RN - 11/03/2025 9:21 AM EST 11/03/25 0919 Transportation Transportation at discharge Family What day is the transport expected? 11/03/25 Final Discharge Disposition Other (Comment) (Home with resumed [facility] and [facility] IV abx resumption. Pt had confirmed she has infusion supplies at home.) Pt cleared for DC home with resumed IV abx via [facility] and [facility]. VNA updated. Family will transport. ICC signing off. * Reshma Flores, PT - 11/02/2025 2:20 PM EST [facility] Physical Therapy Evaluation & Treatment PT Discharge Recommendations: Home independent Staff Recommendations for safe patient handling: close supervision Modified Kaufman Scale Score: 3=Moderate disability. Requires some help, but able to walk unassisted. AM-PAC 6 Clicks Scoring Form: Unable: 1 A Lot: 2 A Little: 3 None: 4 How much difficulty does the patient currently have? Turning over in bed (including adjustment of bedclothes, sheets, and blankets) [] [] [] [x] Sitting down on and standing up from a chair with arms (wheelchair, bedside commode etc [] [] [] [x] Moving from lying on back to sitting on the side of the bed [] [] [] [x] How much help from another person does the patient currently need? Moving to and from a bed to a chair ( including a wheelchair) [] [] [] [x] To walk in hospital room [] [] [] [x] Climbing 3-5 steps with a railing [] [] [x] [] Score: 23 /24 score indicates the pt is appropriate for discharge home with therapy recommendation above Precautions Medical Precautions: Fall Risk Safety Interventions: Call benitez within reach RUE Weight Bearing Status: Full LUE Weight Bearing Status: Full RLE Weight Bearing Status: Full LLE Weight Bearing Status: Full Fall prevention education provided including use of call light in hospital, use of appropriate assistive device, safe mobility techniques, and safety measures at home. PT Received On: 11/02/25 PT Start Time: 1420 PT Stop Time: 1450 PT Time Calculation (min): 30 min General Family/Caregiver Present: No Precautions Medical Precautions: Fall Risk Safety Interventions: Call benitez within reach RUE Weight Bearing Status: Full LUE Weight Bearing Status: Full RLE Weight Bearing Status: Full LLE Weight Bearing Status: Full Cognition Overall Cognitive Status: Within Functional Limits Following Commands: Follows all commands and directions without difficulty Hearing: Intact Vision: Intact Speech: Intact Integumentary: wfl History of Present Illness: Patient is a 50 y.o. female admitted to [facility] on 11/01/2025. Problem List[1] Medical History[2] Surgical History[3] Social History Home Living Environment: Home Living Type of Home: House Lives With: Family Home Adaptive Equipment: (refuses to use A.D) Home Living Comments: lives with 7 people; boyfriend and dtr help on stairs; son does her laundry Home Layout: One level Home Access: Stairs to enter without rails Entrance Stairs-Rails: None Entrance Stairs-Number of Steps: 6 Prior Function Level of [place]: Independent with mobility and functional transfers Ambulation Status: Household ambulator Receives Help From: Family Indoor Mobility Assistance: Independent Stairs Assistance : Needed Some Help Prior Device Use: Cane (refuses) Which is your dominant hand?: Right General Assessment 11/02/25 1420 PT Last Visit PT Received On 11/02/25 General Family/Caregiver Present No PT Time Calculation PT Start Time 1420 PT Stop Time 1450 PT Time Calculation (min) 30 min Precautions Medical Precautions Fall Risk Safety Interventions Call benitez within reach RUE Weight Bearing Status Full LUE Weight Bearing Status Full RLE Weight Bearing Status Full LLE Weight Bearing Status Full Pain Assessment Pain Assessment No/denies pain Cognition Overall Cognitive Status WFL Following Commands Follows all commands and directions without difficulty Home Living Type of Home House Lives With Family Home Adaptive Equipment (refuses to use A.D) Home Living Comments lives with 7 people; boyfriend and dtr help on stairs; son does her laundry Home Layout One level Home Access Stairs to enter without rails Entrance Stairs-Rails None Entrance Stairs-Number of Steps 6 Prior Function Level of [place] Independent with mobility and functional transfers Ambulation Status Household ambulator Receives Help From Family Indoor Mobility Assistance Independent Stairs Assistance Needed Some Help Prior Device Use Cane (refuses) Activity Tolerance Endurance Tolerates 20 - 30 min activity with multiple rests Sensation Light Touch Partial deficits in the RLE;Partial deficits in the LLE Coordination Coordination Gross motor impaired Postural Control Postural Control WFL Static Sitting Balance Static Sitting-Level of Assistance Independent Dynamic Sitting Balance Dynamic Sitting-Level of Assistance Supervision Static Standing Balance Static Standing-Level of Assistance Close supervision Static Standing-Balance Support No upper extremity supported Dynamic Standing Balance Dynamic Standing-Level of Assistance Close supervision Dynamic Standing-Balance Ambulation Dynamic Standing-Balance Support No upper extremity supported Bed Mobility Rolling Left and Right Assistance Independent Sitting to Lying Assistance Independent Lying to Sitting Assistance Independent Transfers Sit to Stand Assistance Supervision Chair/Bed to Chair/Bed Transfer Assistance Close supervision Ambulation Walking Assistance Close supervision Walking Deficit Supervision/safety awareness;Increased time to complete;Limited endurance;Impaired balance;LE weakness;Gait deviation Device No device Comments B trendelenberg gait Stairs 4 steps: Assistance Standby assistance 4 steps: Deficit Steadying;Supervision/safety awareness;Increased time to complete;Impaired balance;LE weakness Number of Stairs 5 RLE Assessment RLE Assessment Impaired RLE Assessment Comments weakness, paresthesia LLE Assessment LLE Assessment Impaired LLE Assessment Comments weakness, paresthesia PT Assessment PT Assessment Results Decreased strength;Decreased endurance;Impaired balance;Impaired gait;Decreased mobility;Decreased coordination;Impaired sensation Prognosis Good Evaluation/Treatment Tolerance Patient tolerated treatment well Comments pt has impaired balance, coordiation, ble strength but at baseline, gets help from family declines PT services Medical Staff Made Aware Yes Plan PT Discharge Recommendations Home independent Equipment Recommended None PT - Evaluation Status Complete PT - OK to Discharge Yes PT Evaluation Time Entry PT Evaluation (Moderate) Time Entry 30 ADDITIONAL COMMENTS: Chart reviewed. RN clears pt for session. Pt agrees to participate and presented in supine upon PT arrival. Initiated education on the importance of PT, bed mobility safety, Transfer Safety, Ambulation Safety , Therapy Plan of Care, Home Safety, Energy Conservations strategies, and importance of OOB activity . Pt verbalized understanding. EXIT STATUS: Session ended with patient supine, tray table and call light within reach, and RN made aware. . PT recommends Home independent when medically stable for safe discharge and to optimize functional mobility and independence. Goals Encounter Problems Encounter Problems (Active) There are no active problems. Encounter Problems (Resolved) There are no resolved problems. Education Documentation Teach proper use of assistive devices, taught by Reshma Flores PT at 11/02/2025 3:19 PM. Learner: Patient Readiness: Acceptance Method: Explanation Response: Verbalizes Understanding Comment: educated pt on safe guarding positoin of family when stepping down stairs Education Comments No comments found. Reshma Flores PT [1] Patient Active Problem List Diagnosis Anxiety Bradycardia Vitamin D deficiency Headache Excessive or frequent menstruation Dysmenorrhea POTS (postural orthostatic tachycardia syndrome) Cervicalgia Chronic low back pain Nonischemic congestive cardiomyopathy ([facility] V24, [facility] V28) Prediabetes Acute on chronic systolic heart failure ([facility] V24, [facility] V28) Aneurysm of other specified arteries ([facility] V24) Low back pain, unspecified Alcohol use, unspecified, uncomplicated Depression, unspecified Overweight Paresthesia of hand, bilateral Myalgia Lyme disease Osteomyelitis ([facility] V24, [facility] V28) Thrombosis in peripherally inserted central catheter (PICC) ([facility] V24) [2] Past Medical History: Diagnosis Date Acute respiratory failure with hypoxia ([facility] V24, [facility] V28) 11/20/2024 Anxiety 09/11/2010 DX:Anxiety Bradycardia 09/14/2010 DX:Bradycardia Cardiomyopathy ([facility] V24, [facility] V28) 09/14/2010 DX:Cardiomyopathy (HCC) Cervicalgia 10/10/2015 DX:Cervicalgia Chronic low back pain 10/10/2015 DX:Chronic low back pain Dysmenorrhea 06/14/2013 DX:Dysmenorrhea Excessive or frequent menstruation 06/14/2013 DX:Excessive or frequent menstruation FH: migraines DX:FH: migraines HTN (hypertension) 04/02/2011 DX:HTN (hypertension) Migraines DX:Migraines POTS (postural orthostatic tachycardia syndrome) 10/09/2013 DX:POTS (postural orthostatic tachycardia syndrome); COMMENT: Previously dx with this by Cardio - Florinef - no longer taking ,no symptoms. ILR no arrhythmia Sebaceous cyst DX:Sebaceous cyst Vitamin D deficiency 07/02/2011 DX:Vitamin D deficiency [3] Past Surgical History: Procedure Laterality Date BREAST BIOPSY Right 12/2015 PROCEDURE: BX BREAST; PERC NEEDLE CORE W/IMAG GUID; COMMENT: benign ENDOMETRIAL ABLATION 2009 PROCEDURE: [place] ENDOMETRIAL ABLTJ THERMAL W/O HYSTEROSCOPIC GUID EYE SURGERY Bilateral 2017 PROCEDURE: [place] TRABECULOPLASTY BY LASER SURGERY; COMMENT: Dr. Marylou Key HYSTERECTOMY 09/12/2013 PROCEDURE: HISTORICAL VAGINAL HYSTERECTOMY W/O BSO; COMMENT: da Raisa total hysterectomy performed by Dr. Marks NECK SURGERY 07/01/2008 PROCEDURE: HISTORICAL NECK SURGERY; COMMENT: decompression and fusion C5-6, C6-7 OTHER SURGICAL HISTORY PROCEDURE: [place] DILATION & CURETTAGE DX&/THER NONOBSTETRIC OTHER SURGICAL HISTORY 09/12/2013 PROCEDURE: INSERT URETERAL CATHETER/STENT; COMMENT: urgently done during hysterectomy OTHER SURGICAL HISTORY PROCEDURE: ---- OTHER ----; COMMENT: sebaceous cyst back WISDOM TOOTH EXTRACTION PROCEDURE: HISTORICAL WISDOM TEETH EXTRACTION * Velasquez Chaparro MD - 11/02/2025 12:32 PM EST Patient seen and examined. Family by bedside Vitals, labs and images reviewed Hypomagnesemia supplemented Continue IV vancomycin and ceftriaxone Left upper extremity superficial and deep thrombosis noted on imaging. Started on Xarelto. Patient explained care plan that patient will require 3 months of anticoagulation with DOACs once she completes her IV antibiotics in November 2025 and gets PICC line removed Patient complaining of pain. Continue hydromorphone/oxycodone as needed Likely discharge in the next 24 hours pending appropriate pain control and clinical improvement ICC/nursing aware. * Margarita Lorenzana RN - 11/02/2025 9:37 AM EST 11/02/25 0936 Initial Transition Plan Initial Transition Plan Home Health Care Discharge Planning Living Arrangements Children;Family members;Spouse/significant other Type of Residence Private residence Assistive Devices None Support Systems Immediate family;Friends;Children;Spouse/significant other Medication Coverage Has Med Coverage Under Insurance Plan Yes Medication Affordability No concerns related to payment for meds Anticipated Discharge Needs Discipline following for SNF placement [employer] Informed Choice Informed Choice Given? Yes Transportation Transportation at discharge Family ICC met with pt at bedside. Demographics confirmed. Not a . Has no DME/no home O2 needs. [facility] for [facility]x and [facility] for home [facility]- return referral sent to [facility] for follow-up on DC with pt permission. ICC following for sipo- pt confirmed family will transport home when cleared. * Ted Flores, AutumnD - 11/02/2025 6:43 AM EST Pharmacokinetic Consult - Vancomycin Dosing Annabelle Coppola is a 50 y.o. 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 Relevant clinical data and objective history reviewed: Creatinine Date Value Ref Range Status 11/02/2025 0.87 0.50 - 1.10 mg/dL Final 11/01/2025 0.90 0.50 - 1.10 mg/dL Final 11/01/2025 0.87 0.50 - 1.10 mg/dL Final BUN Date Value Ref Range Status 11/02/2025 14 5 - 25 mg/dL Final 11/01/2025 15 5 - 25 mg/dL Final 11/01/2025 16 5 - 25 mg/dL Final Estimated Creatinine Clearance: 70.7 mL/min (by C-G formula based on SCr of 0.87 mg/dL). No intake/output data recorded. Temp Readings from Last 3 Encounters: 11/02/25 36.6 ??C (97.9 ??F) 11/01/25 36.2 ??C (97.2 ??F) (Temporal) 10/27/25 36.4 ??C (97.5 ??F) (Oral) Assessment/Plan The patient will be started on vancomycin utilizing scheduled dosing based on actual body weight. Will initiate dose at 1500 mg IV every 12 hours. Reported to pharmacy that pt was receiving 1250 mgevery 12 hours at time of discharge from [facility] 10/24/2025 where her last trough was slightly low. Pt did not get all of the one time 2 gram dose charted 11/01/25 2312 due to extravasation documented at 2357. Pharmacy will follow. Due to site and severity of infection, will target a trough of 15-20 ug/mL per secure message with ordering provider. Plan for trough as patient approaches steady state, prior to the 4th dose. TROUGH due: 11/03 @ 1900. Pharmacy will continue to follow the patient???s culture results and clinical progress. Ted Flores, Eleno * Sera Ramsey RN - 11/02/2025 1:31 AM EST ED RN HANDOFF (All Malin Below Must Be Completed) Reason/Diagnosis for Admission: IV team consult s/p picc line thrombus Type of Admission: [x] Medsurg, [] Telemetry Already in a Hospital Bed: [] Yes / [x] No Room Considerations/Precautions (ex: fever, diarrhea, or any infectious concerns): [] Yes / [x] No Methods Analyst: [] Yes / [x] No If YES, Cardiac Rhythm: [] NSR, [] SB, [] ST, [] A-FIB, [] A-Flutter, [] Pacemaker, [] 1st Degree HB, [] 2nd Degree HB, [] 3rd Degree HB Reason for Methods Analyst: O2 []Yes /[]No If YES, how many Liters: VS: Visit Vitals BP 123/74 Pulse 81 Temp 36.6 ??C (97.9 ??F) Resp 18 Ht 1.6 m (63 ) Wt 69.4 kg (153 lb) SpO2 95% BMI 27.10 kg/m?? OB Status Premenopausal Smoking Status Never BSA 1.73 m?? Current Mental Status: A/O x [x]4, []3, []2, []1 IV Access: [x] Yes / [] No Field IV present: [] Yes / [x] No Hx of Violence: [] Yes / [x] No / [] Unknown Current Ambulation Status: independent Fall Risk:[] Yes / [x] No Yellow Bracelet Applied [] Yes / [x] No Yellow Socks Applied [] Yes / [x] No Patient Belongings inventoried and BL completed: [x] Yes / [] No Patient belongings stored in the security closet: [] Yes (If Yes please supply Security bag #): [x] No Patient Medications stored in Pharmacy: [] Yes (If Yes please supply Medication Security bag #): [] No ED Summary of Care: presented for new blood clot to left picc line, after having left picc placed when reported dvt discovered in right picc, tonights clot discovered after imaging at pcp's office earlier yesterday, picc originally placed for osteomyelitis and epidural abscess management. Pt c/o pressure across chest with numbness to bilateral arms and hands. Ultrasound like placed in right upperarm, medicated with toradol and ativan and sent to ct scan without incident. Infilration to right upper arm iv after starting vancomycin. Admitted for iv team consult/picc management and vanco toxicity management, observation of right upper arm iv site. Currently slight redness to proximal site, com pression dressing applied and new iv established in right hand to provide fluids/pain management. * Ambrocio Mario RN - 11/01/2025 1:54 PM EST Recently admitted in [place] for blood clot to [facility]. PICC line moved from right arm to left arm,pt now known blood clot in left arm as well with imaging done at PCPs office today. Denies. SOB. C/o 8/10 heavy pressure that goes across the chest. Denies N/V. Numbness to both arms and hands. * Mariam Dupree MD - 11/01/2025 1:42 PM EST Patient Name: Annabelle Coppola Date and Time of Assessment: 7:10 PM EST 11/01/2025 Patient : 1975 Patient's PMD: Shanice Foss MD Chief Complaint Patient presents with ??? Vascular Access Problem FROM PCP KNOWN CLOT TO LT ARM W/PICC HPI: 50 yo female with PMH presents with left UE PICC line problem. Picc line stopped working today. Sheis being treated for cervical osteomyelitis with vancomycin 2g IV Q12. She is also c/o of chest pressure/pain. Denies any shortness of breath PHYSICAL EXAM: Visit Vitals BP (!) 141/96 (BP Location: Left arm, Patient Position: Lying) Pulse 99 Temp 36.8 ??C (98.2 ??F) (Oral) Resp 18 Ht 1.6 m (63 ) Wt 69.4 kg (153 lb) SpO2 98% BMI 27.10 kg/m?? OB Status Premenopausal Smoking Status Never BSA 1.73 m?? General: calm, cooperative HEENT: NC/AT Cardio: RRR, no MRG Resp: no respiratory distress, lungs CTAB Abd: Soft, non-tender, non-distended Ext: No edema, warm, well perfused Neuro: AAOx3, no focal deficits MEDICAL DECISION MAKING: Patient presents today for vascular access problem Vital signs reviewed On initial evaluation, patient is in nad, calm, well appearing Physical exam notable for mildly elevated heart rate, vascular access site clean, dry intact. Tender. No hematoma. Differential diagnosis: DVT, Superficial vein thrombosis Initial Plan: Based on the patient's presentation today, we will obtain basic labs, US of RUE. Will plan for vascular access placement tomorrow. Social determinants of health considered including housing follow-up social and financial support Please see ED course for my interpretation of lab results and imaging which I independently reviewed. Updates in patient care also noted accordingly. EMERGENCY DEPARTMENT COURSE AND TREATMENT: Available prior records were reviewed. Patient history and allergies reviewed. Nursing note reviewed. The diagnostic results contained in this document reflect the information available to the physician at the time of the patient encounter. Final results, when completed, will be found in the patient's hospital chart. I have discussed the lab results, imaging and any incidental/abnormal imaging and/or lab abnormalities with the patient and have instructed them the need for further evaluation and workup with their primary care doctor. I have provided the patient with a paper copy of their results. Medications - No data to display ED Course as of 11/03/25 0809 TueNov 01, [address] angio chest for CP PICC s/p alteplase, reeval at 10:40pm Has PIV for Vanc [facility] admit vs ED for PIV team, needs Vanc Start Xarelto [EK] 2315 CT Angio Chest wo and/or w Contrast IMPRESSION: No pulmonary emboli. 1.4 cm splenic artery aneurysm at the splenic hilum. [EK] 2318 No evidence of PE on CT angio of the chest. Given recurrent superficial thrombosis, will startXarelto tomorrow morning after PICC line is replaced. Treatment will be 10 mg of Xarelto daily for 45 days. Once PICC is replaced, patient will be able to be discharged on her current antibiotic regimen [EK] 5772 Patient's IV infiltrated as Vancomycin was running. Photo of area is in media tab. Suspect approximately 50 mL of antibiotic have infiltrated into the upper right arm. Patient is in 10 out of 10pain, oral analgesia provided. She then allowed us to put a hand IV in place to receive analgesia and anxiolytics but we will not run vancomycin through this given how damaging the antibiotic is to tissue. Will discuss admission with [facility] for compartment monitoring, pharmacy to dose vancomycin, starting anticoagulation. Discussed with [facility] provider, okay to use current PICC line, no need to replace since we are starting anticoagulation [EK] ED Course User Index [EK] Nila Diaz MD Clinical Impressions as of 11/03/25 0809 Chest pain, unspecified type Splenic artery aneurysm ([facility] V24) Extravasation injury of IV catheter site with other complication, initial encounter ([facility] V24) Procedures CLINICAL IMPRESSION: Final diagnoses: None DISPOSITION: Data Unavailable Mariam Dupree MD 11/01/251923 Mariam Dupree MD 11/01/251958 Mariam Dupree MD 11/03/25 0810 * Nila Diaz MD - 11/01/2025 1:42 PM EST This patient's care was signed out to me by the offgoing provider. Please see her/his note for further details regarding initial presentation, history of present illness, physical exam, and medical decision making. At time of signout, the following was pending: ED Course as of 11/02/25 0132 TueNov 01, 20252200 Signed out pending CT angio chest for CP PICC s/p alteplase, reeval at 10:40pm Has PIV for Vanc [facility] admit vs ED for PIV team, needs Vanc Start Xarelto [EK] 2315 CT Angio Chest wo and/or w Contrast IMPRESSION: No pulmonary emboli. 1.4 cm splenic artery aneurysm at the splenic hilum. [EK] 2318 No evidence of PE on CT angio of the chest. Given recurrent superficial thrombosis, will startXarelto tomorrow morning after PICC line is replaced. Treatment will be 10 mg of Xarelto daily for 45 days. Once PICC is replaced, patient will be able to be discharged on her current antibiotic regimen [EK] 2357 Patient's IV infiltrated as Vancomycin was running. Photo of area is in media tab. Suspect approximately 50 mL of antibiotic have infiltrated into the upper right arm. Patient is in 10 out of 10pain, oral analgesia provided. She then allowed us to put a hand IV in place to receive analgesia and anxiolytics but we will not run vancomycin through this given how damaging the antibiotic is to tissue. Will discuss admission with [facility] for compartment monitoring, pharmacy to dose vancomycin, starting anticoagulation. Discussed with [facility] provider, okay to use current PICC line, no need to replace since we are starting anticoagulation [EK] ED Course User Index [EK] Nila Diaz MD Clinical Impressions as of 11/02/25 0132 Chest pain, unspecified type Splenic artery aneurysm ([facility] V24) Extravasation injury of IV catheter site with other complication, initial encounter ([facility] V24) CT Angio Chest wo and/or w Contrast Final Result No pulmonary emboli. 1.4 cm splenic artery aneurysm at the splenic hilum. This document has been electronically signed by: Xavier Miranda MD on 11/01/2025 23:06:45 XR Chest 2 Views Final Result FINDINGS/IMPRESSION: Normal heart size and pulmonary vascularity. Lungs are clear and costophrenic angles are sharp. No acute osseous abnormality. Cervical fusion hardware. Left upper extremity PICC terminating in upper SVC. -------- FINAL REPORT -------- Dictated By: Danette Pan Dictated Date: 11/01/2025 14:48 ET Assigned Physician: Danette Pan Reviewed and Electronically Signed By: Danette Pan Signed Date: 11/01/2025 14:48 ET Workstation ID: [id number] Transcribed By: Self Edit Transcribed Date: 11/01/2025 14:48 ET Labs Reviewed COMPREHENSIVE METABOLIC PANEL - Abnormal Result Value Sodium 141 Potassium 3.8 Chloride 106 CO2 27 Anion Gap 8 Glucose 125 (*) BUN 15 Creatinine 0.90 eGFR 77 BUN/Creatinine Ratio 16.7 Calcium 9.1 AST (SGOT) 31 ALT (SGPT) 34 Alkaline Phosphatase 127 (*) Total Protein 7.2 Albumin 4.1 Total Bilirubin 0.2 MAGNESIUM - Abnormal Magnesium 1.8 (*) B-TYPE NATRIURETIC PEPTIDE - Abnormal BNP 115 (*) Narrative: Over the counter supplements containing high doses of biotin may interfere with this assay. If interference is suspected, patients shoud be retested after refraining from biotin supplements for 72 hours. CBC WITH AUTO DIFFERENTIAL - Abnormal WBC 5.0 RBC 4.30 Hemoglobin 11.5 Hematocrit 36.7 MCV 86.2 MCH 27.0 MCHC 31.3 (*) RDW 14.6 Platelets 217 MPV 8.7 NRBC 0.0 NRBC Absolute 0.00 Neutrophils Relative 53.2 Lymphocytes Relative 32.6 Monocytes Relative 6.8 Eosinophils Relative 6.0 Basophils Relative 1.0 Immature Granulocytes Relative 0.4 Neutrophils Absolute 2.66 Lymphocytes Absolute 1.63 Monocytes Absolute 0.34 Eosinophils Absolute 0.30 Basophils Absolute 0.05 Immature Granulocytes Absolute 0.02 TROPONIN I HIGH SENSITIVITY - Normal High Sensitivity Troponin I 19 LIPASE - Normal Lipase 24 PROTHROMBIN TIME WITH INR - Normal Protime 11.5 INR 0.9 ACTIVATED PARTIAL THROMBOPLASTIN TIME - Normal aPTT 30.6 CBC AND DIFFERENTIAL Narrative: The following orders were created for panel order CBC and differential. Procedure Abnormality Status --------- ------ CBC auto differential[[id number]] Abnormal Final result Please view results for these tests on the individual orders. Clinical Impression(s): Final diagnoses: [R07.9] Chest pain, unspecified type [I72.8] Splenic artery aneurysm ([facility] V24) [T82.898A] Extravasation injury of IV catheter site with other complication, initial encounter ([facility] V24) Admit to Inpatient Previous Medications ACETAMINOPHEN (TYLENOL) 325 MG TABLET Take 2 tablets (650 mg total) by mouth every 6 (six) hours ifneeded for mild pain for up to 12 days. BUPROPION XL (WELLBUTRIN XL) 300 MG 24 HR TABLET Take 1 tablet (300 mg total) by mouth 1 (one) timeeach day. CARVEDILOL (COREG) 3.125 MG TABLET TAKE 1 TABLET BY MOUTH TWO TIMES A DAY. FURTHER REFILLS PER CARDIOLOGY DAPAGLIFLOZIN PROPANEDIOL (FARXIGA) 10 MG TABLET Take 1 tablet (10 mg total) by mouth 1 (one) time each day. EMGALITY PEN 120 MG/ML INJECTION PEN USE SUBCUTANEOUSLY MONTHLY DIRECTED ENTRESTO 24-26 MG PER TABLET Take 1 tablet by mouth 2 (two) times a day. FUROSEMIDE (LASIX) 20 MG TABLET Take 1 tablet (20 mg total) by mouth 1 (one) time each day. As needed for edema GABAPENTIN (NEURONTIN) 100 MG CAPSULE Take 1 capsule (100 mg total) by mouth every 8 (eight) hours. HEPARIN SODIUM,BOVINE (HEPARIN, BOVINE, INJ) Inject 5 mL as directed 1 (one) time each day. LIDOCAINE (LIDODERM) 5 % PATCH USE 1 PATCH TOPICALLY ONCE DAILY. REMOVE AND DISCARD PATCH WITHIN 12HOURS. MECLIZINE (ANTIVERT) 25 MG TABLET Take 1 Tablet by mouth 3 times daily as needed (dizziness). NALOXONE (NARCAN) 4 MG/0.1 ML NASAL SPRAY Administer 1 each (4 mg total) into affected nostril(s) if needed for opioid reversal. Give 4 mg (1 spray) into one nostril. May repeat every 2-3 minutes if needed, alternating nostrils, until medical assistance becomes available. NALTREXONE (DEPADE) 50 MG TABLET Take 0.5 tablets (25 mg total) by mouth 1 (one) time each day. SPIRONOLACTONE (ALDACTONE) 25 MG TABLET TAKE 1 TABLET BY MOUTH EVERY DAY. FURTHER REFILLS PER CARDIOLOGY VANCOMYCIN (VANCOCIN) 10 GRAM RECON SOLN ZOLPIDEM (AMBIEN) 10 MG TABLET Take 1 tablet (10 mg total) by mouth at bedtime as needed. Max Daily Amount: 10 mg ED Medication Administration from 11/01/2025 1342 to 11/02/2025 0132 Date/Time Order Dose Route Action Action by 11/01/20252121 EST alteplase (CATHFLO ACTIVASE) injection 1 mg 1 mg intra- catheter Given Victoriano Ramsey 11/01/2025 2312 EST vancomycin (VANCOCIN) IVPB 2,000 mg in 0.9 % sodium chloride 500 mL - CNR 2 g intravenous New Bag Roxy 11/02/2025 0002 EST vancomycin (VANCOCIN) IVPB 2,000 mg in 0.9 % sodium chloride 500 mL - CNR 0 g intravenous Stopped Roxy 11/01/20252208 EST LORazepam (ATIVAN) injection 1 mg 1 mg intravenous Given Roxy 11/01/20252208 EST ketorolac (TORADOL) injection 15 mg 15 mg intravenous Given Roxy 11/01/2025 2228 EST sodium chloride 0.9 % flush 10 mL 10 mL intravenous Given Meri, E 11/01/2025 2228 EST iopamidoL (ISOVUE-370) 370 mg iodine /mL (76 %) injection 100 mL 90 mL intravenous Given Meri, E 11/02/2025 0020 EST oxyCODONE (ROXICODONE) immediate release tablet 10 mg 10 mg oral Given Victoriano Ramsey 11/02/2025 0115 EST rivaroxaban (XARELTO) tablet 10 mg -- oral Canceled Entry Victoriano Ramsey MD 11/01/25 2319 Nila Diaz MD 11/02/25 0035 Nila Diaz MD 11/02/25 0132 documented in this encounter H&P Notes * Wilder Warren MD - 11/02/2025 1:23 AM EST Images from the original note were not included. [facility] HISTORY AND PHYSICAL Please contact author [Wilder Warren MD] via [email or web address]. Patient: Annabelle Coppola Admission Date/Time: 11/01/2025 5:50 PM : 1975 [50 y.o.] Patient's PCP: Shanice Foss MD Attending Provider: Wilder Warren MD CHIEF COMPLAINT Pain and swelling in left arm HISTORY OF PRESENT ILLNESS Ms. Coppola is a 50 year-old female with history of C5-C7 spinal epidural abscess and vertebral osteomyelitis/discitis at site of C5-C7 cervical fusion in 2007, heart failure with recovered ejection fraction LVED 55-60%, postural orthostatic tachycardia syndrome, splenic artery aneurysm, hypertension, and migraine headaches who presents to the [facility] Emergency Department with right upper extremity pain and swelling. The patient was initially admitted to [facility] from 10/16/2025-10/24/2025 when she was found to have an epidural abscess and vertebral osteomyelitis of thecervical spine. The patient has chronic upper back pain and had undergone a C5-C7 anterior cervicalfusion in 2007. In the weeks leading up to her hospitalization she was having increasing severe back pain and leg weaknessly. Outpatient MRI was ordered where the infection was discovered. She was admitted to the hospital. A bone biopsy was done, but neither it nor her blood cultures grew any pathogens. She was treated with ceftriaxone and vancomycin in the hospital and discharged to complete a 6- week course of ceftriaxone and vancomycin with end of treatment on 11/26/2026. Once the antibiotic course has been completed and infection cleared, the tentative plan is for cervical hardware removal and cervical spine instrumentation. Since discharge from the hospital the patient has had complications with her vascular access. She presented to the Emergency Department on 10/26/2025 complaining of fluid leaking at the insertion siteof the PICC line placed on 10/23/2025. An ultrasound was performed that demonstrated a partially occlusive superficial venous thrombosis in the right basilic and cephalic veins. The PICC line was removed and a new line was placed in the left arm. On 10/31/2025, the patient's vancomycin trough was found to be 28.2 mcg/mL. She was instructed to hold her vancomycin until the trough was below 20 mcg/mL. The patient was seen in her primary care provider's office. She complained of severe pain at the insertion site from her PICC line. No swelling, redness, or warmth was noted. An ultrasound was performed in the office that revealed a thrombus in the left cephalic, brachial, and basilic veins. She was referred back to the Emergency Departmentfor treatment. Vital signs were unremarkable. The patient was afebrile. Laboratories were personally reviewed. CBCwas normal. Chemistries were unremarkable except for mild hypomagnesemia. Troponin was normal at 19ng/L. BNP was slightly elevated 115 pg/mL. CRP and ESR from earlier in the day were low at 0.57 mg/dL and 22 mm/h, respectively. Random vancomycin trough was low at 10.3 mcg/mL. Chest x-ray was personally reviewed and showed no evidence of acute cardiopulmonary disease. Left upper extremity PICC line terminates in the upper SVC. CT angiogram of the chest was personally reviewed and was negative for pulmonary embolism, pneumonia, or effusions. ECG was personally reviewed and showed normal sinus r hythm with nonspecific ST abnormalities and a prolonged QT interval. The patient's PICC was providing some resistance on flushing and did not try back initially. Alteplase was administered and after a 30-minute dwell, the PICC was working normally. In the interim, a peripheral IV had been placed inthe right upper extremity. Vancomycin was administered; however, the IV infiltrated after approximately 45 minutes of the infusion. Approximately 50 mL was estimated to have been injected extravascularly. After consultation with pharmacy, treatment of dry heat and compression was recommended. The patient was administered rivaroxaban 10 mg x 1, lorazepam, and oxycodone. The Hospitalist service was consulted for admission. On evaluation, the patient is somnolent but arousable. She endorses discomfort around the insertionsite of her PICC as well as pain in her right bicep. She reports ongoing pain in her neck. She alsoreports having ongoing lower extremity weakness. She does not use any assistive devices for ambulation relying on furniture and the andersen in her home to assist her with balance. She has had no feversbut reports decreased appetite. She is unaware of whether she has lost any significant weight. She is feeling rather depressed about the current state of her health. Functional status prior to presentation: Independent Review of Systems Constitutional - Denies fevers or chills. Denies unintended weight loss or gain. HEENT - Denies headache, vision changes, tinnitus, hearing loss, vocal hoarseness Respiratory - Denies shortness of breath, cough, wheezing, pleurisy Cardiovascular - Denies chest pain, palpitations, orthopnea, paroxysmal nocturnal dyspnea, lower extremity edema Gastrointestinal - Reports decreased appetite. Denies nausea, vomiting, diarrhea, abdominal pain, melena, hematochezia - Denies dysuria, hematuria, incontinence Musculoskeletal - Reports chronic cervicalgia. Denies myalgias, arthralgias, joint stiffness Skin - Denies rashes or lesions Neurological - Reports bilateral lower extremity weakness and paresthesia Endocrine - Denies polydipsia, polyuria, heat or cold intolerance Hematological - Denies easy bruising or history of bleeding diathesis MEDICAL HISTORY Past Medical History Past Medical History: Diagnosis Date Acute respiratory failure with hypoxia ([facility] V24, [facility] V28) 11/20/2024 Anxiety 09/11/2010 DX:Anxiety Bradycardia 09/14/2010 DX:Bradycardia Cardiomyopathy (CMS/HCC V24, CMS/HCC V28) 09/14/2010 DX:Cardiomyopathy (HCC) Cervicalgia 10/10/2015 DX:Cervicalgia Chronic low back pain 10/10/2015 DX:Chronic low back pain Dysmenorrhea 06/14/2013 DX:Dysmenorrhea Excessive or frequent menstruation 06/14/2013 DX:Excessive or frequent menstruation FH: migraines DX:FH: migraines HTN (hypertension) 04/02/2011 DX:HTN (hypertension) Migraines DX:Migraines POTS (postural orthostatic tachycardia syndrome) 10/09/2013 DX:POTS (postural orthostatic tachycardia syndrome); COMMENT: Previously dx with this by Arturo Maya - no longer taking ,no symptoms. ILR no arrhythmia Sebaceous cyst DX:Sebaceous cyst Vitamin D deficiency 07/02/2011 DX:Vitamin D deficiency Past Surgical History Past Surgical History: Procedure Laterality Date BREAST BIOPSY Right 12/2015 PROCEDURE: BX BREAST; PERC NEEDLE CORE W/IMAG GUID; COMMENT: benign ENDOMETRIAL ABLATION 2009 PROCEDURE: AZ ENDOMETRIAL ABLTJ THERMAL W/O HYSTEROSCOPIC GUID EYE SURGERY Bilateral 2017 PROCEDURE: AZ TRABECULOPLASTY BY LASER SURGERY; COMMENT: Dr. Marylou Key HYSTERECTOMY 09/12/2013 PROCEDURE: HISTORICAL VAGINAL HYSTERECTOMY W/O BSO; COMMENT: da Raisa total hysterectomy performed by Dr. Marks NECK SURGERY 07/01/2008 PROCEDURE: HISTORICAL NECK SURGERY; COMMENT: decompression and fusion C5-6, C6-7 OTHER SURGICAL HISTORY PROCEDURE: AZ DILATION & CURETTAGE DX&/THER NONOBSTETRIC OTHER SURGICAL HISTORY 09/12/2013 PROCEDURE: INSERT URETERAL CATHETER/STENT; COMMENT: urgently done during hysterectomy OTHER SURGICAL HISTORY PROCEDURE: ---- OTHER ----; COMMENT: sebaceous cyst back WISDOM TOOTH EXTRACTION PROCEDURE: HISTORICAL WISDOM TEETH EXTRACTION Social History The patient reports that she has never smoked. She has never used smokeless tobacco. She reports that she does not currently use alcohol. She reports that she does not use drugs. Family History The patient's family history includes ALS in her father; Bladder Cancer in her mother; Diabetes in her father and paternal grandmother; Lung cancer in her paternal grandfather; No Known Problems in her brother, brother, daughter, sister, and son; Other: Autism in her son. Allergies The patient has no known allergies. Home Medications Medications Ordered Prior to Encounter[1] OBJECTIVE Vitals Visit Vitals BP 123/74 Pulse 81 Temp 36.6 ??C (97.9 ??F) Resp 18 Temp (24hrs), Av.5 ??C (97.7 ??F), Min:36.2 ??C (97.2 ??F), Max:36.8 ??C (98.2 ??F) Body mass index is 27.1 kg/m??. No results found for: PTWT , PTHT Physical Examination General: Somnolent but easily arousable, talking in complete sentences, in no acute distress HEENT: Normocephalic, atraumatic. Pupils equal, round, reactive to light. Extra- ocular muscles intact. Sclera anicteric without injection. Conjunctivae pink, moist. Oropharyngeal exam deferred. Neck: Supple. No cervical and supraclavicular lymphadenopathy. No thyromegaly. Chest: Lungs clear to auscultation bilaterally. No wheezes, rales, or rhonchi. Normal excursion. Cardiovascular: Regular, rate, and rhythm. No murmurs, rubs, or gallops. JVP is 7 cm. No bruits. 2+distal pulses. Abdomen: Soft, non-tender, non-distended. Normoactive bowel sounds. No hepatosplenomegaly. No masses. Skin: No rashes or lesions. Extremities: Warm, well perfused. Mild edema of left upper extremity proximal to the PICC insertionsite. Right lower bicep is currently wrapped in a compression bandage. Both limbs are distally neurovascularly intact less than 2-second capillary refill. Neuro: Alert and oriented x3. Cranial nerves II-XII grossly intact. 5/5 strength upper bilaterally.3/5 hip flexion on right, 3+/5 hip flexion on left. 4/5 dorsiflexion plantarflexion bilaterally. Sensation grossly intact. ECG: Was ECG Performed? Yes . Sinus Rhythm? Yes. Signs of acute ischemia? No Further Interpretation: Normal sinus rhythm LAB RESULTS (most recent) HEMATOLOGY Lab Results Component Value Date WBC 5.0 11/01/2025 HGB 11.5 11/01/2025 HCT 36.7 11/01/2025 MCV 86.2 11/01/2025 PLT 217 11/01/2025 CHEMISTRY Lab Results Component Value Date GLUCOSE 125 (H) 11/01/2025 NA 141 11/01/2025 K 3.8 11/01/2025 CO2 27 11/01/2025 CL 106 11/01/2025 BUN 15 11/01/2025 CREATININE 0.90 11/01/2025 EGFR 77 11/01/2025 CALCIUM 9.1 11/01/2025 MG 1.8 (L) 11/01/2025 PHOS 3.4 10/17/2025 ANIONGAP 8 11/01/[address] Angio Chest wo and/or w Contrast Final Result No pulmonary emboli. 1.4 cm splenic artery aneurysm at the splenic hilum. This document has been electronically signed by: Xavier Miranda MD on 11/01/2025 23:06:45 XR Chest 2 Views Final Result FINDINGS/IMPRESSION: Normal heart size and pulmonary vascularity. Lungs are clear and costophrenic angles are sharp. No acute osseous abnormality. Cervical fusion hardware. Left upper extremity PICC terminating in upper SVC. 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 PICC associated nonocclusive superficial and deep thrombosis of the left upper extremity- After discussion with the ER provider, the patient will be placed in observation. The patient reported pain and swelling in her left arm after having a PICC placed. Previously, she had developed superficial thrombosis in the right arm due to her PICC line. The patient has nonocclusive thrombi in the basilic and cephalic veins as well as extension into the brachial vein, part of the deep venous system. We will treat the patient with rivaroxaban 15 mg twice daily for 21 days followed by 20 days thereafter. As the clots are nonocclusive and the patient has had a recent PICC placement on the opposite arm and now extravasation into the tissues of the upper arm, the current PICC line may remain in place while we treat the patient with anticoagulation. Once treatment is complete, the patient will require 3 months anticoagulation after catheter removal. The patient has been taking naltrexone and bupropion for weight loss. We will hold the naltrexone so that the patient may receive opioid medications for pain. Spinal epidural abscess and vertebral osteomyelitis/discitis- Patient will continue ceftriaxone 2 g IV daily through 11/26/2026. I have consulted pharmacy regarding vancomycin dosing. We will check another random vancomycin level and go forward with resuming her vancomycin in the morning with end of treatment on 11/26/2026. She will continue follow-up with Dr. Richard and infectious diseases clinic. Vancomycin extravasation- The patient will have heat packs for comfort and observation of upper arm for evidence of tissue necrosis. Heart failure with recovered ejection fraction- The patient's most recent echocardiogram from 3024 was essentially normal, showing resolution of the patient's reduced ejection fraction. Her heart failure medications of carvedilol, Entresto, Farxiga, and spironolactone are currently on hold. She does not appear to be volume overloaded. Prolonged QTc- We will attempt to optimize the patient's electrolytes with her potassium and magnesium above 4 mmol/L and 2 mg/dL, respectively. Avoid QTc prolonging medications. Prophylaxis- The patient is fully anticoagulated and does not need DVT prophylaxis. CODE STATUS- FULL CODE. The patient's son, Jensen Shah [phone], is her medical decision-maker in the event she is unable to make decisions for herself. Over 70 minutes were spent in the initial evaluation and coordination of care for this patient. [1] No current facility-administered medications on file prior to encounter. Current Outpatient Medications on File Prior to Encounter Medication Sig Dispense Refill acetaminophen (TYLENOL) 325 mg tablet Take 2 tablets (650 mg total) by mouth every 6 (six) hours ifneeded for mild pain for up to 12 days. 90 tablet 0 buPROPion XL (WELLBUTRIN XL) 300 mg 24 hr tablet Take 1 tablet (300 mg total) by mouth 1 (one) timeeach day. 30 each 5 [Paused] carvediloL (COREG) 3.125 mg tablet TAKE 1 TABLET BY MOUTH TWO TIMES A DAY. FURTHER REFILLS PER CARDIOLOGY [Paused] dapagliflozin propanediol (Farxiga) 10 mg tablet Take 1 tablet (10 mg total) by mouth 1 (one) time each day. Emgality Pen 120 mg/mL injection pen USE SUBCUTANEOUSLY MONTHLY DIRECTED [Paused] Entresto 24-26 mg per tablet Take 1 [...] as directed 1 (one) time each day. [] HYDROcodone-acetaminophen (NORCO) 5-325 mg per tablet Take 1 tablet by mouth every 6 (six) hours if needed for severe pain for up to 3 days. Max Daily Amount: 4 tablets 12 tablet 0 lidocaine (LIDODERM) 5 % patch [...] medical assistance becomes available. 2 each 0 [Paused] naltrexone (DEPADE) 50 mg tablet Take 0.5 tablets (25 mg total) by mouth 1 (one) time eachday. 15 each 5 [Paused] spironolactone (ALDACTONE) 25 mg tablet TAKE 1 TABLET BY MOUTH EVERY DAY. FURTHER REFILLS PER CARDIOLOGY vancomycin (VANCOCIN) 10 gram recon soln zolpidem (AMBIEN) 10 mg tablet Take 1 tablet (10 mg total) by mouth at bedtime as needed. Max DailyAmount: 10 mg [DISCONTINUED] fluconazole (DIFLUCAN) 150 mg tablet TAKE 2 TABLETS BY MOUTH ONCE DAILY FOR 1 DAY [DISCONTINUED] ibuprofen (ADVIL,MOTRIN) 400 mg tablet Take 1 tablet (400 mg total) by mouth every 6(six) hours if needed for mild pain for up to 7 days. 28 tablet 0 [DISCONTINUED] oxyCODONE (ROXICODONE) 10 mg immediate release tablet Take 1 tablet (10 mg total) bymouth every 4 (four) hours if needed for moderate pain. Max Daily Amount: 60 mg 15 tablet 0 documented in this encounter Plan of Treatment Upcoming Encounters Date Type Department Care Team (Late st Contact Info) Description 11/05/2025 10:30 AM EST Office Visit Adult Medicine [facility] [address] [place], [place] [phone] Srinath Nolan MD [address] [place], [place] 11/26/2025 10:00 AM EST Office Visit Infectious Disease [facility] [address] [place] [phone] Olivier Casillas MD [address] [place] [address] [phone] 12/12/2025 9:15 AM EST Office Visit Bariatric Surgery - [address] [phone] Alexander Silva MD [address] [place] [phone] 12/17/2025 8:00 AM EST Office Visit Neurosurgery - [place] [address] Suite [facility] [place] [phone] Brain Griffin MD [address] [place] [address] [place] [address] [phone] 01/03/2026 12:30 PM EST Telemedicine Bariatric Surgery [address] [place] [address] Nevaeh Cunha, RD [address] [facility] [place] [address] [place] [phone] 05/28/2026 9:30 AM EDT Office Visit Vascular Surgery - [place] [address] [place] [address] Veronika Lamb MD [address] [place] [phone] Scheduled Referrals Name Type Priority Associated Diagnoses Order Schedule Ambulatory referral to Home Health Outpatient Referral Routine Acute on chronic systolic heart failure (CMS/HCC V24, CMS/HCC V28) Expected: 11/03/2025, Expires: 01/04/2026 documented as of this encounter Procedures Procedure Name Priority Date/Time Associated Diagnosis Comments ECG ANNOTATED 11/04/2025 CBC WITH AUTO DIFFERENTIAL Routine 11/02/2025 4:51 AM EST CBC AND DIFFERENTIAL Routine 11/02/2025 4:51 AM EST MAGNESIUM Routine 11/02/2025 4:51 AM EST VANCOMYCIN, RANDOM STAT 11/02/2025 4: 51 AM EST BASIC METABOLIC PANEL Routine 11/02/2025 4:51 AM EST ACTIVATED PARTIAL THROMBOPLASTIN TIME STAT 11/01/2025 11:25 PM EST PROTHROMBIN TIME WITH INR STAT 11/01/2025 11:[address] ANGIO CHEST WO AND/OR W CONTRAST STAT 11/01/2025 10:31 PM EST Chest pain, unspecified type XR CHEST 2 VIEWS STAT 11/01/2025 2:29 PM EST TROPONIN I HIGH SENSITIVITY Timed 11/01/2025 2:08 PM EST CBC WITH AUTO DIFFERENTIAL STAT 11/01/2025 2:08 PM EST CBC AND DIFFERENTIAL STAT 11/01/2025 2:08 PM EST B-TYPE NATRIURETIC PEPTIDE STAT 11/01/2025 2:08 PM EST MAGNESIUM STAT 11/01/2025 2:08 PM EST LIPASE STAT 11/01/2025 2:08 PM EST COMPREHENSIVE METABOLIC PANEL STAT 11/01/2025 2:08 PM EST ECG 12-LEAD STAT 11/01/2025 2:03 PM EST documented in this encounter Results * ECG-Annotated (11/04/2025) us Provider Onbase ECG ORDERABLES Final Result * Vancomycin random (11/02/2025 4:51 AM EST) Pathologist [facility] Vancomycin Rm 11.9 mcg/mL 11/02/2025 5:37 AM EST [facility] Blood Venous blood specimen / Unknown Venipuncture / Unknown 11/02/2025 4:51 AM EST 11/02/2025 5:05 AM EST Wilder Warren MD LAB BLOOD ORDERABLES Final Result [facility] [address] [place] [address], [place] [phone] * (ABNORMAL) CBC auto differential (11/02/2025 4:51 AM EST) Pathologist [facility] WBC 6.1 4.8 - 10.8 K/[facility] LAB HEMETOLOGY METHOD 11/02/2025 5:19 AM EST [facility] RBC 4.00 3.80 - 4.80 M/mcL LAB HEMETOLOGY METHOD 11/02/2025 5:19 AM [facility] Hemoglobin 10.9(L) 11.5 - 16.0 g/dL LAB HEMETOLOGY METHOD 11/02/2025 5:19 AM [facility] Hematocrit 34.1(L) 35.0 - 47.0 % LAB HEMETOLOGY METHOD 11/02/2025 5:19 AM [facility] MCV 85.0 79.0 - 98.0 FL LAB HEMETOLOGY METHOD 11/02/2025 5:19 AM [facility] MCH 27.2 27.0 - 32.0 pcg LAB HEMETOLOGY METHOD 11/02/2025 5:19 AM [facility] MCHC 32.0 32.0 - 37.0 g/dL LAB HEMETOLOGY METHOD 11/02/2025 5:19 AM [facility] RDW 14.6 11.0 - 15.0 % LAB HEMETOLOGY METHOD 11/02/2025 5:19 AM [facility] Platelets 216 130 - 400 K/mcL LAB HEMETOLOGY METHOD 11/02/2025 5:19 AM [facility] MPV 8.5 7.0 - 11.0 FL LAB HEMETOLOGY METHOD 11/02/2025 5:19 AM [facility] NRBC 0.0 <1.0 % LAB HEMETOLOGY METHOD 11/02/2025 5:19 AM [facility] NRBC Absolute 0.00 <0.10 K/mcL LAB HEMETOLOGY METHOD 11/02/2025 5:19 AM [facility] Neutrophils Relative 51.7 % LAB HEMETOLOGY METHOD 11/02/2025 5:19 AM [facility] Lymphocytes Relative 34.9 % LAB HEMETOLOGY METHOD 11/02/2025 5:19 AM EST [facility] Monocytes Relative 6.9 % LAB HEMETOLOGY METHOD 11/02/2025 5:19 AM [facility] Eosinophils Relative 5.3 % LAB HEMETOLOGY METHOD 11/02/2025 5:19 AM [facility] Basophils Relative 1.0 % LAB HEMETOLOGY METHOD 11/02/2025 5:19 AM [facility] Immature Granulocytes Relative 0.2 % LAB HEMETOLOGY METHOD 11/02/2025 5:19 AM [facility] Neutrophils Absolute 3.13 1.50 - 7.00 K/mcL LAB HEMETOLOGY METHOD 11/02/2025 5:19 AM [facility] Lymphocytes Absolute 2.11 1.00 - 5.00 K/mcL LAB HEMETOLOGY METHOD 11/02/2025 5:19 AM [facility] Monocytes Absolute 0.42 0.20 - 1.00 K/mcL LAB HEMETOLOGY METHOD 11/02/2025 5:19 AM [facility] Eosinophils Absolute 0.32 0.00 - 0.50 K/mcL LAB HEMETOLOGY METHOD 11/02/2025 5:19 AM [facility] Basophils Absolute 0.06 0.00 - 0.20 K/mcL LAB HEMETOLOGY METHOD 11/02/2025 5:19 AM [facility] Immature Granulocytes Absolute 0.01 0.00 - 0.03 K/mcL LAB HEMETOLOGY METHOD 11/02/2025 5:19 AM [facility] Blood Venous blood specimen / Unknown Venipuncture / Unknown 11/02/2025 4:51 AM EST 11/02/2025 5:05 AM EST us Wilder Warren MD LAB BLOOD ORDERABLES Final Result [facility] [address] [place] [address], [place] [phone] * (ABNORMAL) Magnesium (11/02/2025 4:51 AM EST) [facility] Magnesium 1.8(L) 1.9 - 2.6 mg/dL 11/02/2025 5:36 AM EST [facility] Blood Venous blood specimen / Unknown Venipuncture / Unknown 11/02/2025 4:51 AM EST 11/02/2025 5:05 AM EST us Wilder Warren MD LAB BLOOD ORDERABLES Final Result [facility] [address] [place] [address], [place] [phone] * Basic metabolic panel (11/02/2025 4:51 AM EST) [facility] Sodium 140 133 - 145 mmol/L 11/02/2025 5:36 AM [facility] Potassium 4.1 3.5 - 5.5 mmol/L 11/02/2025 5:36 AM [facility] Chloride 104 96 - 110 mmol/L 11/02/2025 5:36 AM [facility] CO2 27 21 - 32 mmol/L 11/02/2025 5:36 AM [facility] Anion Gap 9 3 - 11 11/02/2025 5:36 AM [facility] Glucose 82 70 - 100 mg/dL 11/02/2025 5:36 AM [facility] BUN 14 5 - 25 mg/dL 11/02/2025 5:36 AM [facility] Creatinine 0.87 0.50 - 1.10 mg/dL 11/02/2025 5:36 AM [facility] eGFR 80 >=60 mL/min/1. 73m2 11/02/2025 5:36 AM EST [facility] Comment:Calculation based on the Chronic Kidney Disease Epidemiology Collaboration (CKD-EPI) equation refit without adjustment for race. BUN/Creatinine Ratio 16.1 11/02/2025 5:36 AM [facility] Calcium 8.5 8.5 - 10.5 mg/dL 11/02/2025 5:36 AM [facility] Blood Venous blood specimen / Unknown Venipuncture / Unknown 11/02/2025 4:51 AM EST 11/02/2025 5:05 AM EST Wilder Warren MD LAB BLOOD ORDERABLES Final Result Performing Organization Address [facility]/ZIP Co de Phone Number [facility] [address] [place] [address], [place] [phone] * Activated Partial Thromboplastin Time - STAT (11/01/2025 11:25 PM EST) aPTT 30.6 24.1 - 39.3 sec LAB COAGULATION METHOD 11/01/2025 11:51 PM [facility] Blood Venous blood specimen / Unknown Venipuncture / Unknown 11/01/2025 11:25 PM EST 11/01/2025 11:39 PM EST Nila Diaz MD LAB BLOOD ORDERABLES Final Res ult [facility] [address] [place] [address], [place] [phone] * Prothrombin Time with INR - STAT (11/01/2025 11:25 PM EST) Protime 11.5 10.6 - 13.9 sec LAB COAGULATION METHOD 11/01/2025 11:51 PM EST [facility] INR 0.9 LAB COAGULATION METHOD 11/01/2025 11:51 PM EST [facility] Blood Venous blood specimen / Unknown Venipuncture / Unknown 11/01/2025 11:25 PM EST 11/01/2025 11:39 PM EST us Nila Diaz MD LAB BLOOD ORDERABLES Final Res ult [facility] [address] [place] [address], * CT Angio Chest wo and/or w Contrast (11/01/2025 10:31 PM EST) Anatomical Region Laterality Modality Body Computed Tomogra phy 11/01/2025 11:0 6 PM EST Impressions 11/01/2025 11:06 PM EST No pulmonary emboli. 1.4 cm splenic artery aneurysm at the splenic hilum. This document has been electronically signed by: Xavier Miranda MD on 11/01/2025 23:06:45 Narrative 11/01/2025 11:06 PM EST INDICATION: chest pain, RUE DVT CT angiography chest with contrast. 3D Postprocessing. Comparison: DX/SR - XR CHEST 2 VW - 11/01/25 13:18 EST Findings: The heart is normal size. RV/LV ratio is normal. Unremarkable thoracic aorta and great vessels. No aneurysm. No acute pulmonary embolus. The visualized thyroid and mediastinum are unremarkable. The lungs are clear. 1.4 x 1.1 x 1.4 cm splenic artery aneurysm at the splenic hilum ( series 2, image 374 and series 601, image 49). Partially visualized anterior cervical discectomy and fusion hardware. No acute fractures. Procedure Note Xavier Miranda MD - 11/01/2025 INDICATION: chest pain, RUE DVT CT angiography chest with contrast. 3D Postprocessing. Comparison: DX/SR - XR CHEST 2 VW - 11/01/25 13:18 EST Findings: The heart is normal size. RV/LV ratio is normal. Unremarkable thoracic aorta and great vessels. No aneurysm. No acute pulmonary embolus. The visualized thyroid and mediastinum are unremarkable. The lungs are clear. 1.4 x 1.1 x 1.4 cm splenic artery aneurysm at the splenic hilum ( series 2, image 374 and series 601, image 49). Partially visualized anterior cervical discectomy and fusion hardware.No acute fractures. IMPRESSION: No pulmonary emboli. 1.4 cm splenic artery aneurysm at the splenic hilum. This document has been electronically signed by: Xavier Miranda MD on 11/01/2025 23:06:45 Mariam Dupree MD IMG CT PROCEDURES Final Result * XR Chest 2 Views (11/01/2025 2:29 PM EST) Anatomical Region Laterality Modality Body Radiographic Yanelis ging 11/01/2025 2:48 PM EST Impressions 11/01/2025 2:48 PM EST FINDINGS/IMPRESSION: Normal heart size and pulmonary vascularity. Lungs are clear and costophrenic angles are sharp. No acute osseous abnormality. Cervical fusion hardware. Left upper extremity PICC terminating in upper SVC. -------- FINAL REPORT -------- Dictated By: Danette Pan Dictated Date: 11/01/2025 14:48 ET Assigned Physician: Danette Pan Reviewed and Electronically Signed By: Danette Pan Signed Date: 11/01/2025 14:48 ET Workstation ID: [id number] Transcribed By: Self Edit Transcribed Date: 11/01/2025 14:48 ET Narrative 11/01/2025 2:48 PM EST XR CHEST 2 VIEWS INDICATION: chest pain TECHNIQUE: XR CHEST 2 VIEWS COMPARISON: None Procedure Note Danette Pan MD - 11/01/2025 XR CHEST 2 VIEWS INDICATION: chest pain TECHNIQUE: XR CHEST 2 VIEWS COMPARISON: None IMPRESSION: FINDINGS/IMPRESSION: Normal heart size and pulmonary vascularity. Lungsare clear and costophrenic angles are sharp. No acute osseousabnormality. Cervical fusion hardware. Left upper extremity PICCterminating in upper SVC. -------- FINAL REPORT -------- Dictated By: Danette Pan Dictated Date: 11/01/2025 14:48 ET Assigned Physician: Danette Pan Reviewed and Electronically Signed By: Danette Pan Signed Date: 11/01/2025 14:48 ET Workstation ID: [id number] Transcribed By: Self Edit Transcribed Date: 11/01/2025 14:48 ET us Mariam Dupree MD IMG XR PROCEDURES Final Result * (ABNORMAL) CBC auto differential (11/01/2025 2:08 PM EST) WBC 5.0 4.8 - 10.8 K/mcL LAB HEMETOLOGY METHOD 11/01/2025 2:30 PM EST [facility] RBC 4.30 3.80 - 4.80 M/mcL LAB HEMETOLOGY METHOD 11/01/2025 2:30 PM [facility] Hemoglobin 11.5 11.5 - 16.0 g/dL LAB HEMETOLOGY METHOD 11/01/2025 2:30 PM [facility] Hematocrit 36.7 35.0 - 47.0 % LAB HEMETOLOGY METHOD 11/01/2025 2:30 PM EST [facility] MCV 86.2 79.0 - 98.0 FL LAB HEMETOLOGY METHOD 11/01/2025 2:30 PM [facility] MCH 27.0 27.0 - 32.0 pcg LAB HEMETOLOGY METHOD 11/01/2025 2:30 PM [facility] MCHC 31.3(L) 32.0 - 37.0 g/dL LAB HEMETOLOGY METHOD 11/01/2025 2:30 PM [facility] RDW 14.6 11.0 - 15.0 % LAB HEMETOLOGY METHOD 11/01/2025 2:30 PM [facility] Platelets 217 130 - 400 K/mcL LAB HEMETOLOGY METHOD 11/01/2025 2:30 PM [facility] MPV 8.7 7.0 - 11.0 FL LAB HEMETOLOGY METHOD 11/01/2025 2:30 PM [facility] NRBC 0.0 <1.0 % LAB HEMETOLOGY METHOD 11/01/2025 2:30 PM [facility] NRBC Absolute 0.00 <0.10 K/mcL LAB HEMETOLOGY METHOD 11/01/2025 2:30 PM [facility] Neutrophils Relative 53.2 % LAB HEMETOLOGY METHOD 11/01/2025 2:30 PM [facility] Lymphocytes Relative 32.6 % LAB HEMETOLOGY METHOD 11/01/2025 2:30 PM [facility] Monocytes Relative 6.8 % LAB HEMETOLOGY METHOD 11/01/2025 2:30 PM [facility] Eosinophils Relative 6.0 % LAB HEMETOLOGY METHOD 11/01/2025 2:30 PM [facility] Basophils Relative 1.0 % LAB HEMETOLOGY METHOD 11/01/2025 2:30 PM [facility] Immature Granulocytes Relative 0.4 % LAB HEMETOLOGY METHOD 11/01/2025 2:30 PM [facility] Neutrophils Absolute 2.66 1.50 - 7.00 K/mcL LAB HEMETOLOGY METHOD 11/01/2025 2:30 PM [facility] Lymphocytes Absolute 1.63 1.00 - 5.00 K/mcL LAB HEMETOLOGY METHOD 11/01/2025 2:30 PM [facility] Monocytes Absolute 0.34 0.20 - 1.00 K/mcL LAB HEMETOLOGY METHOD 11/01/2025 2:30 PM [facility] Eosinophils Absolute 0.30 0.00 - 0.50 K/mcL LAB HEMETOLOGY METHOD 11/01/2025 2:30 PM [facility] Basophils Absolute 0.05 0.00 - 0.20 K/mcL LAB HEMETOLOGY METHOD 11/01/2025 2:30 PM EST [facility] Immature Granulocytes Absolute 0.02 0.00 - 0.03 K/mcL LAB HEMETOLOGY METHOD 11/01/2025 2:30 PM EST [facility] Blood Venous blood specimen / Unknown Venipuncture / Unknown 11/01/2025 2:08 PM EST 11/01/2025 2:20 PM EST us Mraiam Dupree MD LAB BLOOD ORDERABLES Final Res ult [facility] [address] [place] [address], [place] [phone] * Troponin I high sensitivity (11/01/2025 2:08 PM EST) High Sensitivity Troponin I 19 <=34 ng/L 11/01/2025 3:07 PM EST [facility] Blood Venous blood specimen / Unknown Venipuncture / Unknown 11/01/2025 2:08 PM EST 11/01/2025 2:20 PM EST us Mariam Dupree MD LAB BLOOD ORDERABLES Final Res ult Performing Organization Address City/[facility]/ZIP Co de Phone Number [facility] [address] [place] [address], [place] [phone] * (ABNORMAL) B-type natriuretic peptide (11/01/2025 2:08 PM EST) BNP 115(H) <=100 pcg/mL 11/01/2025 3:06 PM EST [facility] Blood Venous blood specimen / Unknown Venipuncture / Unknown 11/01/2025 2:08 PM EST 11/01/2025 2:19 PM EST Narrative [facility] - 11/01/2025 3:06 PM EST Over the counter supplements containing high doses of biotin may interfere with this assay. If interference is suspected, patients shoud be retested after refraining from biotin supplements for 72 hours. us Mariam Dupree MD LAB BLOOD ORDERABLES Final Res ult Performing Organization Address [facility]/ZIP Co de Phone Number [facility] [address] [place] [address], [place] [phone] * (ABNORMAL) Magnesium (11/01/2025 2:08 PM EST) Pathologist [facility] Magnesium 1.8(L) 1.9 - 2.6 mg/dL 11/01/2025 3:10 PM EST [facility] Blood Venous blood specimen / Unknown Venipuncture / Unknown 11/01/2025 2:08 PM EST 11/01/2025 2:20 PM EST us Mariam Dupree MD LAB BLOOD ORDERABLES Final Res ult Performing Organization Address [facility] Co de Phone Number [facility] [address] [place] [address], [place] [phone] * Lipase (11/01/2025 2:08 PM EST) [facility] Lipase 24 12 - 53 unit/L 11/01/2025 3:10 PM EST [facility] Blood Venous blood specimen / Unknown Venipuncture / Unknown 11/01/2025 2:08 PM EST 11/01/2025 2:20 PM EST us Mariam Dupree MD LAB BLOOD ORDERABLES Final Res ult Performing Organization Address City/[facility]/ZIP Co de Phone Number [facility] [address] [place] [address], [place] [phone] * (ABNORMAL) Comprehensive metabolic panel (11/01/2025 2:08 PM EST) [facility] Sodium 141 133 - 145 mmol/L 11/01/2025 3:10 PM [facility] Potassium 3.8 3.5 - 5.5 mmol/L 11/01/2025 3:10 PM [facility] Chloride 106 96 - 110 mmol/L 11/01/2025 3:10 PM [facility] CO2 27 21 - 32 mmol/L 11/01/2025 3:10 PM [facility] Anion Gap 8 3 - 11 11/01/2025 3:10 PM [facility] Glucose 125(H) 70 - 100 mg/dL 11/01/2025 3:10 PM [facility] BUN 15 5 - 25 mg/dL 11/01/2025 3:10 PM [facility] Creatinine 0.90 0.50 - 1.10 mg/dL 11/01/2025 3:10 PM [facility] eGFR 77 >=60 mL/min/1. 73m2 11/01/2025 3:10 PM [facility] Comment:Calculation based on the Chronic Kidney Disease Epidemiology Collaboration (CKD-EPI) equation refit without adjustment for race. BUN/Creatinine Ratio 16.7 11/01/2025 3:10 PM [facility] Calcium 9.1 8.5 - 10.5 mg/dL 11/01/2025 3:10 PM [facility] AST (SGOT) 31 10 - 42 unit/L 11/01/2025 3:10 PM [facility] ALT (SGPT) 34 10 - 60 unit/L 11/01/2025 3:10 PM [facility] Alkaline Phosphatase 127(H) 42 - 121 unit/L 11/01/2025 3:10 PM [facility] Total Protein 7.2 6.0 - 8.0 g/dL 11/01/2025 3:10 PM [facility] Albumin 4.1 3.2 - 5.0 g/dL 11/01/2025 3:10 PM EST [facility] Total Bilirubin 0.2 0.0 - 1.4 mg/dL 11/01/2025 3:10 PM EST [facility] Blood Venous blood specimen / Unknown Venipuncture / Unknown 11/01/2025 2:08 PM EST 11/01/2025 2:20 PM EST Mariam Dupree MD LAB BLOOD ORDERABLES Final Res ult [facility] [address] [place] [address], [place] [phone] * ECG 12 lead (11/01/2025 2:03 PM EST) Ventricular Rate ECG 100 BPM GEMUSE Atrial Rate 100 BPM GEMUSE P-R Interval 146 ms GEMUSE QRS Duration 80 ms GEMUSE Q-T Interval 396 ms GEMUSE QTc 510 ms GEMUSE P Wave [place] 72 degrees GEMUSE R [place] 59 degrees GEMUSE T [place] 41 degrees GEMUSE ECG Interpretation Normal sinus rhythm Possible Left atrial enlargement ST and T wave abnormality, consider anterior ischemia Prolonged QT Abnormal ECG When compared with ECG of 03-SEP-2020 23:23, Vent. 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 Extravasation injury of IV catheter site with other complication, initial encounter (CMS/HCC V24) Acute on chronic systolic heart failure ([facility] V24, [facility] V28) Acute on chronic systolic heart failure documented in this encounter Admitting Diagnoses Diagnosis Thrombosis in peripherally inserted central catheter (PICC) ([facility] V24) documented in this encounter Administered Medications Inactive Administered Medications - up to 3 most recent administrations Medication Order MAR Action Action Date Dose Rate Site acetaminophen (TYLENOL) tablet 650 mg 650 mg, oral, Every 4 hours PRN, mild pain, headaches, fever - temperature GREATER than 38 C (100.4 F), Starting on 11/02/25 at 0115 Given 11/02/2025 4:31 PM EST 650 mg Given 11/02/2025 12:21 PM EST 650 mg alteplase (CATHFLO ACTIVASE) injection 1 mg 1 mg, intra-catheter, Every 2 hours PRN, Lumen 1, Starting on Tue11/01/25 at 2017, For 2 doses, -Catheter Clearance - PICC -Allow dwell time of 30 - 60 minutes -Attempt to aspirate blood from catheter -If unable to aspirate, allow to dwell for 60 - 90 additional minutes (120 minutes total) -May repeat once in 120 minutes if line not patent Dilute each 2 mg vial with 2.2 mL sterile water to give 1 mg/mL final concentration. Swirl gently to mix; do not shake., Alteplase Indication: Catheter Clearance Given 11/01/2025 9:22 PM EST 1 mg cefTRIAXone (ROCEPHIN) 2 g in sterile water 20 mL IV syringe 2 g, intravenous, Administer over 3 Minutes, Every 24 hours, First dose on Tue11/02/25 at 0900, For 24 days, Do not administer simultaneously with any calcium containing solutions via a Y-site in any patient., Indication: Urinary Tract/Genitourinary, Bone/Joint, Central Nervous System Given 11/03/2025 9:12 AM EST 2 g Given 11/02/2025 8:43 AM EST 2 g HYDROmorphone (DILAUDID) injection 0.5 mg 0.5 mg, intravenous, Every 3 hours PRN, severe pain, Starting on 11/02/25 at 1231 Given 11/03/2025 3:3 4 AM EST 0.5 mg Given 11/02/2025 2:08 PM EST 0.5 mg iopamidoL (ISOVUE-370) 370 mg iodine /mL (76 %) injection 100 mL 100 mL, intravenous, Once in imaging, Starting on Tue11/01/25 at 2218, For 1 dose Given 11/01/2025 10:28 PM EST 90 mL ketorolac (TORADOL) injection 15 mg 15 mg, intravenous, Once, On Tue11/01/25 at 2146, For 1 dose Given 11/01/2025 10:09 PM EST 15 mg LORazepam (ATIVAN) injection 1 mg 1 mg, intravenous, Once, On Tue11/01/25 at 2146, For 1 dose, Prior to IV use, lorazepam injection should be DILUTED with an equal volume of compatible solution; Rate of administration should NOT exceed 2 mg/min. Given 11/01/2025 10:09 PM EST 1 mg LORazepam (ATIVAN) injection 2 mg 2 mg, intravenous, Once, On 11/02/25 at 0036, For 1 dose, Prior to IV use, lorazepam injection should be DILUTED with an equal volume of compatible solution; Rate of administration should NOT exceed 2 mg/min. Given 11/02/2025 1:30 AM EST 2 mg magnesium sulfate 2 gram/50 mL (4 %) IVPB 2 g 2 g, intravenous, at 25 mL/hr, Administer over 2 Hours, Once, On 11/02/25 at 1000, For 1 dose New Bag 11/02/2025 11:00 AM EST 2 g 25 mL/hr ondansetron (PF) (ZOFRAN) injection 4 mg 4 mg, intravenous, Every 6 hours PRN, nausea, vomiting, Starting on 11/02/25 at 1231 Given 11/03/2025 3:34 AM EST 4 mg Given 11/02/2025 2:08 PM EST 4 mg oxyCODONE (ROXICODONE) immediate release tablet 10 mg 10 mg, oral, Once, On Tue11/01/25 at 2357, For 1 dose Given 11/02/2025 12:20 AM EST 10 mg oxyCODONE (ROXICODONE) immediate release tablet 5 mg 5 mg, oral, Every 6 hours PRN, moderate pain, Starting on 11/02/25 at 0500, FIRST CHOICE MEDICATION FOR MODERATE PAIN (4-6) IF INEFFECTIVE AFTER 60 MIN, PROCEED TO SECOND CHOICE MEDICATION Given 11/03/2025 9:11 AM EST 5 mg Given 11/02/2025 9:27 AM EST 5 mg prochlorperazine (COMPAZINE) injection 10 mg 10 mg, intravenous, Every 6 hours PRN, nausea, vomiting, Starting on 11/02/25 at 0520, 1st Line Option: -ONLY give IV if patient is unable to take orally. -Give IM if patient does not have IV Access -If inadequate response within 30 minutes, proceed to next-line agent or contact provider if no further options ordered. prochlorperazine (COMPAZINE) suppository 25 mg 25 mg, rectal, Every 12 hours PRN, nausea, vomiting, Starting on 11/02/25 at 0520, 1st Line Option: -ONLY give AZ if patient is unable to take orally and cannot receive IV/IM. -If inadequate response within 30 minutes, proceed to next-line agent or contact provider if no further options ordered. prochlorperazine (COMPAZINE) tablet 10 mg 10 mg, oral, Every 6 hours PRN, nausea, vomiting, Starting on 11/02/25 at 0520, 1st Line Option: -Give IV or IM if patient is unable to take orally. -If inadequate response within 30 minutes, proceed to next-line agent or contact provider if no further options ordered. rivaroxaban (XARELTO) tablet 10 mg 10 mg, oral, Daily, First dose (after last modification) on 11/02/25 at 0101, Indication: Other, Specify: recurrent superficial thrombosis Given 11/02/2025 1:41 AM EST 10 mg rivaroxaban (XARELTO) tablet 15 mg 15 mg, oral, 2 times daily with meals, First dose on 11/02/25 at 0800, For 42 doses, Best administered with food or immediately before tube feedings. If ordered via NG or G-tube route, crush and mix with 50 mL water; give within 4 hours of mixing., Indication: VTE/PE Treatment Given 11/03/2025 9:03 AM EST 15 mg Given 11/02/2025 4:30 PM EST 15 mg Given 11/02/2025 8:43 AM EST 15 mg rivaroxaban (XARELTO) tablet 20 mg 20 mg, oral, Daily with dinner, First dose on 11/23/25 at 1700, Best administered with food or immediately before tube feedings. If ordered via NG or G-tube route, crush and mix with 50 mL water; give within 4 hours of mixing., Indication: VTE/PE Treatment sodium chloride 0.9 % flush 10 mL 10 mL, intravenous, Once, On Tue11/01/25 at 2219, For 1 dose Given 11/01/2025 10:28 PM EST 10 mL sodium chloride 0.9 % flush 10 mL 10 mL, intravenous, 2 times daily, First dose on Tue11/02/25 at 0116 Given 11/03/2025 9:17 AM EST 10 mL Given 11/02/2025 8:28 PM EST 10 mL Given 11/02/2025 8:43 AM EST 10 mL sodium chloride 0.9 % flush 10 mL 10 mL, intravenous, As needed, line care, Starting on Tue11/02/25 at 0115 vancomycin (VANCOCIN) IVPB 1,500 mg in 0.9 % sodium chloride 500 mL - CNR 1,500 mg, intravenous, at 333.3 mL/hr, Administer over 90 Minutes, Every 12 hours, First dose on Tue11/02/25 at 0800, For 25 days, Indication: Bone/Joint, Central Nervous System New Bag 11/03/2025 9:16 AM EST 1,500 mg 333.3 mL/hr New Bag 11/02/2025 8:28 PM EST 1,500 mg 333.3 mL/hr New Bag 11/02/2025 8:43 AM EST 1,500 mg 333.3 mL/hr vancomycin (VANCOCIN) IVPB 2,000 mg in 0.9 % sodium chloride 500 mL - CNR 2 g, intravenous, at 250 mL/hr, Administer over 120 Minutes, Once, On Tue11/01/25 at 2200, For 1 dose, Indication: Bone/Joint, Bacteremia New Bag 11/01/2025 11:12 PM EST 2 g 250 mL/hr documented in this encounter Discontinued Medications Medication Sig Discontinue Reason Start Date End Da te ibuprofen (ADVIL,MOTRIN) 400 mg tablet Take 1 tablet (400 mg total) by mouth every 6 (six) hours if needed for mild pain for up to 7 days. 10/27/2025 11/01/2025 furosemide (LASIX) 20 mg tablet Take 1 tablet (20 mg total) by mouth 1 (one) time each day. As needed for edema Stop Taking at Discharge 07/15/2025 11/03/2025 HYDROcodone-acetaminop hen (NORCO) 5-325 mg per tablet Take 1 tablet by mouth every 6 (six) hours if needed for severe pain for up to 3 days. Max Daily Amount: 4 tablets Stop Taking at Discharge 10/27/2025 11/03/2025 vancomycin (VANCOCIN) 10 gram recon soln Stop Taking at Discharge 10/30/2025 11/03/2025 documented as of this encounter Active and Recently Administered Medications Times are shown in EST. Scheduled Medication Order 11/01/2025 11/02/2025 11/03/2025 cefTRIAXone (ROCEPHIN) 2 g in sterile water 20 mL IV syringe 2 g, intravenous, Administer over 3 Minutes, Every 24 hours, First dose on 11/02/25 at 0900, For 24 days, Do not administer simultaneously with any calcium containing solutions via a Y-site in any patient., Indication: Urinary Tract/Genitourinary, Bone/Joint, Central Nervous System 0843 (Given - Provider: Sandeep Hall RN) 0912 (Given - Provider: Hoa Naranjo, CARLOS) iopamidoL (ISOVUE-370) 370 mg iodine /mL (76 %) injection 100 mL (COMPLETED) 100 mL, intravenous, Once in imaging, Starting on Tue11/01/25 at 2218, For 1 dose 2227 (Given - Provider: Blanca Jerez) ketorolac (TORADOL) injection 15 mg (COMPLETED) 15 mg, intravenous, Once, On Tue11/01/25 at 2146, For 1 dose 2208 (Given - Provider: Sera Ramsey, CARLOS) LORazepam (ATIVAN) injection 1 mg (COMPLETED) 1 mg, intravenous, Once, On Tue11/01/25 at 2146, For 1 dose, Prior to IV use, lorazepam injection should be DILUTED with an equal volume of compatible solution; Rate of administration should NOT exceed 2 mg/min. 2208 (Given - Provider: Sera Ramsey, RN) LORazepam (ATIVAN) injection 2 mg (COMPLETED) 2 mg, intravenous, Once, On 11/02/25 at 0036, For 1 dose, Prior to IV use, lorazepam injection should be DILUTED with an equal volume of compatible solution; Rate of administration should NOT exceed 2 mg/min. 0130 (Given - Provider: Sera Ramsey RN) magnesium sulfate 2 gram/50 mL (4 %) IVPB 2 g (COMPLETED) 2 g, intravenous, at 25 mL/hr, Administer over 2 Hours, Once, On 11/02/25 at 1000, For 1 dose 1100 (New Bag - Provider: Sandeep Hall RN)1310 (Stopped - Provider: Sandeep Hall RN) oxyCODONE (ROXICODONE) immediate release tablet 10 mg (COMPLETED) 10 mg, oral, Once, On Tue11/01/25 at 2357, For 1 dose 0020 (Given - Provider: Sera Ramsey RN) rivaroxaban (XARELTO) tablet 10 mg (CANCELED) 10 mg, oral, Daily, First dose (after last modification) on 11/02/25 at 0101, Indication: Other, Specify: recurrent superficial thrombosis 0141 (Given - Provider: Sera Ramsey RN) rivaroxaban (XARELTO) tablet 15 mg 15 mg, oral, 2 times daily with meals, First dose on 11/02/25 at 0800, For 42 doses, Best administered with food or immediately before tube feedings. If ordered via NG or G-tube route, crush and mix with 50 mL water; give within 4 hours of mixing., Indication: VTE/PE Treatment 0843 (Given - Provider: Sandeep Hall RN)1630 (Given - Provider: Sandeep Hall RN) 0903 (Given - Provider: Hoa Naranjo RN) rivaroxaban (XARELTO) tablet 20 mg 20 mg, oral, Daily with dinner, First dose on 11/23/25 at 1700, Best administered with food or immediately before tube feedings. If ordered via NG or G-tube route, crush and mix with 50 mL water; give within 4 hours of mixing., Indication: VTE/PE Treatment sodium chloride 0.9 % flush 10 mL (COMPLETED) 10 mL, intravenous, Once, On Tue11/01/25 at 2219, For 1 dose 2228 (Given - Provider: Blanca Jerez) sodium chloride 0.9 % flush 10 mL(Linked Group 1) 10 mL, intravenous, 2 times daily, First dose on Tue11/02/25 at 0116 0314 (Not Given - Provider: Ashwini Mcgarry RN - Reason: Patient not available)0843 (Given - Provider: Sandeep Hall RN)2027 (Given - Provider: Selma Patel RN) 0917 (Given - Provider: Hoa Naranjo, CARLOS) vancomycin (VANCOCIN) IVPB 1,500 mg in 0.9 % sodium chloride 500 mL - CNR 1,500 mg, intravenous, at 333.3 mL/hr, Administer over 90 Minutes, Every 12 hours, First dose on Tue11/02/25 at 0800, For 25 days, Indication: Bone/Joint, Central Nervous System 0843 (New Bag - Provider: Sandeep Hall RN)1013 (Stopped - Provider: Sandeep Hall RN)2027 (New Bag - Provider: Selma Patel RN)2257 (Stopped - Provider: Selma Patel RN) 0916 (New Bag - Provider: Hoa Naranjo, CARLOS)1117 (Stopped - Provider: Cristy Putnam RN) vancomycin (VANCOCIN) IVPB 2,000 mg in 0.9 % sodium chloride 500 mL - CNR (COMPLETED) 2 g, intravenous, at 250 mL/hr, Administer over 120 Minutes, Once, On Tue11/01/25 at 2200, For 1 dose, Indication: Bone/Joint, Bacteremia 2312 (New Bag - Provider: Sera Ramsey RN) 0002 (Stopped - Provider: Sera Ramsey RN - Comment: iv infiltrated) PRN Medication Order 11/01/2025 11/02/2025 11/03/2025 acetaminophen (TYLENOL) tablet 650 mg 650 mg, oral, Every 4 hours PRN, mild pain, headaches, fever - temperature GREATER than 38 C (100.4 F), Starting on Tue11/02/25 at 0115 1221 (Given - Provider: Sandeep Hall RN)1631 (Given - Provider: Sandeep Hall RN) alteplase (CATHFLO ACTIVASE) injection 1 mg 1 mg, intra-catheter, Every 2 hours PRN, Lumen 1, Starting on Tue11/01/25 at 2017, For 2 doses, -Catheter Clearance - PICC -Allow dwell time of 30 - 60 minutes -Attempt to aspirate blood from catheter -If unable to aspirate, allow to dwell for 60 - 90 additional minutes (120 minutes total) -May repeat once in 120 minutes if line not patent Dilute each 2 mg vial with 2.2 mL sterile water to give 1 mg/mL final concentration. Swirl gently to mix; do not shake., Alteplase Indication: Catheter Clearance 2121 (Given - Provider: Sera Ramsey RN - Comment: administered by ordering provider) HYDROmorphone (DILAUDID) injection 0.5 mg 0.5 mg, intravenous, Every 3 hours PRN, severe pain, Starting on 11/02/25 at 1231 1408 (Given - Provider: Sandeep Hall RN) 0334 (Given - Provider: Selma Patel, CARLOS) ondansetron (PF) (ZOFRAN) injection 4 mg 4 mg, intravenous, Every 6 hours PRN, nausea, vomiting, Starting on 11/02/25 at 1231 1408 (Given - Provider: Sandeep Hall RN) 0334 (Given - Provider: Selma Patel, CARLOS) oxyCODONE (ROXICODONE) immediate release tablet 5 mg 5 mg, oral, Every 6 hours PRN, moderate pain, Starting on 11/02/25 at 0500, FIRST CHOICE MEDICATION FOR MODERATE PAIN (4-6) IF INEFFECTIVE AFTER 60 MIN, PROCEED TO SECOND CHOICE MEDICATION 0927 (Given - Provider: Sandeep Hall RN) 0911 (Given - Provider: Hoa Naranjo RN) prochlorperazine (COMPAZINE) injection 10 mg(Linked Group 2) 10 mg, intravenous, Every 6 hours PRN, nausea, vomiting, Starting on 11/02/25 at 0520, 1st Line Option: -ONLY give IV if patient is unable to take orally. -Give IM if patient does not have IV Access -If inadequate response within 30 minutes, proceed to next-line agent or contact provider if no further options ordered. prochlorperazine (COMPAZINE) suppository 25 mg(Linked Group 2) 25 mg, rectal, Every 12 hours PRN, nausea, vomiting, Starting on 11/02/25 at 0520, 1st Line Option: -ONLY give AZ if patient is unable to take orally and cannot receive IV/IM. -If inadequate response within 30 minutes, proceed to next-line agent or contact provider if no further options ordered. prochlorperazine (COMPAZINE) tablet 10 mg(Linked Group 2) 10 mg, oral, Every 6 hours PRN, nausea, vomiting, Starting on 11/02/25 at 0520, 1st Line Option: -Give IV or IM if patient is unable to take orally. -If inadequate response within 30 minutes, proceed to next-line agent or contact provider if no further options ordered. sodium chloride 0.9 % flush 10 mL(Linked Group 1) 10 mL, intravenous, As needed, line care, Starting on 11/02/25 at 0115 Linked Groups Order Group 1: Insert peripheral IV (CANCELED) STAT, Once, On 11/02/25 at 0116, For 1 occurrence And Maintain IV access (CANCELED) Until discontinued, Starting on 11/02/25 at 0116, Until Specified And Saline lock IV (CANCELED) Routine, Once, On 11/02/25 at 0116, For 1 occurrence And sodium chloride 0.9 % flush 10 mLJump to med 10 mL, intravenous, 2 times daily, First dose on 11/02/25 at 0116 And sodium chloride 0.9 % flush 10 mLJump to med 10 mL, intravenous, As needed, line care, Starting on 11/02/25 at 0115 Group 2: prochlorperazine (COMPAZINE) tablet 10 mgJump to med 10 mg, oral, Every 6 hours PRN, nausea, vomiting, Starting on 11/02/25 at 0520, 1st Line Option: -Give IV or IM if patient is unable to take orally. -If inadequate response within 30 minutes, proceed to next-line agent or contact provider if no further options ordered. Or prochlorperazine (COMPAZINE) injection 10 mgJump to med 10 mg, intravenous, Every 6 hours PRN, nausea, vomiting, Starting on 11/02/25 at 0520, 1st Line Option: -ONLY give IV if patient is unable to take orally. -Give IM if patient does not have IV Access -If inadequate response within 30 minutes, proceed to next-line agent or contact provider if no further options ordered. Or prochlorperazine (COMPAZINE) suppository 25 mgJump to med 25 mg, rectal, Every 12 hours PRN, nausea, vomiting, Starting on 11/02/25 at 0520, 1st Line Option: -ONLY give AZ if patient is unable to take orally and cannot receive IV/IM. -If inadequate response within 30 minutes, proceed to next-line agent or contact provider if no further options ordered. documented in this encounter Orders Medications Ordered That Martinez ht Not Have Been Administered Count Last Ordered Date First Ordered Date ondansetron (PF) (ZOFRAN) injection 4 mg 1 11/02/2025 ondansetron ODT (ZOFRAN-ODT) disintegrating tablet 4 mg 1 11/02/2025 prochlorperazine (COMPAZINE) injection 10 mg 2 11/02/2025 prochlorperazine (COMPAZINE) suppository 25 mg 2 11/02/2025 prochlorperazine (COMPAZINE) tablet 10 mg 2 11/02/2025 rivaroxaban (XARELTO) tablet 10 mg 2 202411/01/2025 rivaroxaban (XARELTO) tablet 20 mg 1 2024 sodium chloride 0.9 % flush 10 mL 1 025 vancomycin (VANCOCIN) IVPB 2 ,000 mg in 0.9 % sodium chloride 500 mL - CNR 1 11/01/2025 Diet Count Last Ordered Date First Orde red Date ADULT DISCHARGE DIET 1 11/03/2025 Nursing Count Last Ordered Date First Orde red Date ACTIVITY 1 11/03/2025 FOLLOW UP PRIMARY PHYSICIAN 1 11/03/2025 FOLLOW UP WITH PROVIDER 1 11/03/2025 Consult Count Last Ordered Date First Orde red Date IP CONSULT TO SOCIAL WORK 1 11/02/2025 PT Count Last Ordered Date First Orde red Date PT EVAL AND TREAT 1 11/02/2025 Admission Count Last Ordered Date First Orde red Date INITIATE OBSERVATION STATUS 1 11/02/2025 Transfer Count Last Ordered Date First Orde red Date ED TO FLOOR BED REQUEST 1 11/02/2025 Discharge Count Last Ordered Date First Orde red Date DISCHARGE PATIENT 1 11/03/2025 CORE MEASURES Count Last Ordered Date First Ord ered Date REASON FOR NO VTE PROPHYLAXI S - HOSPITAL ADMISSION - MEDICATIONS 1 11/02/2025 documented in this encounter Additional Health Concerns Assessment Noted Time PHQ-9 Depression Total Score: 23 025 4:56 PM EST documented as of this encounter Care Teams Wood Barker Relationship Specialty Start Date End Date Shanice Shelton MD [address] [place] [phone] PCP - General Internal Medicine 08/16/22 documented as of this encounter
--- OUTSIDE RECORDS SUMMARY | 2025-11-04 20:09 | XMS_ITS | Encounter Summary ---
Author Organization [facility] Address [address] [place] [address] Care Team Providers Care Shank Taper Name Role Phone Shanice Shelton MD Primary Care Prov ider Encounter Details Date Type Department Care Team (Late st Contact Info) Description 10/28/2025 Telephone Adult Medicine [facility] [address] [place] [address] Shanice Shelton MD [address] [place], [place] Social History Tobacco Use Types Packs/Day [...] for your loved ones. For example, director of early childhood education or elderly care for an older adult? [...] documented in this encounter Progress Notes * Cele Morrison - 10/28/2025 4:36 PM EST error documented in this encounter Plan of Treatment Upcoming Encounters Date Type Department Care Team (Late st Contact Info) Description 11/05/2025 10:30 AM EST Office Visit Adult Medicine [facility] [address] [place] [address] Srinath Nolan MD 4 [place], [place] 11/26/2025 10:00 AM EST Office Visit Infectious Disease - [place] [address] [place] [phone] Olivier Casillas MD [address] [place] [address] 12/12/2025 9:15 AM EST Office Visit Bariatric Surgery - [address] [place] [phone] Alexander Silva MD [address] [place] [phone] 12/17/2025 8:00 AM EST Office Visit Neurosurgery - [place] [address] [place] [address] Brain Griffin MD [address] [place] [address] [place] [address] 01/03/2026 12:30 PM EST Telemedicine Bariatric Surgery - [place] [address] [facility] [address] [place] [phone] Nevaeh Cunha, RD 175 [facility] 120 [place] [phone] 05/28/2026 9:30 AM EDT Office Visit Vascular Surgery - [place] [address] [place] [address] Veronika Lamb MD [address] [place] [phone] documented as of this encounter Visit Diagnoses Not on filedocumented in this encounter Additional Health Concerns Assessment Noted Time PHQ-9 Depression Total Score: 23 025 4:56 PM EST documented as of this encounter Care Teams Shank Taper Relationship Specialty Start Date End Date Shanice Shelton MD [address] [place] [phone] PCP - General Internal Medicine 08/16/22 documented as of this encounter
--- OUTSIDE RECORDS SUMMARY | 2025-11-04 20:09 | XMS_ITS | Encounter Summary ---
Author Organization [facility] Address [address] [place] [address] Care Team Providers Care Automotive Services Manager Name Role Phone Shanice Shelton MD Primary Care Prov ider Reason for Visit * Reason Onset Date Comments vna 11/01/2025 Encounter Details Date Type Department Care Team ([facility] st Contact Info) Description 11/01/2025 Telephone Adult Medicine [facility] [address] [place] [address] Shanice Shelton MD [address] [place], [place] Social History Tobacco Use Types Packs/Day [...] your loved ones. For example, child and adolescent psychiatrist or elderly care for an [...] 11/01/2025 1:53 PM Ambrocio Jackson RN * [place] Suicide Severity Rating Scale (Screener/Recent Self-Report) Question [...] documented in this encounter Progress Notes * Lacie Suarez RN - 11/04/2025 10:49 AM EST Scheduled for hosp f/u for 11/05 at 10:[address] Nolan * ARNOLDO Elias - 11/04/2025 9:04 AM EST Discharged 11/03/2025. Please schedule for hospital follow-up. She does not qualify for TCM as she was already admitted earlier this year. Should be with any covering physician * Lita Hoyos - 11/01/2025 3:58 PM EST [facility]NA CALL Which [facility] office is calling? [facility] Full name of caller: rosi P - [phone] The caller is A nurse Is the caller at the patients home?: no Reason for call: suppose to see pt for lab visit, went to [facility] for an appointment and was sent to [facility]. [facility] couldn't see patient today 11/01/25 Does caller need an urgent call back? no Was CONTACT Telephone # obtained above?: yes Fax #: N/A documented in this encounter Plan of Treatment Upcoming Encounters Date Type Department Care Team (Late st Contact Info) Description 11/05/2025 10:30 AM EST Office Visit Adult Medicine [facility] [address] [place], [place] [phone] Srinath Nolan MD [address] [place], [place] 11/26/2025 10:00 AM EST Office Visit Infectious Disease - [place] [address] [place] [phone] Olivier Casillas MD [address] [place] [address] 12/12/2025 9:15 AM EST Office Visit Bariatric Surgery - [place] [address] [facility] [address] [place] [phone] Alexander Silva MD [address] [place] [phone] 12/17/2025 8:00 AM EST Office Visit Neurosurgery - [place] [address] [place] [address] Brain Griffin MD [address] [place] [address] [place] [address] 01/03/2026 12:30 PM EST Telemedicine Bariatric Surgery - [place] 175 [facility] 120 [place] [address] Nevaeh Cunha, RD 175 [facility] 120 [place] [phone] 05/28/2026 9:30 AM EDT Office Visit Vascular Surgery - [place] [address] [place] [address] Veronika Lamb MD [address] [place] [address] documented as of this encounter Visit Diagnoses Not on filedocumented in this encounter Additional Health Concerns Assessment Noted Time PHQ-9 Depression Total Score: 23 025 4:56 PM EST documented as of this encounter Care Teams Automotive Services Manager Relationship Specialty Start Date End Date Shanice Shelton MD [address] [place] [phone] PCP - General Internal Medicine 08/16/22 documented as of this encounter
--- OUTSIDE RECORDS SUMMARY | 2025-11-04 20:09 | XMS_ITS | Encounter Summary ---
Author Organization [facility] Address [address] [place] [address] Care Team Providers Care Spray Applicator Name Role Phone Shanice Shelton MD Primary Care Prov ider Reason for Visit * Reason Onset Date Comments ^Trough 10/31/2025 Encounter Details Date Type Department Care Team (Late st Contact Info) Description 10/31/2025 Telephone Infectious Disease - [place] [address] [place] [address] Jose Jordan LPN Social History Tobacco Use Types Packs/Day Years [...] your loved ones. For example, early childhood special educator or elderly care for an older [...] documented in this encounter Progress Notes * Jose Jordan LPN - 10/31/2025 11:27 AM EST Pt chaka bryant, per , hold IV Vancomycin pending results of labs to be drawn 11/01. * Jose Jordan LPN - 10/31/2025 11:24 AM EST Klaudia, pharmacists with [facility], chaka bryant, per , hold IV vancomycin until thevancomycin random level falls below 20 and Molly Blanco's Rn to draw vancomycin random level and Crtomorrow Thursday 11/01. * Jose Jordan LPN - 10/31/2025 11:20 AM EST Emily Sharma LPN ed case manager @ [facility], shanita STUART, hold IV vancomycin until the vancomycin random level falls below 20 and recheck vancomycin random level and Cr tomorrow Thursday 11/01. Confirms fax receipt of this office's lab orders & Molly's availability to complete labdraw 11/01. * Jose Jordan LPN - 10/31/2025 11:08 AM EST Susana, visiting nurse with [facility] providing care in pt home, contacted this office to update re: ^trough. Confirms trough drawn 10/30 was true. Repeats understanding, per MD, hold IV vancomycin until the vancomycin random level falls below 20, recheck vancomycin random level and Cr tomorrow Thursday 11/01. Rn requests lab orders be faxed to Molly Rausch [phone]. * Jose Jordan LPN - 10/31/2025 8:33 AM EST Fax received this AM from [email or web address] scanned to chart. Trough: 28.2, creatinine: 0.70 for pt Dc'd 10/26with vancomycin dose: 2g IV Q12. documented in this encounter Plan of Treatment Upcoming Encounters Date Type Department Care Team (Late st Contact Info) Description 11/05/2025 10:30 AM EST Office Visit Adult Medicine [facility] [address] [place] [address] Srinath Nolan MD [address] [place], [place] 11/26/2025 10:00 AM EST Office Visit Infectious Disease - [place] [address] [place] [phone] Olivier Casillas MD [address] [place] [address] 12/12/2025 9:15 AM EST Office Visit Bariatric Surgery - [place] [address] [facility] [address] [place] [phone] Alexander Silva MD [address] [place] [phone] 12/17/2025 8:00 AM EST Office Visit Neurosurgery - [place] [address] [place] [address] Brain Griffin MD [address] [place] [address] [place] [address] 01/03/2026 12:30 PM EST Telemedicine Bariatric Surgery - [place] 175 [facility] 120 [place] [address] Nevaeh Cunha, RD 175 [facility] 120 [place] [address] 05/28/2026 9:30 AM EDT Office Visit Vascular Surgery - [place] [address] [place] [address] Veronika Lamb MD [address] [place] [phone] Scheduled Orders Name Type Priority Associated Diagnoses Orde r Schedule Vancomycin random Lab Routine Osteomyelitis, unspecified site, unspecified type ([facility] V24, [facility] V28) Expected: 11/01/2025, Expires: 10/31/2026 Creatinine Lab Routine Osteomyelitis, unspecified site, unspecified type ([facility] V24, [facility] V28) Expected: 11/01/2025, Expires: 10/31/2026 documented as of this encounter Visit Diagnoses Diagnosis Osteomyelitis, unspecified site, unspecified type ([facility] V24, [facility] V28)- Primary documented in this encounter Additional Health Concerns Assessment Noted Time PHQ-9 Depression Total Score: 23 025 4:56 PM EST documented as of this encounter Care Teams Spray Applicator Relationship Specialty Start Date End Date Shanice Shelton MD [address] [place] [phone] PCP - General Internal Medicine 08/16/22 documented as of this encounter
--- OUTSIDE RECORDS SUMMARY | 2025-11-04 20:09 | XMS_ITS | Encounter Summary ---
Author Organization [facility] Address [address] [place] [address] Care Team Providers Care Demo Coordinator Name Role Phone Shanice Shelton MD Primary Care Prov ider Reason for Visit * Reason Onset Date Comments Medication Problem 11/04/2025 Encounter Details Date Type Department Care Team (Late st Contact Info) Description 11/04/2025 Telephone Infectious Disease - [place] [address] [place] [phone] Olivier Casillas MD [address] [place], [place] [phone] Social History Tobacco Use Types Packs/Day Years [...] for your loved ones. For example, child nutrition assistant or elderly care for an older [...] documented in this encounter Progress Notes * Sabrina Agnes - 11/04/2025 9:24 AM EST Patients medication says her medication for her Vancocin was change? She is not sure why it was reduce and is confuse about it. Please call. Thank You! documented in this encounter Plan of Treatment Upcoming Encounters Date Type Department Care Team (Late st Contact Info) Description 11/05/2025 10:30 AM EST Office Visit Adult Medicine [facility] [address] [place], [place] [phone] Srinath Nolan MD [address] [place], [place] 11/26/2025 10:00 AM EST Office Visit Infectious Disease - [address] [place] [address] Olivier Casillas MD [address] [place] [address] 12/12/2025 9:15 AM EST Office Visit Bariatric Surgery - [place] [address] [phone] Alexander Silva MD 230 [place] [phone] 12/17/2025 8:00 AM EST Office Visit Neurosurgery - [place] [address] [place] [phone] Brain Griffin MD [address] [place] [address] [place], [place] [phone] 01/03/2026 12:30 PM EST Telemedicine Bariatric Surgery - [place] 175 [facility] 120 [place] [phone] Nevaeh Cunha, RD [address] [phone] 05/28/2026 9:30 AM EDT Office Visit Vascular Surgery - [place] 300 [facility] 210 [place] [address] Veronika Lamb MD 230 [place] [phone] documented as of this encounter Visit Diagnoses Not on filedocumented in this encounter Additional Health Concerns Assessment Noted Time PHQ-9 Depression Total Score: 23 025 4:56 PM EST documented as of this encounter Care Teams Demo Coordinator Relationship Specialty Start Date End Date Shanice Shelton MD [address] [place] [phone] PCP - General Internal Medicine 08/16/22 documented as of this encounter
--- OUTSIDE RECORDS SUMMARY | 2025-11-04 20:09 | XMS_ITS | Encounter Summary ---
Author Organization [facility] Address [address] [place] [address] Care Team Providers Care Inverter And Clipper Name Role Phone Shanice Shelton MD Primary Care Prov ider Encounter Details Date Type Department Care Team (Late st Contact Info) Description 11/01/2025 Results Follow-Up Adult Medicine [facility] [address] [place], [place] [phone] Anastasiya Reis PA [address] [place], [place] Social History Tobacco Use Types Packs/Day [...] for your loved ones. For example, child center assistant or elderly care for an older [...] 11/01/2025 1:53 PM Ambrocio Jackson RN * [place] Suicide Severity Rating Scale (Screener/Recent Self-Report) Question [...] Mike Mo RN documented in this encounter Plan of Treatment Upcoming Encounters Date Type Department Care Team (Late st Contact Info) Description 11/05/2025 10:30 AM EST Office Visit Adult Medicine [facility] [address] [place], [place] [phone] Srinath Nolan MD [address] [place], [place] 11/26/2025 10:00 AM EST Office Visit Infectious Disease - [place] [address] [place] [address] Olivier Casillas MD [address] [place] [address] 12/12/2025 9:15 AM EST Office Visit Bariatric Surgery - [place] 175 [facility] 120 [place] [phone] Alexander Silva MD [address] [place] [address] 12/17/2025 8:00 AM EST Office Visit Neurosurgery - [place] [address] [place] [phone] Brain Griffin MD [address] [place] [address] [place] [address] 01/03/2026 12:30 PM EST Telemedicine Bariatric Surgery - [place] 175 [facility] 120 [place] [address] Nevaeh Cunha, RD [address] [phone] 05/28/2026 9:30 AM EDT Office Visit Vascular Surgery - [place] [address] [place] [phone] Veronika Lamb MD [address] [place] [address] documented as of this encounter Visit Diagnoses Not on filedocumented in this encounter Additional Health Concerns Assessment Noted Time PHQ-9 Depression Total Score: 23 02/2 025 4:56 PM EST documented as of this encounter Care Teams Inverter And Clipper Relationship Specialty Start Date End Date Shanice Shelton MD [address] [place] [phone] PCP - General Internal Medicine 08/16/22 documented as of this encounter
--- OUTSIDE RECORDS SUMMARY | 2025-11-04 20:09 | XMS_ITS | Clinical Summary ---
Author Organization [facility] [address] [place] [address] [place] [address] Phone Care Team Providers Care Test Manager Name Role Phone Shanice Shelton MD [...] day. 15 each 5 025 2025 Active zolpidem (AMBIEN) 10 mg tablet Take 1 tablet (10 mg total) by mouth at bedtime as needed. Max Daily Amount: 10 mg Active lidocaine (LIDODERM) 5 % patchIndicatio ns:Lyme disease,Acute bilateral low back pain, unspecified whether sciatica present,Acute bilateral thoracic back pain,Myalgia USE 1 PATCH TOPICALLY ONCE DAILY. REMOVE AND DISCARD PATCH WITHIN 12 HOURS. 28 patch 2 Active gabapentin (NEURONTIN) 100 mg capsule Take 1 capsule (100 mg total) by mouth every 8 (eight) hours. 90 each 11 025 2025 Active acetaminophen (TYLENOL) 325 mg tablet Take 2 tablets (650 mg total) by mouth every 6 (six) hours if needed for mild pain for up to 12 days. 90 tablet 2024 Active naloxone (NARCAN) 4 mg/0.1 mL nasal spray Administer 1 each (4 mg total) into affected nostril(s) if needed for opioid reversal. Give 4 mg (1 spray) into one nostril. May repeat every 2-3 minutes if needed, alternating nostrils, until medical assistance becomes available. 2 each 025 2025 Active heparin sodium,bovine (HEPARIN, BOVINE, INJ) Inject 5 mL as directed 1 (one) time each day. Active cefTRIAXone 2 g in sterile water 20 mL syringe Infuse 2 g into a venous catheter 1 (one) time each day at the same time for 23 doses. 2025 Active rivaroxaban (XARELTO) 15 mg tablet Take 1 tablet (15 mg total) by mouth 2 (two) times a day with meals. Take with food. 40 each 2025 Active rivaroxaban (XARELTO) 20 mg tablet Take 1 tablet (20 mg total) by mouth 1 (one) time each day with dinner. Take with food. 30 each 2 026 2025 Active vancomycin (VANCOCIN) 1500 mg/500 mL solution IVPB Infuse 500 mL (1,500 mg total) into a venous catheter every 12 (twelve) hours for 48 doses. 2025 Active oxyCODONE (ROXICODONE) 5 mg immediate release tablet Take 1 tablet (5 mg total) by mouth every 6 (six) hours if needed for severe pain for up to 3 days. Max Daily Amount: 20 mg 12 each 2024 Active senna (SENOKOT) 8.6 mg tablet Take 1 tablet (8.6 mg total) by mouth 2 (two) times a day. 60 each 025 2025 Active furosemide (LASIX) 20 mg tablet Take 1 tablet (20 mg total) by mouth 1 (one) time each day. As needed for edema 2024 Discontinued(S top Taking at Discharge) oxyCODONE (ROXICODONE) 10 mg immediate release tablet Take 1 tablet (10 mg total) by mouth every 4 (four) hours if needed for moderate pain. Max Daily Amount: 60 mg 15 tablet 2024 Discontinued(A vailability) ibuprofen (ADVIL,MOTRIN) 400 mg tablet Take 1 tablet (400 mg total) by mouth every 6 (six) hours if needed for mild pain for up to 7 days. 28 tablet 2024 Discontinued HYDROcodone-ac etaminophen (NORCO) 5-325 mg per tablet Take 1 tablet by mouth every 6 (six) hours if needed for severe pain for up to 3 days. Max Daily Amount: 4 tablets 12 tablet 2024 Discontinued(S top Taking at Discharge) fluconazole (DIFLUCAN) 150 mg tablet TAKE 2 TABLETS BY MOUTH ONCE DAILY FOR 1 DAY 2024 Discontinued(T herapy completed) vancomycin (VANCOCIN) 10 gram recon soln 2024 Discontinued(S top Taking at Discharge) Active Problems Problem Noted Date Diagnosed Date Thrombosis in peripherally inserted central cath eter (PICC) 11/02/2025 Osteomyelitis 10/16/2025 Assessment & Plan (10/23/2025 11:59 AM EST): C5 C7 discitis, small ventral epidural abscess Chronic weakness of upper and lower extremity C5 C7 anterior disc fusion surgery in 2013 Acute on chronic cervical pain MRI cervical spine as part of outpatient workup, reports findings suspicious for osteomyelitis/discitis at fused C5-C7 vertebral bodies with small ventral epidural abscess. 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 blood cultures show no growth to date - ID consulted, appreciate recommendations: -Continue IV vancomycin and ceftriaxone for 6 weeks -Cybcff-mz-[id number] results, aerobic/anaerobic bacterial cultures, AFB smear/culture, fungal culture and pathology, ID can follow this up as an outpatient -Neurosurgery consulted, appreciate recommendations: -Will perform instrumentation removal after 6 weeks of antibiotics - Multimodal pain control -PICC line ordered Assessment & Plan (10/22/2025 10:51 AM EST): C5 C7 discitis, small ventral epidural abscess Chronic weakness of upper and lower extremity C5 C7 anterior disc fusion surgery in 2012 Acute on chronic cervical pain MRI cervical spine as part of outpatient workup, reports findings suspicious for osteomyelitis/discitis at fused C5-C7 vertebral bodies with small ventral epidural abscess. 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 - IR to attempt CT-guided biopsy today - ID consulted, appreciate recommendations: -Continue IV vancomycin and ceftriaxone - Follow-up blood cultures -Per neurosurgery, no need for surgical debridement and removal of spinal hardware -[id number] results, aerobic/anaerobic bacterial cultures, AFB smear/culture, fungal culture and pathology - Multimodal pain control Assessment & Plan (10/21/2025 12:54 PM EST): C5 C7 discitis, small ventral epidural abscess Chronic weakness of upper and lower extremity C5 C7 anterior disc fusion surgery in 2012 Acute on chronic cervical pain MRI cervical spine as part of outpatient workup, reports findings suspicious for osteomyelitis/discitis at fused C5-C7 vertebral bodies with small ventral epidural abscess. 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 - IR to attempt CT-guided biopsy tomorrow, n.p.o. midnight - ID consulted, appreciate recommendations: -Continue IV vancomycin and ceftriaxone - Follow-up blood cultures -Per neurosurgery, no need for surgical debridement and removal of spinal hardware Caqfvw-[id number] results, aerobic/anaerobic bacterial cultures, AFB smear/culture, fungal culture and pathology - Multimodal pain control, add scheduled Tylenol Assessment & Plan (10/20/2025 2:43 PM EST): C5 C7 discitis, small ventral epidural abscess Chronic weakness of upper and lower extremity C5 C7 anterior disc fusion surgery in 2012 Acute on chronic cervical pain MRI cervical spine as part of outpatient workup, reports findings suspicious for osteomyelitis/discitis at fused C5-C7 vertebral bodies with small ventral epidural abscess. 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 Neurosurgery does not want any surgical intervention X-rays of the neck ordered per the recommendation Infectious disease informed about the plan We will consult IR on Tuesday for a biopsy Discussed with patient his disease and neurosurgery Continue IV antibiotics Discussed with infectious disease who recommends if the biopsy is done to send for aerobic anaerobic bacterial cultures, AFB smear/culture fungal culture and pathology Keep n.p.o. after midnight IR is hoping to try to get the procedure done tomorrow or Tuesday . She could benefit from a bone biopsy, however per interventional radiology, this may happen on Tuesday or Tuesday, would to call them again. This might show evidence regarding infectious organism. In the meantime continue with IV antibiotics, as per infectious disease, vancomycin. She denies any complaints of spinal instrumentations, IV drug use, trauma, has a remote history of spinal fusion. Blood cultures have been negative Pain was poorly controlled will add Neurontin to hydrocodone and Dilaudid Patient was again seen in the afternoon reports pain is fairly well-controlled now Assessment & Plan (10/19/2025 4:23 PM EST): C5 C7 discitis, small ventral epidural abscess Chronic weakness of upper and lower extremity C5 C7 anterior disc fusion surgery in 2012 Acute on chronic cervical pain MRI cervical spine as part of outpatient workup, reports findings suspicious for osteomyelitis/discitis at fused C5-C7 vertebral bodies with small ventral epidural abscess. 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 Neurosurgery does not want any surgical intervention X-rays of the neck ordered per the recommendation Infectious disease informed about the plan We will consult IR on Tuesday for a biopsy Discussed with patient his disease and neurosurgery Continue IV antibiotics Discussed with infectious disease who recommends if the biopsy is done to send for aerobic anaerobic bacterial cultures, AFB smear/culture fungal culture and pathology . She could benefit from a bone biopsy, however per interventional radiology, this may happen on Tuesday or Tuesday, would to call them again. This might show evidence regarding infectious organism. In the meantime continue with IV antibiotics, as per infectious disease, vancomycin. She denies any complaints of spinal instrumentations, IV drug use, trauma, has a remote history of spinal fusion. Blood cultures have been negative Pain was poorly controlled will add Neurontin to hydrocodone and Dilaudid Patient was again seen in the afternoon reports pain is fairly well-controlled now Assessment & Plan (10/18/2025 3:16 PM EST): C5 C7 discitis, small ventral epidural abscess Chronic weakness of upper and lower extremity C5 C7 anterior disc fusion surgery in 2012 Acute on chronic cervical pain MRI cervical spine as part of outpatient workup, reports findings suspicious for osteomyelitis/discitis at fused C5-C7 vertebral bodies with small ventral epidural abscess. Discussed with patient his disease and neurosurgery Continue IV antibiotics Neurosurgery ordered repeat CT of the cervical spine without contrast they will follow-up and make further recommendation . She could benefit from a bone biopsy, however per interventional radiology, this may happen on Tuesday or Tuesday, would to call them again. This might show evidence regarding infectious organism. In the meantime continue with IV antibiotics, as per infectious disease, vancomycin. She denies any complaints of spinal instrumentations, IV drug use, trauma, has a remote history of spinal fusion. Blood cultures have been obtained. Continue with pain medication IV Dilaudid which has been ordered in the hospital. Assessment & Plan (10/17/2025 11:43 AM EST): C5 C7 discitis, small ventral epidural abscess Chronic weakness of upper and lower extremity C5 C7 anterior disc fusion surgery in 2013 Acute on chronic cervical pain MRI cervical spine as part of outpatient workup, reports findings suspicious for osteomyelitis/discitis at fused C5-C7 vertebral bodies with small ventral epidural abscess. No evidence of any sepsis, unclear etiology of her discitis, however at this time need infectious process ruled out. Talked with her neurosurgeon Dr Rocha, as well as interventional radiologist , and at present no interventions. She could benefit from a bone biopsy, however per interventional radiology, this may happen on Tuesday or Tuesday, would to call them again. This might show evidence regarding infectious organism. In the meantime continue with IV antibiotics, as per infectious disease, vancomycin. She denies any complaints of spinal instrumentations, IV drug use, trauma, has a remote history of spinal fusion. Blood cultures have been obtained. Continue with pain medication IV Dilaudid which has been ordered in the hospital. Assessment & Plan (10/16/2025 11:16 PM EST): - Patient has history of chronic back pain, recently developed weakness of the legs so outpatient MRI was ordered. - MRI cervical spine reports findings suspicious for osteomyelitis/discitis at fused C5-C7 vertebral bodies with small ventral epidural abscess. - Neurosurgery has been consulted. -I will obtain blood cultures. - I will start her on vancomycin. - I will also consult ID. - Continue to monitor symptoms. 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 Currently on Semaglutide for weight management. Orders: Comprehensive metabolic panel; Future Lipid panel with reflex to direct LDL; Future Nonischemic congestive cardiomyopathy 09/08/2021 Overview (09/14/2024): Nonischemic congestive cardiomyopathy Assessment & Plan (10/23/2025 11:59 AM EST): Patient has a history of HFpEF. At home she is on Coreg, Entresto, Farxiga, Lasix Patient is scheduled to have an ICD placement done since she is guarded this cardiomyopathy off-and-on since 2013 which is scheduled on October 30 however advised to postpone this for the next few weeks with a concern for infection and they will not be doing that. Repeat TTE shows EF 55 to 60% - Cardiology consulted, appreciate recommendations: - Hold carvedilol, dapagliflozin, Entresto, Aldactone in setting of soft BP Assessment & Plan (10/22/2025 10:51 AM EST): Patient has a history of HFpEF. At home she is on Coreg, Entresto, Farxiga, Lasix Patient is scheduled to have an ICD placement done since she is guarded this cardiomyopathy off-and-on since 2013 which is scheduled on October 30 however advised to postpone this for the next few weeks with a concern for infection and they will not be doing that. Repeat TTE shows EF 55 to 60% - Cardiology consulted, appreciate recommendations: - Hold carvedilol, dapagliflozin, Entresto, Aldactone in setting of soft BP Assessment & Plan (10/21/2025 12:54 PM EST): Patient has a history of HFpEF. At home she is on Coreg, Entresto, Farxiga, Lasix Patient is scheduled to have an ICD placement done since she is guarded this cardiomyopathy off-and-on since 2013 which is scheduled on October 30 however advised to postpone this for the next few weeks with a concern for infection and they will not be doing that Assessment & Plan (10/20/2025 2:43 PM EST): Patient has a history of HFpEF. At home she is on Coreg, Entresto, Farxiga, Lasix Patient is scheduled to have an ICD placement done since she is guarded this cardiomyopathy off-and-on since 2013 which is scheduled on October 30 however I have advised her to postpone this for the next few weeks with a concern for infection and they will not be doing that Assessment & Plan (10/19/2025 3:23 PM EST): Patient has a history of HFpEF. At home she is on Coreg, Entresto, Farxiga, Lasix which will be restarted. Assessment & Plan (10/18/2025 3:16 PM EST): Patient has a history of HFpEF. At home she is on Coreg, Entresto, Farxiga, Lasix which will be restarted. Assessment & Plan (10/17/2025 11:43 AM EST): Patient has a history of HFpEF. At home she is on Coreg, Entresto, Farxiga, Lasix which will be restarted. Assessment & Plan (10/16/2025 11:16 PM EST): -Patient has a history of HFpEF. -At home she is on Coreg, Entresto, Farxiga, Lasix. Assessment & Plan (06/04/2025 3:30 PM EDT): [...] D deficiency 07/02/2011 Bradycardia 09/14/2010 Anxiety 09/11/2010 Assessment & Plan (10/23/2025 11:59 AM EST): -On Wellbutrin. Discharge Assessment & Plan (10/22/2025 10:51 AM EST): -On Wellbutrin. Discharge Assessment & Plan (10/21/2025 12:07 PM EST): -On Wellbutrin. Assessment & Plan (10/20/2025 2:43 PM EST): -On Wellbutrin. Assessment & Plan (10/19/2025 3:23 PM EST): -On Wellbutrin. Assessment & Plan (10/18/2025 3:16 PM EST): -On Wellbutrin. Assessment & Plan (10/17/2025 11:43 AM EST): -On Wellbutrin. Assessment & Plan (10/16/2025 11:16 PM EST): - On Wellbutrin. Resolved Problems Problem Noted Date Diagnosed Date Resolved Date Acute respiratory failure with hypoxia 11/20/2024 06/04/2025 Encounters Date Type Department Care Team Description 11/04/2025 Telephone Infectious Disease - [facility] [address] [place] [address] Olivier Casillas MD 11/01/2025 5:50 PM EST - 11/03/2025 10:22 AM EST Hospital Encounter [facility] [address] [place] [address] [phone] Mariam Dupree MD Kokkinos, Erika, MD Jones, Christopher, MD Rasul, Yar M, MD Extravasation injury of IV catheter site with other complication, initial encounter ([facility] V24) (Primary Dx); Chest pain, unspecified type; Splenic artery aneurysm (CMS/[facility] V24); Acute on chronic systolic heart failure ([facility] V24, CMS/[facility] V28) Discharge Disposition: Home-Health Care [facility] 11/01/2025 12:00 PM EST Lab Draw Station [address] Overweight (Primary Dx); Depression, unspecified depression type; [...] Dysmenorrhea; Nonintractable episodic headache, unspecified headache type 11/01/2025 9:41 AM EST - 11/01/2025 11:59 PM EST Hospital Encounter Radiology Department - [address] [phone] Left arm pain Discharge Disposition: Home or Self Care 11/01/2025 8:30 AM EST Office Visit Adult [address] [phone] Anastasiya Reis PA Other osteomyelitis, other site (CMS/HCC V24, CMS/HCC V28) (Primary Dx); Epidural abscess; Superficial venous thrombosis of right upper extremity; Left arm pain; Superficial venous thrombosis of upper extremity, left; Chronic systolic (congestive) heart failure (CMS/HCC V24, CMS/HCC V28); Nonischemic congestive cardiomyopathy (CMS/HCC V24, CMS/HCC V28); POTS (postural orthostatic tachycardia syndrome); Chest heaviness 11/01/2025 Telephone Adult Medicine [address] [phone] Shanice Shelton MD 11/01/2025 Results Follow-Up Adult [address] [phone] Anastasiya Reis PA 10/31/2025 Telephone Infectious Disease [facility] [address] [place] [address] [phone] Jose Jordan LPN 10/28/[address] [phone] Shanice Shelton MD 10/28/[address] [phone] Shanice Shelton MD 10/26/2025 9:05 PM EST - 10/27/2025 9:43 AM EST [facility] Emergency [address] [place] [phone] Nila Diaz MD Reid, Baljit Dawson MD Thrombosis due to vascular catheter (Primary Dx); PICC (peripherally inserted central catheter) in place; Superficial venous thrombosis of right upper extremity Discharge Disposition: Home or Self Care 10/25/[address] [phone] Shanice Shelton MD 10/25/2025 Telephone Infectious Disease [facility] [address] [place] [phone] Jose Jordan LPN 10/16/2025 9:43 PM EST - 10/24/2025 12:30 PM EST Hospital Encounter [facility] [address] [place] [phone] Chris Echevarria MD Kazi, Ahmed, MD Jacob, Dennis P, MD Zuberi, Babar, MD Zhang, Keven, MD Abscess in epidural space of cervical spine; Vertebral osteomyelitis (CMS/HCC V24, CMS/HCC V28); Chest pain, unspecified type; Osteomyelitis (CMS/HCC V24, CMS/[facility] V28) Discharge Disposition: Home or Self Care 10/16/2025 3:52 PM EST - 10/16/2025 9:[address] [facility] [address] [place] [phone] Davie Soliman MD Epidural abscess (Primary Dx) Discharge Disposition: Another Health Care Institution Not Defined 10/16/2025 Results Follow-Up Adult [facility] [address] [phone] Shanice Shelton MD 10/15/2025 1:43 PM EST - 10/15/2025 11:59 PM EST Hospital Encounter [facility] MRI [address] [place] [phone] Abnormal MRI Discharge Disposition: Home or Self Care 09/30/2025 Results Follow-Up Adult Medicine [address] [phone] Shanice Shelton MD 09/25/2025 5:57 PM EST - 09/25/2025 11:59 PM EST Hospital Encounter Radiology Department - [address] [phone] Chronic bilateral thoracic back pain Discharge Disposition: Home or Self Care 09/24/2025 9:30 AM EST Office Visit Adult [address] [phone] Shanice Shelton MD Chronic bilateral thoracic back pain (Primary Dx) 08/30/2025 12:30 PM EDT Telemedicine Bariatric Surgery [facility] [address] [phone] Nevaeh Cunha, JOANNA Overweight (Primary Dx) 08/06/2025 Telephone Adult Medicine [address] [phone] Shanice Shelton MD from Last 3 Months Immunizations Immunization Administration Dates Next Due Pfizer SARS-CoV-2 COVID-19, mRNA, LNP-S, preservative free 09/02/2021,02/24/2021 Surgical History Surgery Date Site/Laterality Comments WISDOM TOOTH EXTRACTION PROCEDURE: HISTORICAL WISDOM TEETH EXTRACTION OTHER SURGICAL HISTORY PROCEDURE: [place] DILATION & CURETTAGE DX&/THER NONOBSTETRIC NECK SURGERY 07/01/2008 PROCEDURE: HISTORICAL NECK SURGERY; COMMENT: decompression and fusion C5-6, C6-7 ENDOMETRIAL ABLATION 2009 PROCEDURE: [place] ENDOMETRIAL ABLTJ THERMAL W/O HYSTEROSCOPIC GUID HYSTERECTOMY [...] COMMENT: benign EYE SURGERY 2016 Bilateral PROCEDURE: [place] TRABECULOPLASTY BY LASER SURGERY; COMMENT: Dr. Marylou [...] stomach, age 47 Lung cancer Paternal Grandfather PR, dec eased Diabetes Paternal Grandmother d No [...] for your loved ones. For example, child psychiatrist or elderly care for an older [...] Mass Index 27.1 11/01/2025 1:53 PM EST Plan of Treatment Upcoming Encounters Date Type Department Care Team ([facility] st Contact Info) Description 11/05/2025 10:30 AM EST Office Visit Adult Medicine [address] [place], [place] [phone] Srinath Nolan MD [address] [place], [place] 11/26/2025 10:00 AM EST Office Visit Infectious Disease - [facility] [address] [place] [address] Olivier Casillas MD [address] [place] [address] 12/12/2025 9:15 AM EST Office Visit Bariatric Surgery - [facility] [address] [phone] Alexander Silva MD [address] [place] [phone] 12/17/2025 8:00 AM EST Office Visit Neurosurgery - [facility] [address] [place] [phone] Brain Griffin MD [address] [place] [address] [place] [phone] 01/03/2026 12:30 PM EST Telemedicine Bariatric Surgery - [facility] [address] [phone] Nevaeh Cunha, RD [address] [phone] 05/28/2026 9:30 AM EDT Office Visit Vascular Surgery - [facility] [address] [facility] [address] [place] [phone] Veronika Lamb MD [address] [place] [phone] Health Maintenance Due Date Last Done Comments Drug Screen 1975 Non-Opioid Controlled Substance Agreement 1973 Medicare Annual Wellness Visit 10/30/2022 RSV Immunization Adult Patients (1 - Risk 50-74 years 1-dose series) 2023 COVID-19 Vaccine ( season) 2025 09/24/2021, 09/02/2021, 02/24/2021, Additional history exists Colorectal Cancer Screening: FIT-DNA (Cologuard) 10/05/2026 10/05/2023, 10/05/2023 Social Influencers of Health Screening 10/23/2026 10/23/2025 Hypertension/CHF/CAD Annual BMP Blood Test 11/02/2026 11/02/2025, 11/01/2025, 11/01/2025, Additional history exists Breast Cancer Screening 01/16/2027 01/16/20, 01/13/2024, 01/06/2023, [...] to complete this topic Zoster Vaccines Discontinued Interventions Community Resource Recommendations Community Resource Services Recommended Domains Addressed Status Status Reason/Outcome Date/Time Leonid Vill[place] [facility] Food Distribution Program (ML Food Pantry Food Risk 10/23/2025 12:44 PM EST Clinical & Support Options (DIE SET UP WORKER) - Community Meals Free Meals Food Risk 10/23/2025 12:44 PM EST [employer] - Food Pantry Food Pantry Food Risk 10/23/2025 12:44 PM EST [facility] - Food Pantry Food Pantry Food Risk 10/23/2025 12:44 PM EST [facility] - Emergency Food Pantry Emergency Food Food Risk 10/23/2025 12:44 PM EST [facility] - Food Distribution Food Pantry Food Risk 10/23/2025 12:44 PM EST [facility] [employer] - Food Bank Distribution Food Pantry Food Risk 10/23/2025 12:44 PM EST [facility] Pantry Food Pantry Food Risk 10/23/2025 12:44 PM EST [facility] Emergency Food, Food Pantry Food Risk 10/23/2025 12:[address] [facility] - [employer] Food Pantry Food Risk 10/23/2025 12:44 PM EST [facility] - Emergency Disaster Services Emergency Food, Navigating the System Financial Risk, Food Risk 10/23/2025 12:44 PM EST [employer] - [facility] [employer] Free Meals, Help Find Housing, Navigating the System Financial Risk, Food Risk 10/23/2025 12:44 PM EST from Last 12 Months Procedures Procedure Name Priority Date/Time Associated Diagnosis Comments ECG ANNOTATED 11/04/2025 VANCOMYCIN, RANDOM STAT 11/02/2025 4: 51 AM EST CBC WITH AUTO DIFFERENTIAL Routine 11/02/2025 4:51 AM EST MAGNESIUM Routine 11/02/2025 4:51 AM EST CBC AND DIFFERENTIAL Routine 11/02/2025 4:51 AM EST BASIC METABOLIC PANEL Routine 11/02/2025 4:51 AM EST ACTIVATED PARTIAL THROMBOPLASTIN TIME STAT 11/01/2025 11:25 PM EST PROTHROMBIN TIME WITH INR STAT 11/01/2025 11:[address] ANGIO CHEST WO AND/OR W CONTRAST STAT 11/01/2025 10:31 PM EST Chest pain, unspecified type XR CHEST 2 VIEWS STAT 11/01/2025 2:29 PM EST CBC WITH AUTO DIFFERENTIAL STAT 11/01/2025 2:08 PM EST B-TYPE NATRIURETIC PEPTIDE STAT 11/01/2025 2:08 PM EST MAGNESIUM STAT 11/01/2025 2:08 PM EST LIPASE STAT 11/01/2025 2:08 PM EST COMPREHENSIVE METABOLIC PANEL STAT 11/01/2025 2:08 PM EST CBC AND DIFFERENTIAL STAT 11/01/2025 2:08 PM EST TROPONIN I HIGH SENSITIVITY Timed 11/01/2025 2:08 PM EST ECG 12-LEAD STAT 11/01/2025 2:03 PM EST CBC WITH AUTO DIFFERENTIAL Routine 11/01/2025 11:45 [...] Dysmenorrhea Nonintractable episodic headache, unspecified headache type VAS US DUPLEX UPPER EXT VENOUS LEFT STAT 11/01/2025 11:22 AM EST Left arm pain INSERT PICC LINE Routine 10/27/2025 9:00 AM EST HEPARIN INDUCED PLATELET ANTIBODY STAT 10/27/2025 12:47 AM EST COMPLETE BLOOD COUNT STAT 10/27/2025 12:47 AM EST ACTIVATED PARTIAL THROMBOPLASTIN TIME STAT 10/27/2025 12:47 AM EST PROTHROMBIN TIME WITH INR STAT 10/27/2025 12:47 AM EST COMPREHENSIVE METABOLIC PANEL STAT 10/27/2025 12:47 AM EST VAS US DUPLEX UPPER EXT VENOUS RIGHT STAT 10/26/2025 10:33 PM EST PICC (peripherally inserted central catheter) in place CBC WITH AUTO DIFFERENTIAL Routine 10/24/2025 6:28 AM EST MAGNESIUM Routine 10/24/2025 6:28 AM EST BASIC METABOLIC PANEL Routine 10/24/2025 6:28 AM EST CBC AND DIFFERENTIAL Routine 10/24/2025 6:28 AM EST INSERT PICC LINE Routine 10/23/2025 2:05 PM EST CBC WITH AUTO DIFFERENTIAL Routine 10/23/2025 8:43 AM EST MAGNESIUM Routine 10/23/2025 8:43 AM EST BASIC METABOLIC PANEL Routine 10/23/2025 8:43 AM EST CBC AND DIFFERENTIAL Routine 10/23/2025 8:[address] BX BONE TROCAR/NDL DEEP Routine 10/22/2025 11:49 AM EST CULTURE FUNGUS, MISCELLANEOUS SOURCE STAT 10/22/2025 11:06 AM EST Abscess in epidural space of cervical spine Vertebral osteomyelitis (CMS/HCC V24, CMS/HCC V28) Chest pain, unspecified type CULTURE TISSUE WITH GRAM STAIN Routine 10/22/2025 11:05 AM EST Abscess in epidural space of cervical spine Vertebral osteomyelitis (CMS/HCC V24, CMS/HCC V28) Chest pain, unspecified type TISSUE EXAM STAT 10/22/2025 11:03 AM EST Abscess in epidural space of cervical spine Vertebral osteomyelitis (CMS/HCC V24, CMS/HCC V28) Chest pain, unspecified type CULTURE [employer] AND SMEAR Routine 10/22/2025 11:02 AM EST CBC WITH AUTO DIFFERENTIAL Routine 10/22/2025 8:02 AM EST MAGNESIUM Routine 10/22/2025 8:02 AM EST BASIC METABOLIC PANEL Routine 10/22/2025 8:02 AM EST CBC AND DIFFERENTIAL Routine 10/22/2025 8:02 AM EST XR CERVICAL SPINE 4-5 VIEWS Routine 10/21/2025 1:09 PM EST TRANSTHORACIC ECHOCARDIOGRAM (TTE) COMPLETE Today 10/21/2025 10:59 AM EST Chest pain, unspecified type CBC WITH AUTO DIFFERENTIAL Routine 10/21/2025 5:00 AM EST MAGNESIUM Routine 10/21/2025 5:00 AM EST BASIC METABOLIC PANEL Routine 10/21/2025 5:00 AM EST CBC AND DIFFERENTIAL Routine 10/21/2025 5:00 AM EST VANCOMYCIN, TROUGH Timed 10/21/2025 5: 00 AM EST TROPONIN I HIGH SENSITIVITY Routine 10/21/2025 1:08 AM EST TROPONIN I HIGH SENSITIVITY Timed 10/20/2025 8:57 PM EST TROPONIN I HIGH SENSITIVITY Timed 10/20/2025 8:03 PM EST LACTATE, WITH REFLEX STAT 10/20/2025 8:03 PM EST D-DIMER STAT 10/20/2025 8:03 PM EST ECG 12-LEAD Routine 10/20/2025 6:04 PM EST XR CERVICAL SPINE 2-3 VIEWS Routine 10/20/2025 10:08 AM EST CBC WITH AUTO DIFFERENTIAL Routine 10/20/2025 7:23 AM EST MAGNESIUM Routine 10/20/2025 7:23 AM EST BASIC METABOLIC PANEL Routine 10/20/2025 7:23 AM EST CBC AND DIFFERENTIAL Routine 10/20/2025 7:23 AM EST VANCOMYCIN, TROUGH Timed 10/19/2025 11 :40 AM EST CBC WITH AUTO DIFFERENTIAL Routine 10/19/2025 11:40 AM EST MAGNESIUM Routine 10/19/2025 11:40 AM EST BASIC METABOLIC PANEL Routine 10/19/2025 11:40 AM EST CBC AND DIFFERENTIAL Routine 10/19/2025 11:[address] CERVICAL SPINE WO CONTRAST Routine 10/18/2025 6:16 PM EST CBC WITH AUTO DIFFERENTIAL Routine 10/18/2025 6:46 AM EST MAGNESIUM Routine 10/18/2025 6:46 AM EST BASIC METABOLIC PANEL Routine 10/18/2025 6:46 AM EST CBC AND DIFFERENTIAL Routine 10/18/2025 6:46 AM EST CBC WITH AUTO DIFFERENTIAL Routine 10/17/2025 7:30 AM EST PHOSPHORUS Routine 10/17/2025 7:30 AM EST MAGNESIUM Routine 10/17/2025 7:30 AM EST CBC AND DIFFERENTIAL Routine 10/17/2025 7:30 AM EST BASIC METABOLIC PANEL Routine 10/17/2025 7:30 AM EST TYPE AND SCREEN STAT 10/16/2025 10:48 PM EST URINALYSIS WITH REFLEX MICROSCOPIC STAT 10/16/2025 4:57 PM EST URINALYSIS WITH REFLEX MICROSCOPIC STAT 10/16/2025 4:57 PM EST CULTURE BLOOD STAT 10/16/2025 4:19 PM EST TYPE AND SCREEN STAT 10/16/2025 4:18 PM EST ACTIVATED PARTIAL THROMBOPLASTIN TIME STAT 10/16/2025 4:18 PM EST PROTHROMBIN TIME WITH INR STAT 10/16/2025 4:18 PM EST C-REACTIVE PROTEIN STAT 10/16/2025 4: 07 PM EST SEDIMENTATION RATE STAT 10/16/2025 4: 07 PM EST CBC WITH AUTO DIFFERENTIAL STAT 10/16/2025 4:07 PM EST LACTATE, WITH REFLEX STAT 10/16/2025 4:07 PM EST COMPREHENSIVE METABOLIC PANEL STAT 10/16/2025 4:07 PM EST CBC AND DIFFERENTIAL STAT 10/16/2025 4:07 PM EST CULTURE BLOOD STAT 10/16/2025 4:07 PM EST MR CERVICAL SPINE WO AND W CONTRAST Routine 10/15/2025 3:24 PM EST Abnormal MRI MR THORACIC SPINE WO CONTRAST Routine 09/25/2025 6:31 PM EST Chronic bilateral thoracic back pain LIPID PANEL WITH REFLEX TO DIRECT LDL Routine 07/18/2025 11:04 AM EDT Other cardiomyopathy (CMS/HCC V24, CMS/HCC V28) Prediabetes Mixed hyperlipidemia MG MAMMO DIGITAL SCREENING W JEFFREY BILAT Routine 01/16/2025 7:52 AM EST Encounter for screening mammogram for breast cancer FIT-DNA Routine 10/05/2023 HEPATITIS C SCREENING Routine 05/25/2012 from Last 3 Months or Most Recently Relevant to Health Maintenance Results * ECG-Annotated (11/04/2025) us Provider Onbase MD ECG ORDERABLES Final Result * (ABNORMAL) CBC auto differential (11/02/2025 4:51 AM EST) Only the most recent of12 resultswithin the time period is included. WBC 6.1 4.8 - 10.8 K/mcL LAB HEMETOLOGY METHOD 11/02/2025 5:19 AM EST [facility] RBC 4.00 3.80 - 4.80 M/mcL LAB HEMETOLOGY METHOD 11/02/2025 5:19 AM EST [facility] Hemoglobin 10.9(L) 11.5 - 16.0 g/dL LAB HEMETOLOGY METHOD 11/02/2025 5:19 AM [facility] Hematocrit 34.1(L) 35.0 - 47.0 % LAB HEMETOLOGY METHOD 11/02/2025 5:19 AM [facility] MCV 85.0 79.0 - 98.0 FL LAB HEMETOLOGY METHOD 11/02/2025 5:19 AM [facility] MCH 27.2 27.0 - 32.0 pcg LAB HEMETOLOGY METHOD 11/02/2025 5:19 AM [facility] MCHC 32.0 32.0 - 37.0 g/dL LAB HEMETOLOGY METHOD 11/02/2025 5:19 AM [facility] RDW 14.6 11.0 - 15.0 % LAB HEMETOLOGY METHOD 11/02/2025 5:19 AM [facility] Platelets 216 130 - 400 K/mcL LAB HEMETOLOGY METHOD 11/02/2025 5:19 AM [facility] MPV 8.5 7.0 - 11.0 FL LAB HEMETOLOGY METHOD 11/02/2025 5:19 AM [facility] NRBC 0.0 <1.0 % LAB HEMETOLOGY METHOD 11/02/2025 5:19 AM [facility] NRBC Absolute 0.00 <0.10 K/mcL LAB HEMETOLOGY METHOD 11/02/2025 5:19 AM [facility] Neutrophils Relative 51.7 % LAB HEMETOLOGY METHOD 11/02/2025 5:19 AM [facility] Lymphocytes Relative 34.9 % LAB HEMETOLOGY METHOD 11/02/2025 5:19 AM [facility] Monocytes Relative 6.9 % LAB HEMETOLOGY METHOD 11/02/2025 5:19 AM [facility] Eosinophils Relative 5.3 % LAB HEMETOLOGY METHOD 11/02/2025 5:19 AM EST [facility] Basophils Relative 1.0 % LAB HEMETOLOGY METHOD 11/02/2025 5:19 AM [facility] Immature Granulocytes Relative 0.2 % LAB HEMETOLOGY METHOD 11/02/2025 5:19 AM EST [facility] Neutrophils Absolute 3.13 1.50 - 7.00 K/mcL LAB HEMETOLOGY METHOD 11/02/2025 5:19 AM EST [facility] Lymphocytes Absolute 2.11 1.00 - 5.00 K/mcL LAB HEMETOLOGY METHOD 11/02/2025 5:19 AM [facility] Monocytes Absolute 0.42 0.20 - 1.00 K/mcL LAB HEMETOLOGY METHOD 11/02/2025 5:19 AM EST [facility] Eosinophils Absolute 0.32 0.00 - 0.50 K/mcL LAB HEMETOLOGY METHOD 11/02/2025 5:19 AM EST [facility] Basophils Absolute 0.06 0.00 - 0.20 K/mcL LAB HEMETOLOGY METHOD 11/02/2025 5:19 AM [facility] Immature Granulocytes Absolute 0.01 0.00 - 0.03 K/mcL LAB HEMETOLOGY METHOD 11/02/2025 5:19 AM EST [facility] Blood Venous blood specimen / Unknown Venipuncture / Unknown 11/02/2025 4:51 AM EST 11/02/2025 5:05 AM EST us Wilder Warren MD LAB BLOOD ORDERABLES Final Result [facility] [address] [place] [address], * (ABNORMAL) Magnesium (11/02/2025 4:51 AM EST) Only the most recent of10 resultswithin the time period is included. Magnesium 1.8(L) 1.9 - 2.6 mg/dL 11/02/2025 5:36 AM EST [facility] Blood Venous blood specimen / Unknown Venipuncture / Unknown 11/02/2025 4:51 AM EST 11/02/2025 5:05 AM EST Wilder Warren MD LAB BLOOD ORDERABLES Final Result Performing Organization Address City/[facility]/ZIP Co de Phone Number [facility] [address] [place] [address], [place] [phone] * Vancomycin random (11/02/2025 4:51 AM EST) Only the most recent of2 resultswithin the time period is included. Vancomycin Rm 11.9 mcg/mL 11/02/2025 5:37 AM EST [facility] Blood Venous blood specimen / Unknown Venipuncture / Unknown 11/02/2025 4:51 AM EST 11/02/2025 5:05 AM EST Wilder Warren MD LAB BLOOD ORDERABLES Final Result Performing Organization Address City/[facility]/ZIP Co de Phone Number [facility] [address] [place] [address], [place] [phone] * Basic metabolic panel (11/02/2025 4:51 AM EST) Only the most recent of9 resultswithin the time period is included. Sodium 140 133 - 145 mmol/L 11/02/2025 5:36 AM EST [facility] Potassium 4.1 3.5 - 5.5 mmol/L 11/02/2025 5:36 AM EST [facility] Chloride 104 96 - 110 mmol/L 11/02/2025 5:36 AM EST [facility] CO2 27 21 - 32 mmol/L 11/02/2025 5:36 AM [facility] Anion Gap 9 3 - 11 11/02/2025 5:36 AM [facility] Glucose 82 70 - 100 mg/dL 11/02/2025 5:36 AM [facility] BUN 14 5 - 25 mg/dL 11/02/2025 5:36 AM [facility] Creatinine 0.87 0.50 - 1.10 mg/dL 11/02/2025 5:36 AM [facility] eGFR 80 >=60 mL/min/1. 73m2 11/02/2025 5:36 AM [facility] Comment:Calculation based on the Chronic Kidney Disease Epidemiology Collaboration (CKD-EPI) equation refit without adjustment for race. BUN/Creatinine Ratio 16.1 11/02/2025 5:36 AM [facility] Calcium 8.5 8.5 - 10.5 mg/dL 11/02/2025 5:36 AM [facility] Blood Venous blood specimen / Unknown Venipuncture / Unknown 11/02/2025 4:51 AM EST 11/02/2025 5:05 AM EST us Wilder Warren MD LAB BLOOD ORDERABLES Final Result [facility] [address] [place] [address], * Activated Partial Thromboplastin Time - STAT (11/01/2025 11:25 PM EST) Only the most recent of3 resultswithin the time period is included. aPTT 30.6 24.1 - 39.3 sec LAB COAGULATION METHOD 11/01/2025 11:51 PM [facility] Blood Venous blood specimen / Unknown Venipuncture / Unknown 11/01/2025 11:25 PM EST 11/01/2025 11:39 PM EST us Nila Diaz MD LAB BLOOD ORDERABLES Final Res ult Performing Organization Address [facility]/ZIP Co de Phone Number [facility] [address] [place] [address], [place] [phone] * Prothrombin Time with INR - STAT (11/01/2025 11:25 PM EST) Only the most recent of3 resultswithin the time period is included. Protime 11.5 10.6 - 13.9 sec LAB COAGULATION METHOD 11/01/2025 11:51 PM EST [facility] INR 0.9 LAB COAGULATION METHOD 11/01/2025 11:51 PM EST [facility] Blood Venous blood specimen / Unknown Venipuncture / Unknown 11/01/2025 11:25 PM EST 11/01/2025 11:39 PM EST us Nila Diaz MD LAB BLOOD ORDERABLES Final Res ult Performing Organization Address [facility]/ZIP Co de Phone Number [facility] [address] [place] [address], [place] [phone] * CT Angio Chest wo and/or w [...] Signed Date: 11/01/2025 14:48 ET Workstation ID: [id number] Transcribed By: Self Edit Transcribed Date: 11/01/2025 [...] Signed Date: 11/01/2025 14:48 ET Workstation ID: [id number] Transcribed By: Self Edit Transcribed Date: 11/01/2025 14:48 ET Mariam Dupree MD IMG XR PROCEDURES Final Result * Troponin I high sensitivity (11/01/2025 2:08 PM EST) Only the most recent of4 resultswithin the time period is included. [facility] High Sensitivity Troponin I 19 <=34 ng/L 11/01/2025 3:07 PM EST [facility] Blood Venous blood specimen / Unknown Venipuncture / Unknown 11/01/2025 2:08 PM EST 11/01/2025 2:20 PM EST Mariam Dupree MD LAB BLOOD ORDERABLES Final Res ult [facility] [address] [place] [address], [place] [phone] * (ABNORMAL) B-type natriuretic peptide (11/01/2025 2:08 PM EST) [facility] BNP 115(H) <=100 pcg/mL 11/01/2025 3:06 PM EST [facility] Blood Venous blood specimen / Unknown Venipuncture / Unknown 11/01/2025 2:08 PM EST 11/01/2025 2:19 PM EST Narrative [facility] - 11/01/2025 3:06 PM EST Over the counter supplements containing high doses of biotin may interfere with this assay. If interference is suspected, patients shoud be retested after refraining from biotin supplements for 72 hours. us Mariam Dupree MD LAB BLOOD ORDERABLES Final Res ult Performing Organization Address City/[facility]/ZIP Co de Phone Number [facility] [address] [place] [address], [place] [phone] * Lipase (11/01/2025 2:08 PM EST) Lipase 24 12 - 53 unit/L 11/01/2025 3:10 PM EST [facility] Blood Venous blood specimen / Unknown Venipuncture / Unknown 11/01/2025 2:08 PM EST 11/01/2025 2:20 PM EST us Mariam Dupree MD LAB BLOOD ORDERABLES Final Res ult Performing Organization Address City/[facility]/ZIP Co de Phone Number [facility] [address] [place] [address], [place] [phone] * (ABNORMAL) Comprehensive metabolic panel (11/01/2025 2:08 PM EST) Only the most recent of4 resultswithin the time period is included. Sodium 141 133 - 145 mmol/L 11/01/2025 3:10 PM EST [facility] Potassium 3.8 3.5 - 5.5 mmol/L 11/01/2025 3:10 PM EST [facility] Chloride 106 96 - 110 mmol/L 11/01/2025 3:10 PM [facility] CO2 27 21 - 32 mmol/L 11/01/2025 3:10 PM [facility] Anion Gap 8 3 - 11 11/01/2025 3:10 PM [facility] Glucose 125(H) 70 - 100 mg/dL 11/01/2025 3:10 PM [facility] BUN 15 5 - 25 mg/dL 11/01/2025 3:10 PM [facility] Creatinine 0.90 0.50 - 1.10 mg/dL 11/01/2025 3:10 PM [facility] eGFR 77 >=60 mL/min/1. 73m2 11/01/2025 3:10 PM [facility] Comment:Calculation based on the Chronic Kidney Disease Epidemiology Collaboration (CKD-EPI) equation refit without adjustment for race. BUN/Creatinine Ratio 16.7 11/01/2025 3:10 PM [facility] Calcium 9.1 8.5 - 10.5 mg/dL 11/01/2025 3:10 PM [facility] AST (SGOT) 31 10 - 42 unit/L 11/01/2025 3:10 PM [facility] ALT (SGPT) 34 10 - 60 unit/L 11/01/2025 3:10 PM [facility] Alkaline Phosphatase 127(H) 42 - 121 unit/L 11/01/2025 3:10 PM [facility] Total Protein 7.2 6.0 - 8.0 g/dL 11/01/2025 3:10 PM [facility] Albumin 4.1 3.2 - 5.0 g/dL 11/01/2025 3:10 PM [facility] Total Bilirubin 0.2 0.0 - 1.4 mg/dL 11/01/2025 3:10 PM EST [facility] Blood Venous blood specimen / Unknown Venipuncture / Unknown 11/01/2025 2:08 PM EST 11/01/2025 2:20 PM EST us Mariam Dupree MD LAB BLOOD ORDERABLES Final Res ult Performing Organization Address City/[facility]/ZIP Co de Phone Number [facility] [address] [place] [address], [place] [phone] * ECG 12 lead (11/01/2025 2:03 PM EST) Only the most recent of2 resultswithin the time period is included. Ventricular Rate ECG 100 BPM GEMUSE Atrial Rate 100 BPM GEMUSE P-R Interval 146 ms GEMUSE QRS Duration 80 ms GEMUSE Q-T Interval 396 ms GEMUSE QTc 510 ms GEMUSE P Wave Eagle 72 degrees GEMUSE R Eagle 59 degrees GEMUSE T Eagle 41 degrees GEMUSE ECG Interpretation Normal sinus [...] Mariam Dupree MD ECG ORDERABLES Final Result Performing Organization Address City/[facility]/ZIP Co de Phone Number GEMUSE * Sedimentation rate (11/01/2025 11:45 AM EST) Only the most recent of2 resultswithin the time period is included. Sed Rate 22 0 - 30 mm/hr LAB HEMETOLOGY METHOD 11/01/2025 2:28 PM EST [facility] Blood Venous blood specimen / Unknown Venipuncture / Unknown 11/01/2025 11:45 AM EST 11/01/2025 11:45 AM EST us Clifton Bear MD LAB BLOOD ORDERABLES Final Resul t Performing Organization Address [facility] Co de Phone Number [facility] [address] [place] [address], [place] [phone] * (ABNORMAL) C-reactive protein (11/01/2025 11:45 AM EST) Only the most recent of2 resultswithin the time period is included. C-Reactive Protein 0.57(H) <=0.50 mg/dL 11/01/2025 4:21 PM EST [facility] Blood Venous blood specimen / Unknown Venipuncture / Unknown 11/01/2025 11:45 AM EST 11/01/2025 11:45 AM EST us Clifton Bear MD LAB BLOOD ORDERABLES Final Resul t Performing Organization Address [facility] de Phone Number [facility] [address] [place] [address], [place] [phone] * Vascular US duplex upper extremity venous [...] Signed Date: 11/01/2025 11:55 ET Workstation ID: [id number] Transcribed By: Self Edit Transcribed Date: 11/01/2025 [...] Signed Date: 11/01/2025 11:55 ET Workstation ID: [id number] Transcribed By: Self Edit Transcribed Date: 11/01/2025 11:40 ET us Anastasiya MCLAUGHLIN CV VASCULAR PROCEDURES Final Res ult * Insert PICC line (10/27/2025 9:00 AM EST) Only the most recent of2 resultswithin the time period is included. Narrative Harper Pak RN - 10/27/2025 9:00 AM EST Harper Pak RN 10/27/2025 11:51 AM PICC Line Insertion Procedure Note Procedure: Insertion of 4F single lumen Bard PowerPICC Lot: [id number] Exp: 2026-04-20 Indications: PICC replacement for IV abx EOT 11/26/2025 Procedure Details: Informed consent was obtained for the procedure. Risks of thrombus and infection were discussed. Pre-procedure checklist completed at bedside. Maximum sterile technique was used including antiseptics, cap, gloves, gown, hand hygiene, mask, and sheet. US guidance utilized, vein easily accessed and catheter advanced smoothly upon first attempt. Two wires intact and discarded. 1% Lidocaine 2 ml sc administered. 4F PICC inserted to the Left vein per hospital protocol. Flushes smoothly with good blood return. Findings: Catheter cut at 43 cm and inserted to 43 cm with 0 cm exposed. Mid upper arm circumference is 31 cm. There were no changes to vital signs. Catheter was flushed with 10 cc NS and sterile CVC dressing with Biopatch applied. Patient did tolerate procedure well. Recommendations: 3cg confirmation obtained: Tip at cavoatrial junction/May use line PICC Brochure given to patient with teaching instruction. us Nila Diaz MD IV THERAPY ORDERABLES Edited R esult - Final * Heparin induced platelet antibody (10/27/2025 12:47 AM EST) Heparin Induced Platelet Antibody 0.129 <0.4 OD 10/30/2025 1:54 PM EST [facility] Comment: Probability of positive serotonin release assay ([place]) based on PF4 optical density. (OD)* PF4 OD Chance of [place] Positive <0.400 <1% 0.400 - 1.000 3% 1.000 - 1.400 18% 1.500 - 2.000 50% >2.000 89% *Arsenio et al: J Thromb Haemost 2008; 6: 8827-0336. Test performed at [facility], [address] , [place] [address] Ann Marie Vivar MD, PhD - Vocational Rehabilitation Teacher Blood Venous blood specimen / Unknown Venipuncture / Unknown 10/27/2025 12:47 AM EST 10/27/2025 12:58 AM EST us Nila Diaz MD LAB BLOOD ORDERABLES Final Res [place] [address] [place] [address] * (ABNORMAL) CBC (10/27/2025 12:47 AM EST) WBC 5.9 4.8 - 10.8 K/mcL LAB HEMETOLOGY METHOD 10/27/2025 1:04 AM [facility] RBC 4.00 3.80 - 4.80 M/mcL LAB HEMETOLOGY METHOD 10/27/2025 1:04 AM [facility] Hemoglobin 10.8(L) 11.5 - 16.0 g/dL LAB HEMETOLOGY METHOD 10/27/2025 1:04 AM [facility] Hematocrit 33.9(L) 35.0 - 47.0 % LAB HEMETOLOGY METHOD 10/27/2025 1:04 AM [facility] MCV 85.8 79.0 - 98.0 FL LAB HEMETOLOGY METHOD 10/27/2025 1:04 AM [facility] MCH 27.3 27.0 - 32.0 pcg LAB HEMETOLOGY METHOD 10/27/2025 1:04 AM [facility] MCHC 31.9(L) 32.0 - 37.0 g/dL LAB HEMETOLOGY METHOD 10/27/2025 1:04 AM [facility] RDW 14.5 11.0 - 15.0 % LAB HEMETOLOGY METHOD 10/27/2025 1:04 AM [facility] Platelets 208 130 - 400 K/mcL LAB HEMETOLOGY METHOD 10/27/2025 1:04 AM [facility] MPV 8.7 7.0 - 11.0 FL LAB HEMETOLOGY METHOD 10/27/2025 1:04 AM EST [facility] NRBC 0.0 <1.0 % LAB HEMETOLOGY METHOD 10/27/2025 1:04 AM EST [facility] NRBC Absolute 0.00 <0.10 K/mcL LAB HEMETOLOGY METHOD 10/27/2025 1:04 AM EST [facility] Blood Venous blood specimen / Unknown Venipuncture / Unknown 10/27/2025 12:47 AM EST 10/27/2025 12:58 AM EST us Nila Diaz MD LAB BLOOD ORDERABLES Final Res ult [facility] [address] [place] [address], * Vascular US duplex upper extremity venous right (10/26/2025 10:33 PM EST) Anatomical Region Laterality Modality Vascular, Abdomen Ultrasound 10/26/2025 11:2 9 PM EST Impressions 10/26/2025 11:29 PM EST 1. Negative for right upper extremity deep vein thrombosis. 2. Partially occlusive superficial venous thrombus within the right basilic and cephalic veins. This document has been electronically signed by: Toy Mackay MD on 10/26/2025 23:29:25 Narrative 10/26/2025 11:29 PM EST INDICATION: pain and leaking at PICC site, [...] There is a right upper extremity PICC. Procedure Note Toy Mackay MD - 10/26/2025 INDICATION: pain and leaking at PICC site, ?DVT Venous duplex ultrasound right upper extremity Comparison: None provided Findings: Accessible deep venous segments are fully compressible with normalDoppler color flow and spectral tracings. There is partially occlusive superficial venous thrombus within the proximal to mid right basilic vein. There is partially occlusive superficial venous thrombus within thedistal cephalic vein. There is a right upper extremity PICC. IMPRESSION: 1. Negative for right upper extremity deep vein thrombosis. 2. Partially occlusive superficial venous thrombus within the right basilic and cephalic veins. This document has been electronically signed by: Toy Mackay MD on 10/26/2025 23:29:25 us Nila Diaz MD CV VASCULAR PROCEDURES Final R esult * CT Bx Bone Trocar/Ndl Deep (10/22/2025 11:49 AM EST) Anatomical Region Laterality Modality Computed Tomogra phy 10/22/2025 12:2 5 PM EST Impressions 10/22/2025 12:[address] guided 18-gauge core biopsies of the eroded anterior C6 vertebral body sent for cultures and pathology. -------- FINAL REPORT -------- Dictated By: Pablo High Dictated Date: 10/22/2025 12:25 ET Assigned Physician: Pablo High Reviewed and Electronically Signed By: Pablo High Signed Date: 10/22/2025 12:32 ET Workstation ID: [id number] Transcribed By: Self Edit Transcribed Date: 10/22/2025 12:25 ET Narrative 10/22/2025 12:[address] GUIDED C6 CERVICAL BIOPSY DATE OF SERVICE: 10/22/2025 10:37 AM. COMPUTER SYSTEMS SOFTWARE ENGINEER: Pablo High MD, LISA. MEDICAL ORDERLY: Crista Olivo PA-C. PRE-OPERATIVE DIAGNOSIS: C5-C7 osteomyelitis. POST-OPERATIVE DIAGNOSIS: Same. ANESTHESIA: Local 1% lidocaine. Intravenous moderate sedation with 3 mg midazolam and 50 mcg fentanyl was provided during the procedure with continuous cardiopulmonary monitoring by a qualified independent practitioner (pulse oximetry, heart rate, and blood pressure were continuously monitored). Total time of monitored conscious sedation was 43 minutes. ESTIMATED BLOOD LOSS: Less than 10 mL. BLOOD/FLUIDS ADMINISTERED: See nursing notes. URINE OUTPUT: See nursing notes. SPECIMEN: See below. IMPLANTS: None. COMPLICATIONS: None. HISTORY/INDICATION: ANNABELLE CLOVER is a 50 years-old Female with prior C5-C7 ACDF with multilevel sclerosis and erosion of the vertebral bodies concerning for osteomyelitis. Biopsy/sampling is requested. COMPARISON: CT cervical spine 10/18/2025. MRI cervical spine 10/15/2025. PROCEDURE: The procedure, risks, benefits and alternatives were discussed in detail and informed consent was obtained from the patient. The patient was placed on the table in a supine position. The patient and procedure were correctly identified using timeout protocol. The left neck was prepped and draped using all elements of maximal sterile barrier technique including sterile gloves, sterile gown, cap, mask, large sterile sheet, hand hygiene and cutaneous antisepsis with 2% chlorhexidine. IV sedation was administered. Limited CT scanning was performed and a suitable access site was selected and a skin corona made. Local anesthesia was infiltrated. Under CT fluoroscopic guidance, a 17-gauge coaxial needle was advanced to the anterolateral aspect of the eroded C6 vertebral body and multiple 18-gauge core biopsy specimen were obtained and sent for cultures and pathology. The needle was removed and hemostasis was achieved and a sterile dressing was applied. Repeat CT imaging was performed. The patient tolerated the procedure well without immediate complication and left the procedure suite in stable condition. All CT imaging was performed utilizing a combination of automated exposure control, adjustment of the mA and/or kV according to patient size and use of iterative reconstruction techniques to achieve dose as low as reasonably achievable. FINDINGS: CT again demonstrates extensive erosive changes of the C5-C7 vertebral bodies worse at C6. Under CT guidance from a left anterolateral approach, multiple 18-gauge core biopsy specimen were obtained and sent for cultures (bacterial, fungal and AFB) in a sterile cup as well as for pathology in formalin. Postbiopsy imaging does not demonstrate any immediate complication. Procedure Note Pablo High MD - 10/22/2025 CT GUIDED C6 CERVICAL BIOPSY DATE OF SERVICE: 10/22/2025 10:37 AM. COMPUTER SYSTEMS SOFTWARE ENGINEER: Pablo High MD, LISA. MEDICAL ORDERLY: Crista Olivo PA-C. PRE-OPERATIVE DIAGNOSIS: C5-C7 osteomyelitis. POST-OPERATIVE DIAGNOSIS: Same. ANESTHESIA: Local 1% lidocaine. Intravenous moderate sedation with 3 mgmidazolam and 50 mcg fentanyl was provided during the procedure withcontinuous cardiopulmonary monitoring by a qualified independentpractitioner (pulse oximetry, heart rate, and blood pressure werecontinuously monitored). Total time of monitored conscious sedation was 43minutes. ESTIMATED BLOOD LOSS: Less than 10 mL. BLOOD/FLUIDS ADMINISTERED: See nursing notes. URINE OUTPUT: See nursing notes. SPECIMEN: See below. IMPLANTS: None. COMPLICATIONS: None. HISTORY/INDICATION: ANNABELLE COPPOLA is a 50 years-old Female with priorC5-C7 ACDF with multilevel sclerosis and erosion of the vertebral bodiesconcerning for osteomyelitis. Biopsy/sampling is requested. COMPARISON: CT cervical spine 10/18/2025. MRI cervical spine 10/15/2025. PROCEDURE: The procedure, risks, benefits and alternatives were discussed in detailand informed consent was obtained from the patient. The patient was placedon the table in a supine position. The patient and procedure werecorrectly identified using timeout protocol. The left neck was prepped anddraped using all elements of maximal sterile barrier technique includingsterile gloves, sterile gown, cap, mask, large sterile sheet, hand hygieneand cutaneous antisepsis with 2% chlorhexidine. IV sedation wasadministered. Limited CT scanning was performed and a suitable access sitewas selected and a skin corona made. Local anesthesia was infiltrated. UnderCT fluoroscopic guidance, a 17-gauge coaxial needle was advanced to theanterolateral aspect of the eroded C6 vertebral body and multiple 18-gaugecore biopsy specimen were obtained and sent for cultures and pathology.The needle was removed and hemostasis was achieved and a sterile dressingwas applied. Repeat CT imaging was performed. The patient tolerated the procedure well without immediate complication andleft the procedure suite in stable condition. All CT imaging was performed utilizing a combination of automated exposurecontrol, adjustment of the mA and/or kV according to patient size and useof iterative reconstruction techniques to achieve dose as low asreasonably achievable. FINDINGS: CT again demonstrates extensive erosive changes of the C5-C7 vertebralbodies worse at C6. Under CT guidance from a left anterolateral approach,multiple 18-gauge core biopsy specimen were obtained and sent for cultures(bacterial, fungal and AFB) in a sterile cup as well as for pathology informalin. Postbiopsy imaging does not demonstrate any immediatecomplication. IMPRESSION: Successful CT guided 18-gauge core biopsies of the eroded anterior [id number] body sent for cultures and pathology. -------- FINAL REPORT -------- Dictated By: Pablo High Dictated Date: 10/22/2025 12:25 ET Assigned Physician: Pablo High Reviewed and Electronically Signed By: Pablo High Signed Date: 10/22/2025 12:32 ET Workstation ID: [id number] Transcribed By: Self Edit Transcribed Date: 10/22/2025 12:25 ET us Jw [facility] IMG CT PROCEDURES Final Result * Culture tissue with gram stain (10/22/2025 11:05 AM EST) Culture, Tissue No growth aerobically and anaerobically at 5 days. 10/27/2025 11:19 AM EST [facility] Gram Stain Result No WBCs present 10/27/2025 11:19 AM EST [facility] Gram Stain Result No organisms seen 10/27/2025 11:19 AM EST [facility] Tissue Structure of cervical vertebral column / Unknown 10/22/2025 11:05 AM EST 10/22/2025 11:37 AM EST us Crista [facility] MICROBIOLOGY - GENERAL ORDER MERON Final Result [facility] [address] [place] [address], [place] [phone] * Tissue exam (10/22/2025 11:03 AM EST) Final Diagnosis A. Spine, cervical, C6-biopsy: Granulation tissue with chronic and acute inflammation. No evidence of malignancy. Note: Correlation with microbiology is recommended. The case was reviewed at intradepartmental conference on 10/23/2025. 10/23/2025 2:34 PM EST [facility] at 1434 EST Gross Description A. Spine, Cervical, C-6 soft tissue: Received In formalin labeled C6 soft tissue are multiple soler tissue cores and tissue core fragments measuring 0.1 to 0.3 cm in diameter which are submitted in toto in 2 cassettes labeled A1-A2, multiple pieces per cassette. HP 10/22/25 10/23/2025 2:34 PM EST [facility] Disclaimer The technical components [place] [address] CLIA # [id number] 10/23/2025 2:34 PM EST [facility] Bone Structure of cervical vertebral column / Unknown 10/22/2025 11:03 AM EST 10/22/2025 11:32 AM EST us Crista [facility] PATHOLOGY ORDERABLES Final R esult [facility] [address] [place] [id number], * XR Cervical Spine 4-5 Views (10/21/2025 1:09 PM EST) Anatomical Region Laterality Modality Spine, C-spine Radiographic Yanelis ging 10/22/2025 9:45 AM EST Impressions 10/22/2025 9:52 AM EST 1. ACDF of C5-C7 with extensive bony erosion of the C6 vertebral body around the C6 screws, better assessed on CT. No definite instability between flexion and extension views although evaluation of C6 and C7 is limited. Prevertebral soft tissue fullness and air anterior to the fusion plate at the midportion of the fusion plate at C6 level which was also seen on CT. Findings concerning for osteomyelitis and adjacent soft tissue infection around the C6 level. -------- FINAL REPORT -------- Dictated By: Beck Washington Dictated Date: 10/22/2025 09:45 ET Assigned Physician: Beck Washington Reviewed and Electronically Signed By: Beck Washington Signed Date: 10/22/2025 09:52 ET Workstation ID: [id number] Transcribed By: Self Edit Transcribed Date: 10/22/2025 09:45 ET Narrative 10/22/2025 9:52 AM EST EXAM: XR CERVICAL SPINE 4-5 VIEWS HISTORY: osteomyelitis COMPARISON:10/20/2025 x-rays, CT from 10/10/2025 FINDINGS: Redemonstration of ACDF of C5-C7 with extensive bony erosion of the C6 vertebral body around the C6 screws, better assessed on CT. There is no definite instability between flexion and extension views although evaluation of C6 is limited by extensive osseous erosion and assessment of C7 limited by overlap with the shoulders. Redemonstration of bony spinal canal narrowing and bulky anterior osteophyte at C3/4 and smaller at C2/3. There is prevertebral soft tissue swelling at the mid to lower cervical spine and soft tissue air anterior to the midportion of the fusion plate at C6 level, also seen on CT. Procedure Note Beck Washington MD - 10/22/2025 EXAM: XR CERVICAL SPINE 4-5 VIEWS HISTORY: osteomyelitis COMPARISON:10/20/2025 x-rays, CT from 10/10/2025 FINDINGS: Redemonstration of ACDF of C5-C7 with extensive bony erosion of the U5sxjevgods body around the C6 screws, better assessed on CT. There is nodefinite instability between flexion and extension views althoughevaluation of C6 is limited by extensive osseous erosion and assessment ofC7 limited by overlap with the shoulders. Redemonstration of bony spinalcanal narrowing and bulky anterior osteophyte at C3/4 and smaller at C2/3. There is prevertebral soft tissue swelling at the mid to lower cervicalspine and soft tissue air anterior to the midportion of the fusion plateat C6 level, also seen on CT. IMPRESSION: 1. ACDF of C5-C7 with extensive bony erosion of the C6 vertebral bodyaround the C6 screws, better assessed on CT. No definite instabilitybetween flexion and extension views although evaluation of C6 and C7 islimited. Prevertebral soft tissue fullness and air anterior to the fusionplate at the midportion of the fusion plate at C6 level which was alsoseen on CT. Findings concerning for osteomyelitis and adjacent soft tissueinfection around the C6 level. -------- FINAL REPORT -------- Dictated By: Beck Washington Dictated Date: 10/22/2025 09:45 ET Assigned Physician: Beck Washington Reviewed and Electronically Signed By: Beck Washington Signed Date: 10/22/2025 09:52 ET Workstation ID: [id number] Transcribed By: Self Edit Transcribed Date: 10/22/2025 09:45 ET us Clifton Bear MD IMG XR PROCEDURES Final Result * (ABNORMAL) TRANSTHORACIC ECHOCARDIOGRAM (TTE) COMPLETE (10/21/2025 10:59 AM EST) LV EDV (A2C) 108 mL CV PACS LV EDV (A4C) 89 mL CV PACS LV Diastolic Volume (BP) 104 46 - 106 mL CV PACS LV ESV (A2C) 35 mL CV PACS LV ESV (A4C) 48 mL CV PACS LV Systolic Volume (BP) 40 14 - 42 mL CV PACS Left Ventricle Isovolumic Relaxation Time 0 ms CV PACS IVSD 0.7 0.6 - 0.9 cm CV PACS LVIDD 5.2 3.8 - 5.2 cm CV PACS LVIDS 3.8(A) 2.2 - 3.5 cm CV PACS LVOT Mean Grad 1 mmHg CV PACS LVOT Peak VTI 18.4 cm CV PACS LVOT Mean Kapil 0.5 m/s CV PACS LVOT Peak Kapil 0.8 m/s CV PACS LVOT Peak Gradient 3 mmHg CV PACS LVPWD 0.8 0.6 - 0.9 cm CV PACS MV E' Tissue Velocity Septal 8 cm/s CV PACS Ejection Fraction (A2C) 68 % CV PACS Ejection Fraction (A4C) 47 % CV PACS Ejection Fraction (BP) 61 % CV PACS Left Atrium Minor Eagle 4.1 cm CV PACS Left Atrium Major Eagle 5.1 cm CV PACS LA Area Sys (A2C) 11 cm2 CV PACS LA Area Sys (A4C) 20 cm2 CV PACS LA Size 3.0 cm CV PACS AV Peak Kapil 1.7 m/s CV PACS AV Peak Gradient 11 mmHg CV PACS Aortic Root 2.9 cm CV PACS Ascending Aorta 2.8 cm CV PACS MV Deceleration [place] 2.8 m/s2 CV PACS E Wave Deceleration Time 244(A) 119 - 242 ms CV PACS MV PHT 71 ms CV PACS MV Peak A Kapil 0.80 m/s CV PACS MV Peak E Kapil 0.70 m/s CV PACS MV Area PHT 3.0 cm2 CV PACS PV Peak D Kapil 0.5 m/s CV PACS PV Peak S Kapil 0.5 m/s CV PACS Pulm Vein S/D Ratio 1.00 CV PACS RV S' 21 cm/s CV PACS TAPSE 36 mm CV PACS TR Peak Velocity 2.40 m/s CV PACS TR Peak Gradient 23 mmHg CV PACS LV ESV Index (A4C) 28 mL/m2 CV PACS LV EDV Index (A4C) 52 mL/m2 CV PACS E/E' Ratio Septal 9 CV PACS LA Dimension Index 2D 1.7 cm/m2 CV PACS Relative Wall Thickness ratio 0.31 0.22 - 0.42 CV PACS FS 27 % CV PACS LV Mass 2D 134 66 - 150 g CV PACS Ascending Aorta Index 1.65 cm/m2 CV PACS LVIDD Index 3.06 cm/m2 CV PACS LVIDS Index 2.24 cm/m2 CV PACS Aortic Root Index 1.71 cm/m2 CV PACS AV Velocity Ratio 0.51 CV PACS E/A Ratio 0.9 0.8 - 2.0 CV PACS LV Systolic Volume Index (BP) 0(A) 8 - 24 mL/m2 CV PACS LV Diastolic Volume Index (BP) 0(A) 29 - 61 mL/m2 CV PACS LV Mass Index 2D 79 44 - 88 g/m2 CV PACS LA/Ao Ratio 1.0 CV PACS LV EDV Index (A2C) 64 mL/m2 CV PACS LV ESV Index (A2C) 21 mL/m2 CV PACS BSA 1.73 m2 CV PACS TV Regurgitant Volume 8 mL CV PACS PASP 23 mmHg CV PACS LA Volume (A-L) 51 mL CV PACS LA Volume Index (A-L) 30 mL/m2 CV PACS RV Free Wall Peak S' 21 cm/s CV PACS LV EF MOD 2C 68 % CV PACS LV EF 4C A-L 44 % CV PACS LV EDV 4C A-L 92 mL CV PACS LV Length Sys (A4C) 5.3 cm CV PACS LV Length Gonzalez (A4C) 6.8 cm CV PACS Aortic Root Dimension Index 1.7 cm/m2 CV PACS Left Ventricular Stroke Volume by 2-D Biplane-MOD 64 mL CV PACS Anatomical Region Laterality Modality Ultrasound Narrative 10/21/2025 1:48 PM EST Left ventricle cavity size is normal. Wall thickness is normal. Systolic function is normal with an ejection fraction of 55-60%. There is no diastolic dysfunction. Right ventricle cavity is normal. Right ventricular systolic function is normal. No hemodynamically significant valvular abnormalities. Trivial circumferential pericardial effusion. No tamponade. The estimated pulmonary artery systolic pressure is 23 mmHg plus right atrial pressure. There is no pulmonary hypertension. Left Ventricle Left ventricle cavity size is normal. Wall thickness is normal. Systolic function is normal with an ejection fraction of 55-60%. There are no regional LV wall motion abnormalities. There is no diastolic dysfunction. Right Ventricle Right ventricle cavity appears normal. Systolic function is normal. Left Atrium Left atrium cavity size is normal. There is left to right atrial septal bowing. Right Atrium Right atrium cavity is normal. IVC/SVC Inferior vena cava was not well visualized. Mitral Valve The leaflets are mildly thickened. There is no significant mitral valve regurgitation. There is no significant stenosis noted. Tricuspid Valve Tricuspid valve structure is normal. There is trace regurgitation. There is no significant tricuspid valve stenosis. Aortic Valve The aortic valve is trileaflet. The leaflets are mildly thickened and exhibit normal excursion. There is no regurgitation or stenosis. Pulmonic Valve The pulmonic valve was not well visualized. No significant pulmonic valve regurgitation. No significant pulmonary valve stenosis noted.The estimated pulmonary artery systolic pressure is 23 mmHg plus right atrial pressure. There is no pulmonary hypertension. Ascending Aorta The aorta appears normal in size. Pericardium Pericardium appears normal. There is a trivial circumferential pericardial effusion. There is no echocardiographic evidence of tamponade. Study Details Overall the study quality was adequate. The underlying ECG rhythm was sinus bradycardia. Reji Stout NP CV ECHO PROCEDURES Final Result * Vancomycin, trough (10/21/2025 5:00 AM EST) Only the most recent of2 resultswithin the time period is included. Vancomycin Trough 14.8 10.0 - 20.0 mcg/mL LAB CHEMISTRY METHOD 10/21/2025 5:52 AM EST [facility] Blood Venous blood specimen / Unknown Venipuncture / Unknown 10/21/2025 5:00 AM EST 10/21/2025 5:24 AM EST Jeramy Bradshaw MD LAB BLOOD ORDERABLES Final Resul t [facility] [address] [place] [id number], * Lactate, with reflex (10/20/2025 8:03 PM EST) Only the most recent of2 resultswithin the time period is included. Pathologist [facility] LACTIC ACID 1.0 0.5 - 2.2 mmol/L LAB BLOOD GAS METHOD 10/20/2025 8:15 PM EST [facility] Blood Venous blood specimen / Unknown Venipuncture / Unknown 10/20/2025 8:03 PM EST 10/20/2025 8:09 PM EST Reji Stout NP LAB BLOOD ORDERABLES Final Resu lt [facility] [address] [place] [id number], [place] [phone] * D-dimer, quantitative (10/20/2025 8:03 PM EST) Pathologist [facility] D-Dimer, Quant (D-DU) <150 <231 ng/mL DDU LAB COAGULATION METHOD 10/20/2025 8:39 PM EST [facility] Blood Venous blood specimen / Unknown Venipuncture / Unknown 10/20/2025 8:03 PM EST 10/20/2025 8:10 PM EST Narrative [facility] - 10/20/2025 8:39 PM EST This assay has been approved by the Food and Drug Administration (FDA) for use in excluding low and moderate risk patients suspected of venous thromboembolism, including deep vein thrombosis (DVT) and pulmonary embolism (PE) when used in conjunction with a clinical Pre test Probability model such as Abraham et al. The D Dimer result should not be used alone to rule in DVT and or PE. Reji Stout NP LAB BLOOD ORDERABLES Final Resu lt [facility] [address] [place] [address], [place] [phone] * XR Cervical Spine 2-3 Views (10/20/2025 10:08 AM EST) Anatomical Region Laterality Modality Spine, C-spine Radiographic Yanelis ging 10/20/2025 11:1 2 AM EST Impressions 10/20/2025 11:23 AM EST Evidence of ACDF performed from C5 through C7. Prevertebral soft tissue swelling is noted overlying the operative site, findings that were similar to prior CT performed on 10/18/2025. No clear evidence of osseous erosion/destruction though plain radiography is very insensitive for the detection of osteomyelitis and consideration should be given to follow-up contrast enhanced MRI if clinically warranted. -------- FINAL REPORT -------- Dictated By: Ford Limon Dictated Date: 10/20/2025 11:12 ET Assigned Physician: Ford Limon Reviewed and Electronically Signed By: Ford Limon Signed Date: 10/20/2025 11:23 ET Workstation ID: [id number] Transcribed By: Self Edit Transcribed Date: 10/20/2025 11:12 ET Narrative 10/20/2025 11:23 AM EST 2 views of the cervical spine: HISTORY: Osteomyelitis. FINDINGS: AP lateral views of the cervical spine are submitted demonstrating evidence of ACDF performed from C5 through C7. Fixation plate and screws are properly positioned. Note is made of marked prevertebral soft tissue swelling overlying the plate. There is straightening of the normal cervical lordosis with bulky anterior bridging osteophyte formation from C2 through C5. No clear evidence of osseous erosion/destruction to suggest, though plain radiography is very insensitive for this diagnosis. Consideration should be given to follow-up contrast enhanced MRI of the cervical spine. Procedure Note Ford Limon MD - 10/20/2025 2 views of the cervical spine: HISTORY: Osteomyelitis. FINDINGS: AP lateral views of the cervical spine are submitted demonstratingevidence of ACDF performed from C5 through C7. Fixation plate and screwsare properly positioned. Note is made of marked prevertebral soft tissueswelling overlying the plate. There is straightening of the normalcervical lordosis with bulky anterior bridging osteophyte formation fromC2 through C5. No clear evidence of osseous erosion/destruction tosuggest, though plain radiography is very insensitive for this diagnosis.Consideration should be given to follow-up contrast enhanced MRI of thecervical spine. IMPRESSION: Evidence of ACDF performed from C5 through C7. Prevertebral soft tissueswelling is noted overlying the operative site, findings that were similarto prior CT performed on 10/18/2025. No clear evidence of osseouserosion/destruction though plain radiography is very insensitive for thedetection of osteomyelitis and consideration should be given to follow-upcontrast enhanced MRI if clinically warranted. -------- FINAL REPORT -------- Dictated By: Ford Limon Dictated Date: 10/20/2025 11:12 ET Assigned Physician: Ford Limon Reviewed and Electronically Signed By: Ford Limon Signed Date: 10/20/2025 11:23 ET Workstation ID: [id number] Transcribed By: Self Edit Transcribed Date: 10/20/2025 11:12 ET us Roscoe Zarate MD IMG XR PROCEDURES Final Result * CT Cervical Spine wo Contrast (10/18/2025 6:16 PM EST) Anatomical Region Laterality Modality Spine, C-spine Computed Tomogra phy 10/18/2025 8:07 PM EST Impressions 10/18/2025 8:37 PM EST 1. Status post ACDF C5-C7. Extensive sclerosis and erosion of the vertebral bodies at these levels possibly due to osteomyelitis/discitis given the MRI finding of epidural fluid collection. 2. Extensive degenerative changes of the remainder of the cervical spine. -------- FINAL REPORT -------- Dictated By: Leland Hancock Dictated Date: 10/18/2025 20:07 ET Assigned Physician: Leland Hancock Reviewed and Electronically Signed By: Leland Hancock Signed Date: 10/18/2025 20:37 ET Workstation ID: [id number] Transcribed By: Self Edit Transcribed Date: 10/18/2025 20:20 ET Narrative 10/18/2025 8:[address] CERVICAL SPINE WO CONTRAST HISTORY: History of fusion Outside MRI demonstrated epidural fluid collection at site of fused C5-C7 TECHNIQUE: CT of the cervical spine was performed without the administration of intravenous contrast. Bone and soft tissue algorithms were used. Axial, coronal and sagittal reformats were generated. Total DLP: 343 mGy*cm COMPARISON: None FINDINGS: Patient is status post ACDF C5-C7. There is extensive sclerosis and erosion of the anterior aspect of the vertebra at these levels with near complete loss of the C6 vertebral body. The C6 screws do not appear to be within any osseous structure. Epidural fluid collection measures approximately 2.0 x 0.8 x 3.0 cm but would be better seen on MRI. Of the remaining osseous structures C4-T1 there is at ankylosis along the vertebral bodies. There is large osteophytosis of C2-C4. Diffuse facet atrophy. Prevertebral soft tissue thickening at the level of fusion. Visualized lung apices are clear. Procedure Note Leland Hancock MD - 10/18/2025 CT CERVICAL SPINE WO CONTRAST HISTORY: History of fusion Outside MRI demonstrated epidural fluid collection at site of fusedC5-C7 TECHNIQUE: CT of the cervical spine was performed without theadministration of intravenous contrast. Bone and soft tissue algorithmswere used. Axial, coronal and sagittal reformats were generated. TotalDLP: 343 mGy*cm COMPARISON: None FINDINGS: Patient is status post ACDF C5-C7. There is extensive sclerosis anderosion of the anterior aspect of the vertebra at these levels with nearcomplete loss of the C6 vertebral body. The C6 screws do not appear to bewithin any osseous structure. Epidural fluid collection measuresapproximately 2.0 x 0.8 x 3.0 cm but would be better seen on MRI. Of theremaining osseous structures C4-T1 there is at ankylosis along thevertebral bodies. There is large osteophytosis of C2-C4. Diffuse facetatrophy. Prevertebral soft tissue thickening at the level of fusion. Visualized lung apices are clear. IMPRESSION: 1. Status post ACDF C5-C7. Extensive sclerosis and erosion of thevertebral bodies at these levels possibly due to osteomyelitis/discitisgiven the MRI finding of epidural fluid collection. 2. Extensive degenerative changes of the remainder of the cervicalspine. -------- FINAL REPORT -------- Dictated By: Leland Hancock Dictated Date: 10/18/2025 20:07 ET Assigned Physician: Leland Hancock Reviewed and Electronically Signed By: Leland Hancock Signed Date: 10/18/2025 20:37 ET Workstation ID: [id number] Transcribed By: Self Edit Transcribed Date: 10/18/2025 20:20 ET Imani Johnson NP IMG CT PROCEDURES Final Re sult * Phosphorus (10/17/2025 7:30 AM EST) [facility] Phosphorus 3.4 2.5 - 4.5 mg/dL LAB CHEMISTRY METHOD 10/17/2025 8:24 AM EST [facility] Blood Venous blood specimen / Unknown Venipuncture / Unknown 10/17/2025 7:30 AM EST 10/17/2025 7:42 AM EST Jeramy Bradshaw MD LAB BLOOD ORDERABLES Final Resul t [facility] [address] [place] [address], * Type and screen (10/16/2025 10:48 PM EST) Only the most recent of2 resultswithin the time period is included. ABO Group B 10/17/2025 12:03 AM EST [facility] Rh Type Positive 10/17/2025 12:03 AM EST [facility] Antibody Screen Negative 10/17/2025 12:03 AM [facility] Blood Venous blood specimen / Unknown Venipuncture / Unknown 10/16/2025 10:48 PM EST 10/16/2025 11:02 PM EST us Chris Echevarria MD LAB BLOOD BANK TEST ORDERABLE S Final Result [facility] [address] [place] [address], [place] [phone] * (ABNORMAL) Urinalysis with reflex microscopic (10/16/2025 4:57 PM EST) Specific [place] Urine 1.036(H) 1.003 - 1.030 LAB URINALYSIS - AUTOMATED METHOD 10/16/2025 5:33 PM [facility] pH, Urine 6.0 5.0 - 8.0 pH LAB URINALYSIS - AUTOMATED METHOD 10/16/2025 5:33 PM [facility] Leukocytes, Urine Negative Negative LAB URINALYSIS - AUTOMATED METHOD 10/16/2025 5:33 PM [facility] Nitrite, Urine Negative Negative LAB URINALYSIS - AUTOMATED METHOD 10/16/2025 5:33 PM [facility] Protein, Urine Negative <=Trace mg/dL LAB URINALYSIS - AUTOMATED METHOD 10/16/2025 5:33 PM [facility] Glucose, Urine >=1000(A) Negative mg/dL LAB URINALYSIS - AUTOMATED METHOD 10/16/2025 5:33 PM [facility] Ketones, Urine Trace(A) Negative mg/dL LAB URINALYSIS - AUTOMATED METHOD 10/16/2025 5:33 PM [facility] Urobilinogen , Urine 1.0 0.2 - 1.0 mg/dL LAB URINALYSIS - AUTOMATED METHOD 10/16/2025 5:33 PM [facility] Bilirubin, Urine Negative Negative LAB URINALYSIS - AUTOMATED METHOD 10/16/2025 5:33 PM [facility] Blood, Urine Trace(A) Negative LAB URINALYSIS - AUTOMATED METHOD 10/16/2025 5:33 PM [facility] RBC, Urine 2 0 - 4 /HPF 10/16/2025 5:33 PM [facility] WBC, Urine 3 0 - 4 /HPF 10/16/2025 5:33 PM [facility] Bacteria, Urine Negative Negative /HPF 10/16/2025 5:33 PM [facility] Urine Urine specimen obtained by clean catch procedure / Unknown Non-blood Collection / Unknown 10/16/2025 4:57 PM EST 10/16/2025 5:04 PM EST us Davie Soliman MD LAB URINE ORDERABLES Final Resul t Performing Organization Address City/[facility]/ZIP Co de Phone Number [facility] [address] [place] [address], [place] [phone] * Blood culture (10/16/2025 4:19 PM EST) Only the most recent of2 resultswithin the time period is included. Culture, Blood No growth at 5 days 10/21/2025 5:01 PM [facility] Blood Venous blood specimen / Unknown Venipuncture / Unknown 10/16/2025 4:19 PM EST 10/16/2025 4:40 PM EST us Davie Soliman MD LAB MICROBIOLOGY - GENERAL ORDER MERON Final Result Performing Organization Address City/[facility]/ZIP Co de Phone Number [facility] [address] [place] [address], * MR Cervical Spine wo and w Contrast (10/15/2025 3:24 PM EST) Anatomical Region Laterality Modality C-spine, Spine Magnetic Resonan ce 10/15/2025 5:17 PM EST Impressions 10/15/2025 5:34 PM EST Peripherally enhancing ventral epidural fluid from C5 through C7 with erosion of the adjacent vertebral bodies. Extensive ill-defined edema and inflammation in the paravertebral soft tissues from C4 through T1. Findings are suspicious for osteomyelitis/discitis at the fused C5-C7 vertebral bodies with small ventral epidural abscess. No high-grade spinal canal stenosis, mass effect upon the cord, or cord signal abnormality. -------- FINAL REPORT -------- Dictated By: KALIA VALENTINE Dictated Date: 10/15/2025 17:17 ET Assigned Physician: KALIA VALENTINE Reviewed and Electronically Signed By: KALIA VALENTINE Signed Date: 10/15/2025 17:34 ET Workstation ID: [id number] Transcribed By: Self Edit Transcribed Date: 10/15/2025 17:17 ET Narrative 10/15/2025 5:34 PM EST PROCEDURE: Cervical spine MRI INDICATION: Abnormal thoracic MRI TECHNIQUE: Multiplanar, multisequence MRI of the Cervical spine without and with contrast. 15 mL Dotarem injected intravenously without complication. COMPARISON: 04/02/2024. FINDINGS: Straightening of the normal cervical lordosis is similar compared to 2023. Anterior discectomy and fusion at C5-C7. Abnormal epidural fluid extending throughout the posterior aspect of the fused vertebral bodies from C5 through C7 with peripheral enhancement. There is erosion of the adjacent C5-C7 vertebral bodies. Ill-defined edema and enhancement is seen within the paraspinal soft tissues from C4 through T1. No drainable fluid collection in the paraspinal soft tissues. Findings are new compared to 2023. Degenerative fusion at C4-5 and C7-T1, similar compared to prior. No acute fracture. Degenerative loss of disc height and signal at C3-4 with anterior endplate spurring. Fusion across the posterior elements from C5 through C7. Mild multilevel degenerative cervical facet arthritis, most proximal left at C2- 3. Cervical cord is normal in signal and morphology. No abnormal intrathecal enhancement. No mass within the spinal canal. Foramen magnum is normal. Paraspinal muscle atrophy seen from C4 through T1. Findings by level: C2-C3: No foraminal or spinal canal stenosis C3-C4: No foraminal or spinal canal stenosis C4-C5: No foraminal or spinal canal stenosis C5-C6: Mild spinal canal stenosis and mild left foraminal stenosis. No right foraminal stenosis. C6-C7: Mild spinal canal stenosis. No foraminal stenosis. C7-T1: No foraminal or spinal canal stenosis. Procedure Note Kalia Valentine MD - 10/15/2025 PROCEDURE: Cervical spine MRI INDICATION: Abnormal thoracic MRI TECHNIQUE: Multiplanar, multisequence MRI of the Cervical spine withoutand with contrast. 15 mL Dotarem injected intravenously withoutcomplication. COMPARISON: 04/02/2024. FINDINGS: Straightening of the normal cervical lordosis is similar compared [id number]. Anterior discectomy and fusion at C5-C7. Abnormal epidural fluidextending throughout the posterior aspect of the fused vertebral bodiesfrom C5 through C7 with peripheral enhancement. There is erosion of theadjacent C5-C7 vertebral bodies. Ill-defined edema and enhancement isseen within the paraspinal soft tissues from C4 through T1. No drainablefluid collection in the paraspinal soft tissues. Findings are newcompared to 2023. Degenerative fusion at C4-5 and C7-T1, similar compared to prior. Noacute fracture. Degenerative loss of disc height and signal at C3-4 with anterior endplatespurring. Fusion across the posterior elements from C5 through C7. Mild multileveldegenerative cervical facet arthritis, most proximal left at C2-3. Cervical cord is normal in signal and morphology. No abnormal intrathecalenhancement. No mass within the spinal canal. Foramen magnum is normal. Paraspinal muscle atrophy seen from C4 throughT1. Findings by level: C2-C3: No foraminal or spinal canal stenosis C3-C4: No foraminal or spinal canal stenosis C4-C5: No foraminal or spinal canal stenosis C5-C6: Mild spinal canal stenosis and mild left foraminal stenosis. Noright foraminal stenosis. C6-C7: Mild spinal canal stenosis. No foraminal stenosis. C7-T1: No foraminal or spinal canal stenosis. IMPRESSION: Peripherally enhancing ventral epidural fluid from C5 through C7 witherosion of the adjacent vertebral bodies. Extensive ill-defined edema andinflammation in the paravertebral soft tissues from C4 through T1.Findings are suspicious for osteomyelitis/discitis at the fused C5-J7kluegnphy bodies with small ventral epidural abscess. No high-gradespinal canal stenosis, mass effect upon the cord, or cord signalabnormality. -------- FINAL REPORT -------- Dictated By: KALIA VALENTINE Dictated Date: 10/15/2025 17:17 ET Assigned Physician: KALIA VALENTINE Reviewed and Electronically Signed By: KALIA VALENTINE Signed Date: 10/15/2025 17:34 ET Workstation ID: [id number] Transcribed By: Self Edit Transcribed Date: 10/15/2025 17:17 ET us Shanice Shelton MD IMG MRI PROCEDURES Final Result * MR Thoracic Spine wo Contrast (09/25/2025 [...] Signed Date: 09/27/2025 12:59 ET Workstation ID: [id number] Transcribed By: Self Edit Transcribed Date: 09/27/2025 [...] Signed Date: 09/27/2025 12:59 ET Workstation ID: [id number] Transcribed By: Self Edit Transcribed Date: 09/27/2025 12:19 ET us Shanice Shelton MD IM MRI PROCEDURES Final Result * Lipid panel with reflex to direct LDL (07/18/2025 11:04 AM EDT) Cholesterol 155 0 - 200 mg/dL LAB CHEMISTRY METHOD 07/18/2025 3:02 PM EDT [facility] Triglycerides 81 0 - 150 mg/dL LAB CHEMISTRY METHOD 07/18/2025 3:02 PM EDT [facility] HDL 41 >=40 mg/dL LAB CHEMISTRY METHOD 07/18/2025 3:02 PM EDT [facility] LDL Calculated 98 0 - 100 mg/dL LAB CHEMISTRY METHOD 07/18/2025 3:02 PM EDT [facility] Comment:Estimated LDL Calcul ated using equation: Total cholesterol - HDL cholesterol - (Triglycerides/5) VLDL Cholesterol Myke 16.2 mg/dL LAB CHEMISTRY METHOD 07/18/2025 3:02 PM EDT [facility] Non HDL Chol. (LDL+VLDL) 114 <145 mg/dL LAB CHEMISTRY METHOD 07/18/2025 3:02 PM EDT [facility] Chol/HDL Ratio 3.8 0.0 - 4.4 LAB CHEMISTRY METHOD 07/18/2025 3:02 PM EDT [facility] Blood Venous blood specimen / Unknown Venipuncture / Unknown 07/18/2025 11:04 AM EDT 07/18/2025 11:04 AM EDT us Shanice Shelton MD LAB BLOOD ORDERABL ES Final Result [facility] [address] [place] [address], [place] [phone] * MG Mammo Digital Screening w Jeffrey [...] is recommended in 1 year. Mammo Location: [facility], [address] [place] [address], [id number], . -------- FINAL REPORT -------- Dictated By: Rosa Maria Elizabeth Dictated Date: 01/16/2025 15:09 ET Assigned Physician: Rosa Maria Elizabeth Reviewed and Electronically Signed By: Rosa Maria Elizabeth Signed Date: 01/16/2025 15:11 ET Workstation ID: [id number] Transcribed By: Self Edit Transcribed Date: 01/16/2025 [...] is recommended in 1 year. Mammo Location: [facility], [address] [place] [address], [id number], . -------- FINAL REPORT -------- Dictated By: Rosa Maria Elizabeth Dictated Date: 01/16/2025 15:09 ET Assigned Physician: Rosa Maria Elizabeth Reviewed and Electronically Signed By: Rosa Maria Elizabeth Signed Date: 01/16/2025 15:11 ET Workstation ID: [id number] Transcribed By: Self Edit Transcribed Date: 01/16/2025 15:09 ET Shanice Shelton MD IMG BI PROCEDURES Final Result * FIT-DNA (Cologuard) (10/05/2023) [facility] Colorectal Cancer Screening: FIT-DNA (Cologuard) Negative, Abstracted Historical Provider HEALTH MAINTENANCE Final Result * Hepatitis C Screening (05/25/2012) [facility] Hepatitis C Screening Abstracted Historical Provider HEALTH MAINTENANCE Final Result from Last 3 Months or Most Recently Relevant to Health Maintenance Insurance MEDICARE [place]ICA[place] - [place] Advance Directives * Full Code - Default (Latest Code Status on File) Date Activated Date Inactivated Comments 11/02/2025 1:15 AM 11/03/2025 1:29 PM This is or keyla is used when code status has not been discussed with the patient, or code status is otherwise unknown/unconfirmed To update the patient's code status, place a code status order. Do not modify or discontinue any currently active code status orders. * Full Code - Default Date Activated Date Inactivated Comments 10/16/2025 10:30 PM 10/24/2025 2:36 PM This is or keyla is used when code status has not been discussed with the patient, or code status is otherwise unknown/unconfirmed To update the patient's code status, place a code status order. Do not modify or discontinue any currently active code status orders. Care Teams Test Manager Relationship Specialty Start Date End Date Shanice Shelton MD [address] [place] [phone] PCP - General Internal Medicine 08/16/22
--- OUTSIDE RECORDS SUMMARY | 2025-11-04 20:09 | XMS_ITS | Encounter Summary ---
Author Organization [facility] Address [address] [place] [address] Care Team Providers Care Investment Strategist Name Role Phone Shanice Shelton MD Primary Care Prov ider Reason for Referral * Imaging (Routine) - Closed Specialty Diagnoses / Procedures Referred By Contac t Referred To Contact Radiology Diagnoses Abnormal MRI Procedures MR Cervical Spine wo and w Contrast MR Cervical Spine w Contrast Shanice Shelton MD [address] [place] [address] Phone: tel: fax: [address] [phone] Phone: tel: Referral ID Status Reason Start Date Expiration Date Visits Re quested Visits Authorized [id number] Closed 09/30/2025 09/30/2026 1 1 * Consultation (Routine) - Closed Specialty Diagnoses / Procedures Referred By Contact Referred To Contact Physical Medicine and Rehabilitation Diagnoses Chronic bilateral thoracic back pain Shanice Shelton MD [address] [place] [address] Phone: tel: fax: Armando Vásquez DO [address] [address] Phone: tel:[phone] fax:[phone] Referral ID Status Reason Start Date Expiration Date V isits Requested Visits Authorized [id number] Closed Specialty Services Required 09/30/2025 09/30/2026 1 1 Encounter Details Date Type Department Care Team (Late st Contact Info) Description 09/30/2025 Results Follow-Up Adult Medicine [facility] [address] [place] [address] Shanice Shelton MD [address] [place], [place] Social History Tobacco Use Types Packs/Day [...] for your loved ones. For example, child caregiver private home or elderly care for an older adult? [...] 10:30 AM EST Office Visit Adult Medicine [facility] [address] [place] [address] Srinath Nolan MD [address] [place], [place] 11/26/2025 10:00 AM EST Office Visit Infectious Disease - [facility] [address] [place] [address] Olivier Casillas MD [address] [place] [address] 12/12/2025 9:15 AM EST Office Visit Bariatric Surgery [facility] [address] [facility] [address] [place] [address] Alexander Silva MD [address] [place] [phone] 12/17/2025 8:00 AM EST Office Visit Neurosurgery [facility] [address] [place] [phone] Brain Griffin MD [address] [place], [place] [phone] 01/03/2026 12:30 PM EST Telemedicine Bariatric Surgery [facility] [address] [facility] [address] [place] [address] Nevaeh Cunha, RD [address] [phone] 05/28/2026 9:30 AM EDT Office Visit Vascular Surgery [facility] [address] [facility] [address] [place] [phone] Veronika Lamb MD [address] [place] [phone] Scheduled Referrals Name Type Priority Associated Diagnoses Order Schedule Ambulatory referral to Physical Medicine Rehab Outpatient Referral Routine Chronic bilateral thoracic back pain 1 Occurrences starting 09/30/2025 until 09/30/2026 documented as of this encounter Results * MR Cervical Spine wo and w [...] abnormality. -------- FINAL REPORT -------- Dictated By: RENETTA NAVARRO Dictated Date: 10/15/2025 17:17 ET Assigned Physician: RENETTA NAVARRO Reviewed and Electronically Signed By: RENETTA NAVARRO Signed Date: 10/15/2025 17:34 ET Workstation ID: [id number] Transcribed By: Self Edit Transcribed Date: 10/15/2025 [...] foraminal or spinal canal stenosis. Procedure Note Renetta Navarro MD - 10/15/2025 PROCEDURE: Cervical spine MRI INDICATION: Abnormal thoracic MRI TECHNIQUE: Multiplanar, multisequence MRI of the Cervical spine withoutand with contrast. 15 mL Dotarem injected intravenously withoutcomplication. COMPARISON: 04/02/2024. FINDINGS: Straightening of the normal cervical lordosis is similar compared [id number]. Anterior discectomy and fusion at C5-C7. Abnormal [...] are suspicious for osteomyelitis/discitis at the fused C5-C9ypifgpslz bodies with small ventral epidural abscess. No high-gradespinal canal stenosis, mass effect upon the cord, or cord signalabnormality. -------- FINAL REPORT -------- Dictated By: RENETTA NAVARRO Dictated Date: 10/15/2025 17:17 ET Assigned Physician: RENETTA NAVARRO Reviewed and Electronically Signed By: RENETTA NAVARRO Signed Date: 10/15/2025 17:34 ET Workstation ID: [id number] Transcribed By: Self Edit Transcribed Date: 10/15/2025 17:17 ET Shanice Shelton MD [facility] [place] PROCEDURES Final Result documented in this encounter Visit Diagnoses Diagnosis Abnormal MRI- Primary Other nonspecific (abnormal) findings on radiological and other examinations of body structure Chronic bilateral thoracic back pain Abnormal MRI Other nonspecific (abnormal) findings on radiological and other examinations of body structure documented in this encounter Additional Health Concerns Infection Onset Date Last Indicated Resolved Time Tuberculosis Rule-Out 10/20/2025 10/22/20252024 11:23 AM EST Assessment Noted Time PHQ-9 Depression Total Score: 025 4:56 PM EST documented as of this encounter Care Teams Investment Strategist Relationship Specialty Start Date End Date Shanice Shelton MD [address] [place] [phone] PCP - General Internal Medicine 08/16/22 documented as of this encounter
--- OUTSIDE RECORDS SUMMARY | 2025-11-04 20:10 | XMS_ITS | Encounter Summary ---
Author Organization [facility] Address [address] [place] [address] Care Team Providers Care Dye Winch Operator Name Role Phone Provider, Generic External Data Primary Care Pro vider Unavailable Encounter Details Date Type Department Care Team (Late st Contact Info) Description 07/29/2025 Scanned Document [facility] Heart & Vascular [facility] - Electrophysiology [address] [place] [phone] Yanick Caballero MD [address] [place] [phone] Social History Tobacco Use Types Packs/Day Years [...] Info) Description 01/09/2026 9:30 AM EST Consult [facility] Heart Vascular [facility] - Electrophysiology [address] [place] [phone] Yanick Caballero MD [address] [place] [address] documented as of this encounter Visit Diagnoses Not on filedocumented in this encounter Care Teams Dye Winch Operator Relationship Specialty Start Date End Date Provider, Generic External Data PCP - General 08/21/25 documented as of this encounter
--- OUTSIDE RECORDS SUMMARY | 2025-11-04 20:10 | XMS_ITS | Clinical Summary ---
Author Organization [facility] Address [address] [place] [address] Care Team Providers Care Voip Technician Name Role Phone Provider, Generic External Data Primary Care Pro vider Unavailable Social History Tobacco Use Types Packs/Day Years [...] Info) Description 01/09/2026 9:30 AM EST Consult [facility] Heart & Vascular [place] [facility] [address] [place] [phone] Yanick Caballero MD [address] [place] [address] Health Maintenance Due Date Last Done Comments Hepatitis C Virus Screening 1973 HIV Screening 1986 DTaP/Tdap/Td Vaccines (1 - Tdap) 1992 Hepatitis B Vaccines (1 of 3 - 19+ 3-dose series) 08/21 Pap Smear (Ages 21-65) 1994 Mammogram 2013 Colonoscopy 2018 Pneumococcal Vaccines 50+ (1 of 1 - PCV) 2023 Zoster (Shingles) Vaccine (1 of 2) 2023 Influenza Vaccine 06/21/2025 COVID-19 Vaccine (1 - 2024- season) 2025 RSV Vaccine 50 years and old er and Patients (1 - 1-dose 75+ series) 2048 Care Teams Voip Technician Relationship Specialty Start Date End Date Provider, Generic External Data PCP - General 08/21/25
== END 2025-11-04 13:54 | disposition home or self-care (01) ==
LOC: HO.HMGAL 13:54
PROVIDERS: PCP Internal Medicine; Visit Provider Registered Nurse Emergency
DX: J30.89 Other allergic rhinitis (principal)
CPT/HCPCS: 95117; 95165

== ENCOUNTER 2025-11-06 10:09 | Outpatient (AMB) | payer MEDICARE, MEDICAID, SELFPAY ==
--- OUTSIDE RECORDS SUMMARY | 2025-11-01 08:30 | XMS_ITS | Encounter Summary ---
Author Organization [facility] Address [address] [place] [address] Care Team Providers Care Gold Charmer Name Role Phone Shanice Shelton MD Primary Care Prov ider Reason for Referral * Consultation (Urgent) - Authorized Specialty Diagnoses / Procedures Referred By Mc t Referred To Contact Cardiology Diagnoses Chronic systolic (congestive) heart failure (CMS/HCC V24, CMS/HCC V28) Nonischemic congestive cardiomyopathy (CMS/HCC V24, CMS/HCC V28) POTS (postural orthostatic tachycardia syndrome) Anastasiya Reis PA [address] [place] [address] Phone: tel: fax: Referral ID Status Reason Start Date Expiration Date Visits Requested Visits Authorized [id number] Authorized Specialty Services Required 11/01/2026 1 1 * Consultation (Urgent) - Canceled Specialty Diagnoses / Procedures Referred By Contleobardo t Referred To Contact Infectious Diseases Diagnoses Other osteomyelitis, other site (CMS/HCC V24, CMS/HCC V28) Anastasiya Reis PA [address], [place] Phone: tel: fax: [facility]ious [facility] - [place] [address] [facility] [address] [place] [phone] Phone: tel: fax: Referral ID Status Reason Start Date Expiration Date Visits Requested Visits Authorized [id number] Canceled Specialty Services Required 11/01/2025 11/01/2026 1 1 Reason for Visit * Reason Comments Hospital Follow-up [facility] Encounter Details Date Type Department Care Team ([facility] st Contact Info) Description 11/01/2025 8:30 AM EST Office Visit Adult Medicine [facility] [address], [place] [phone] Anastasiya Reis PA [address] [place], [place] Other osteomyelitis, other site (CMS/HCC V24, CMS/HCC V28) (Primary Dx); Epidural abscess; Superficial venous thrombosis of right upper extremity; Left arm pain; Superficial venous thrombosis of upper extremity, left; Chronic systolic (congestive) heart failure (CMS/HCC V24, CMS/HCC V28); Nonischemic congestive cardiomyopathy (CMS/HCC V24, CMS/HCC V28); POTS (postural orthostatic tachycardia syndrome); Chest heaviness Social History Tobacco Use Types Packs/Day Years [...] before we got money to buy more. Often true 10/23/2025 Within the past 12 months th e food we bought just didn't last and we didn't have money to get more. Never true 10/23/2025 Dependent Care Answer Date Recorded Do you need help finding or paying for care for your loved ones. For example, child neurologist or elderly care for an older adult? [...] your living situation? Unrecognized valu e 09/24/2024 Interpersonal Safety Answer Date Record ed Physical Abuse Unrecognized value 11/02/2025 Verbal Abuse Unrecognized value 11/02/2025 Comments No Sex and Gender Information Value Date Recorded Sex Assigned at Female 07/11/2025 8:34 AM EDT Legal Sex Female 12:58 PM EST Gender Identity Female 07/11/2025 8:34 AM EDT Sexual Orientation Choose not to disclose 2024 8:34 AM EDT documented as of this encounter Last Filed Vital Signs Vital Sign Reading Time Taken Comments Blood Pressure 136/85 11/01/2025 8:40 AM EST Pulse 86 11/01/2025 8:40 AM EST Temperature 36.2 C (97.2 F) 11/01/2025 8:40 AM EST Respiratory Rate 13 11/01/2025 8:40 AM EST Oxygen Saturation 98% 11/01/2025 8:40 AM EST Inhaled Oxygen Concentration - - Weight 69.4 kg (153 lb) 11/01/2025 8:40 AM EST Height 160 cm (5' 3 ) 11/01/2025 8:40 AM EST Body Mass Index 27.1 11/01/2025 8:40 AM EST documented in this encounter Functional Status * Are you deaf or do you have serious difficulty hearing? Answer Date of Assessment Author No 10/16/2025 10:55 PM Mike Mo RN * Are you blind or do you have serious difficulty seeing, even when wearing glasses? Answer Date of Assessment Author No 10/16/2025 10:55 PM Mike Mo RN * Do you have serious difficulty walking or climbing stairs? Answer Date of Assessment Author No 10/16/2025 10:55 PM Mike Mo RN * Do you have serious difficulty dressing or bathing? Answer Date of Assessment Author No 10/16/2025 10:55 PM Mike Mo RN * Because of a physical, mental, or emotional condition, do you have serious difficulty doing errandsalone such as visiting the doctor? Answer Date of Assessment Author No 10/16/2025 10:55 PM Mike Mo RN documented as of this encounter Mental Status * Because of a physical, mental, or emotional condition, do you have serious difficulty concentrating, remembering, or making decisions? (5 years old or older) Answer Entry Date Author No 10/16/2025 10:55 PM Mike Mo RN documented in this encounter Progress Notes * ARNOLDO Hook - 11/01/2025 8:30 AM EST CHIEF COMPLAINT: Hospital Follow-up ([facility], [facility] IDENTIFIER: Annabelle Coppola is a 50 y.o. old female. HPI: Patient presents to the office today for evaluation of osteomyelitis and epidural abscess. Patient was initially seen at [facility] emergency room on [facility]ICC line in place. Was advised that she would require 6 weeks of IV vancomycin through PICC line followed by instrumentation removal and osteophytectomy. She was given oxycodone at hospital discharge although this was unable to be dispensed in [place] as was provided by provider with [place] license. Has visiting nurse. Molly alvarado. Nurse Loren. Has been compliant with daily heparin. Having weekly labs including CBC, LFTs, creatinine, CRP, ESR, vancomycin trough level to be faxed to Dr. Casillas (ID) at [phone]. CBC from 10/30/2025 scanned into chart without leukocytosis or anemia. Normal platelet count. Vancomycin trough level elevated at 28.2 and vancomycin currently on hold until random vancomycin drops below 20. Scheduled for random vancomycin and creatinine level today. Had normal creatinine and GFR. Albumin 3.7. Bilirubin normal. Normal LFTs. GGT normal. ESR normal. CRP normal. She presented to [facility] on 10/25/2025 because she was having drainage at PICC line site. Line was flushed and she was discharged from the ED. She then presented to [facility] emergency room on 10/26/2025 endorsing significant pain at site of PICC line. Ultrasound was negative for DVT although revealed partially occlusive superficial venous thrombus within the right basilic and cephalic veins. PICC Line was changed to left upper extremity. She was given prescription for hydrocodone-acetaminophen. Pharmacy refused to dispense due to interaction with naltrexone though plan was for this to be held until no longer needing opiatesfor pain control. She has been taking acetaminophen, ibuprofen, and gabapentin. Continues with breakthrough pain of the neck and upper back. Also reports constant pain since new PICC line was placed on the left arm. No left arm swelling, redness, warmth. No blue or pale discoloration. Extremity not cold to touch. No extremity numbness, tingling, weakness. No fever or chills. She has CHF, cardiomyopathy, and POTS. Patient follows with [facility] cardiology. She does chronic episodic chest heaviness. EKG during admission on 10/20/2025 normal sinus rhythm. Possible LAE. T wave abnormality, consider inferior ischemia, anterolateral ischemia. Negative troponin x 2. D-dimer negative. States that chest pain is unchanged from hospitalization. Weight up 5 pounds in comparison to 6 days ago. No leg swelling. Uses furosemide as needed and has not taken recently. No shortness of breathor dyspnea. No palpitations. No nausea or vomiting. No diaphoresis. No jaw pain. No dizziness or lightheadedness. No near- syncope or syncope. Carvedilol, dapagliflozin, Entresto, Aldactone held during hospitalization. She has not yet restarted. ROS: GENERAL: No fever or chills HEENT: No changes in hearing or vision, nose bleeds or other nasal problems RESPIRATORY: No coughing or wheezing. No shortness of breath. See HPI CARDIOVASCULAR:+ Chest pain. No palpitations. No leg swelling. See HPI GI: No abdominal discomfort, N/V, blood in stools or black stools MUSCULOSKELETAL: See HPI SKIN: No lesions, rash or itching NEURO: No persistent headache, syncope, seizures, weakness or numbness PAST MEDICAL HISTORY: Patient Active Problem List Diagnosis Date Noted Osteomyelitis ([facility] [place], [facility] V28) 10/16/2025 Lyme disease 07/19/2025 Paresthesia of hand, bilateral 07/18/2025 Myalgia 07/18/2025 Overweight 01/17/2025 Acute on chronic systolic heart failure ([facility], [facility] V28) 11/20/2024 Aneurysm of other specified arteries ([facility] V[facility]) 11/20/2024 Low back pain, unspecified 11/20/2024 Alcohol use, unspecified, uncomplicated 11/20/2024 Depression, unspecified 11/20/2024 Prediabetes 09/29/2023 Nonischemic congestive cardiomyopathy ([facility], [facility] V28) 09/08/2021 Cervicalgia 10/10/2015 Chronic low back pain 10/10/2015 POTS (postural orthostatic tachycardia syndrome) 10/09/2013 Excessive or frequent menstruation 06/14/2013 Dysmenorrhea 06/14/2013 Headache 08/31/2011 Vitamin D deficiency 07/02/2011 Bradycardia 09/14/2010 Anxiety 09/11/2010 SOCIAL HISTORY: Social History Tobacco Use Smoking status: Never Smokeless tobacco: Never Substance Use Topics Alcohol use: Not Currently FAMILY HISTORY: Family Status Relation Name Status Mother Father Sister Alive Brother Alive Brother Alive PGM PGF Daughter Alive Son Alive Son Alive Neg Hx (Not Specified) MGM MGF No partnership data on file Family History[1] ACTIVE MEDICATIONS: Medications Taking[2] ALLERGIES: Patient has no known allergies. PHYSICAL EXAM: Blood pressure 136/85, pulse 86, temperature 36.2 ??C (97.2 ??F), temperature source Temporal, resp. rate 13, height 1.6 m (63 ), weight 69.4 kg (153 lb), SpO2 98%. Body mass index is 27.1 kg/m??. Plan is deferred until next visit APPEARANCE: Alert and in no acute distress. Appears uncomfortable. EYES: PERRLA, conjunctiva and sclera normal. EOMI. EARS: External ears normal. Canals clear. TMs normal. NOSE/SINUS: Nares normal. Mucosa normal. No drainage. MOUTH/THROAT: No stridor. No tripoding. No dysphonia/hoarseness. No trismus. Airway patent. No erythema or exudates NECK: Diffuse tenderness to palpation of cervical spine, paraspinal musculature. HEART: RRR with normal S1 and S2, no murmurs, no gallops LUNG: Patient is speaking in full, clear sentences. No increased work of breathing is appreciated or accessory muscle use. Lungs are clear to auscultation without wheezes, rales, or rhonchi. EXTREMITIES: Extremities warm and well perfused without clubbing, cyanosis, or edema. Good range ofmotion. NEURO: Awake, alert and oriented x 3. Sensation and strength intact. No focal deficit. SKIN: Skin color, texture, turgor normal. Area of ecchymosis on right upper arm and area of prior PICC line. No surrounding erythema, edema, induration or warmth. No palpable cord. PICC line in placeon left upper arm without surrounding erythema, edema, induration, or warmth. No palpable cords appr eciated. LABS: See HPI Wt Readings from Last 5 Encounters: 11/01/25 69.4 kg (153 lb) 10/26/25 67.1 kg (148 lb) 10/21/25 67 kg (147 lb 11.3 oz) 10/16/25 67.1 kg (148 lb) 09/24/25 68.7 kg (151 lb 6.4 oz) EKG: See HPI IMAGING: EXAM: Unilateral upper extremity venous ultrasound. HISTORY: Pain at left PICC line. History of superficial thrombus on the right at prior PICC line. COMPARISON: None FINDINGS: Duplex Doppler examination of the left upper extremity venous system was performed using grayscale,pulsed wave, color and, where appropriate, compression sonography. The internal jugular vein is normally compressible with normal color Doppler flow and waveforms. Subclavian vein shows normal color Doppler flow and waveforms. Axillary vein is normally compressible with normal color Doppler flow. Cephalic and brachial veins are partially compressible and demonstrate blood flow on color Doppler.Basilic vein is noncompressible and demonstrates preserved blood flow. IMPRESSION: Findings concerning for nonocclusive thrombus in the left cephalic, brachial veins, and basilic veins. -------- FINAL REPORT -------- Dictated By: Lisa Collins Dictated Date: 11/01/2025 11:40 ET Assigned Physician: Lisa Collins Reviewed and Electronically Signed By: Lisa Collins Signed Date: 11/01/2025 11:55 ET Workstation ID: [id number] Transcribed By: Self Edit Transcribed Date: 11/01/2025 11:40 ET INDICATION: pain and leaking at PICC site, ?DVT Venous duplex ultrasound right upper extremity Comparison: None provided Findings: Accessible deep venous segments are fully compressible with normal Doppler color flow and spectral tracings. There is partially occlusive superficial venous thrombus within the proximal to mid right basilic vein. There is partially occlusive superficial venous thrombus within the distal cephalic vein. There is a right upper extremity PICC. IMPRESSION: 1. Negative for right upper extremity deep vein thrombosis. 2. Partially occlusive superficial venous thrombus within the right basilic and cephalic veins. This document has been electronically signed by: Toy Mackay MD on 10/26/2025 23:29:25 IMPRESSION: 1. Other osteomyelitis, other site (CMS/HCC V24, CMS/HCC V28) 2. Epidural abscess 3. Superficial venous thrombosis of right upper extremity 4. Left arm pain 5. Superficial venous thrombosis of upper extremity, left 6. Chronic systolic (congestive) heart failure (CMS/HCC V24, CMS/HCC V28) 7. Nonischemic congestive cardiomyopathy (CMS/HCC V24, CMS/HCC V28) 8. POTS (postural orthostatic tachycardia syndrome) 9. Chest heaviness PLAN: Patient is ordered for stat left upper extremity ultrasound which is completed in office today and concerning for nonocclusive thrombus in the left cephalic, brachial, and basilic veins. Patient is directed back to the ER. Consider heparin failure. May need alternate anticoagulation. Patient with ongoing chest discomfort. Troponin x 2 and D-dimer negative during hospitalization. May need subsequent testing in the ED. Weight up 5 pounds in comparison to 6 days ago. No leg swelling. Uses furosemide as needed and has not taken recently. Carvedilol, dapagliflozin, Entresto, Aldactone held during hospitalization. She has not yet restarted. Should consider restarting Entresto, carvedilol, Farxiga. Could continue to hold spironolactone and if BP can tolerate add back in the near future. Patient directed to the ER. If ER workup unremarkable at the very least will need urgent cardiology follow-up. Referral placed. Will need to continue to hold naltrexone for any narcotic pain control. Repeat vancomycin level and creatinine completed today. Patient to continue care with infectious disease. Patient to return to the office for close follow-up pending ER/hospital course. Patient understands and agrees to plan. The total length of this visit was 72 minutes. This includes time reviewing chart prior to the visit, obtaining history, interaction with and evaluation of the patient, review of recent lab work/imaging, ordering imaging/referral, managing results same day, coordinating care, documenting clinical information as well as providing counseling regarding the above diagnoses. Orders Placed This Encounter Procedures Ambulatory referral to Infectious Disease Osteomyelitis. Dr. Casillas. Standing Status: Future Expiration Date: 11/01/2026 Referral Priority: Urgent Referral Type: Consultation Referral Reason: Specialty Services Required Requested Specialty: Infectious Diseases Number of Visits Requested: 1 Ambulatory referral to Cardiology Please send referral to: [facility] cardiology. Established patient. CHF. Ischemic cardiomyopathy. POTS. Cardiology medications held during hospitalization for osteomyelitis. Needs urgent follow-up with cardiology. Standing Status: Future Expiration Date: 11/01/2026 Referral Priority: Urgent Referral Type: Consultation Referral Reason: Specialty Services Required Requested Specialty: Cardiology Number of Visits Requested: 1 ADDITIONAL ORDERS: AMB REFERRAL TO INFECTIOUS DISEASE AMB REFERRAL TO CARDIOLOGY ARNOLDO Hook on 11/01/2025 at 1:02 PM EST [1] Family History Problem Relation Name Age of Onset Bladder Cancer Mother bladder cancer, stomach, age 49 Diabetes Father peripheral neuropathy, htn ALS Father No Known Problems Sister No Known Problems Brother No Known Problems Brother Diabetes Paternal Grandmother Lung cancer Paternal Grandfather MD, No Known Problems Daughter Other (Other: Autism) Son No Known Problems Son Colon cancer Neg Hx Breast cancer Neg Hx Ovarian cancer Neg Hx Cervical cancer Neg Hx [2] Outpatient Medications Marked as Taking for the 11/01/25 encounter (Office Visit) with ARNOLDO Hook Medication Sig Dispense Refill acetaminophen (TYLENOL) 325 mg tablet Take 2 tablets (650 mg total) by mouth every 6 (six) hours ifneeded for mild pain for up to 12 days. 90 tablet 0 buPROPion XL (WELLBUTRIN XL) 300 mg 24 hr tablet Take 1 tablet (300 mg total) by mouth 1 (one) timeeach day. 30 each 5 furosemide (LASIX) 20 mg tablet Take 1 tablet (20 mg total) by mouth 1 (one) time each day. As needed for edema gabapentin (NEURONTIN) 100 mg capsule Take 1 capsule (100 mg total) by mouth every 8 (eight) hours.90 each 11 heparin sodium,bovine (HEPARIN, BOVINE, INJ) Inject 5 mL as directed 1 (one) time each day. ibuprofen (ADVIL,MOTRIN) 400 mg tablet Take 1 tablet (400 mg total) by mouth every 6 (six) hours ifneeded for mild pain for up to 7 days. 28 tablet 0 lidocaine (LIDODERM) 5 % patch USE 1 PATCH TOPICALLY ONCE DAILY. REMOVE AND DISCARD PATCH WITHIN 12HOURS. 28 patch 2 meclizine (ANTIVERT) 25 mg tablet Take 1 Tablet by mouth 3 times daily as needed (dizziness). naloxone (NARCAN) 4 mg/0.1 mL nasal spray Administer 1 each (4 mg total) into affected nostril(s) if needed for opioid reversal. Give 4 mg (1 spray) into one nostril. May repeat every 2-3 minutes if needed, alternating nostrils, until medical assistance becomes available. 2 each 0 vancomycin (VANCOCIN) 10 gram recon soln [DISCONTINUED] fluconazole (DIFLUCAN) 150 mg tablet TAKE 2 TABLETS BY MOUTH ONCE DAILY FOR 1 DAY documented in this encounter Plan of Treatment Upcoming Encounters Date Type Department Care Team (Late st Contact Info) Description 11/26/2025 10:00 AM EST Office Visit Infectious Disease - [place] [address] [phone] Olivier Casillas MD [address] [place] [phone] 12/12/2025 9:15 AM EST Office Visit Bariatric Surgery - [place] [address] [phone] Alexander Silva MD [address] [place] [phone] 12/17/2025 8:00 AM EST Office Visit Neurosurgery - [place] [address] [phone] Brain Griffin MD [address] [place] [address] [place] [phone] 01/03/2026 12:30 PM EST Telemedicine Bariatric Surgery - [place] [address] [phone] Nevaeh Cunha, RD [address] [phone] 02/04/2026 8:30 AM EDT Office Visit Adult Medicine [address] [phone] Srinath Nolan MD [address] [place] [phone] 05/28/2026 9:30 AM EDT Office Visit Vascular Surgery - [place] [address] [facility] [address] [place] [phone] Veronika Lamb MD [address] [place] [phone] Scheduled Referrals Name Type Priority Associated Diagnoses Orde r Schedule Ambulatory referral to Infectious Disease Outpatient Referral Routine Other osteomyelitis, other site ([facility], [facility] V28) 1 Occurrences starting 11/01/2025 until 11/01/2026 Ambulatory referral to Cardiology Outpatient Referral Routine Chronic systolic (congestive) heart failure ([facility] V24, [facility] V28) Nonischemic congestive cardiomyopathy ([facility] V24, [facility] V28) POTS (postural orthostatic tachycardia syndrome) 1 Occurrences starting 11/01/2025 until 11/01/2026 documented as of this encounter Visit Diagnoses Diagnosis Other osteomyelitis, other site ([facility] V24, [facility] V28)- Primary Epidural abscess Intracranial abscess Superficial venous thrombosis of right upper extremity Left arm pain Pain in soft tissues of limb Superficial venous thrombosis of upper extremity, left Chronic systolic (congestive) heart failure ([facility] V24, [facility] V28) Nonischemic congestive cardiomyopathy ([facility] V24, [facility] V28) POTS (postural orthostatic tachycardia syndrome) Unspecified tachycardia Chest heaviness Other chest pain documented in this encounter Discontinued Medications Medication Sig Discontinue Reason Start Date End Da te fluconazole (DIFLUCAN) 150 mg tablet TAKE 2 TABLETS BY MOUTH ONCE DAILY FOR 1 DAY Therapy completed 10/08/2025 11/01/2025 oxyCODONE (ROXICODONE) 10 mg immediate release tablet Take 1 tablet (10 mg total) by mouth every 4 (four) hours if needed for moderate pain. Max Daily Amount: 60 mg Availability 10/24/2025 11/01/2025 documented as of this encounter Historical Medications * This list may reflect changes made after this encounter. heparin sodium,bovine (HEPARIN, BOVINE, INJ) Inject 5 mL as directed 1 (one) time each day. vancomycin (VANCOCIN) 10 gram recon soln 10/30/2025 fluconazole (DIFLUCAN) 150 mg tablet TAKE 2 TABLETS BY MOUTH ONCE DAILY FOR 1 DAY 10/08/2025 11/01/2025 added in this encounter Additional Health Concerns Assessment Noted Time PHQ-9 Depression Total Score: 23 025 4:56 PM EST documented as of this encounter Care Teams Gold Charmer Relationship Specialty Start Date End Date Shanice Shelton MD [address] [place] [phone] PCP - General Internal Medicine 08/16/22 documented as of this encounter
--- OUTSIDE RECORDS SUMMARY | 2025-11-01 09:41 | XMS_ITS | Encounter Summary ---
Author Organization [facility] Address [address] [place] [address] Care Team Providers Care Rn Licensed Practical Name Role Phone Shanice Shelton MD Primary Care Prov ider Reason for Visit * Imaging (Emergency) - Closed Specialty Diagnoses / Procedures Referred By Mc gallardo Referred To Contact Diagnoses Left arm pain Procedures Vascular US duplex upper extremity venous left Vascular US duplex lower extremity venous left Anastasiya Reis PA [address] [place], [place] Phone: tel: fax: [facility] Referral ID Status Reason Start Date Expiration Date Visits Re quested Visits Authorized [id number] Closed 11/01/2025 11/01/2026 1 1 Encounter Details Date Type Department Care Team (Latest Contact Info) Description 11/01/2025 9:41 AM EST - 11/01/2025 11:59 PM EST Hospital Encounter Radiology Department - [address] [phone] Left arm pain Discharge Disposition: Home or [...] for your loved ones. For example, child welfare caseworker or elderly care for an older adult? [...] 11/01/2025 1:53 PM Ambrocio Jackson RN * [place] Suicide Severity Rating Scale (Screener/Recent Self-Report) Question [...] 1 (one) time each day. 30 each 06/11/2025 12/08/19 26 carvediloL (COREG) 3.125 mg [...] 4 tablets 12 tablet 10/27/2025 11/03/20 25 naloxone (NARCAN) 4 mg/0.1 mL nasal spray Administer 1 each (4 mg total) into affected nostril(s) if needed for opioid reversal. Give 4 mg (1 spray) into one nostril. May repeat every 2-3 minutes if needed, alternating nostrils, until medical assistance becomes available. 2 each 10/27/2025 11/05/20 25 vancomycin (VANCOCIN) 10 gram recon soln 10/30/2025 11/03/20 25 documented as of this encounter Discharge Disposition Disposition Code Departure Means Destination Home or Self Care documented in this encounter Plan of Treatment Upcoming Encounters Date Type Department Care Team (Late st Contact Info) Description 11/26/2025 10:00 AM EST Office Visit Infectious Disease [facility] [address] [place] [address] Olivier Casillas MD [address] [place] [phone] 12/12/2025 9:15 AM EST Office Visit Bariatric Surgery - [place] [address] [address] Alexander Silva MD [address] [place] [phone] 12/17/2025 8:00 AM EST Office Visit Neurosurgery - [place] [address] [place] [phone] Brain Griffin MD [address] [place] [address] [place] [phone] 01/03/2026 12:30 PM EST Telemedicine Bariatric Surgery [facility] [address] [phone] Nevaeh Cunha, JOANNA [address] [phone] 02/04/2026 8:30 AM EDT Office Visit Adult Medicine [address] [phone] Srinath Nolan MD [address] [place] [phone] 05/28/2026 9:30 AM EDT Office Visit Vascular Surgery - [place] [address] [place] [address] Veronika Lamb MD [address] [place] [phone] documented as of this encounter Procedures [...] Signed Date: 11/01/2025 11:55 ET Workstation ID: [id number] Transcribed By: Self Edit Transcribed Date: 11/01/2025 [...] flow. Procedure Note Lisa Collins MD - 12/12/2025 EXAM: Unilateral upper extremity venous ultrasound. HISTORY: [...] Signed Date: 11/01/2025 11:55 ET Workstation ID: [id number] Transcribed By: Self Edit Transcribed Date: 11/01/2025 11:40 ET us Anastasiya MCLAUGHLIN CV VASCULAR PROCEDURES Final Res ult documented in this encounter Visit Diagnoses Diagnosis Left arm pain Pain in soft tissues of limb documented in this encounter Additional Health Concerns Assessment Noted Time PHQ-9 Depression Total Score: 23 025 4:56 PM EST documented as of this encounter Care Teams Rn Licensed Practical Relationship Specialty Start Date End Date Shanice Shelton MD [address] [place] [phone] PCP - General Internal Medicine 08/16/22 documented as of this encounter
--- OUTSIDE RECORDS SUMMARY | 2025-11-01 12:00 | XMS_ITS | Encounter Summary ---
Author Organization [facility] Address [address] [place] [address] Care Team Providers Care Emergency Care Attendant Name Role Phone Shanice Shelton MD Primary Care Prov ider Encounter Details Date Type Department Care Team (Late st Contact Info) Description 11/01/2025 12:00 PM EST Lab Draw Station [address] [phone] Overweight (Primary Dx); Depression, unspecified depression type; Alcohol use, unspecified, uncomplicated; Anxiety; Lyme disease; Prediabetes; Osteomyelitis, unspecified site, unspecified type (CMS/HCC V24, CMS/HCC V28); Excessive or frequent menstruation; Vitamin D deficiency; Aneurysm of other specified arteries (CMS/HCC V24); Acute on chronic systolic heart failure (CMS/HCC V24, CMS/HCC V28); Nonischemic congestive cardiomyopathy (CMS/HCC V24, CMS/HCC V28); Bradycardia; Myalgia; Paresthesia of hand, bilateral; Low back pain, unspecified back pain laterality, unspecified chronicity, unspecified whether sciatica present; Chronic bilateral low back pain, unspecified whether sciatica present; Cervicalgia; POTS (postural orthostatic tachycardia syndrome); Dysmenorrhea; Nonintractable episodic headache, unspecified headache type Social History Tobacco Use Types Packs/Day Years [...] for your loved ones. For example, children's court magistrate or elderly care for an older adult? [...] 11/01/2025 1:53 PM Ambrocio Jackson RN * [place] Suicide Severity Rating Scale (Screener/Recent Self-Report) Question [...] Date Author No 10/16/2025 10:55 PM EST Mike Loredo RN documented in this encounter Plan of Treatment Upcoming Encounters Date Type Department Care Team (Late st Contact Info) Description 11/26/2025 10:00 AM EST Office Visit Infectious Disease [facility] [address] [place] [address] Olivier Casillas MD [address] [place] [phone] 12/12/2025 9:15 AM EST Office Visit Bariatric Surgery [facility] [address] [phone] Alexander Silva MD [address] [place] [phone] 12/17/2025 8:00 AM EST Office Visit Neurosurgery - [place] [address] [place] [address] Brain Griffin MD [address] [place] [address] [place] [phone] 01/03/2026 12:30 PM EST Telemedicine Bariatric Surgery - [place] [address] [phone] Nevaeh Cunha, RD [address] [phone] 02/04/2026 8:30 AM EDT Office Visit Adult Medicine [address] [phone] Srinath Nolan MD [address] [place] [phone] 05/28/2026 9:30 AM EDT Office Visit Vascular Surgery - [place] [address] [place] [address] Veronika Lamb MD [address] [place] [phone] documented as of this encounter Procedures Procedure Name Priority Date/Time Associated Diagnosis Comments CBC WITH AUTO DIFFERENTIAL Routine 11/01/2025 11:45 AM EST Overweight Depression, unspecified depression type Alcohol use, unspecified, uncomplicated Anxiety Lyme disease Prediabetes Osteomyelitis, unspecified site, unspecified type (CMS/HCC V24, CMS/HCC V28) Excessive or frequent menstruation Vitamin D deficiency Aneurysm of other specified arteries (CMS/HCC V24) Acute on chronic systolic heart failure (CMS/HCC V24, CMS/HCC V28) Nonischemic congestive cardiomyopathy (CMS/HCC V24, CMS/HCC V28) Bradycardia Myalgia Paresthesia of hand, bilateral Low back pain, unspecified back pain laterality, unspecified chronicity, unspecified whether sciatica present Chronic bilateral low back pain, unspecified whether sciatica present Cervicalgia POTS (postural orthostatic tachycardia syndrome) Dysmenorrhea Nonintractable episodic headache, unspecified headache type SEDIMENTATION RATE Routine 11/01/2025 11 :45 AM EST Overweight Depression, unspecified depression type Alcohol use, unspecified, uncomplicated Anxiety Lyme disease Prediabetes Osteomyelitis, unspecified site, unspecified type (CMS/HCC V24, CMS/HCC V28) Excessive or frequent menstruation Vitamin D deficiency Aneurysm of other specified arteries (CMS/HCC V24) Acute on chronic systolic heart failure (CMS/HCC V24, CMS/HCC V28) Nonischemic congestive cardiomyopathy (CMS/HCC V24, CMS/HCC V28) Bradycardia Myalgia Paresthesia of hand, bilateral Low back pain, unspecified back pain laterality, unspecified chronicity, unspecified whether sciatica present Chronic bilateral low back pain, unspecified whether sciatica present Cervicalgia POTS (postural orthostatic tachycardia syndrome) Dysmenorrhea Nonintractable episodic headache, unspecified headache type CBC AND DIFFERENTIAL Routine 11/01/2025 11:45 AM EST Overweight Depression, unspecified depression type Alcohol use, unspecified, uncomplicated Anxiety Lyme disease Prediabetes Osteomyelitis, unspecified site, unspecified type ([facility]/HCC V24, CMS/HCC V28) Excessive or frequent menstruation Vitamin D deficiency Aneurysm of other specified arteries ([facility]/HCC V24) Acute on chronic systolic heart failure ([facility]/HCC V24, CMS/HCC V28) Nonischemic congestive cardiomyopathy (CMS/HCC V24, CMS/HCC V28) Bradycardia Myalgia Paresthesia of hand, bilateral Low back pain, unspecified back pain laterality, unspecified chronicity, unspecified whether sciatica present Chronic bilateral low back pain, unspecified whether sciatica present Cervicalgia POTS (postural orthostatic tachycardia syndrome) Dysmenorrhea Nonintractable episodic headache, unspecified headache type C-REACTIVE PROTEIN Routine 11/01/2025 11 :45 AM EST Overweight Depression, unspecified depression type Alcohol use, unspecified, uncomplicated Anxiety Lyme disease Prediabetes Osteomyelitis, unspecified site, unspecified type ([facility]/HCC V24, CMS/[facility] V28) Excessive or frequent menstruation Vitamin D deficiency Aneurysm of other specified arteries ([facility]/HCC V24) Acute on chronic systolic heart failure (CMS/HCC V24, CMS/HCC V28) Nonischemic congestive cardiomyopathy (CMS/HCC V24, CMS/HCC V28) Bradycardia Myalgia Paresthesia of hand, bilateral Low back pain, unspecified back pain laterality, unspecified chronicity, unspecified whether sciatica present Chronic bilateral low back pain, unspecified whether sciatica present Cervicalgia POTS (postural orthostatic tachycardia syndrome) Dysmenorrhea Nonintractable episodic headache, unspecified headache type VANCOMYCIN, RANDOM Routine 11/01/2025 11 :45 AM EST Overweight Depression, unspecified depression type Alcohol use, unspecified, uncomplicated Anxiety Lyme disease Prediabetes Osteomyelitis, unspecified site, unspecified type (CMS/HCC V24, CMS/HCC V28) Excessive or frequent menstruation Vitamin D deficiency Aneurysm of other specified arteries ([facility]/HCC V24) Acute on chronic systolic heart failure (CMS/HCC V24, CMS/HCC V28) Nonischemic congestive cardiomyopathy (CMS/HCC V24, CMS/HCC V28) Bradycardia Myalgia Paresthesia of hand, bilateral Low back pain, unspecified back pain laterality, unspecified chronicity, unspecified whether sciatica present Chronic bilateral low back pain, unspecified whether sciatica present Cervicalgia POTS (postural orthostatic tachycardia syndrome) Dysmenorrhea Nonintractable episodic headache, unspecified headache type COMPREHENSIVE METABOLIC PANEL Routine 11/01/2025 11:45 AM EST Overweight Depression, unspecified depression type Alcohol use, unspecified, uncomplicated Anxiety Lyme disease Prediabetes Osteomyelitis, unspecified site, unspecified type ([facility] V24, [facility] V28) Excessive or frequent menstruation Vitamin D deficiency Aneurysm of other specified arteries ([facility] V24) Acute on chronic systolic heart failure ([facility] V24, [facility] V28) Nonischemic congestive cardiomyopathy ([facility] V24, [facility] V28) Bradycardia Myalgia Paresthesia of hand, bilateral Low back pain, unspecified back pain laterality, unspecified chronicity, unspecified whether sciatica present Chronic bilateral low back pain, unspecified whether sciatica present Cervicalgia POTS (postural orthostatic tachycardia syndrome) Dysmenorrhea Nonintractable episodic headache, unspecified headache type documented in this encounter Results * (ABNORMAL) CBC auto differential (11/01/2025 11:45 AM EST) [facility] WBC 5.2 4.8 - 10.8 K/mcL LAB HEMETOLOGY METHOD 11/01/2025 2:20 PM [facility] RBC 4.50 3.80 - 4.80 M/mcL LAB HEMETOLOGY METHOD 11/01/2025 2:20 PM [facility] Hemoglobin 12.2 11.5 - 16.0 g/dL LAB HEMETOLOGY METHOD 11/01/2025 2:20 PM [facility] Hematocrit 38.9 35.0 - 47.0 % LAB HEMETOLOGY METHOD 11/01/2025 2:20 PM [facility] MCV 87.0 79.0 - 98.0 FL LAB HEMETOLOGY METHOD 11/01/2025 2:20 PM [facility] MCH 27.3 27.0 - 32.0 pcg LAB HEMETOLOGY METHOD 11/01/2025 2:20 PM [facility] MCHC 31.4(L) 32.0 - 37.0 g/dL LAB HEMETOLOGY METHOD 11/01/2025 2:20 PM [facility] RDW 14.6 11.0 - 15.0 % LAB HEMETOLOGY METHOD 11/01/2025 2:20 PM [facility] Platelets 263 130 - 400 K/mcL LAB HEMETOLOGY METHOD 11/01/2025 2:20 PM [facility] MPV 9.0 7.0 - 11.0 FL LAB HEMETOLOGY METHOD 11/01/2025 2:20 PM [facility] NRBC 0.0 <1.0 % LAB HEMETOLOGY METHOD 11/01/2025 2:20 PM [facility] NRBC Absolute 0.00 <0.10 K/mcL LAB HEMETOLOGY METHOD 11/01/2025 2:20 PM [facility] Neutrophils Relative 48.3 % LAB HEMETOLOGY METHOD 11/01/2025 2:20 PM [facility] Lymphocytes Relative 36.7 % LAB HEMETOLOGY METHOD 11/01/2025 2:20 PM [facility] Monocytes Relative 7.6 % LAB HEMETOLOGY METHOD 11/01/2025 2:20 PM [facility] Eosinophils Relative 5.9 % LAB HEMETOLOGY METHOD 11/01/2025 2:20 PM [facility] Basophils Relative 1.3 % LAB HEMETOLOGY METHOD 11/01/2025 2:20 PM [facility] Immature Granulocytes Relative 0.2 % LAB HEMETOLOGY METHOD 11/01/2025 2:20 PM [facility] Neutrophils Absolute 2.52 1.50 - 7.00 K/mcL LAB HEMETOLOGY METHOD 11/01/2025 2:20 PM EST [facility] Lymphocytes Absolute 1.92 1.00 - 5.00 K/mcL LAB HEMETOLOGY METHOD 11/01/2025 2:20 PM EST [facility] Monocytes Absolute 0.40 0.20 - 1.00 K/mcL LAB HEMETOLOGY METHOD 11/01/2025 2:20 PM EST [facility] Eosinophils Absolute 0.31 0.00 - 0.50 K/mcL LAB HEMETOLOGY METHOD 11/01/2025 2:20 PM EST [facility] Basophils Absolute 0.07 0.00 - 0.20 K/mcL LAB HEMETOLOGY METHOD 11/01/2025 2:20 PM EST [facility] Immature Granulocytes Absolute 0.01 0.00 - 0.03 K/mcL LAB HEMETOLOGY METHOD 11/01/2025 2:20 PM EST [facility] Blood Venous blood specimen / Unknown Venipuncture / Unknown 11/01/2025 11:45 AM EST 11/01/2025 11:45 AM EST us Clifton Bear MD LAB BLOOD ORDERABLES Final Resul t Performing Organization Address City/[facility]/ZIP Co de Phone Number [facility] [address] [place] [address], * Vancomycin random (11/01/2025 11:45 AM EST) Vancomycin Rm 10.3 mcg/mL 11/01/2025 4:18 PM EST [facility] Blood Venous blood specimen / Unknown Venipuncture / Unknown 11/01/2025 11:45 AM EST 11/01/2025 11:45 AM EST us Clifton Bear MD LAB BLOOD ORDERABLES Final Resul t [facility] [address] [place] [address], [place] [phone] * Sedimentation rate (11/01/2025 11:45 AM EST) [facility] Sed Rate 22 0 - 30 mm/hr LAB HEMETOLOGY METHOD 11/01/2025 2:28 PM EST [facility] Blood Venous blood specimen / Unknown Venipuncture / Unknown 11/01/2025 11:45 AM EST 11/01/2025 11:45 AM EST us Clifton Bear MD LAB BLOOD ORDERABLES Final Resul t [facility] [address] [place] [address], [place] [phone] * (ABNORMAL) C-reactive protein (11/01/2025 11:45 AM EST) [facility] C-Reactive Protein 0.57(H) <=0.50 mg/dL 11/01/2025 4:21 PM EST [facility] Blood Venous blood specimen / Unknown Venipuncture / Unknown 11/01/2025 11:45 AM EST 11/01/2025 11:45 AM EST us Clifton Bear MD LAB BLOOD ORDERABLES Final Resul t [facility] [address] [place] [address], [place] [phone] * (ABNORMAL) Comprehensive metabolic panel (11/01/2025 11:45 AM EST) [facility] Sodium 142 133 - 145 mmol/L 11/01/2025 4:18 PM EST [facility] Potassium 4.4 3.5 - 5.5 mmol/L 11/01/2025 4:18 PM EST [facility] Chloride 105 96 - 110 mmol/L 11/01/2025 4:18 PM [facility] CO2 28 21 - 32 mmol/L 11/01/2025 4:18 PM [facility] Anion Gap 9 3 - 11 11/01/2025 4:18 PM [facility] Glucose 79 70 - 100 mg/dL 11/01/2025 4:18 PM [facility] BUN 16 5 - 25 mg/dL 11/01/2025 4:18 PM [facility] Creatinine 0.87 0.50 - 1.10 mg/dL 11/01/2025 4:18 PM [facility] eGFR 80 >=60 mL/min/1. 73m2 11/01/2025 4:18 PM [facility] Comment:Calculation based on the Chronic Kidney Disease Epidemiology Collaboration (CKD-EPI) equation refit without adjustment for race. BUN/Creatinine Ratio 18.4 11/01/2025 4:18 PM [facility] Calcium 9.4 8.5 - 10.5 mg/dL 11/01/2025 4:18 PM [facility] AST (SGOT) 34 10 - 42 unit/L 11/01/2025 4:18 PM [facility] ALT (SGPT) 36 10 - 60 unit/L 11/01/2025 4:18 PM [facility] Alkaline Phosphatase 133(H) 42 - 121 unit/L 11/01/2025 4:18 PM [facility] Total Protein 7.5 6.0 - 8.0 g/dL 11/01/2025 4:18 PM [facility] Albumin 4.3 3.2 - 5.0 g/dL 11/01/2025 4:18 PM [facility] Total Bilirubin 0.3 0.0 - 1.4 mg/dL 11/01/2025 4:18 PM EST [facility] Blood Venous blood specimen / Unknown Venipuncture / Unknown 11/01/2025 11:45 AM EST 11/01/2025 11:45 AM EST us Clifton Bear MD LAB BLOOD ORDERABLES Final Resul t [facility] [address] [place] [address], documented in this encounter Visit Diagnoses Diagnosis Overweight- Primary Depression, unspecified depression type Alcohol use, unspecified, uncomplicated Anxiety Anxiety state, unspecified Lyme disease Prediabetes Other abnormal glucose Osteomyelitis, unspecified site, unspecified type ([facility] V24, [facility] V28) Excessive or frequent menstruation Vitamin D deficiency Aneurysm of other specified arteries ([facility] V24) Acute on chronic systolic heart failure ([facility] V24, [facility] V28) Acute on chronic systolic heart failure Nonischemic congestive cardiomyopathy ([facility] V24, [facility] V28) Bradycardia Other specified cardiac dysrhythmias Myalgia Unspecified myalgia and myositis Paresthesia of hand, bilateral Low back pain, unspecified back pain laterality, unspecified chronicity, unspecified whether sciatica present Chronic bilateral low back pain, unspecified whether sciatica present Cervicalgia POTS (postural orthostatic tachycardia syndrome) Unspecified tachycardia Dysmenorrhea Nonintractable episodic headache, unspecified headache type documented in this encounter Additional Health Concerns Assessment Noted Time PHQ-9 Depression Total Score: 23 025 4:56 PM EST documented as of this encounter Care Teams Emergency Care Attendant Relationship Specialty Start Date End Date Shanice Shelton MD [address] [place] [phone] PCP - General Internal Medicine 08/16/22 documented as of this encounter
--- OUTSIDE RECORDS SUMMARY | 2025-11-01 17:50 | XMS_ITS | Encounter Summary ---
Author Organization [facility] Address [address] [place] [address] Care Team Providers Care Investigation Specialist Name Role Phone Shanice Shelton MD Primary Care Prov ider Reason for Referral * Home Health (Routine) - Closed Specialty Diagnoses / Procedures Referred By Mc gallardo Referred To Contact Home Health Services Diagnoses Acute on chronic systolic heart failure ([facility] V24, [facility] V28) Velasquez Chaparro MD [address] [place] [phone] Phone: tel: fax: Molly [address], [address] [place] [address] Phone: tel: fax: Referral ID Status Reason Start Date Expiration Date V isits Requested Visits Authorized [id number] Closed Consult and Treat 11/03/2025 11/03/2026 1 1 Reason for Visit * Reason Comments Vascular Access Problem FROM PCP KNOWN C LOT TO LT ARM W/PICC * Auth/Cert (Routine) Specialty Diagnoses / Procedures Referred By Mc gallardo Referred To Contact Diagnoses Splenic artery aneurysm ([facility] V24) Extravasation injury of IV catheter site with other complication, initial encounter ([facility] V24) Thrombosis in peripherally inserted central catheter (PICC) ([facility] V24) Chest pain, unspecified type Procedures UT COMPREHENSIVE AUDIOMETRY THRESHOLD EVALUATION AND SPEECH RECOGNITION Wilder Warren MD [address] [place] [address] Phone: tel: fax: [facility] [address] [place] [phone] Phone: tel: Referral ID Status Reason Start Date Expiration Date Visits Re quested Visits Authorized [id number] 1 1 Encounter Details Date Type Department Care Team (Latest Contact Info) Description 11/01/2025 5:50 PM EST - 11/03/2025 10:22 AM EST Hospital Encounter [facility] [address] [place] [phone] Mariam Dupree MD [address] [place] [phone] Nila Diaz MD [address] [place] [address] [phone] Wilder Warren MD [address] [place] [phone] Velasquez Chaparro MD [address] [place] [phone] Extravasation injury of IV catheter site with other complication, initial encounter ([facility] V24) (Primary Dx); Chest pain, unspecified type; Splenic artery aneurysm ([facility] V24); Acute on chronic systolic heart failure ([facility] V24, [facility] V28) Discharge Disposition: Home-Health Care Svc Social [...] your loved ones. For example, child care center administrator or elderly care for an older adult? [...] 11/01/2025 1:53 PM Ambrocio Jackson RN * [place] Suicide Severity Rating Scale (Screener/Recent Self-Report) Question [...] from the original note were not included. [facility] DISCHARGE SUMMARY Patient Information Annabelle Coppola : 1975 [50 y.o.] Admitting Provider Wilder Warren MD Discharge Provider Velasquez Chaparro MD, Velasquez Chaparro MD Primary Care Physician Shanice Foss MD Admission Date 11/01/2025 Discharge Date 11/03/2025 Summary of Hospital Problems Primary Discharge Diagnosis: Thrombosis in peripherally inserted central catheter (PICC) ([facility] V24) Discharge Destination: Home with [facility] Code [...] setting. Follow-Up Instructions and Recommendations Molly Henley [address] [place] [address] , [address] [facility] [phone] Molly Sinha [place] [address] [place] [address] , [address] [facility] [phone] Primary care provider (PCP) Shanice Shelton MD [address] [facility] [phone] Olivier Casillas MD [address] [facility] [address] [place] [address] Discharge Procedure Orders Ambulatory referral to Home Health Standing Status: Future Referral Priority: Routine Referral Type: Home Health Referral Reason: Consult and Treat Referral Location: [facility] ([facility]) Requested Specialty: Home Health Services Number [...] Your Medications These medications were sent to [facility] [address] [place] [address] [place] [id number] oxyCODONE 5 mg immediate release tablet rivaroxaban [...] needed. Max Daily Amount: 10 mg 03/26/2025 naloxone (NARCAN) 4 mg/0.1 mL nasal spray Administer 1 each (4 mg total) into affected nostril(s) if needed for opioid reversal. Give 4 mg (1 spray) into one nostril. May repeat every 2-3 minutes if needed, alternating nostrils, until medical assistance becomes available. 2 each 10/27/2025 11/05/20 25 documented as of this encounter Ordered Prescriptions [...] Departure Means Destination Comment s Home-Health Care [facility] documented in this encounter Progress Notes * [...] Flores, PT - 11/02/2025 2:20 PM EST [facility] Evaluation & Treatment PT Discharge Recommendations: Home independent Staff Recommendations for safe patient handling: close supervision Modified Pettis Scale Score: 3=Moderate disability. Requires some help, [...] is a 50 y.o. female admitted to [facility] on 11/01/2025. Problem List[1] Medical History[2] [...] of Steps: 6 Prior Function Level of Dewey: Independent with mobility and functional transfers Ambulation [...] of Steps 6 Prior Function Level of Dewey Independent with mobility and functional transfers Ambulation [...] stairs Education Comments No comments found. Reshma Flroes PT [1] Patient Active Problem List Diagnosis Anxiety Bradycardia Vitamin D deficiency Headache Excessive or frequent menstruation Dysmenorrhea POTS (postural orthostatic tachycardia syndrome) Cervicalgia Chronic low back pain Nonischemic congestive cardiomyopathy ([facility] V24, [facility] V28) Prediabetes Acute on chronic systolic heart failure ([facility] V24, [facility] V28) Aneurysm of other specified arteries ([facility] V24) Low back pain, unspecified Alcohol use, unspecified, uncomplicated Depression, unspecified Overweight Paresthesia of hand, bilateral Myalgia Lyme disease Osteomyelitis ([facility]24, [facility] V28) Thrombosis in peripherally inserted central catheter (PICC) ([facility] V24) [2] Past Medical History: Diagnosis Date Acute respiratory failure with hypoxia ([facility] V24[facility] V28) 11/20/2024 Anxiety 09/11/2010 DX:Anxiety Bradycardia 09/14/2010 DX:Bradycardia Cardiomyopathy ([facility] V24, [facility] V28) 09/14/2010 DX:Cardiomyopathy (HCC) Cervicalgia 10/10/2015 DX:Cervicalgia [...] GUID; COMMENT: benign ENDOMETRIAL ABLATION 2009 PROCEDURE: UT ENDOMETRIAL ABLTJ THERMAL W/O HYSTEROSCOPIC GUID EYE SURGERY Bilateral 2017 PROCEDURE: UT TRABECULOPLASTY BY LASER SURGERY; COMMENT: Dr. Marylou Key HYSTERECTOMY 09/12/2013 PROCEDURE: HISTORICAL VAGINAL HYSTERECTOMY W/O BSO; COMMENT: da Raisa total hysterectomy performed by Dr. 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 Yes Transportation [...] been consulted for vancomycin dosing for bone/joint, INTERPRETER DEAF. Relevant clinical data and objective history reviewed: [...] 12 hours at time of discharge from [facility] 10/24/2025 where her last trough was slightly [...] infectious concerns): [] Yes / [x] No Ship Laborer: [] Yes / [x] No If YES, Cardiac Rhythm: [] NSR, [] SB, [] ST, [] A-FIB, [] A-Flutter, [] Pacemaker, [] 1st Degree HB, [] 2nd Degree HB, [] 3rd Degree HB Reason for Ship Laborer: O2 []Yes /[]No If YES, how many [...] 11/01/2025 1:54 PM EST Recently admitted in [place] for blood clot to [facility]. PICC line moved from right arm to [...] discharged on her current antibiotic regimen [EK] 9219 Patient's IV infiltrated as Vancomycin was running. [...] is to tissue. Will discuss admission with [facility] for compartment monitoring, pharmacy to dose vancomycin, starting anticoagulation. Discussed with [facility] provider, okay to use current PICC line, no need to replace since we are starting anticoagulation [EK] ED Course User Index [EK] Nila Diaz MD Clinical Impressions as of 11/03/25 0809 Chest pain, unspecified type Splenic artery aneurysm ([facility] V24) Extravasation injury of IV catheter site with other complication, initial encounter ([facility] V24) Procedures CLINICAL IMPRESSION: Final diagnoses: None [...] Chest pain, unspecified type Splenic artery aneurysm ([facility] V24) Extravasation injury of IV catheter site with other complication, initial encounter ([facility] V24) CT Angio Chest wo and/or w [...] Signed Date: 11/01/2025 14:48 ET Workstation ID: [id number] Transcribed By: Self Edit Transcribed Date: 11/01/2025 [...] Procedure Abnormality Status --------- ------ CBC auto differential[[id number]] Abnormal Final result Please view results for these tests on the individual orders. Clinical Impression(s): Final diagnoses: [R07.9] Chest pain, unspecified type [I72.8] Splenic artery aneurysm ([facility] V24) [T82.898A] Extravasation injury of IV catheter site with other complication, initial encounter ([facility] V24) Admit to Inpatient Previous Medications ACETAMINOPHEN [...] from the original note were not included. [facility] HISTORY AND PHYSICAL Please contact author [Wilder Warren MD] via [employer]. Patient: Annabelle Coppola Admission Date/Time: 11/01/2025 5:50 [...] and migraine headaches who presents to the [facility] Emergency Department with right upper extremity pain and swelling. The patient was initially admitted to [facility] from 10/16/2025-10/24/2025 when she was found to [...] Diagnosis Date Acute respiratory failure with hypoxia ([facility] V24, [facility] V28) 11/20/2024 Anxiety 09/11/2010 DX:Anxiety Bradycardia 09/14/2010 [...] GUID; COMMENT: benign ENDOMETRIAL ABLATION 2009 PROCEDURE: UT ENDOMETRIAL ABLTJ THERMAL W/O HYSTEROSCOPIC GUID EYE SURGERY Bilateral 2017 PROCEDURE: UT TRABECULOPLASTY BY LASER SURGERY; COMMENT: Dr. Marylou Key HYSTERECTOMY 09/12/2013 PROCEDURE: HISTORICAL VAGINAL HYSTERECTOMY W/O BSO; COMMENT: da Raisa total hysterectomy performed by Dr. Marks NECK SURGERY 07/01/2008 PROCEDURE: HISTORICAL NECK SURGERY; COMMENT: decompression and fusion C5-6, C6-7 OTHER SURGICAL HISTORY PROCEDURE: UT DILATION & CURETTAGE DX&/THER NONOBSTETRIC OTHER SURGICAL [...] Signed Date: 11/01/2025 14:48 ET Workstation ID: [id number] Transcribed By: Self Edit Transcribed Date: 11/01/2025 [...] FULL CODE. The patient's son, Jensen Shah [phone], is her medical decision-maker in the event [...] 10:00 AM EST Office Visit Infectious Disease [facility] [address] [place] [address] Olivier Casillas MD [address] [place] [phone] 12/12/2025 9:15 AM EST Office Visit Bariatric Surgery [place] [address] [phone] Alexander Silva MD [address] [place] [phone] 12/17/2025 8:00 AM EST Office Visit Neurosurgery - [place] [address] [place] [phone] Brain Griffin MD [address] [place] [address] [place] [phone] 01/03/2026 12:30 PM EST Telemedicine Bariatric Surgery [place] [address] [phone] Nevaeh Cunha, JOANNA [address] [phone] 02/04/2026 8:30 AM EDT Office Visit Adult Medicine [address] [place], [place] [phone] Srinath Nolan MD [address] [place], [place] 05/28/2026 9:30 AM EDT Office Visit Vascular Surgery - [place] [address] [place] [address] Veronika Lamb MD [address] [place] [phone] Scheduled Referrals Name Type Priority Associated Diagnoses [...] in this encounter Results * ECG-Annotated (11/04/2025) Provider Onbase ECG ORDERABLES Final Result * Vancomycin random (11/02/2025 4:51 AM EST) Pathologist [facility] Vancomycin Rm 11.9 mcg/mL 11/02/2025 5:37 AM EST [facility] Blood Venous blood specimen / Unknown Venipuncture / Unknown 11/02/2025 4:51 AM EST 11/02/2025 5:05 AM EST Wilder Warren MD LAB BLOOD ORDERABLES Final Result [facility] [address] [place] [address], [place] [phone] * (ABNORMAL) CBC auto differential (11/02/2025 4:51 AM EST) Pathologist [facility] WBC 6.1 4.8 - 10.8 K/[facility] LAB HEMETOLOGY METHOD 11/02/2025 5:19 AM EST [facility] RBC 4.00 3.80 - 4.80 M/mcL LAB HEMETOLOGY METHOD 11/02/2025 5:19 AM [facility] Hemoglobin 10.9(L) 11.5 - 16.0 g/dL LAB HEMETOLOGY METHOD 11/02/2025 5:19 AM [facility] Hematocrit 34.1(L) 35.0 - 47.0 % LAB HEMETOLOGY METHOD 11/02/2025 5:19 AM [facility] MCV 85.0 79.0 - 98.0 FL LAB HEMETOLOGY METHOD 11/02/2025 5:19 AM [facility] MCH 27.2 27.0 - 32.0 pcg LAB HEMETOLOGY METHOD 11/02/2025 5:19 AM [facility] MCHC 32.0 32.0 - 37.0 g/dL LAB HEMETOLOGY METHOD 11/02/2025 5:19 AM [facility] RDW 14.6 11.0 - 15.0 % LAB HEMETOLOGY METHOD 11/02/2025 5:19 AM [facility] Platelets 216 130 - 400 K/mcL LAB HEMETOLOGY METHOD 11/02/2025 5:19 AM [facility] MPV 8.5 7.0 - 11.0 FL LAB HEMETOLOGY METHOD 11/02/2025 5:19 AM [facility] NRBC 0.0 <1.0 % LAB HEMETOLOGY METHOD 11/02/2025 5:19 AM [facility] NRBC Absolute 0.00 <0.10 K/mcL LAB HEMETOLOGY METHOD 11/02/2025 5:19 AM [facility] Neutrophils Relative 51.7 % LAB HEMETOLOGY METHOD 11/02/2025 5:19 AM [facility] Lymphocytes Relative 34.9 % LAB HEMETOLOGY METHOD 11/02/2025 5:19 AM EST [facility] Monocytes Relative 6.9 % LAB HEMETOLOGY METHOD 11/02/2025 5:19 AM [facility] Eosinophils Relative 5.3 % LAB HEMETOLOGY METHOD 11/02/2025 5:19 AM [facility] Basophils Relative 1.0 % LAB HEMETOLOGY METHOD 11/02/2025 5:19 AM [facility] Immature Granulocytes Relative 0.2 % LAB HEMETOLOGY METHOD 11/02/2025 5:19 AM [facility] Neutrophils Absolute 3.13 1.50 - 7.00 K/mcL LAB HEMETOLOGY METHOD 11/02/2025 5:19 AM [facility] Lymphocytes Absolute 2.11 1.00 - 5.00 K/mcL LAB HEMETOLOGY METHOD 11/02/2025 5:19 AM [facility] Monocytes Absolute 0.42 0.20 - 1.00 K/mcL LAB HEMETOLOGY METHOD 11/02/2025 5:19 AM [facility] Eosinophils Absolute 0.32 0.00 - 0.50 K/mcL LAB HEMETOLOGY METHOD 11/02/2025 5:19 AM [facility] Basophils Absolute 0.06 0.00 - 0.20 K/mcL LAB HEMETOLOGY METHOD 11/02/2025 5:19 AM [facility] Immature Granulocytes Absolute 0.01 0.00 - 0.03 K/mcL LAB HEMETOLOGY METHOD 11/02/2025 5:19 AM [facility] Blood Venous blood specimen / Unknown Venipuncture / Unknown 11/02/2025 4:51 AM EST 11/02/2025 5:05 AM EST us Wilder Warren MD LAB BLOOD ORDERABLES Final Result [facility] [address] [place] [address], [place] [phone] * (ABNORMAL) Magnesium (11/02/2025 4:51 AM EST) [facility] Magnesium 1.8(L) 1.9 - 2.6 mg/dL 11/02/2025 5:36 AM EST [facility] Blood Venous blood specimen / Unknown Venipuncture / Unknown 11/02/2025 4:51 AM EST 11/02/2025 5:05 AM EST us Wilder Warren MD LAB BLOOD ORDERABLES Final Result [facility] [address] [place] [address], [place] [phone] * Basic metabolic panel (11/02/2025 4:51 AM EST) [facility] Sodium 140 133 - 145 mmol/L 11/02/2025 5:36 AM [facility] Potassium 4.1 3.5 - 5.5 mmol/L 11/02/2025 5:36 AM [facility] Chloride 104 96 - 110 mmol/L 11/02/2025 5:36 AM [facility] CO2 27 21 - 32 mmol/L 11/02/2025 5:36 AM [facility] Anion Gap 9 3 - 11 11/02/2025 5:36 AM [facility] Glucose 82 70 - 100 mg/dL 11/02/2025 5:36 AM [facility] BUN 14 5 - 25 mg/dL 11/02/2025 5:36 AM [facility] Creatinine 0.87 0.50 - 1.10 mg/dL 11/02/2025 5:36 AM [facility] eGFR 80 >=60 mL/min/1. 73m2 11/02/2025 5:36 AM EST [facility] Comment:Calculation based on the Chronic Kidney Disease Epidemiology Collaboration (CKD-EPI) equation refit without adjustment for race. BUN/Creatinine Ratio 16.1 11/02/2025 5:36 AM [facility] Calcium 8.5 8.5 - 10.5 mg/dL 11/02/2025 5:36 AM [facility] Blood Venous blood specimen / Unknown Venipuncture / Unknown 11/02/2025 4:51 AM EST 11/02/2025 5:05 AM EST Wilder Warren MD LAB BLOOD ORDERABLES Final Result Performing Organization Address [facility]/ZIP Co de Phone Number [facility] [address] [place] [address], [place] [phone] * Activated Partial Thromboplastin Time - STAT (11/01/2025 11:25 PM EST) aPTT 30.6 24.1 - 39.3 sec LAB COAGULATION METHOD 11/01/2025 11:51 PM [facility] Blood Venous blood specimen / Unknown Venipuncture / Unknown 11/01/2025 11:25 PM EST 11/01/2025 11:39 PM EST Nila Diaz MD LAB BLOOD ORDERABLES Final Res ult [facility] [address] [place] [address], [place] [phone] * Prothrombin Time with INR - STAT (11/01/2025 11:25 PM EST) Protime 11.5 10.6 - 13.9 sec LAB COAGULATION METHOD 11/01/2025 11:51 PM EST [facility] INR 0.9 LAB COAGULATION METHOD 11/01/2025 11:51 PM EST [facility] Blood Venous blood specimen / Unknown Venipuncture / Unknown 11/01/2025 11:25 PM EST 11/01/2025 11:39 PM EST us Nila Diaz MD LAB BLOOD ORDERABLES Final Res ult [facility] [address] [place] [address], [place] [phone] * CT Angio Chest wo and/or w [...] Signed Date: 11/01/2025 14:48 ET Workstation ID: [id number] Transcribed By: Self Edit Transcribed Date: 11/01/2025 [...] Signed Date: 11/01/2025 14:48 ET Workstation ID: [id number] Transcribed By: Self Edit Transcribed Date: 11/01/2025 14:48 ET us Mariam Dupree MD IMG XR PROCEDURES Final Result * (ABNORMAL) CBC auto differential (11/01/2025 2:08 PM EST) WBC 5.0 4.8 - 10.8 K/mcL LAB HEMETOLOGY METHOD 11/01/2025 2:30 PM EST [facility] RBC 4.30 3.80 - 4.80 M/mcL LAB HEMETOLOGY METHOD 11/01/2025 2:30 PM [facility] Hemoglobin 11.5 11.5 - 16.0 g/dL LAB HEMETOLOGY METHOD 11/01/2025 2:30 PM [facility] Hematocrit 36.7 35.0 - 47.0 % LAB HEMETOLOGY METHOD 11/01/2025 2:30 PM EST [facility] MCV 86.2 79.0 - 98.0 FL LAB HEMETOLOGY METHOD 11/01/2025 2:30 PM [facility] MCH 27.0 27.0 - 32.0 pcg LAB HEMETOLOGY METHOD 11/01/2025 2:30 PM [facility] MCHC 31.3(L) 32.0 - 37.0 g/dL LAB HEMETOLOGY METHOD 11/01/2025 2:30 PM [facility] RDW 14.6 11.0 - 15.0 % LAB HEMETOLOGY METHOD 11/01/2025 2:30 PM [facility] Platelets 217 130 - 400 K/mcL LAB HEMETOLOGY METHOD 11/01/2025 2:30 PM [facility] MPV 8.7 7.0 - 11.0 FL LAB HEMETOLOGY METHOD 11/01/2025 2:30 PM [facility] NRBC 0.0 <1.0 % LAB HEMETOLOGY METHOD 11/01/2025 2:30 PM [facility] NRBC Absolute 0.00 <0.10 K/mcL LAB HEMETOLOGY METHOD 11/01/2025 2:30 PM [facility] Neutrophils Relative 53.2 % LAB HEMETOLOGY METHOD 11/01/2025 2:30 PM [facility] Lymphocytes Relative 32.6 % LAB HEMETOLOGY METHOD 11/01/2025 2:30 PM [facility] Monocytes Relative 6.8 % LAB HEMETOLOGY METHOD 11/01/2025 2:30 PM [facility] Eosinophils Relative 6.0 % LAB HEMETOLOGY METHOD 11/01/2025 2:30 PM [facility] Basophils Relative 1.0 % LAB HEMETOLOGY METHOD 11/01/2025 2:30 PM [facility] Immature Granulocytes Relative 0.4 % LAB HEMETOLOGY METHOD 11/01/2025 2:30 PM [facility] Neutrophils Absolute 2.66 1.50 - 7.00 K/mcL LAB HEMETOLOGY METHOD 11/01/2025 2:30 PM [facility] Lymphocytes Absolute 1.63 1.00 - 5.00 K/mcL LAB HEMETOLOGY METHOD 11/01/2025 2:30 PM [facility] Monocytes Absolute 0.34 0.20 - 1.00 K/mcL LAB HEMETOLOGY METHOD 11/01/2025 2:30 PM [facility] Eosinophils Absolute 0.30 0.00 - 0.50 K/mcL LAB HEMETOLOGY METHOD 11/01/2025 2:30 PM [facility] Basophils Absolute 0.05 0.00 - 0.20 K/mcL LAB HEMETOLOGY METHOD 11/01/2025 2:30 PM EST [facility] Immature Granulocytes Absolute 0.02 0.00 - 0.03 K/mcL LAB HEMETOLOGY METHOD 11/01/2025 2:30 PM EST [facility] Blood Venous blood specimen / Unknown Venipuncture / Unknown 11/01/2025 2:08 PM EST 11/01/2025 2:20 PM EST us Mariam Dupree MD LAB BLOOD ORDERABLES Final Res ult [facility] [address] [place] [address], [place] [phone] * Troponin I high sensitivity (11/01/2025 2:08 PM EST) High Sensitivity Troponin I 19 <=34 ng/L 11/01/2025 3:07 PM EST [facility] Blood Venous blood specimen / Unknown Venipuncture / Unknown 11/01/2025 2:08 PM EST 11/01/2025 2:20 PM EST us Mariam Dupree MD LAB BLOOD ORDERABLES Final Res ult Performing Organization Address City/[facility]/ZIP Co de Phone Number [facility] [address] [place] [address], [place] [phone] * (ABNORMAL) B-type natriuretic peptide (11/01/2025 2:08 PM EST) BNP 115(H) <=100 pcg/mL 11/01/2025 3:06 PM EST [facility] Blood Venous blood specimen / Unknown Venipuncture / Unknown 11/01/2025 2:08 PM EST 11/01/2025 2:19 PM EST Narrative [facility] - 11/01/2025 3:06 PM EST Over the counter supplements containing high doses of biotin may interfere with this assay. If interference is suspected, patients shoud be retested after refraining from biotin supplements for 72 hours. us Mariam Dupree MD LAB BLOOD ORDERABLES Final Res ult Performing Organization Address [facility]/ZIP Co de Phone Number [facility] [address] [place] [address], [place] [phone] * (ABNORMAL) Magnesium (11/01/2025 2:08 PM EST) Pathologist [facility] Magnesium 1.8(L) 1.9 - 2.6 mg/dL 11/01/2025 3:10 PM EST [facility] Blood Venous blood specimen / Unknown Venipuncture / Unknown 11/01/2025 2:08 PM EST 11/01/2025 2:20 PM EST us Mariam Dupree MD LAB BLOOD ORDERABLES Final Res ult Performing Organization Address [facility] Co de Phone Number [facility] [address] [place] [address], [place] [phone] * Lipase (11/01/2025 2:08 PM EST) Pathologist [facility] Lipase 24 12 - 53 unit/L 11/01/2025 3:10 PM EST [facility] Blood Venous blood specimen / Unknown Venipuncture / Unknown 11/01/2025 2:08 PM EST 11/01/2025 2:20 PM EST us Mariam Dupree MD LAB BLOOD ORDERABLES Final Res ult Performing Organization Address City/[facility]/ZIP Co de Phone Number [facility] [address] [place] [address], [place] [phone] * (ABNORMAL) Comprehensive metabolic panel (11/01/2025 2:08 PM EST) Pathologist [facility] Sodium 141 133 - 145 mmol/L 11/01/2025 3:10 PM [facility] Potassium 3.8 3.5 - 5.5 mmol/L 11/01/2025 3:10 PM [facility] Chloride 106 96 - 110 mmol/L 11/01/2025 3:10 PM [facility] CO2 27 21 - 32 mmol/L 11/01/2025 3:10 PM [facility] Anion Gap 8 3 - 11 11/01/2025 3:10 PM [facility] Glucose 125(H) 70 - 100 mg/dL 11/01/2025 3:10 PM [facility] BUN 15 5 - 25 mg/dL 11/01/2025 3:10 PM [facility] Creatinine 0.90 0.50 - 1.10 mg/dL 11/01/2025 3:10 PM [facility] eGFR 77 >=60 mL/min/1. 73m2 11/01/2025 3:10 PM [facility] Comment:Calculation based on the Chronic Kidney Disease Epidemiology Collaboration (CKD-EPI) equation refit without adjustment for race. BUN/Creatinine Ratio 16.7 11/01/2025 3:10 PM [facility] Calcium 9.1 8.5 - 10.5 mg/dL 11/01/2025 3:10 PM [facility] AST (SGOT) 31 10 - 42 unit/L 11/01/2025 3:10 PM [facility] ALT (SGPT) 34 10 - 60 unit/L 11/01/2025 3:10 PM [facility] Alkaline Phosphatase 127(H) 42 - 121 unit/L 11/01/2025 3:10 PM [facility] Total Protein 7.2 6.0 - 8.0 g/dL 11/01/2025 3:10 PM [facility] Albumin 4.1 3.2 - 5.0 g/dL 11/01/2025 3:10 PM EST [facility] Total Bilirubin 0.2 0.0 - 1.4 mg/dL 11/01/2025 3:10 PM EST [facility] Blood Venous blood specimen / Unknown Venipuncture / Unknown 11/01/2025 2:08 PM EST 11/01/2025 2:20 PM EST Mariam Dupree MD LAB BLOOD ORDERABLES Final Res ult [facility]) [facility] [address] [place] [address], [place] [phone] * ECG 12 lead (11/01/2025 2:03 PM EST) Ventricular Rate ECG 100 BPM GEMUSE Atrial Rate 100 BPM GEMUSE P-R Interval 146 ms GEMUSE QRS Duration 80 ms GEMUSE Q-T Interval 396 ms GEMUSE QTc 510 ms GEMUSE P Wave [place] 72 degrees GEMUSE R [place] 59 degrees GEMUSE T [place] 41 degrees GEMUSE ECG Interpretation Normal sinus [...] 2:03 PM EST 11/01/2025 7:33 PM EST Mariam Dupree MD ECG ORDERABLES Final Result GEMUSE documented in this encounter Visit Diagnoses Diagnosis Thrombosis in peripherally inserted central catheter (PICC) (CMS/HCC V24)- Primary Chest pain, unspecified type Splenic artery aneurysm (CMS/HCC V24) Aneurysm of splenic artery Extravasation injury of IV catheter site with other complication, initial encounter (CMS/HCC V24) Acute on chronic systolic heart failure ([facility] V24, [facility] V28) Acute on chronic systolic heart failure documented in this encounter Admitting Diagnoses Diagnosis Thrombosis in peripherally inserted central catheter (PICC) ([facility] V24) documented in this encounter Administered Medications [...] at 0520, 1st Line Option: -ONLY give UT if patient is unable to take orally [...] mg/min. 2208 (Given - Provider: Sera Ramsey, CARLOS) LORazepam (ATIVAN) injection 2 mg (COMPLETED) 2 [...] times daily with meals, First dose on Tue11/02/25 at 0800, For 42 doses, Best administered [...] (100.4 F), Starting on 11/02/25 at 0115 1221 (Given - Provider: Sandeep [...] at 0520, 1st Line Option: -ONLY give UT if patient is unable to take orally [...] at 0520, 1st Line Option: -ONLY give UT if patient is unable to take orally [...] documented as of this encounter Care Teams Investigation Specialist Relationship Specialty Start Date End Date Shanice Shelton MD [address] [place] [phone] PCP - General Internal Medicine 08/16/22 documented as of this encounter
--- OUTSIDE RECORDS SUMMARY | 2025-11-05 10:30 | XMS_ITS | Encounter Summary ---
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 Name Role Phone Shanice Shelton MD Primary Care Prov ider Reason for Visit * Reason Comments [place] [facility] [place] En[place] Details Date Type Department Care Team (Late st Contact Info) Description 11/05/2025 10:30 AM EST Office Visit [facility] [address] [place] [address] Srinath Nolan MD [address] [place], [place] Hospital discharge follow-up (Primary Dx); Thrombosis in peripherally inserted central catheter (PICC) ([facility]/HCC V24); Nonischemic congestive cardiomyopathy (CMS/HCC V24, CMS/HCC V28); Chronic systolic congestive heart failure (CMS/HCC V24, CMS/HCC V28); Other acute osteomyelitis, other site (CMS/HCC V24, CMS/HCC V28) Social History Tobacco Use Types Packs/Day Years [...] Sign Reading Time Taken Comments Blood Pressure 101/74 11/05/2025 10:41 AM EST Pulse 102 11/05/2025 10:41 AM EST Temperature 36.9 C (98.4 F) 11/05/2025 10:41 AM EST Respiratory Rate 15 11/05/2025 10:41 AM EST Oxygen Saturation 98% 11/05/2025 10:41 AM EST Inhaled Oxygen Concentration - - Weight 67.6 kg (149 lb) 11/05/2025 10:41 AM EST Height 160 cm (5' 3 ) 11/05/2025 10:41 AM EST Body Mass Index 26.39 11/05/2025 10:41 AM EST documented in this encounter Functional [...] documented in this encounter Progress Notes * Marybeth Brown MA - 11/05/2025 10:30 AM EST Visit Vitals BP 101/74 Pulse 102 Temp 36.9 ??C (98.4 ??F) (Temporal) Resp 15 Ht 1.6 m (63 ) Wt 67.6 kg (149 lb) SpO2 98% BMI 26.39 kg/m?? OB Status Premenopausal Smoking Status Never BSA 1.71 m?? Depression Screening Will the patient answer the depression risk questions?: Yes Over the last 2 weeks, how often have you been bothered by little interest or pleasure in doing things?: Not at all Over the last 2 weeks, how often have you been bothered by feeling down, depressed, or hopeless?: Nearly every day Depression Risk: 3 Additional Depression Screening Over the last 2 weeks, how often have you been bothered by trouble falling or staying asleep, or sleeping too much?: Nearly every day Over the last 2 weeks, how often have you been bothered by feeling tired or having little energy?: Nearly every day Over the last 2 weeks, how often have you been bothered by poor appetite or overeating? : Several days Over the last 2 weeks, how often have you been bothered by feeling bad about yourself -- or that you are a failure or have let yourself or your family down?: Not at all Over the last 2 weeks, how often have you been bothered by trouble concentrating on things, such asreading the newspaper or watching television?: Not at all Over the last 2 weeks, how often have you been bothered by moving or speaking so slowly that other people could have noticed? Or the opposite -- being so fidgety or restless that you have been movingaround a lot more than usual?: Not at all Over the last 2 weeks, how often have you been bothered by thoughts that you would be better off or of hurting yourself in some way?: Not at all PHQ -9 Depression Risk Score: 10 Screening Result: Positive Risk Category: Moderate * Srinath Nolan MD - 11/05/2025 10:30 AM EST SUBJECTIVE: Annabelle Coppola is a 50 y.o. female who presents today for Chief Complaint Patient presents with Follow-up [facility] follow up HPI: Patient presenting for hospital discharge follow-up. She was admitted from November 01, 2025 to November 03, 2025 at [facility]. She was previously admitted C5-C7 spinal epidural abscess and vertebral osteomyelitis/discitis at site of C5-C7 cervical fusion in 2007. Her problems include Heart failure with recovered ejection fraction LVED 55-60%, postural orthostatic tachycardia syndrome, splenic artery aneurysm, hypertension, and migraine headaches . She was admitted for PICC line associated nonocclusive superficial and deep thrombosis in the left upper extremity and vancomycin extravasation. Previously she developed superficial thrombus in the right arm due to the PICC line. It was switched to the left side previously. She was noted to have nonocclusive thrombi in the basilic and cephalic veins as well as extension into the brachial vein, part of the deep venous system. Plan is to treat with Xarelto 50 mg twice daily for 21 days followed by continuation of anticoagulant therapy 3 months after catheter removal. Spinal epidural abscess need treated with vancomycin and ceftriaxone. Discharge summary mentions vancomycin 2 g but prescription for 1500 mg every 48 hours was sent on discharge. Patient was previously on 2 g prior to the admission. Patient and family state the dose was lowered at discharge. They have not received the 1500 mg dose yet and patient had missed 2 doses of vancomycin. Current Meds: Current Medications[1] Allergies: Allergies[2] Immunizations: Immunization History Administered Date(s) Administered Pfizer SARS-CoV-2 COVID-19, mRNA, LNP-S, preservative free 02/03/2021, 02/24/2021, 09/02/2021, 09/24/2021 Active Problems: Problem List[3] HISTORY: Medical History[4] Surgical History[5] Family History[6] Social History Socioeconomic History Marital status: Spouse name: Not on file Number of children: Not on file Years of education: Not on file Highest education level: Not on file Occupational History Not on file Tobacco Use Smoking status: Never Smokeless tobacco: Never Substance and Sexual Activity Alcohol use: Not Currently Drug use: No Sexual activity: Not on file Comment: since 2011 Other Topics Concern Not on file Social History Narrative Works at [employer] 08/17/2018: Patient currently living with her and her 2 younger children. 1 dog in the home. She report working smoke detectors. No firearm. Nonsmoking household. 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 She is up to date with [employer], eye services and dental. Does not wear a seat belt in the car. She does breast self exams monthly at home. Declines flu vaccine. 09/13/2019: Patient currently living with her (All en) and her 2 younger children and 1 dog. She report working smoke detectors. No firearm. Nonsmoking household. 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 She notes that she feel s safe at work and at home. Wears her seat belt in the car and does self breast exams at home everydew month. Up to date with [employer], eye services and dental per her report. Sees Dr. Das in [place] for her migraines. Cardiology is with Dr. Kaur for he r POTS. She sees a therapist with [facility] for the past 3 months and she is comfortable with her counselor. Educational Paraprofessional is Dr. Duong and she is receiving allergy shots. 10/31/2023: Patient presentstoday for annual physical exam. She notes that sh vivi has continued to be frustrated by her weight. She is currently living with her , her son, and her son's fianc??. Her older son and her daughter are living out on their own. She has 1 grandson. She reports working smoke detectors in the home, no firearms in the home, and working locks on her entry doors. She feels safe in her home and into her relationship. She reports that she is up-to-date with a dentist and up-to-date with the eye doctor (sees eye services every 2 years). She does note that she is overdue with gynecology. She consistently wears her seatbelt and consistently does selfbreast exams at home. 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 Her specialists include a sodder with Dr. Kaur. A neurologist with Dr. Das. I counseled her at [email or web address]. She does also see an safety instructor with Dr. Duong and notes that she gets allergy shots for her seasonal and environmental allergies. Notes that she is having problems getting weight off. She is eating the same amount that she usually does and she reports a combination of weight watchers and Atkins diets. She notes that she is not purchasing the foods through the companies and that she iscooking at home. She has not been able to exercise sin ce 2011 per her report, when she fell in a pot hole that was iced over and covered in snow. Most recently she had a work related injury 09/02/2022 when some tires fell on her at work and she has continued to have pain since. She has not been able to part icipate in physical therapy. She notes that she is not interested in a rock crusher as the last place billed her a lot of money for this. ROS: GENERAL: Negative for malaise, significant weight loss and fever RESPIRATORY: No cough, wheezing or shortness of breath CARDIOVASCULAR: Negative for chest pain, leg swelling and palpitations GI: Negative for abdominal discomfort, changes in bowel habits, blood in stool or black stools VITAL SIGNS Vitals: 11/05/25 1041 BP: 101/74 Pulse: 102 Resp: 15 Temp: 36.9 ??C (98.4 ??F) TempSrc: Temporal SpO2: 98% Weight: 67.6 kg (149 lb) Height: 1.6 m (63 ) Body mass index is 26.39 kg/m??. Body surface area is 1.71 meters squared. PHYSICAL EXAM: Blood pressure 101/74, pulse 102, temperature 36.9 ??C (98.4 ??F), temperature source Temporal, resp. rate 15, height 1.6 m (63 ), weight 67.6 kg (149 lb), SpO2 98%. Body mass index is 26.39 kg/m??. Plan is deferred until next visit APPEARANCE: Alert and in no acute distress HEART: RRR with normal S1 and S2, no murmurs, no gallops, no JVD appreciated CHEST: non-tender LUNG: clear to auscultation bilaterally EXTREMITIES: Extremities warm and well perfused without clubbing, cyanosis, or edema Recent Results (from the past 4 weeks) Comprehensive metabolic panel Collection Time: 10/16/25 4:07 PM Result Value Ref Range Sodium 138 133 - 145 mmol/L Potassium 3.7 3.5 - 5.5 mmol/L Chloride 101 96 - 110 mmol/L CO2 28 21 - 32 mmol/L Anion Gap 9 3 - 11 Glucose 87 70 - 100 mg/dL BUN 20 5 - 25 mg/dL Creatinine 1.05 0.50 - 1.10 mg/dL eGFR 64 >=60 mL/min/1.73m2 BUN/Creatinine Ratio 19.0 Calcium 8.2 (L) 8.5 - 10.5 mg/dL AST (SGOT) 25 10 - 42 unit/L ALT (SGPT) 19 10 - 60 unit/L Alkaline Phosphatase 130 (H) 42 - 121 unit/L Total Protein 7.4 6.0 - 8.0 g/dL Albumin 3.9 3.2 - 5.0 g/dL Total Bilirubin 0.3 0.0 - 1.4 mg/dL Blood culture Collection Time: 10/16/25 4:07 PM Specimen: Blood, Venous Result Value Ref Range Culture, Blood No growth at 5 days Lactate, with reflex Collection Time: 10/16/25 4:07 PM Result Value Ref Range LACTIC ACID 0.3 (L) 0.4 - 2.0 mmol/L CBC auto differential Collection Time: 10/16/25 4:07 PM Result Value Ref Range WBC 8.7 4.8 - 10.8 K/mcL RBC 4.60 3.80 - 4.80 M/mcL Hemoglobin 12.4 11.5 - 16.0 g/dL Hematocrit 39.8 35.0 - 47.0 % MCV 86.1 79.0 - 98.0 FL MCH 26.8 (L) 27.0 - 32.0 pcg MCHC 31.2 (L) 32.0 - 37.0 g/dL RDW 14.8 11.0 - 15.0 % Platelets 312 130 - 400 K/mcL MPV 8.6 7.0 - 11.0 FL NRBC 0.0 <1.0 % NRBC Absolute 0.00 <0.10 K/mcL Neutrophils Relative 68.8 % Lymphocytes Relative 23.0 % Monocytes Relative 5.3 % Eosinophils Relative 2.0 % Basophils Relative 0.6 % Immature Granulocytes Relative 0.3 % Neutrophils Absolute 5.96 1.50 - 7.00 K/mcL Lymphocytes Absolute 1.99 1.00 - 5.00 K/mcL Monocytes Absolute 0.46 0.20 - 1.00 K/mcL Eosinophils Absolute 0.17 0.00 - 0.50 K/mcL Basophils Absolute 0.05 0.00 - 0.20 K/mcL Immature Granulocytes Absolute 0.03 0.00 - 0.03 K/mcL Sedimentation Rate, Automated Collection Time: 10/16/25 4:07 PM Result Value Ref Range Sed Rate 43 (H) 0 - 30 mm/hr C-reactive protein Collection Time: 10/16/25 4:07 PM Result Value Ref Range C-Reactive Protein 1.54 (H) <=0.50 mg/dL Protime-INR Collection Time: 10/16/25 4:18 PM Result Value Ref Range Protime 12.7 10.6 - 13.9 sec INR 1.0 APTT Collection Time: 10/16/25 4:18 PM Result Value Ref Range aPTT 34.8 24.1 - 39.3 sec Type and Screen Collection Time: 10/16/25 4:18 PM Result Value Ref Range ABO Group B Rh Type Positive Antibody Screen Negative Blood culture Collection Time: 10/16/25 4:19 PM Specimen: Blood, Venous Result Value Ref Range Culture, Blood No growth at 5 days Urinalysis with reflex microscopic Collection Time: 10/16/25 4:57 PM Result Value Ref Range Specific [place] Urine 1.036 (H) 1.003 - 1.030 pH, Urine 6.0 5.0 - 8.0 pH Leukocytes, Urine Negative Negative Nitrite, Urine Negative Negative Protein, Urine Negative <=Trace mg/dL Glucose, Urine >=1000 (A) Negative mg/dL Ketones, Urine Trace (A) Negative mg/dL Urobilinogen, Urine 1.0 0.2 - 1.0 mg/dL Bilirubin, Urine Negative Negative Blood, Urine Trace (A) Negative RBC, Urine 2 0 - 4 /HPF WBC, Urine 3 0 - 4 /HPF Bacteria, Urine Negative Negative /HPF Type and screen Collection Time: 10/16/25 10:48 PM Result Value Ref Range ABO Group B Rh Type Positive Antibody Screen Negative Basic metabolic panel Collection Time: 10/17/25 7:30 AM Result Value Ref Range Sodium 139 135 - 145 mmol/L Potassium 4.0 3.5 - 5.1 mmol/L Chloride 106 98 - 107 mmol/L CO2 24 24 - 32 mmol/L Anion Gap 9 5 - 14 Glucose 86 70 - 199 mg/dL BUN 17 7 - 17 mg/dL Creatinine 0.80 0.50 - 1.00 mg/dL eGFR 89 >=60 mL/min/1.73m2 BUN/Creatinine Ratio 21.3 (H) 12.0 - 20.0 Calcium 8.7 8.4 - 10.2 mg/dL Magnesium Collection Time: 10/17/25 7:30 AM Result Value Ref Range Magnesium 2.0 1.7 - 2.8 mg/dL Phosphorus Collection Time: 10/17/25 7:30 AM Result Value Ref Range Phosphorus 3.4 2.5 - 4.5 mg/dL CBC auto differential Collection Time: 10/17/25 7:30 AM Result Value Ref Range WBC 6.5 4.0 - 10.5 K/mcL RBC 4.59 4.20 - 5.40 M/mcL Hemoglobin 12.5 12.5 - 16.0 g/dL Hematocrit 37.9 37.0 - 47.0 % MCV 82.6 78.0 - 100.0 FL MCH 27.1 25.0 - 33.0 pcg MCHC 32.8 32.0 - 36.0 g/dL RDW 15.7 12.1 - 16.2 % Platelets 258 150 - 450 K/mcL MPV 7.4 7.4 - 11.4 FL Neutrophils Relative 63.0 44.0 - 74.0 % Lymphocytes Relative 26.8 20.0 - 48.0 % Monocytes Relative 6.6 2.0 - 12.0 % Eosinophils Relative 2.9 0.0 - 6.0 % Basophils Relative 0.7 0.0 - 2.0 % Neutrophils Absolute 4.10 1.80 - 7.80 K/mcL Lymphocytes Absolute 1.80 1.00 - 3.20 K/mcL Monocytes Absolute 0.40 0.00 - 0.80 K/mcL Eosinophils Absolute 0.20 0.00 - 0.50 K/mcL Basophils Absolute 0.00 0.00 - 0.20 K/mcL Basic metabolic panel Collection Time: 10/18/25 6:46 AM Result Value Ref Range Sodium 136 135 - 145 mmol/L Potassium 3.9 3.5 - 5.1 mmol/L Chloride 105 98 - 107 mmol/L CO2 25 24 - 32 mmol/L Anion Gap 6 5 - 14 Glucose 98 70 - 199 mg/dL BUN 15 7 - 17 mg/dL Creatinine 0.90 0.50 - 1.00 mg/dL eGFR 77 >=60 mL/min/1.73m2 BUN/Creatinine Ratio 16.7 12.0 - 20.0 Calcium 8.8 8.4 - 10.2 mg/dL Magnesium Collection Time: 10/18/25 6:46 AM Result Value Ref Range Magnesium 1.9 1.7 - 2.8 mg/dL CBC auto differential Collection Time: 10/18/25 6:46 AM Result Value Ref Range WBC 6.7 4.0 - 10.5 K/mcL RBC 4.62 4.20 - 5.40 M/mcL Hemoglobin 12.4 (L) 12.5 - 16.0 g/dL Hematocrit 38.1 37.0 - 47.0 % MCV 82.5 78.0 - 100.0 FL MCH 26.8 25.0 - 33.0 pcg MCHC 32.5 32.0 - 36.0 g/dL RDW 15.9 12.1 - 16.2 % Platelets 258 150 - 450 K/mcL MPV 6.9 (L) 7.4 - 11.4 FL Neutrophils Relative 63.8 44.0 - 74.0 % Lymphocytes Relative 26.7 20.0 - 48.0 % Monocytes Relative 5.9 2.0 - 12.0 % Eosinophils Relative 2.8 0.0 - 6.0 % Basophils Relative 0.8 0.0 - 2.0 % Neutrophils Absolute 4.30 1.80 - 7.80 K/mcL Lymphocytes Absolute 1.80 1.00 - 3.20 K/mcL Monocytes Absolute 0.40 0.00 - 0.80 K/mcL Eosinophils Absolute 0.20 0.00 - 0.50 K/mcL Basophils Absolute 0.10 0.00 - 0.20 K/mcL Basic metabolic panel Collection Time: 10/19/25 11:40 AM Result Value Ref Range Sodium 138 135 - 145 mmol/L Potassium 4.0 3.5 - 5.1 mmol/L Chloride 100 98 - 107 mmol/L CO2 32 24 - 32 mmol/L Anion Gap 6 5 - 14 Glucose 128 70 - 199 mg/dL BUN 14 7 - 17 mg/dL Creatinine 0.90 0.50 - 1.00 mg/dL eGFR 77 >=60 mL/min/1.73m2 BUN/Creatinine Ratio 15.6 12.0 - 20.0 Calcium 9.6 8.4 - 10.2 mg/dL Magnesium Collection Time: 10/19/25 11:40 AM Result Value Ref Range Magnesium 2.0 1.7 - 2.8 mg/dL CBC auto differential Collection Time: 10/19/25 11:40 AM Result Value Ref Range WBC 8.5 4.0 - 10.5 K/mcL RBC 4.89 4.20 - 5.40 M/mcL Hemoglobin 13.4 12.5 - 16.0 g/dL Hematocrit 40.4 37.0 - 47.0 % MCV 82.8 78.0 - 100.0 FL MCH 27.4 25.0 - 33.0 pcg MCHC 33.0 32.0 - 36.0 g/dL RDW 15.5 12.1 - 16.2 % Platelets 359 150 - 450 K/mcL MPV 7.1 (L) 7.4 - 11.4 FL Neutrophils Relative 59.0 44.0 - 74.0 % Lymphocytes Relative 32.8 20.0 - 48.0 % Monocytes Relative 4.8 2.0 - 12.0 % Eosinophils Relative 2.7 0.0 - 6.0 % Basophils Relative 0.7 0.0 - 2.0 % Neutrophils Absolute 5.00 1.80 - 7.80 K/mcL Lymphocytes Absolute 2.80 1.00 - 3.20 K/mcL Monocytes Absolute 0.40 0.00 - 0.80 K/mcL Eosinophils Absolute 0.20 0.00 - 0.50 K/mcL Basophils Absolute 0.10 0.00 - 0.20 K/mcL Vancomycin, trough Collection Time: 10/19/25 11:40 AM Result Value Ref Range Vancomycin Trough 6.9 (L) 10.0 - 20.0 mcg/mL Basic metabolic panel Collection Time: 10/20/25 7:23 AM Result Value Ref Range Sodium 137 135 - 145 mmol/L Potassium 4.1 3.5 - 5.1 mmol/L Chloride 102 98 - 107 mmol/L CO2 30 24 - 32 mmol/L Anion Gap 5 5 - 14 Glucose 87 70 - 199 mg/dL BUN 12 7 - 17 mg/dL Creatinine 0.80 0.50 - 1.00 mg/dL eGFR 89 >=60 mL/min/1.73m2 BUN/Creatinine Ratio 15.0 12.0 - 20.0 Calcium 9.1 8.4 - 10.2 mg/dL Magnesium Collection Time: 10/20/25 7:23 AM Result Value Ref Range Magnesium 2.0 1.7 - 2.8 mg/dL CBC auto differential Collection Time: 10/20/25 7:23 AM Result Value Ref Range WBC 7.1 4.0 - 10.5 K/mcL RBC 4.67 4.20 - 5.40 M/mcL Hemoglobin 12.8 12.5 - 16.0 g/dL Hematocrit 39.4 37.0 - 47.0 % MCV 84.3 78.0 - 100.0 FL MCH 27.4 25.0 - 33.0 pcg MCHC 32.4 32.0 - 36.0 g/dL RDW 15.7 12.1 - 16.2 % Platelets 285 150 - 450 K/mcL MPV 7.1 (L) 7.4 - 11.4 FL Neutrophils Relative 68.6 44.0 - 74.0 % Lymphocytes Relative 20.7 20.0 - 48.0 % Monocytes Relative 6.2 2.0 - 12.0 % Eosinophils Relative 3.8 0.0 - 6.0 % Basophils Relative 0.7 0.0 - 2.0 % Neutrophils Absolute 4.90 1.80 - 7.80 K/mcL Lymphocytes Absolute 1.50 1.00 - 3.20 K/mcL Monocytes Absolute 0.40 0.00 - 0.80 K/mcL Eosinophils Absolute 0.30 0.00 - 0.50 K/mcL Basophils Absolute 0.00 0.00 - 0.20 K/mcL ECG 12 lead Collection Time: 10/20/25 6:04 PM Result Value Ref Range Ventricular Rate ECG 63 BPM Atrial Rate 63 BPM P-R Interval 144 ms QRS Duration 84 ms Q-T Interval 432 ms QTc 442 ms P Wave [place] 56 degrees R [place] 18 degrees T [place] 37 degrees ECG Interpretation Normal sinus rhythm Possible Left atrial enlargement T wave abnormality, consider inferior ischemia T wave abnormality, consider anterolateral ischemia Abnormal ECG Confirmed by Rianna Zhong ([id number]) on 10/21/2025 4:18:03 PM D-dimer, quantitative Collection Time: 10/20/25 8:03 PM Result Value Ref Range D-Dimer, Quant (D-DU) <150 <231 ng/mL DDU Lactate, with reflex Collection Time: 10/20/25 8:03 PM Result Value Ref Range LACTIC ACID 1.0 0.5 - 2.2 mmol/L Troponin I high sensitivity (NOW and then in 1 hour) Collection Time: 10/20/25 8:03 PM Result Value Ref Range High Sensitivity Troponin I <2 0 - 14 ng/L Troponin I high sensitivity (NOW and then in 1 hour) Collection Time: 10/20/25 8:57 PM Result Value Ref Range High Sensitivity Troponin I 3 0 - 14 ng/L Troponin I high sensitivity (6 hours after initial draw) Collection Time: 10/21/25 1:08 AM Result Value Ref Range High Sensitivity Troponin I 5 0 - 14 ng/L Vancomycin, trough Collection Time: 10/21/25 5:00 AM Result Value Ref Range Vancomycin Trough 14.8 10.0 - 20.0 mcg/mL Basic metabolic panel Collection Time: 10/21/25 5:00 AM Result Value Ref Range Sodium 136 135 - 145 mmol/L Potassium 4.5 3.5 - 5.1 mmol/L Chloride 101 98 - 107 mmol/L CO2 29 24 - 32 mmol/L Anion Gap 6 5 - 14 Glucose 101 70 - 199 mg/dL BUN 17 7 - 17 mg/dL Creatinine 1.00 0.50 - 1.00 mg/dL eGFR 68 >=60 mL/min/1.73m2 BUN/Creatinine Ratio 17.0 12.0 - 20.0 Calcium 9.4 8.4 - 10.2 mg/dL Magnesium Collection Time: 10/21/25 5:00 AM Result Value Ref Range Magnesium 2.0 1.7 - 2.8 mg/dL CBC auto differential Collection Time: 10/21/25 5:00 AM Result Value Ref Range WBC 7.7 4.0 - 10.5 K/mcL RBC 4.65 4.20 - 5.40 M/mcL Hemoglobin 12.4 (L) 12.5 - 16.0 g/dL Hematocrit 39.4 37.0 - 47.0 % MCV 84.7 78.0 - 100.0 FL MCH 26.7 25.0 - 33.0 pcg MCHC 31.5 (L) 32.0 - 36.0 g/dL RDW 15.7 12.1 - 16.2 % Platelets 300 150 - 450 K/mcL MPV 7.2 (L) 7.4 - 11.4 FL Neutrophils Relative 66.0 44.0 - 74.0 % Lymphocytes Relative 23.1 20.0 - 48.0 % Monocytes Relative 6.8 2.0 - 12.0 % Eosinophils Relative 3.4 0.0 - 6.0 % Basophils Relative 0.7 0.0 - 2.0 % Neutrophils Absolute 5.10 1.80 - 7.80 K/mcL Lymphocytes Absolute 1.80 1.00 - 3.20 K/mcL Monocytes Absolute 0.50 0.00 - 0.80 K/mcL Eosinophils Absolute 0.30 0.00 - 0.50 K/mcL Basophils Absolute 0.10 0.00 - 0.20 K/mcL Transthoracic echocardiogram (TTE) complete with PRN contrast, bubble, strain, and 3D order panel Collection Time: 10/21/25 10:59 AM Result Value Ref Range LV EDV (A2C) 108 mL LV EDV (A4C) 89 mL LV Diastolic Volume (BP) 104 46 - 106 mL LV ESV (A2C) 35 mL LV ESV (A4C) 48 mL LV Systolic Volume (BP) 40 14 - 42 mL Left Ventricle Isovolumic Relaxation Time 0 ms IVSD 0.7 0.6 - 0.9 cm LVIDD 5.2 3.8 - 5.2 cm LVIDS 3.8 (A) 2.2 - 3.5 cm LVOT Mean Grad 1 mmHg LVOT Peak VTI 18.4 cm LVOT Mean Kapil 0.5 m/s LVOT Peak Kapil 0.8 m/s LVOT Peak Gradient 3 mmHg LVPWD 0.8 0.6 - 0.9 cm MV E' Tissue Velocity Septal 8 cm/s Ejection Fraction (A2C) 68 % Ejection Fraction (A4C) 47 % Ejection Fraction (BP) 61 % Left Atrium Minor [place] 4.1 cm Left Atrium Major [place] 5.1 cm LA Area Sys (A2C) 11 cm2 LA Area Sys (A4C) 20 cm2 LA Size 3.0 cm AV Peak Kapil 1.7 m/s AV Peak Gradient 11 mmHg Aortic Root 2.9 cm Ascending Aorta 2.8 cm MV Deceleration Centre 2.8 m/s2 E Wave Deceleration Time 244 (A) 119 - 242 ms MV PHT 71 ms MV Peak A Kapil 0.80 m/s MV Peak E Kapil 0.70 m/s MV Area PHT 3.0 cm2 PV Peak D Kapil 0.5 m/s PV Peak S Kapil 0.5 m/s Pulm Vein S/D Ratio 1.00 RV S' 21 cm/s TAPSE 36 mm TR Peak Velocity 2.40 m/s TR Peak Gradient 23 mmHg LV ESV Index (A4C) 28 mL/m2 LV EDV Index (A4C) 52 mL/m2 E/E' Ratio Septal 9 LA Dimension Index 2D 1.7 cm/m2 Relative Wall Thickness ratio 0.31 0.22 - 0.42 FS 27 % LV Mass 2D 134 66 - 150 g Ascending Aorta Index 1.65 cm/m2 LVIDD Index 3.06 cm/m2 LVIDS Index 2.24 cm/m2 Aortic Root Index 1.71 cm/m2 AV Velocity Ratio 0.51 E/A Ratio 0.9 0.8 - 2.0 LV Systolic Volume Index (BP) 0 (A) 8 - 24 mL/m2 LV Diastolic Volume Index (BP) 0 (A) 29 - 61 mL/m2 LV Mass Index 2D 79 44 - 88 g/m2 LA/Ao Ratio 1.0 LV EDV Index (A2C) 64 mL/m2 LV ESV Index (A2C) 21 mL/m2 BSA 1.73 m2 TV Regurgitant Volume 8 mL PASP 23 mmHg LA Volume (A-L) 51 mL LA Volume Index (A-L) 30 mL/m2 RV Free Wall Peak S' 21 cm/s LV EF MOD 2C 68 % LV EF 4C A-L 44 % LV EDV 4C A-L 92 mL LV Length Sys (A4C) 5.3 cm LV Length Gonzalez (A4C) 6.8 cm Aortic Root Dimension Index 1.7 cm/m2 Left Ventricular Stroke Volume by 2-D Biplane-MOD 64 mL Basic metabolic panel Collection Time: 10/22/25 8:02 AM Result Value Ref Range Sodium 138 135 - 145 mmol/L Potassium 4.4 3.5 - 5.1 mmol/L Chloride 102 98 - 107 mmol/L CO2 31 24 - 32 mmol/L Anion Gap 5 5 - 14 Glucose 88 70 - 199 mg/dL BUN 17 7 - 17 mg/dL Creatinine 0.80 0.50 - 1.00 mg/dL eGFR 89 >=60 mL/min/1.73m2 BUN/Creatinine Ratio 21.3 (H) 12.0 - 20.0 Calcium 9.1 8.4 - 10.2 mg/dL Magnesium Collection Time: 10/22/25 8:02 AM Result Value Ref Range Magnesium 2.0 1.7 - 2.8 mg/dL CBC auto differential Collection Time: 10/22/25 8:02 AM Result Value Ref Range WBC 5.5 4.0 - 10.5 K/mcL RBC 4.55 4.20 - 5.40 M/mcL Hemoglobin 12.2 (L) 12.5 - 16.0 g/dL Hematocrit 38.1 37.0 - 47.0 % MCV 83.8 78.0 - 100.0 FL MCH 26.8 25.0 - 33.0 pcg MCHC 31.9 (L) 32.0 - 36.0 g/dL RDW 15.4 12.1 - 16.2 % Platelets 264 150 - 450 K/mcL MPV 7.0 (L) 7.4 - 11.4 FL Neutrophils Relative 55.6 44.0 - 74.0 % Lymphocytes Relative 33.1 20.0 - 48.0 % Monocytes Relative 5.5 2.0 - 12.0 % Eosinophils Relative 4.7 0.0 - 6.0 % Basophils Relative 1.1 0.0 - 2.0 % Neutrophils Absolute 3.00 1.80 - 7.80 K/mcL Lymphocytes Absolute 1.80 1.00 - 3.20 K/mcL Monocytes Absolute 0.30 0.00 - 0.80 K/mcL Eosinophils Absolute 0.30 0.00 - 0.50 K/mcL Basophils Absolute 0.10 0.00 - 0.20 K/mcL Culture AFB and smear Collection Time: 10/22/25 11:02 AM Specimen: Spine, Cervical; Sputum Result Value Ref Range Culture AFB No AFB isolated after 1 week. AFB Stain Stain not performed due to quantity not sufficient Tissue exam Collection Time: 10/22/25 11:03 AM Result Value Ref Range Final Diagnosis A. Spine, cervical, C6-biopsy: Granulation tissue with chronic and acute inflammation. No evidence of malignancy. Note: Correlation with microbiology is recommended. The case was reviewed at intradepartmental conference on 10/23/2025. Gross Description A. Spine, Cervical, C-6 soft tissue: Received In formalin labeled C6 soft tissue are multiple soler tissue cores and tissue core fragments measuring 0.1 to 0.3 cm in diameter which are submitted in toto in 2 cassettes labeled A1-A2, multiple pieces per cassette. 10/22/25 Disclaimer The technical components of [place] [address] CLIA # [id number] Culture tissue with gram stain Collection Time: 10/22/25 11:05 AM Specimen: Spine, Cervical; Tissue Result Value Ref Range Culture, Tissue No growth aerobically and anaerobically at 5 days. Gram Stain Result No WBCs present Gram Stain Result No organisms seen Culture fungus, miscellaneous source Collection Time: 10/22/25 11:06 AM Specimen: Spine, Cervical; Bone Result Value Ref Range Culture, Fungus No Yeast or Mold isolated after 1 Week. Basic metabolic panel Collection Time: 10/23/25 8:43 AM Result Value Ref Range Sodium 138 135 - 145 mmol/L Potassium 4.4 3.5 - 5.1 mmol/L Chloride 102 98 - 107 mmol/L CO2 31 24 - 32 mmol/L Anion Gap 5 5 - 14 Glucose 80 70 - 199 mg/dL BUN 12 7 - 17 mg/dL Creatinine 0.80 0.50 - 1.00 mg/dL eGFR 89 >=60 mL/min/1.73m2 BUN/Creatinine Ratio 15.0 12.0 - 20.0 Calcium 9.2 8.4 - 10.2 mg/dL Magnesium Collection Time: 10/23/25 8:43 AM Result Value Ref Range Magnesium 1.9 1.7 - 2.8 mg/dL CBC auto differential Collection Time: 10/23/25 8:43 AM Result Value Ref Range WBC 5.5 4.0 - 10.5 K/mcL RBC 4.51 4.20 - 5.40 M/mcL Hemoglobin 12.2 (L) 12.5 - 16.0 g/dL Hematocrit 38.1 37.0 - 47.0 % MCV 84.4 78.0 - 100.0 FL MCH 27.0 25.0 - 33.0 pcg MCHC 31.9 (L) 32.0 - 36.0 g/dL RDW 15.8 12.1 - 16.2 % Platelets 251 150 - 450 K/mcL MPV 7.2 (L) 7.4 - 11.4 FL Neutrophils Relative 65.3 44.0 - 74.0 % Lymphocytes Relative 22.1 20.0 - 48.0 % Monocytes Relative 7.6 2.0 - 12.0 % Eosinophils Relative 4.2 0.0 - 6.0 % Basophils Relative 0.8 0.0 - 2.0 % Neutrophils Absolute 3.60 1.80 - 7.80 K/mcL Lymphocytes Absolute 1.20 1.00 - 3.20 K/mcL Monocytes Absolute 0.40 0.00 - 0.80 K/mcL Eosinophils Absolute 0.20 0.00 - 0.50 K/mcL Basophils Absolute 0.00 0.00 - 0.20 K/mcL Basic metabolic panel Collection Time: 10/24/25 6:28 AM Result Value Ref Range Sodium 137 135 - 145 mmol/L Potassium 4.0 3.5 - 5.1 mmol/L Chloride 102 98 - 107 mmol/L CO2 29 24 - 32 mmol/L Anion Gap 6 5 - 14 Glucose 91 70 - 199 mg/dL BUN 12 7 - 17 mg/dL Creatinine 0.70 0.50 - 1.00 mg/dL eGFR 104 >=60 mL/min/1.73m2 BUN/Creatinine Ratio 17.1 12.0 - 20.0 Calcium 8.8 8.4 - 10.2 mg/dL Magnesium Collection Time: 10/24/25 6:28 AM Result Value Ref Range Magnesium 1.8 1.7 - 2.8 mg/dL CBC auto differential Collection Time: 10/24/25 6:28 AM Result Value Ref Range WBC 5.6 4.0 - 10.5 K/mcL RBC 4.22 4.20 - 5.40 M/mcL Hemoglobin 11.5 (L) 12.5 - 16.0 g/dL Hematocrit 34.5 (L) 37.0 - 47.0 % MCV 81.8 78.0 - 100.0 FL MCH 27.3 25.0 - 33.0 pcg MCHC 33.4 32.0 - 36.0 g/dL RDW 15.4 12.1 - 16.2 % Platelets 230 150 - 450 K/mcL MPV 7.1 (L) 7.4 - 11.4 FL Neutrophils Relative 55.6 44.0 - 74.0 % Lymphocytes Relative 30.8 20.0 - 48.0 % Monocytes Relative 8.7 2.0 - 12.0 % Eosinophils Relative 3.9 0.0 - 6.0 % Basophils Relative 1.0 0.0 - 2.0 % Neutrophils Absolute 3.10 1.80 - 7.80 K/mcL Lymphocytes Absolute 1.70 1.00 - 3.20 K/mcL Monocytes Absolute 0.50 0.00 - 0.80 K/mcL Eosinophils Absolute 0.20 0.00 - 0.50 K/mcL Basophils Absolute 0.10 0.00 - 0.20 K/mcL Comprehensive Metabolic Panel (CMP) Collection Time: 10/27/25 12:47 AM Result Value Ref Range Sodium 141 133 - 145 mmol/L Potassium 3.7 3.5 - 5.5 mmol/L Chloride 105 96 - 110 mmol/L CO2 28 21 - 32 mmol/L Anion Gap 8 3 - 11 Glucose 95 70 - 100 mg/dL BUN 21 5 - 25 mg/dL Creatinine 0.81 0.50 - 1.10 mg/dL eGFR 87 >=60 mL/min/1.73m2 BUN/Creatinine Ratio 25.9 Calcium 8.5 8.5 - 10.5 mg/dL AST (SGOT) 21 10 - 42 unit/L ALT (SGPT) 21 10 - 60 unit/L Alkaline Phosphatase 115 42 - 121 unit/L Total Protein 6.6 6.0 - 8.0 g/dL Albumin 3.8 3.2 - 5.0 g/dL Total Bilirubin 0.2 0.0 - 1.4 mg/dL Protime-INR Collection Time: 10/27/25 12:47 AM Result Value Ref Range Protime 11.3 10.6 - 13.9 sec INR 0.9 APTT Collection Time: 10/27/25 12:47 AM Result Value Ref Range aPTT 30.7 24.1 - 39.3 sec CBC Collection Time: 10/27/25 12:47 AM Result Value Ref Range WBC 5.9 4.8 - 10.8 K/mcL RBC 4.00 3.80 - 4.80 M/mcL Hemoglobin 10.8 (L) 11.5 - 16.0 g/dL Hematocrit 33.9 (L) 35.0 - 47.0 % MCV 85.8 79.0 - 98.0 FL MCH 27.3 27.0 - 32.0 pcg MCHC 31.9 (L) 32.0 - 37.0 g/dL RDW 14.5 11.0 - 15.0 % Platelets 208 130 - 400 K/mcL MPV 8.7 7.0 - 11.0 FL NRBC 0.0 <1.0 % NRBC Absolute 0.00 <0.10 K/mcL Heparin induced platelet antibody Collection Time: 10/27/25 12:47 AM Result Value Ref Range Heparin Induced Platelet Antibody 0.129 <0.4 OD Vancomycin random Collection Time: 11/01/25 11:45 AM Result Value Ref Range Vancomycin Rm 10.3 mcg/mL Sedimentation rate Collection Time: 11/01/25 11:45 AM Result Value Ref Range Sed Rate 22 0 - 30 mm/hr C-reactive protein Collection Time: 11/01/25 11:45 AM Result Value Ref Range C-Reactive Protein 0.57 (H) <=0.50 mg/dL Comprehensive metabolic panel Collection Time: 11/01/25 11:45 AM Result Value Ref Range Sodium 142 133 - 145 mmol/L Potassium 4.4 3.5 - 5.5 mmol/L Chloride 105 96 - 110 mmol/L CO2 28 21 - 32 mmol/L Anion Gap 9 3 - 11 Glucose 79 70 - 100 mg/dL BUN 16 5 - 25 mg/dL Creatinine 0.87 0.50 - 1.10 mg/dL eGFR 80 >=60 mL/min/1.73m2 BUN/Creatinine Ratio 18.4 Calcium 9.4 8.5 - 10.5 mg/dL AST (SGOT) 34 10 - 42 unit/L ALT (SGPT) 36 10 - 60 unit/L Alkaline Phosphatase 133 (H) 42 - 121 unit/L Total Protein 7.5 6.0 - 8.0 g/dL Albumin 4.3 3.2 - 5.0 g/dL Total Bilirubin 0.3 0.0 - 1.4 mg/dL CBC auto differential Collection Time: 11/01/25 11:45 AM Result Value Ref Range WBC 5.2 4.8 - 10.8 K/mcL RBC 4.50 3.80 - 4.80 M/mcL Hemoglobin 12.2 11.5 - 16.0 g/dL Hematocrit 38.9 35.0 - 47.0 % MCV 87.0 79.0 - 98.0 FL MCH 27.3 27.0 - 32.0 pcg MCHC 31.4 (L) 32.0 - 37.0 g/dL RDW 14.6 11.0 - 15.0 % Platelets 263 130 - 400 K/mcL MPV 9.0 7.0 - 11.0 FL NRBC 0.0 <1.0 % NRBC Absolute 0.00 <0.10 K/mcL Neutrophils Relative 48.3 % Lymphocytes Relative 36.7 % Monocytes Relative 7.6 % Eosinophils Relative 5.9 % Basophils Relative 1.3 % Immature Granulocytes Relative 0.2 % Neutrophils Absolute 2.52 1.50 - 7.00 K/mcL Lymphocytes Absolute 1.92 1.00 - 5.00 K/mcL Monocytes Absolute 0.40 0.20 - 1.00 K/mcL Eosinophils Absolute 0.31 0.00 - 0.50 K/mcL Basophils Absolute 0.07 0.00 - 0.20 K/mcL Immature Granulocytes Absolute 0.01 0.00 - 0.03 K/mcL ECG 12 lead Collection Time: 11/01/25 2:03 PM Result Value Ref Range Ventricular Rate ECG 100 BPM Atrial Rate 100 BPM P-R Interval 146 ms QRS Duration 80 ms Q-T Interval 396 ms QTc 510 ms P Wave [place] 72 degrees R [place] 59 degrees T [place] 41 degrees ECG Interpretation Normal sinus rhythm Possible Left atrial enlargement ST and T wave abnormality, consider anterior ischemia Prolonged QT Abnormal ECG When compared with ECG of 03-SEP-2020 23:23, Vent. rate has increased BY 36 BPM T wave inversion more evident in Anterior leads QT has lengthened Confirmed by MARSHA THOMPSON ([id number]) on 11/01/2025 7:33:36 PM Troponin I high sensitivity Collection Time: 11/01/25 2:08 PM Result Value Ref Range High Sensitivity Troponin I 19 <=34 ng/L Comprehensive metabolic panel Collection Time: 11/01/25 2:08 PM Result Value Ref Range Sodium 141 133 - 145 mmol/L Potassium 3.8 3.5 - 5.5 mmol/L Chloride 106 96 - 110 mmol/L CO2 27 21 - 32 mmol/L Anion Gap 8 3 - 11 Glucose 125 (H) 70 - 100 mg/dL BUN 15 5 - 25 mg/dL Creatinine 0.90 0.50 - 1.10 mg/dL eGFR 77 >=60 mL/min/1.73m2 BUN/Creatinine Ratio 16.7 Calcium 9.1 8.5 - 10.5 mg/dL AST (SGOT) 31 10 - 42 unit/L ALT (SGPT) 34 10 - 60 unit/L Alkaline Phosphatase 127 (H) 42 - 121 unit/L Total Protein 7.2 6.0 - 8.0 g/dL Albumin 4.1 3.2 - 5.0 g/dL Total Bilirubin 0.2 0.0 - 1.4 mg/dL Lipase Collection Time: 11/01/25 2:08 PM Result Value Ref Range Lipase 24 12 - 53 unit/L Magnesium Collection Time: 11/01/25 2:08 PM Result Value Ref Range Magnesium 1.8 (L) 1.9 - 2.6 mg/dL B-type natriuretic peptide Collection Time: 11/01/25 2:08 PM Result Value Ref Range BNP 115 (H) <=100 pcg/mL CBC auto differential Collection Time: 11/01/25 2:08 PM Result Value Ref Range WBC 5.0 4.8 - 10.8 K/mcL RBC 4.30 3.80 - 4.80 M/mcL Hemoglobin 11.5 11.5 - 16.0 g/dL Hematocrit 36.7 35.0 - 47.0 % MCV 86.2 79.0 - 98.0 FL MCH 27.0 27.0 - 32.0 pcg MCHC 31.3 (L) 32.0 - 37.0 g/dL RDW 14.6 11.0 - 15.0 % Platelets 217 130 - 400 K/mcL MPV 8.7 7.0 - 11.0 FL NRBC 0.0 <1.0 % NRBC Absolute 0.00 <0.10 K/mcL Neutrophils Relative 53.2 % Lymphocytes Relative 32.6 % Monocytes Relative 6.8 % Eosinophils Relative 6.0 % Basophils Relative 1.0 % Immature Granulocytes Relative 0.4 % Neutrophils Absolute 2.66 1.50 - 7.00 K/mcL Lymphocytes Absolute 1.63 1.00 - 5.00 K/mcL Monocytes Absolute 0.34 0.20 - 1.00 K/mcL Eosinophils Absolute 0.30 0.00 - 0.50 K/mcL Basophils Absolute 0.05 0.00 - 0.20 K/mcL Immature Granulocytes Absolute 0.02 0.00 - 0.03 K/mcL Prothrombin Time with INR - STAT Collection Time: 11/01/25 11:25 PM Result Value Ref Range Protime 11.5 10.6 - 13.9 sec INR 0.9 Activated Partial Thromboplastin Time - STAT Collection Time: 11/01/25 11:25 PM Result Value Ref Range aPTT 30.6 24.1 - 39.3 sec Basic metabolic panel Collection Time: 11/02/25 4:51 AM Result Value Ref Range Sodium 140 133 - 145 mmol/L Potassium 4.1 3.5 - 5.5 mmol/L Chloride 104 96 - 110 mmol/L CO2 27 21 - 32 mmol/L Anion Gap 9 3 - 11 Glucose 82 70 - 100 mg/dL BUN 14 5 - 25 mg/dL Creatinine 0.87 0.50 - 1.10 mg/dL eGFR 80 >=60 mL/min/1.73m2 BUN/Creatinine Ratio 16.1 Calcium 8.5 8.5 - 10.5 mg/dL Magnesium Collection Time: 11/02/25 4:51 AM Result Value Ref Range Magnesium 1.8 (L) 1.9 - 2.6 mg/dL CBC auto differential Collection Time: 11/02/25 4:51 AM Result Value Ref Range WBC 6.1 4.8 - 10.8 K/mcL RBC 4.00 3.80 - 4.80 M/mcL Hemoglobin 10.9 (L) 11.5 - 16.0 g/dL Hematocrit 34.1 (L) 35.0 - 47.0 % MCV 85.0 79.0 - 98.0 FL MCH 27.2 27.0 - 32.0 pcg MCHC 32.0 32.0 - 37.0 g/dL RDW 14.6 11.0 - 15.0 % Platelets 216 130 - 400 K/mcL MPV 8.5 7.0 - 11.0 FL NRBC 0.0 <1.0 % NRBC Absolute 0.00 <0.10 K/mcL Neutrophils Relative 51.7 % Lymphocytes Relative 34.9 % Monocytes Relative 6.9 % Eosinophils Relative 5.3 % Basophils Relative 1.0 % Immature Granulocytes Relative 0.2 % Neutrophils Absolute 3.13 1.50 - 7.00 K/mcL Lymphocytes Absolute 2.11 1.00 - 5.00 K/mcL Monocytes Absolute 0.42 0.20 - 1.00 K/mcL Eosinophils Absolute 0.32 0.00 - 0.50 K/mcL Basophils Absolute 0.06 0.00 - 0.20 K/mcL Immature Granulocytes Absolute 0.01 0.00 - 0.03 K/mcL Vancomycin random Collection Time: 11/02/25 4:51 AM Result Value Ref Range Vancomycin Rm 11.9 mcg/mL ASSESSMENT/PLAN: Annabelle was seen today for follow-up. Diagnoses and all orders for this visit: Hospital discharge follow-up (Primary) Thrombosis in peripherally inserted central catheter (PICC) ([facility] V24) Nonischemic congestive cardiomyopathy (CMS/HCC V24, CMS/HCC V28) Chronic systolic congestive heart failure (CMS/HCC V24, CMS/HCC V28) Other acute osteomyelitis, other site ([facility]/HCC V24, CMS/[facility] V28) Plan Patient recent hospital chart follow-up for thrombosis to the PICC line in the left upper extremityveins. Currently on anticoagulation therapy and will continue anticoagulation therapy 3 months after catheter removal. 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 Will reach out to the [facility] service regarding the vancomycin delivery. She also has nonischemic cardiomyopathy, acute CHF which appears to be euvolemic. She follows with [facility] cardiology. She is taking Farxiga as well as Entresto but carvedilol and spironolactone is on hold which I think is reasonable given her blood pressure. Follow back in 3 months. I have applied the code G2211 to this patient???s visit as the primary care provider dealing with (above mentioned conditions) leading to the extensive work up, and management associated with the medical care of this patient. This patient???s serious conditions and complex medical conditions also required several consultants needing management and coordination through my office. I have reviewed all information as it pertains to the management of this patient for final approval. Follow up in about 3 months (around 02/03/2026) for Next scheduled follow-up. No orders of the defined types were placed in this encounter. Srinath Nolan MD [1] Current Outpatient Medications: acetaminophen (TYLENOL) 325 mg tablet, Take 2 tablets (650 mg total) by mouth every 6 (six) hours if needed for mild pain for up to 12 days., Disp: 90 tablet, Rfl: 0 buPROPion XL (WELLBUTRIN XL) 300 mg 24 hr tablet, Take 1 tablet (300 mg total) by mouth 1 (one) time each day., Disp: 30 each, Rfl: 5 [Paused] carvediloL (COREG) 3.125 mg tablet, TAKE 1 TABLET BY MOUTH TWO TIMES A DAY. FURTHER REFILLS PER CARDIOLOGY, Disp: , Rfl: cefTRIAXone 2 g in sterile water 20 mL syringe, Infuse 2 g into a venous catheter 1 (one) time eachday at the same time for 23 doses., Disp: , Rfl: dapagliflozin propanediol (Farxiga) 10 mg tablet, Take 1 tablet (10 mg total) by mouth 1 (one) timeeach day., Disp: , Rfl: Emgality Pen 120 mg/mL injection pen, USE SUBCUTANEOUSLY MONTHLY DIRECTED, Disp: , Rfl: Entresto 24-26 mg per tablet, Take 1 tablet by mouth 2 (two) times a day., Disp: , Rfl: gabapentin (NEURONTIN) 100 mg capsule, Take 1 capsule (100 mg total) by mouth every 8 (eight) hours., Disp: 90 each, Rfl: 11 heparin sodium,bovine (HEPARIN, BOVINE, INJ), Inject 5 mL as directed 1 (one) time each day., Disp:, Rfl: lidocaine (LIDODERM) 5 % patch, USE 1 PATCH TOPICALLY ONCE DAILY. REMOVE AND DISCARD PATCH WITHIN 12 HOURS., Disp: 28 patch, Rfl: 2 meclizine (ANTIVERT) 25 mg tablet, Take 1 Tablet by mouth 3 times daily as needed (dizziness)., Disp: , Rfl: naltrexone (DEPADE) 50 mg tablet, Take 0.5 tablets (25 mg total) by mouth 1 (one) time each day., Disp: 15 each, Rfl: 5 oxyCODONE (ROXICODONE) 5 mg immediate release tablet, Take 1 tablet (5 mg total) by mouth every 6 (six) hours if needed for severe pain for up to 3 days. Max Daily Amount: 20 mg, Disp: 12 each, Rfl: 0 rivaroxaban (XARELTO) 15 mg tablet, Take 1 tablet (15 mg total) by mouth 2 (two) times a day with meals. Take with food., Disp: 40 each, Rfl: 0 [START ON 11/23/2025] rivaroxaban (XARELTO) 20 mg tablet, Take 1 tablet (20 mg total) by mouth 1 (one) time each day with dinner. Take with food., Disp: 30 each, Rfl: 2 senna (SENOKOT) 8.6 mg tablet, Take 1 tablet (8.6 mg total) by mouth 2 (two) times a day., Disp: 60each, Rfl: 0 [Paused] spironolactone (ALDACTONE) 25 mg tablet, TAKE 1 TABLET BY MOUTH EVERY DAY. FURTHER REFILLS PER CARDIOLOGY, Disp: , Rfl: vancomycin (VANCOCIN) 1500 mg/500 mL solution IVPB, Infuse 500 mL (1,500 mg total) into a venous catheter every 12 (twelve) hours for 48 doses., Disp: , Rfl: zolpidem (AMBIEN) 10 mg tablet, Take 1 tablet (10 mg total) by mouth at bedtime as needed. Max Daily Amount: 10 mg, Disp: , Rfl: [2] No Known Allergies [3] Patient Active Problem List Diagnosis Anxiety Bradycardia Vitamin D deficiency Headache Excessive or frequent menstruation Dysmenorrhea POTS (postural orthostatic tachycardia syndrome) Cervicalgia Chronic low back pain Nonischemic congestive cardiomyopathy ([facility] V24, [facility] V28) Prediabetes Chronic systolic congestive heart failure (CMS/HCC V24, [facility] V28) Aneurysm of other specified arteries ([facility] V24) Low back pain, unspecified Alcohol use, unspecified, uncomplicated Depression, unspecified Overweight Paresthesia of hand, bilateral Myalgia Lyme disease Osteomyelitis (CMS/HCC V24, CMS/HCC V28) Thrombosis in peripherally inserted central catheter (PICC) ([facility] V24) [4] Past Medical History: Diagnosis Date Acute respiratory failure with hypoxia (CMS/[facility] V24, [facility] V28) 11/20/2024 Anxiety 09/11/2010 DX:Anxiety Bradycardia 09/14/2010 [...] Vitamin D deficiency 07/02/2011 DX:Vitamin D deficiency [5] Past Surgical History: Procedure Laterality Date BREAST [...] TOOTH EXTRACTION PROCEDURE: HISTORICAL WISDOM TEETH EXTRACTION [6] Family History Problem Relation Name Age of Onset Bladder Cancer Mother bladder cancer, stomach, age 49 Diabetes Father peripheral neuropathy, htn ALS Father No Known Problems Sister No Known Problems Brother No Known Problems Brother Diabetes Paternal Grandmother Lung cancer Paternal Grandfather [place], No Known Problems Daughter Other (Other: Autism) Son No Known Problems Son Colon cancer Neg Hx Breast cancer Neg Hx Ovarian cancer Neg Hx Cervical cancer Neg Hx documented in this encounter Plan of Treatment Upcoming Encounters Date Type Department Care Team (Late st Contact Info) Description 11/26/2025 10:00 AM EST Office Visit Infectious Disease - [place] [address] [place] [phone] Olivier Casillas MD [address] [place] [address] 12/12/2025 9:15 AM EST Office Visit Bariatric Surgery - [address] [place] [address] Alexander Silva MD [address] [place] [phone] 12/17/2025 8:00 AM EST Office Visit Neurosurgery - [place] [address] [place] [phone] Brain Griffin MD [address] [place], [place] [phone] 01/03/2026 12:30 PM EST Telemedicine Bariatric Surgery - [place] [address] [place] [address] Nevaeh Cunha, RD [address] [facility] [address] [place] [address] 02/04/2026 8:30 AM EDT Office Visit Adult Medicine [facility] [address] [place], [place] [phone] Srinath Nolan MD [address] [place], [place] 05/28/2026 9:30 AM EDT Office Visit Vascular Surgery - [place] [address] [place] [phone] Veronika Lamb MD [address] [place] [phone] documented as of this encounter Visit Diagnoses Diagnosis Hospital discharge follow-up- Primary Other follow-up examination Thrombosis in peripherally inserted central catheter (PICC) (CMS/HCC V24) Nonischemic congestive cardiomyopathy (CMS/HCC V24, CMS/HCC V28) Chronic systolic congestive heart failure (CMS/HCC V24, CMS/HCC V28) Other acute osteomyelitis, other site (CMS/HCC V24, CMS/HCC V28) documented in this encounter Discontinued Medications Medication Sig Discontinue Reason Start Date End Da te naloxone (NARCAN) 4 mg/0.1 mL nasal spray Administer 1 each (4 mg total) into affected nostril(s) if needed for opioid reversal. Give 4 mg (1 spray) into one nostril. May repeat every 2-3 minutes if needed, alternating nostrils, until medical assistance becomes available. Patient Discharge 10/27/2025 11/05/2025 documented as of this encounter Additional Health Concerns Assessment Noted Time PHQ-9 Depression Total Score: 10 025 10:41 AM EST documented as of this encounter Care Teams Electrical Controls Engineer Relationship Specialty Start Date End Date Shanice Shelton MD [address] [place] [phone] PCP - General Internal Medicine 08/16/22 documented as of this encounter
--- NOTE | 2025-11-06 10:12 | MHC.OFFVIS ---
Intake Visit Reasons: 6m Migraine Allergies No Known Allergies Allergy (Verified 11/06/25 10:12) Medication List - Last Reconciled 11/06/25 by Margareth Hassan CNP bupropion HCl XL 300 mg PO DAILY ceftriaxone IV cyclobenzaprine 10 mg PO Q8H dicyclomine 10 mg PO BID gabapentin 100 mg PO Q8H galcanezumab-gnlm (Emgality Pen) 120 mg subcut QMONTH oxycodone 5 mg PO Q6H PRN rivaroxaban (Xarelto) 20 mg PO DAILY vancomycin grams IV HPI Comments Details: 50-year-old woman with heart failure, migraine headaches, and insomnia. She was apparently found to have spinal abscess in C-spine, which was apparently believed to be caused by hardware from cervical fusion, on MRI in 09/2025. She was transferred from [facility] to [facility]. She was discharged home with PICC for IV antibiotics, which was complicated by the development of blood clots in arm. She had a new PICC placed, and was started on blood thinners. She has follow up scheduled with neurosurgeon at [place] at end of 11/2025. No records are available for review at this time. She also needed defibrillator, but that had to be pushed back because of the infection. Migraines were much better with Emgality. She was overdue for injection this month and was having more headaches. [facility] Medical History Migraines Depressed POTS (postural orthostatic tachycardia syndrome) Surgical History H/O: hysterectomy Family History (Updated 09/07/24 @ 11:00 by Kaz Rachel MD) Mother Bladder cancer Father Diabetes ALS (amyotrophic lateral sclerosis) Social History Alcohol intake: unknown Review of Systems Const Denies chills, Denies daytime sleepiness, Reports difficulty sleeping, Denies fatigue, Denies fever(s), Denies frequent falls, Reports headache(s), Denies increased appetite, Denies poor appetite, Denies snoring, Denies weakness, Denies weight gain and Denies weight loss Eyes Denies loss of vision ENT Denies vertigo, Denies dizziness and Reports headache(s) Card Denies chest pain at rest, Denies chest pain with activity, Denies syncope, Denies leg edema and Denies palpitations Resp Denies snoring GI Denies constipation, Denies heartburn, Denies diarrhea and Denies nausea Denies urinary frequency, Denies urinary incontinence and Denies urinary urgency Musc Denies abnormal gait, Denies numbness and Denies tingling Skin/Breast Denies dry skin and Denies rash Neuro Denies abnormal gait, Denies vertigo, Denies dizziness, Denies syncope, Denies frequent falls, Reports headache(s), Denies lack of coordination, Denies loss of vision, Denies memory loss, Denies numbness, Denies restless legs, Denies seizure-like activity, Denies tingling, Denies paresthesias, Denies tremor(s) and Denies weakness Psych Denies anxiety, Denies depression, Denies auditory hallucinations, Denies memory loss, Denies visual hallucinations and Denies suicidal ideation Endo Denies fatigue and Denies palpitations Physical Exam Const Other: General Appearance:? normal, in no acute distress. Skin:? no rashes, no significant birthmarks. Heart:? S1, S2 normal, no murmurs. Lungs:? clear anteriorly and posteriorly. Extremities:? no edema. Psych:? alert, oriented, cognitive function intact, cooperative with exam. Neuro Other: Mental Status:?Normal attention, orientation, memory and affect.? Cranial Nerves:?Pupils are equal, round and reactive to light. External occular muscles are intact. Visual uribe are full. Face is symmetrical. Facial sensations are normal. Tongue is midline. Palate elevates symmetrically. Shoulder shrugging is normal. Hearing to bedside conversation is normal. Sensory Exam:?....? Coordination:?No ataxia,?no titubation.? Gait Exam: Within normal limits. Cerebellar Signs:?Meccuh-da-ybpk is okay. Extrapyramidal System:?No tremor, rigidity with normal facial expressions.? Pronator Drift:?Not present.? Involuntary Movements:?No tremors seen.? Speech:?Normal.? Assessment & Plan Assessment & Plan (1) Migraine without aura: Code(s): G43.009 - Migraine without aura, not intractable, without status migrainosus Category: Medical Qualifiers: Intractability: not intractable Status migrainosus presence: without status migrainosus Qualified Code(s): G43.009 - Migraine without aura, not intractable, without status migrainosus Plan: Continue Emgality Auto-injector 120mg/mL subcutaneous monthly. Follow up in 6 months or sooner as needed. Plan Meds tried: topiramate, propranolol, amitriptyline, verapamil, venlafaxine, duloxetine, Depakote, sumatriptan, naproxen, Fioricet Emgality loading dose given 10/30/2024 Medications: New galcanezumab-gnlm (Emgality Pen) 120 mg subcut QMONTH 1 mL 5RF 30 days Coding Level of Care Code Est Pt Level 4 (50362) Diagnoses Migraine without aura and without status migrainosus, not intractable G43.009 Intractability: not intractable Status migrainosus presence: without status migrainosus
--- OUTSIDE RECORDS SUMMARY | 2025-11-06 12:23 | XMS_ITS | Encounter Summary ---
Author Organization [facility] Address [address] [place] [address] Care Team Providers Care Counter Hand Name Role Phone Shanice Shelton MD Primary Care Prov ider Encounter Details Date Type Department Care Team (Late st Contact Info) Description 11/01/2025 Results Follow-Up Adult Medicine [facility] [address] [place], [place] [phone] Anastasiya Reis PA [address] [place], [place] Social History Tobacco Use Types Packs/Day [...] your loved ones. For example, early childhood teacher assistant or elderly care for an older [...] 11/01/2025 1:53 PM Ambrocio Jackson RN * Cement Suicide Severity Rating Scale (Screener/Recent Self-Report) Question [...] AM EST Office Visit Infectious Disease - [place] [address] [place] [address] Olivier Casillas MD [address] [place] [address] 12/12/2025 9:15 AM EST Office Visit Bariatric Surgery - [place] 175 [facility] [address] [place] [phone] Alexander Silva MD [address] [place] [phone] 12/17/2025 8:00 AM EST Office Visit Neurosurgery - [facility] [address] [place] [address] Brain Griffin MD [address] [place] [address] [place], [place] [phone] 01/03/2026 12:30 PM EST Telemedicine Bariatric Surgery - [place] 175 [facility] [address] [place] [phone] Nevaeh Cunha, RD [address] [phone] 02/04/2026 8:30 AM EDT Office Visit Adult Medicine [facility] [address] [place] [address] Srinath Nolan MD [address] [place] [phone] 05/28/2026 9:30 AM EDT Office Visit Vascular Surgery - [place] 300 [facility] [address] [place] [phone] Veronika Lamb MD [address] [place] [phone] documented as of this encounter Visit Diagnoses Not on filedocumented in this encounter Additional Health Concerns Assessment Noted Time PHQ-9 Depression Total Score: 23 022 025 4:56 PM EST documented as of this encounter Care Teams Counter Hand Relationship Specialty Start Date End Date Shanice Shelton MD [address] [place] [phone] PCP - General Internal Medicine 08/16/22 documented as of this encounter
--- OUTSIDE RECORDS SUMMARY | 2025-11-06 12:23 | XMS_ITS | Encounter Summary ---
Author Organization [facility] Address [address] [place] [address] Care Team Providers Care Ultrasound Specialist Name Role Phone Shanice Shelton MD Primary Care Prov ider Encounter Details Date Type Department Care Team ([facility] st Contact Info) Description 10/28/2025 Telephone Adult Medicine [facility] [address] [place] [address] Shanice Shelton MD [address] [place], [place] Social History Tobacco Use Types Packs/Day [...] for your loved ones. For example, child protection specialist or elderly care for an older [...] AM EST Office Visit Infectious Disease - [place] [address] [place] [address] Olivier Casillas MD [address] [place] [address] 12/12/2025 9:15 AM EST Office Visit Bariatric Surgery - [place] 175 [facility] [address] [place] [address] Alexander Silva MD [address] [place] [phone] 12/17/2025 8:00 AM EST Office Visit Neurosurgery - [place] [address] [place] [phone] Brain Griffin MD [address] [facility] [address] [place] [address] 01/03/2026 12:30 PM EST Telemedicine Bariatric Surgery - [place] 175 [facility] [address] [place] [address] Nevaeh Cunha, RD 175 [facility] [address] [place] [address] 02/04/2026 8:30 AM EDT Office Visit Adult Medicine [facility] [address] [place], [place] [phone] Srinath Nolan MD [address] [place] [phone] 05/28/2026 9:30 AM EDT Office Visit Vascular Surgery - [place] [address] [place] [phone] Veronika Lamb MD [address] [place] [phone] documented as of this encounter Visit Diagnoses Not on filedocumented in this encounter Additional Health Concerns Assessment Noted Time PHQ-9 Depression Total Score: 23 025 4:56 PM EST documented as of this encounter Care Teams Ultrasound Specialist Relationship Specialty Start Date End Date Shanice Shelton MD [address] [place] [address] PCP - General Internal Medicine 08/16/22 documented as of this encounter
--- OUTSIDE RECORDS SUMMARY | 2025-11-06 12:23 | XMS_ITS | Encounter Summary ---
Author Organization [facility] Address [address] [place] [address] Care Team Providers Care Install And Repair Technician Name Role Phone Shanice Shelton MD Primary Care Prov ider Reason for Visit * Reason Onset Date Comments Medication Problem 11/04/2025 Encounter Details Date Type Department Care Team (Late st Contact Info) Description 11/04/2025 Telephone Infectious Disease - [place] [address] [place] [phone] Olivier Casillas MD [address] [place], [place] [phone] Social History Tobacco Use Types Packs/Day Years [...] your loved ones. For example, child care development specialist or elderly care for an older [...] AM EST Office Visit Infectious Disease - [place] [address] [place] [phone] Olivier Casillas MD [address] [place] [address] 12/12/2025 9:15 AM EST Office Visit Bariatric Surgery - [address] [place] [address] Alexander Silva MD [address] [place] [phone] 12/17/2025 8:00 AM EST Office Visit Neurosurgery - [place] [address] [place] [address] Brain Griffin MD [address] [place] [address] [place] [address] 01/03/2026 12:30 PM EST Telemedicine Bariatric Surgery [facility] 175 [facility] 120 [place] [address] Nevaeh Cunha, RD 175 [facility] 120 [place] [phone] 02/04/2026 8:30 AM EDT Office Visit Adult Medicine [facility] [address] [place] [address] Srinath Nolan MD [address] [place] [address] 05/28/2026 9:30 AM EDT Office Visit Vascular Surgery - [place] [address] [facility] [address] [place] [phone] Veronika Lamb MD [address] [place] [phone] documented as of this encounter Visit Diagnoses Not on filedocumented in this encounter Additional Health Concerns Assessment Noted Time PHQ-9 Depression Total Score: 23 025 4:56 PM EST documented as of this encounter Care Teams Install And Repair Technician Relationship Specialty Start Date End Date Shanice Shelton MD [address] [place] [address] PCP - General Internal Medicine 08/16/22 documented as of this encounter
--- OUTSIDE RECORDS SUMMARY | 2025-11-06 12:23 | XMS_ITS | Clinical Summary ---
Author Organization [facility] [address] [place] [address] [place] [address] Phone Care Team Providers [employer] Worker Name Role Phone Shanice Shelton MD [...] (one) time each day. 15 each 5 2025 Active zolpidem (AMBIEN) 10 mg tablet [...] to 12 days. 90 tablet 2024 Active heparin sodium,bovine (HEPARIN, BOVINE, INJ) Inject [...] Max Daily Amount: 20 mg 12 each 025 2024 Active senna (SENOKOT) 8.6 mg tablet [...] tablet 2024 Discontinued(S top Taking at Discharge) naloxone (NARCAN) 4 mg/0.1 mL nasal spray Administer 1 each (4 mg total) into affected nostril(s) if needed for opioid reversal. Give 4 mg (1 spray) into one nostril. May repeat every 2-3 minutes if needed, alternating nostrils, until medical assistance becomes available. 2 each 025 2024 Discontinued(P atient Discharge) fluconazole (DIFLUCAN) 150 mg tablet TAKE [...] IV vancomycin and ceftriaxone for 6 weeks -Oqibnw-zw-fltbgw results, aerobic/anaerobic bacterial cultures, AFB smear/culture, fungal [...] surgical debridement and removal of spinal hardware -Pusjcm-rx-nrohmu results, aerobic/anaerobic bacterial cultures, AFB smear/culture, fungal [...] surgical debridement and removal of spinal hardware Sljlau-pe-nrobhf results, aerobic/anaerobic bacterial cultures, AFB smear/culture, fungal [...] hand, bilateral 07/18/2025 Myalgia 07/18/2025 Overweight 01/17/2025 Chronic systolic congestive heart failure 2023 Aneurysm of other specified arteries 11/20/2024 Low [...] Encounters Date Type Department Care Team Description 11/05/2025 10:30 AM EST Office Visit Adult [address] [phone] Srinath Nolan MD Hospital discharge follow-up (Primary Dx); Thrombosis in peripherally inserted central catheter (PICC) (CMS/HCC V24); Nonischemic congestive cardiomyopathy (CMS/HCC V24, CMS/HCC V28); Chronic systolic congestive heart failure (CMS/HCC V24, CMS/HCC V28); Other acute osteomyelitis, other site (CMS/HCC V24, CMS/HCC V28) 11/05/2025 Telephone Adult Medicine [address] [phone] Lacie Suarez RN 11/04/2025 Telephone Infectious Disease - [facility] [address] [place] [address] Olivier Casillas MD 11/01/2025 5:50 PM EST - 11/03/2025 10:22 AM EST Hospital Encounter [facility] [address] [place] [address] Mariam Dupree MD Kokkinos, Erika, MD Jones, Christopher, MD Rasul, Yar M, MD Extravasation injury of IV catheter site with other complication, initial encounter ([facility] V24) (Primary Dx); Chest pain, unspecified type; Splenic artery aneurysm (CMS/HCC V24); Acute on chronic systolic heart failure (CMS/HCC V24, CMS/HCC V28) Discharge Disposition: Home-Health Care [facility] 11/01/2025 12:00 PM EST Lab Draw Station - [address] Overweight (Primary Dx); Depression, unspecified depression [...] PM EST Hospital Encounter Radiology Department - [address] [phone] Left arm pain Discharge Disposition: Home or Self Care 11/01/2025 8:30 AM EST Office Visit Adult Medicine [address] [phone] Anastasiya Reis PA Other osteomyelitis, other site (CMS/HCC V24, CMS/HCC V28) (Primary Dx); Epidural abscess; Superficial venous thrombosis of right upper extremity; Left arm pain; Superficial venous thrombosis of upper extremity, left; Chronic systolic (congestive) heart failure (CMS/HCC V24, CMS/HCC V28); Nonischemic congestive cardiomyopathy (CMS/HCC V24, CMS/HCC V28); POTS (postural orthostatic tachycardia syndrome); Chest heaviness 11/01/2025 Telephone Adult Medicine [address] [phone] Shanice Shelton MD 11/01/2025 Results Follow-Up Adult Medicine [address] [phone] Anastasiya Reis PA 10/31/2025 Telephone Infectious Disease - [facility] [address] [place] [address] Jose Jordan LPN 10/28/2025 Telephone Adult Medicine [address] [phone] Shanice Shelton MD 10/28/2025 Telephone Adult Medicine [address] [phone] Shanice Shelton MD 10/26/2025 9:05 PM EST - 10/27/2025 9:43 AM EST [facility] [address] [place] [address] Nila Diaz MD Reid, Baljit Dawson MD Thrombosis due to vascular catheter (Primary Dx); PICC (peripherally inserted central catheter) in place; Superficial venous thrombosis of right upper extremity Discharge Disposition: Home or Self Care 10/25/2025 Telephone Adult Medicine [address] [phone] Shanice Shelton MD 10/25/2025 Telephone Infectious Disease - [facility] [address] [place] [address] Jose Jordan LPN 10/16/2025 9:43 PM EST - 10/24/2025 12:30 PM EST Hospital Encounter [facility] [address] [place] [address] Chris Echevarria MD Kazi, Ahmed, MD Jacob, Dennis P, MD Zuberi, Babar, MD Zhang, Keven, MD Abscess in epidural space of cervical spine; Vertebral osteomyelitis (CMS/HCC V24, CMS/HCC V28); Chest pain, unspecified type; Osteomyelitis (CMS/HCC V24, CMS/HCC V28) Discharge Disposition: Home or Self Care 10/16/2025 3:52 PM EST - 10/16/2025 9:03 PM EST Emergency [facility] [address] [place] [address] Davie Soliman MD Epidural abscess (Primary Dx) Discharge Disposition: Another Health Care Institution Not Defined 10/16/2025 Results Follow-Up Adult Medicine [address] [phone] Shanice Shelton MD 10/15/2025 1:43 PM EST - 10/15/2025 11:59 PM EST Hospital Encounter [facility] [address] [place] [address] Abnormal MRI Discharge Disposition: Home or Self Care 09/30/2025 Results Follow-Up Adult Medicine [address] [phone] Shanice Shelton MD 09/25/2025 5:57 PM EST - 09/25/2025 11:59 PM EST Hospital Encounter Radiology Department - [address] [phone] Chronic bilateral thoracic back pain Discharge Disposition: Home or Self Care 09/24/2025 9:30 AM EST Office Visit Adult Medicine [facility] [address] [place] [phone] Shanice Shelton MD Chronic bilateral thoracic back pain (Primary Dx) 08/30/2025 12:30 PM EDT Telemedicine Bariatric Surgery [address] [place] [address] Overweight (Primary Dx) from Last 3 Months Immunizations Immunization Administration Dates Next Due Pfizer SARS-CoV-2 COVID-19, mRNA, LNP-S, preservative free 09/02/2021,02/24/2021 Surgical History Surgery Date Site/Laterality Comments WISDOM TOOTH EXTRACTION PROCEDURE: HISTORICAL WISDOM TEETH EXTRACTION OTHER SURGICAL HISTORY PROCEDURE: KS DILATION & CURETTAGE DX&/THER NONOBSTETRIC NECK SURGERY 07/01/2008 PROCEDURE: HISTORICAL NECK SURGERY; COMMENT: decompression and fusion C5-6, C6-7 ENDOMETRIAL ABLATION 2009 PROCEDURE: KS ENDOMETRIAL ABLTJ THERMAL W/O HYSTEROSCOPIC GUID HYSTERECTOMY [...] COMMENT: benign EYE SURGERY 2016 Bilateral PROCEDURE: [place] TRABECULOPLASTY BY LASER SURGERY; COMMENT: Dr. Marylou [...] stomach, age 47 Lung cancer Paternal Grandfather [place], dec eased Diabetes Paternal Grandmother d No [...] your loved ones. For example, child welfare social worker or elderly care for an older [...] Mass Index 26.39 11/05/2025 10:41 AM EST Plan of Treatment Upcoming Encounters Date Type Department Care Team (Late st Contact Info) Description 11/26/2025 10:00 AM EST Office Visit Infectious Disease [facility] [address] [place] [address] Olivier Casillas MD [address] [place] [phone] 12/12/2025 9:15 AM EST Office Visit Bariatric Surgery - [place] [address] [address] Alexander Silva MD [address] [place] [phone] 12/17/2025 8:00 AM EST Office Visit Neurosurgery [facility] [address] [place] [phone] Brain Griffin MD [address] [place] [address] [place] [phone] 01/03/2026 12:30 PM EST Telemedicine Bariatric Surgery - [place] [address] [phone] Nevaeh Cunha, JOANNA [address] [address] 02/04/2026 8:30 AM EDT Office Visit Adult Medicine [address] [phone] Srinath Nolan MD [address] [place], [place] 05/28/2026 9:30 AM EDT Office Visit Vascular Surgery - [place] [address] [place] [address] Veronika Lamb MD [address] [place] [address] Health Maintenance Due Date Last Done Comments [...] C Screening Completed 05/25/2012 Depression Screening Completed 11/05/2025 DTaP,Tdap,and Td Vaccines Discontinued HIB Vaccines Aged [...] Domains Addressed Status Status Reason/Outcome Date/Time Leonid Santana Broderick [facility] - Emergency Food Distribution Program (ML Food Pantry Food Risk 10/23/2025 12:44 PM EST Clinical & Support Options (ACCOUNT STRATEGIST) - Community Meals Free Meals Food Risk 10/23/2025 12:44 PM EST [facility] - Food Pantry Food Pantry Food Risk 10/23/2025 12:44 PM EST [facility] - Food Pantry Food Pantry Food Risk 10/23/2025 12:44 PM EST [facility] - Emergency Food Pantry Emergency Food Food Risk 10/23/2025 12:44 PM EST [facility] - Food Distribution Food Pantry Food Risk 10/23/2025 12:44 PM EST [facility] [employer] ([facility]) - Food Bank Distribution Food Pantry Food Risk 10/23/2025 12:44 PM EST [facility] Pantry Food Pantry Food Risk 10/23/2025 12:44 PM EST [facility] Emergency Food, Food Pantry Food Risk 10/23/2025 12:44 PM EST [facility] - [employer] Food Pantry Food Risk 10/23/2025 12:44 PM EST [facility] - Emergency Disaster Services Emergency Food, Navigating the System Financial Risk, Food Risk 10/23/2025 12:44 PM EST [employer] (CPR) - CPR [employer] Free Meals, [...] disease Prediabetes Osteomyelitis, unspecified site, unspecified type ([facility]/HCC V24, CMS/HCC V28) Excessive or frequent menstruation Vitamin D deficiency Aneurysm of other specified arteries ([facility]/HCC V24) Acute on chronic systolic heart failure ([facility]/HCC V24, CMS/HCC V28) Nonischemic congestive cardiomyopathy (CMS/HCC [...] disease Prediabetes Osteomyelitis, unspecified site, unspecified type ([facility]/HCC V24, CMS/[facility] V28) Excessive or frequent menstruation Vitamin D deficiency Aneurysm of other specified arteries ([facility]/HCC V24) Acute on chronic systolic heart failure ([facility]/HCC V24, CMS/HCC V28) Nonischemic congestive cardiomyopathy (CMS/HCC [...] D deficiency Aneurysm of other specified arteries ([facility]/HCC V24) Acute on chronic systolic heart failure (CMS/HCC V24, CMS/[facility] V28) Nonischemic congestive cardiomyopathy (CMS/HCC V24, CMS/HCC [...] disease Prediabetes Osteomyelitis, unspecified site, unspecified type ([facility] V24, CMS/[facility] V28) Excessive or frequent menstruation Vitamin D deficiency Aneurysm of other specified arteries ([facility] V24) Acute on chronic systolic heart failure ([facility] V24, CMS/[facility] V28) Nonischemic congestive cardiomyopathy (CMS/[facility] V24, CMS/[facility] V28) Bradycardia Myalgia Paresthesia of hand, bilateral [...] disease Prediabetes Osteomyelitis, unspecified site, unspecified type ([facility] V24, [facility] V28) Excessive or frequent menstruation Vitamin D deficiency Aneurysm of other specified arteries ([facility] V24) Acute on chronic systolic heart failure ([facility] V24, CMS/[facility] V28) Nonischemic congestive cardiomyopathy (CMS/[facility] V24, CMS/HCC V28) Bradycardia Myalgia Paresthesia of [...] K/mcL LAB HEMETOLOGY METHOD 11/02/2025 5:19 AM [facility] RBC 4.00 3.80 - 4.80 M/mcL LAB HEMETOLOGY METHOD 11/02/2025 5:19 AM [facility] Hemoglobin 10.9(L) 11.5 - 16.0 g/dL LAB HEMETOLOGY METHOD 11/02/2025 5:19 AM [facility] LAB Hematocrit 34.1(L) 35.0 - 47.0 % LAB HEMETOLOGY METHOD 11/02/2025 5:19 AM [facility] MCV 85.0 79.0 - 98.0 FL LAB HEMETOLOGY METHOD 11/02/2025 5:19 AM [facility] MCH 27.2 27.0 - 32.0 pcg LAB HEMETOLOGY METHOD 11/02/2025 5:19 AM [facility] LAB MCHC 32.0 32.0 - 37.0 g/dL LAB HEMETOLOGY METHOD 11/02/2025 5:19 AM [facility] RDW 14.6 11.0 - 15.0 % LAB HEMETOLOGY METHOD 11/02/2025 5:19 AM [facility] Platelets 216 130 - 400 K/mcL LAB HEMETOLOGY METHOD 11/02/2025 5:19 AM [facility] MPV 8.5 7.0 - 11.0 FL LAB HEMETOLOGY METHOD 11/02/2025 5:19 AM [facility] NRBC 0.0 <1.0 % LAB HEMETOLOGY METHOD 11/02/2025 5:19 AM [facility] NRBC Absolute 0.00 <0.10 K/mcL LAB HEMETOLOGY METHOD 11/02/2025 5:19 AM [facility] Neutrophils Relative 51.7 % LAB HEMETOLOGY METHOD 11/02/2025 5:19 AM [facility] Lymphocytes Relative 34.9 % LAB HEMETOLOGY METHOD 11/02/2025 5:19 AM [facility] Monocytes Relative 6.9 % LAB HEMETOLOGY METHOD 11/02/2025 5:19 AM [facility] Eosinophils Relative 5.3 % LAB HEMETOLOGY METHOD 11/02/2025 5:19 AM [facility] Basophils Relative 1.0 % LAB HEMETOLOGY METHOD 11/02/2025 5:19 AM [facility] Immature Granulocytes Relative 0.2 % LAB HEMETOLOGY METHOD 11/02/2025 5:19 AM [facility] Neutrophils Absolute 3.13 1.50 - 7.00 K/mcL LAB HEMETOLOGY METHOD 11/02/2025 5:19 AM [facility] Lymphocytes Absolute 2.11 1.00 - 5.00 K/mcL LAB HEMETOLOGY METHOD 11/02/2025 5:19 AM [facility] Monocytes Absolute 0.42 0.20 - 1.00 K/mcL LAB HEMETOLOGY METHOD 11/02/2025 5:19 AM [facility] Eosinophils Absolute 0.32 0.00 - 0.50 K/mcL LAB HEMETOLOGY METHOD 11/02/2025 5:19 AM [facility] Basophils Absolute 0.06 0.00 - 0.20 K/mcL LAB HEMETOLOGY METHOD 11/02/2025 5:19 AM [facility] Immature Granulocytes Absolute 0.01 0.00 - 0.03 K/mcL LAB HEMETOLOGY METHOD 11/02/2025 5:19 AM EST [facility] Blood Venous blood specimen / Unknown Venipuncture / Unknown 11/02/2025 4:51 AM EST 11/02/2025 5:05 AM EST us Wilder Warren MD LAB BLOOD ORDERABLES Final Result Performing Organization Address [facility] Co de Phone Number [facility] [address] [place] [address], [place] [phone] * (ABNORMAL) Magnesium (11/02/2025 4:51 AM EST) Only the most recent of10 resultswithin the time period is included. Magnesium 1.8(L) 1.9 - 2.6 mg/dL 11/02/2025 5:36 AM EST [facility] Blood Venous blood specimen / Unknown Venipuncture / Unknown 11/02/2025 4:51 AM EST 11/02/2025 5:05 AM EST us Wilder Warren MD LAB BLOOD ORDERABLES Final Result Performing Organization Address [facility] de Phone Number [facility] [address] [place] [address], [place] [phone] * Vancomycin random (11/02/2025 4:51 AM EST) Only the most recent of2 resultswithin the time period is included. Vancomycin Rm 11.9 mcg/mL 11/02/2025 5:37 AM EST [facility] Blood Venous blood specimen / Unknown Venipuncture / Unknown 11/02/2025 4:51 AM EST 11/02/2025 5:05 AM EST us Wilder Warren MD LAB BLOOD ORDERABLES Final Result Performing Organization Address [facility] Co de Phone Number [facility] [address] [place] [address], [place] [phone] * Basic metabolic panel (11/02/2025 4:51 AM EST) Only the most recent of9 resultswithin the time period is included. Sodium 140 133 - 145 mmol/L 11/02/2025 5:36 AM EST [facility] Potassium 4.1 3.5 - 5.5 mmol/L 11/02/2025 5:36 AM [facility] Chloride 104 96 - 110 mmol/L 11/02/2025 5:36 AM [facility] CO2 27 21 - 32 mmol/L 11/02/2025 5:36 AM [facility] Anion Gap 9 3 - 11 11/02/2025 5:36 AM [facility] Glucose 82 70 - 100 mg/dL 11/02/2025 5:36 AM [facility] BUN 14 5 - 25 mg/dL 11/02/2025 5:36 AM [facility] Creatinine 0.87 0.50 - 1.10 mg/dL 11/02/2025 5:36 AM [facility] eGFR 80 >=60 mL/min/1. 73m2 11/02/2025 5:36 AM [facility] Comment:Calculation based on the Chronic Kidney Disease Epidemiology Collaboration (CKD-EPI) equation refit without adjustment for race. BUN/Creatinine Ratio 16.1 11/02/2025 5:36 AM [facility] Calcium 8.5 8.5 - 10.5 mg/dL 11/02/2025 5:36 AM [facility] Blood Venous blood specimen / Unknown Venipuncture / Unknown 11/02/2025 4:51 AM EST 11/02/2025 5:05 AM EST us Wilder Warren MD LAB BLOOD ORDERABLES Final Result [facility] [address] [place] [address], [place] [phone] * Activated Partial Thromboplastin Time - STAT [...] ORDERABLES Final Res ult Performing Organization Address [facility]/ZIP Co de Phone Number [facility] [address] [place] [address], [place] [phone] * Prothrombin Time with INR - STAT [...] ORDERABLES Final Res ult Performing Organization Address [facility]/ZIP Co de Phone Number [facility] [address] [place] [address], [place] [phone] * CT Angio Chest wo and/or w [...] Postprocessing. Comparison: DX/SR - XR CHEST 2 - 11/01/25 13:18 EST Findings: The heart [...] Postprocessing. Comparison: DX/SR - XR CHEST 2 - 11/01/25 13:18 EST Findings: The heart [...] Signed Date: 11/01/2025 14:48 ET Workstation ID: [id number] Transcribed By: Self Edit Transcribed Date: 11/01/2025 [...] Signed Date: 11/01/2025 14:48 ET Workstation ID: [id number] Transcribed By: Self Edit Transcribed Date: 11/01/2025 14:48 ET us Mariam Dupree MD IMG XR PROCEDURES Final Result * Troponin I high sensitivity (11/01/2025 2:08 PM EST) Only the most recent of4 resultswithin the time period is included. Pathologist [facility] High Sensitivity Troponin I 19 <=34 ng/L 11/01/2025 3:07 PM EST [facility] Blood Venous blood specimen / Unknown Venipuncture / Unknown 11/01/2025 2:08 PM EST 11/01/2025 2:20 PM EST us Mariam Dupree MD LAB BLOOD ORDERABLES Final Res ult Performing Organization Address City/[facility]/ZIP Co de Phone Number [facility] [address] [place] [address], [place] [phone] * (ABNORMAL) B-type natriuretic peptide (11/01/2025 2:08 [...] ORDERABLES Final Res ult Performing Organization Address [facility] Co de Phone Number [facility] [address] [place] [address], [place] [phone] * Lipase (11/01/2025 2:08 PM EST) Lipase 24 12 - 53 unit/L 11/01/2025 3:10 PM EST [facility] Blood Venous blood specimen / Unknown Venipuncture / Unknown 11/01/2025 2:08 PM EST 11/01/2025 2:20 PM EST us Mariam Dupree MD LAB BLOOD ORDERABLES Final Res ult [facility] [address] [place] [address], [place] [phone] * (ABNORMAL) Comprehensive metabolic panel (11/01/2025 2:08 PM EST) Only the most recent of4 resultswithin the time period is included. Sodium 141 133 - 145 mmol/L 11/01/2025 3:10 PM [facility] Potassium 3.8 3.5 - 5.5 mmol/L 11/01/2025 3:10 PM [facility] Chloride 106 96 - 110 mmol/L 11/01/2025 3:10 PM [facility] CO2 27 21 - 32 mmol/L 11/01/2025 3:10 PM [facility] Anion Gap 8 3 - 11 11/01/2025 3:10 PM [facility] Glucose 125(H) 70 - 100 mg/dL 11/01/2025 3:10 PM [facility] BUN 15 5 - 25 mg/dL 11/01/2025 3:10 PM [facility] Creatinine 0.90 0.50 - 1.10 mg/dL 11/01/2025 3:10 PM [facility] eGFR 77 >=60 mL/min/1. 73m2 11/01/2025 3:10 PM [facility] Comment:Calculation based on the Chronic Kidney Disease Epidemiology Collaboration (CKD-EPI) equation refit without adjustment for race. BUN/Creatinine Ratio 16.7 11/01/2025 3:10 PM [facility] Calcium 9.1 8.5 - 10.5 mg/dL 11/01/2025 3:10 PM [facility] AST (SGOT) 31 10 - 42 unit/L 11/01/2025 3:10 PM [facility] ALT (SGPT) 34 10 - 60 unit/L 11/01/2025 3:10 PM EST [facility] Alkaline Phosphatase 127(H) 42 - 121 unit/L 11/01/2025 3:10 PM EST [facility] Total Protein 7.2 6.0 - 8.0 g/dL 11/01/2025 3:10 PM EST [facility] Albumin 4.1 3.2 - 5.0 [...] ult [facility] [address] [place] [address], [place] [phone] * ECG 12 lead (11/01/2025 2:03 PM EST) Only the most recent of2 resultswithin the time period is included. Ventricular Rate ECG 100 BPM GEMUSE Atrial Rate 100 BPM GEMUSE P-R Interval 146 ms GEMUSE QRS Duration 80 ms GEMUSE Q-T Interval 396 ms GEMUSE QTc 510 ms GEMUSE P Wave [place]orton 72 degrees GEMUSE R Horton 59 degrees GEMUSE T Horton 41 degrees GEMUSE ECG Interpretation Normal sinus [...] ECG ORDERABLES Final Result Performing Organization Address City/[facility]/ZIP Co de Phone Number GEMUSE * Sedimentation rate (11/01/2025 11:45 AM EST) Only the most recent of2 resultswithin the time period is included. Sed Rate 22 0 - 30 mm/hr LAB HEMETOLOGY METHOD 11/01/2025 2:28 PM EST [facility] Blood Venous blood specimen / Unknown Venipuncture / Unknown 11/01/2025 11:45 AM EST 11/01/2025 11:45 AM EST us Clifton Bear MD LAB BLOOD ORDERABLES Final Resul t Performing Organization Address [facility] de Phone Number [facility] [address] [place] [address], [place] [phone] * (ABNORMAL) C-reactive protein (11/01/2025 11:45 AM EST) Only the most recent of2 resultswithin the time period is included. C-Reactive Protein 0.57(H) <=0.50 mg/dL 11/01/2025 4:21 PM EST [facility] Blood Venous blood specimen / Unknown Venipuncture / Unknown 11/01/2025 11:45 AM EST 11/01/2025 11:45 AM EST us Clifton Bear MD LAB BLOOD ORDERABLES Final Resul t Performing Organization Address [facility] [facility] Co de Phone Number [facility] [address] [place] [address], [place] [phone] * Vascular US duplex upper extremity venous [...] Signed Date: 11/01/2025 11:55 ET Workstation ID: [id number] Transcribed By: Self Edit Transcribed Date: 11/01/2025 [...] Signed Date: 11/01/2025 11:55 ET Workstation ID: [id number] Transcribed By: Self Edit Transcribed Date: 11/01/2025 [...] of 4F single lumen Bard PowerPICC Lot: [id number] Exp: 2026-04-20 Indications: PICC replacement for IV [...] 0.129 <0.4 OD 10/30/2025 1:54 PM EST [facility] Comment: Probability of positive serotonin release assay (KALEIGH) based on PF4 optical density. (OD)* PF4 OD Chance of KALEIGH Positive <0.400 <1% 0.400 - 1.000 3% 1.000 - 1.400 18% 1.500 - 2.000 50% >2.000 89% *Arsenio et al: J Thromb Haemost 2008; 6: 3660-5006. Test performed at [facility], [address] , [place] [address] Ann Marie Vivar MD, PhD - Rolling Up Machine Operator Blood Venous blood specimen / Unknown Venipuncture / Unknown 10/27/2025 12:47 AM EST 10/27/2025 12:58 AM EST us Nila Diaz MD LAB BLOOD ORDERABLES Final Res ult [facility] [address] [place], [place] [id number] * (ABNORMAL) CBC (10/27/2025 12:47 AM EST) WBC 5.9 4.8 - 10.8 K/mcL LAB HEMETOLOGY METHOD 10/27/2025 1:04 AM [facility] RBC 4.00 3.80 - 4.80 M/mcL LAB HEMETOLOGY METHOD 10/27/2025 1:04 AM [facility] Hemoglobin 10.8(L) 11.5 - 16.0 g/dL LAB HEMETOLOGY METHOD 10/27/2025 1:04 AM [facility] Hematocrit 33.9(L) 35.0 - 47.0 % LAB HEMETOLOGY METHOD 10/27/2025 1:04 AM [facility] MCV 85.8 79.0 - 98.0 FL LAB HEMETOLOGY METHOD 10/27/2025 1:04 AM [facility] MCH 27.3 27.0 - 32.0 pcg LAB HEMETOLOGY METHOD 10/27/2025 1:04 AM [facility] MCHC 31.9(L) 32.0 - 37.0 g/dL LAB HEMETOLOGY METHOD 10/27/2025 1:04 AM EST [facility] RDW 14.5 11.0 - 15.0 % LAB HEMETOLOGY METHOD 10/27/2025 1:04 AM [facility] Platelets 208 130 - 400 K/mcL LAB HEMETOLOGY METHOD 10/27/2025 1:04 AM EST [facility] MPV 8.7 7.0 - 11.0 FL LAB HEMETOLOGY METHOD 10/27/2025 1:04 AM EST [facility] NRBC 0.0 <1.0 % LAB HEMETOLOGY METHOD 10/27/2025 1:04 AM [facility] NRBC Absolute 0.00 <0.10 K/mcL LAB HEMETOLOGY METHOD 10/27/2025 1:04 AM [facility] Blood Venous blood specimen / Unknown Venipuncture / Unknown 10/27/2025 12:47 AM EST 10/27/2025 12:58 AM EST us Nila Diaz MD LAB BLOOD ORDERABLES Final Res ult [facility] [address] [place] [address], * Vascular US duplex upper extremity venous [...] Signed Date: 10/22/2025 12:32 ET Workstation ID: [id number] Transcribed By: Self Edit Transcribed Date: 10/22/2025 12:25 ET Narrative 10/22/2025 12:[address] GUIDED C6 CERVICAL BIOPSY DATE OF SERVICE: 10/22/2025 10:37 AM. STEEL POURER: Pablo High MD, LISA. PET FOOD DEBONER: Crista Olivo PA-C. PRE-OPERATIVE DIAGNOSIS: C5-C7 osteomyelitis. [...] COPPOLA is a 50 years-old Female with prior [...] BIOPSY DATE OF SERVICE: 10/22/2025 10:37 AM. STEEL POURER: Pablo High MD, LISA. PET FOOD DEBONER: Crista Olivo PA-C. PRE-OPERATIVE DIAGNOSIS: C5-C7 osteomyelitis. [...] 18-gauge core biopsies of the eroded anterior T5rqcmambea body sent for cultures and pathology. -------- FINAL REPORT -------- Dictated By: Pablo High Dictated Date: 10/22/2025 12:25 ET Assigned Physician: Pablo High Reviewed and Electronically Signed By: Pablo High Signed Date: 10/22/2025 12:32 ET Workstation ID: [id number] Transcribed By: Self Edit Transcribed Date: 10/22/2025 12:25 ET us Jw MCLAUGHLIN IMG CT PROCEDURES Final Result * Culture tissue with gram stain (10/22/2025 11:05 AM EST) Culture, Tissue No growth aerobically and anaerobically at 5 days. 10/27/2025 11:19 AM EST [facility] Gram Stain Result No WBCs present 10/27/2025 11:19 AM EST [facility] Gram Stain Result No organisms seen 10/27/2025 11:19 AM EST [facility] Tissue Structure of cervical vertebral column / Unknown 10/22/2025 11:05 AM EST 10/22/2025 11:37 AM EST us Crista MCLAUGHLIN LAB MICROBIOLOGY - GENERAL ORDER MERON Final Result [facility] [address] [place] [address], [place] [phone] * Tissue exam (10/22/2025 11:03 AM EST) Final Diagnosis A. Spine, cervical, C6-biopsy: Granulation tissue with chronic and acute inflammation. No evidence of malignancy. Note: Correlation with microbiology is recommended. The case was reviewed at intradepartmental conference on 10/23/2025. 10/23/2025 2:34 PM EST [facility] at 1434 EST Gross Description A. Spine, Cervical, C-6 soft tissue: Received In formalin labeled C6 soft tissue are multiple soler tissue cores and tissue core fragments measuring 0.1 to 0.3 cm in diameter which are submitted in toto in 2 cassettes labeled A1-A2, multiple pieces per cassette. 10/22/25 10/23/2025 2:34 PM EST [facility] Disclaimer The technical components of this case were performed at [address] [address] CLIA # [id number] 10/23/2025 2:34 PM EST [facility] Bone Structure of cervical vertebral column / Unknown 10/22/2025 11:03 AM EST 10/22/2025 11:32 AM EST us Crista MCLAUGHLIN LAB PATHOLOGY ORDERABLES Final R esult [facility] [address] [place] [address], [place] [phone] * XR Cervical Spine 4-5 Views (10/21/2025 [...] Signed Date: 10/22/2025 09:52 ET Workstation ID: [id number] Transcribed By: Self Edit Transcribed Date: 10/22/2025 [...] C5-C7 with extensive bony erosion of the T2zixkacqqj body around the C6 screws, better assessed [...] Signed Date: 10/22/2025 09:52 ET Workstation ID: [id number] Transcribed By: Self Edit Transcribed Date: 10/22/2025 [...] 61 % CV PACS Left Atrium Minor Horton 4.1 cm CV PACS Left Atrium Major Horton 5.1 cm CV PACS LA Area Sys (A2C) 11 cm2 CV PACS LA Area Sys (A4C) 20 cm2 CV PACS LA Size 3.0 cm CV PACS AV Peak Kapil 1.7 m/s CV PACS AV Peak Gradient 11 mmHg CV PACS Aortic Root 2.9 cm CV PACS Ascending Aorta 2.8 cm CV PACS MV Deceleration Wells 2.8 m/s2 CV PACS E Wave Deceleration [...] LAB CHEMISTRY METHOD 10/21/2025 5:52 AM EST [facility] Blood Venous blood specimen / Unknown Venipuncture / Unknown 10/21/2025 5:00 AM EST 10/21/2025 5:24 AM EST Jeramy Bradshaw MD LAB BLOOD ORDERABLES Final Resul t [facility] [address] [place] [address], [place] [phone] * Lactate, with reflex (10/20/2025 8:03 PM EST) Only the most recent of2 resultswithin the time period is included. LACTIC ACID 1.0 0.5 - 2.2 mmol/L LAB BLOOD GAS METHOD 10/20/2025 8:15 PM EST [facility] Blood Venous blood specimen / Unknown Venipuncture / Unknown 10/20/2025 8:03 PM EST 10/20/2025 8:09 PM EST Reji Stout NP LAB BLOOD ORDERABLES Final Resu lt [facility] [address] [place] [address], * D-dimer, quantitative (10/20/2025 8:03 PM EST) D-Dimer, Quant (D-DU) <150 <231 ng/mL DDU LAB COAGULATION METHOD 10/20/2025 8:39 PM EST [facility] Blood Venous blood specimen / Unknown Venipuncture / Unknown 10/20/2025 8:03 PM EST 10/20/2025 8:10 PM EST Narrative [facility] - 10/20/2025 8:39 PM EST [...] NP LAB BLOOD ORDERABLES Final Resu lt [facility] [address] [place] [address], * XR Cervical Spine 2-3 Views (10/20/2025 [...] Signed Date: 10/20/2025 11:23 ET Workstation ID: [id number] Transcribed By: Self Edit Transcribed Date: 10/20/2025 [...] of the cervical spine. Procedure Note Ford Limno MD - 10/20/2025 2 views of the [...] Signed Date: 10/20/2025 11:23 ET Workstation ID: [id number] Transcribed By: Self Edit Transcribed Date: 10/20/2025 [...] Signed Date: 10/18/2025 20:37 ET Workstation ID: [id number] Transcribed By: Self Edit Transcribed Date: 10/18/2025 [...] Signed Date: 10/18/2025 20:37 ET Workstation ID: [id number] Transcribed By: Self Edit Transcribed Date: 10/18/2025 20:20 ET us Imani Johnson NP IMG CT PROCEDURES Final Re sult * Phosphorus (10/17/2025 7:30 AM EST) Phosphorus 3.4 2.5 - 4.5 mg/dL LAB CHEMISTRY METHOD 10/17/2025 8:24 AM EST [facility] ([facility]) [facility] Blood Venous blood specimen / Unknown Venipuncture / Unknown 10/17/2025 7:30 AM EST 10/17/2025 7:42 AM EST Jeramy Bradshaw MD LAB BLOOD ORDERABLES Final Resul t Performing Organization Address [facility] Co de Phone Number [facility] [address] [place] [address], [place] [phone] * Type and screen (10/16/2025 10:48 PM EST) Only the most recent of2 resultswithin the time period is included. [facility] B 10/17/2025 12:03 AM EST [facility] Rh Type Positive 10/17/2025 12:03 AM EST [facility] Antibody Screen Negative 10/17/2025 12:03 AM EST [facility] Blood Venous blood specimen / Unknown Venipuncture / Unknown 10/16/2025 10:48 PM EST 10/16/2025 11:02 PM EST Chris Echevarria MD LAB BLOOD BANK TEST ORDERABLE S Final Result Performing Organization Address [facility] Co de Phone Number [facility] [address] [place] [address], [place] [phone] * (ABNORMAL) Urinalysis with reflex microscopic (10/16/2025 4:57 PM EST) [facility] Specific [place] Urine 1.036(H) 1.003 - 1.030 LAB URINALYSIS - AUTOMATED METHOD 10/16/2025 5:33 PM EST [facility] pH, Urine 6.0 5.0 - 8.0 pH LAB URINALYSIS - AUTOMATED METHOD 10/16/2025 5:33 PM EST [facility] Leukocytes, Urine Negative Negative LAB URINALYSIS - AUTOMATED METHOD 10/16/2025 5:33 PM EST [facility] Nitrite, Urine Negative Negative LAB URINALYSIS - AUTOMATED METHOD 10/16/2025 5:33 PM [facility] Protein, Urine Negative <=Trace mg/dL LAB URINALYSIS - AUTOMATED METHOD 10/16/2025 5:33 PM [facility] Glucose, Urine >=1000(A) Negative mg/dL LAB URINALYSIS - AUTOMATED METHOD 10/16/2025 5:33 PM [facility] Ketones, Urine Trace(A) Negative mg/dL LAB URINALYSIS - AUTOMATED METHOD 10/16/2025 5:33 PM [facility] Urobilinogen , Urine 1.0 0.2 - 1.0 mg/dL LAB URINALYSIS - AUTOMATED METHOD 10/16/2025 5:33 PM [facility] Bilirubin, Urine Negative Negative LAB URINALYSIS - AUTOMATED METHOD 10/16/2025 5:33 PM [facility] Blood, Urine Trace(A) Negative LAB URINALYSIS - AUTOMATED METHOD 10/16/2025 5:33 PM [facility] RBC, Urine 2 0 - 4 /HPF 10/16/2025 5:33 PM [facility] WBC, Urine 3 0 - 4 /HPF 10/16/2025 5:33 PM [facility] Bacteria, Urine Negative Negative /HPF 10/16/2025 5:33 PM [facility] Urine Urine specimen obtained by clean catch procedure / Unknown Non-blood Collection / Unknown 10/16/2025 4:57 PM EST 10/16/2025 5:04 PM EST us Davie Soliman MD LAB URINE ORDERABLES Final Resul t [facility] [address] [place] [address], * Blood culture (10/16/2025 4:19 PM EST) Only the most recent of2 resultswithin the time period is included. Culture, Blood No growth at 5 days 10/21/2025 5:01 PM EST [facility] Blood Venous blood specimen / Unknown Venipuncture / Unknown 10/16/2025 4:19 PM EST 10/16/2025 4:40 PM EST us Davie Soliman MD LAB MICROBIOLOGY - GENERAL ORDER MERON Final Result [facility] ([facility]) [facility] [address] [place] [address], [place] [phone] * MR Cervical Spine wo and w [...] Signed Date: 10/15/2025 17:34 ET Workstation ID: [id number] Transcribed By: Self Edit Transcribed Date: 10/15/2025 [...] the normal cervical lordosis is similar compared [id number]. Anterior discectomy and fusion at C5-C7. Abnormal [...] are suspicious for osteomyelitis/discitis at the fused C5-B9stqqkypxz bodies with small ventral epidural abscess. No high-gradespinal canal stenosis, mass effect upon the cord, or cord signalabnormality. -------- FINAL REPORT -------- Dictated By: KALIA VALENTINE Dictated Date: 10/15/2025 17:17 ET Assigned Physician: KALIA VALENTINE Reviewed and Electronically Signed By: KALIA VALENTINE Signed Date: 10/15/2025 17:34 ET Workstation ID: [id number] Transcribed By: Self Edit Transcribed Date: 10/15/2025 17:17 ET Shanice Shelotn MD IM MRI PROCEDURES Final Result * MR Thoracic [...] Signed Date: 09/27/2025 12:59 ET Workstation ID: [id number] Transcribed By: Self Edit Transcribed Date: 09/27/2025 [...] Signed Date: 09/27/2025 12:59 ET Workstation ID: [id number] Transcribed By: Self Edit Transcribed Date: 09/27/2025 12:19 ET us Shanice Shelton MD IMG MRI PROCEDURES Final Result * Lipid panel with reflex to direct LDL (07/18/2025 11:04 AM EDT) Cholesterol 155 0 - 200 mg/dL LAB CHEMISTRY METHOD 07/18/2025 3:02 PM EDT [facility] Triglycerides 81 0 - 150 mg/dL LAB CHEMISTRY METHOD 07/18/2025 3:02 PM EDT [facility] HDL 41 >=40 mg/dL LAB CHEMISTRY METHOD 07/18/2025 3:02 PM EDT [facility] LDL Calculated 98 0 - 100 mg/dL LAB CHEMISTRY METHOD 07/18/2025 3:02 PM EDT [facility] Comment:Estimated LDL Calcul ated using equation: Total cholesterol - HDL cholesterol - (Triglycerides/5) VLDL Cholesterol Myke 16.2 mg/dL LAB CHEMISTRY METHOD 07/18/2025 3:02 PM EDT [facility] Non HDL Chol. (LDL+VLDL) 114 <145 mg/dL LAB CHEMISTRY METHOD 07/18/2025 3:02 PM EDT [facility] Chol/HDL Ratio 3.8 0.0 - 4.4 LAB CHEMISTRY METHOD 07/18/2025 3:02 PM EDT [facility] Blood Venous blood specimen / Unknown Venipuncture / Unknown 07/18/2025 11:04 AM EDT 07/18/2025 11:04 AM EDT us Shanice Shelton MD LAB BLOOD ORDERABL ES Final Result [facility] [address] [place] [address], [place] [phone] * MG Mammo Digital Screening w Jeffrey [...] is recommended in 1 year. Mammo Location: [facility], [address] [place] [address], [address], . -------- FINAL REPORT -------- Dictated By: Rosa Maria Elizabeth Dictated Date: 01/16/2025 15:09 ET Assigned Physician: Rosa Maria Elizabeth Reviewed and Electronically Signed By: Rosa Maria Elizabeth Signed Date: 01/16/2025 15:11 ET Workstation ID: [id number] Transcribed By: Self Edit Transcribed Date: 01/16/2025 [...] is recommended in 1 year. Mammo Location: [facility], [address] [place] [address], [address], . -------- FINAL REPORT -------- Dictated By: Rosa Maria Elizabeth Dictated Date: 01/16/2025 15:09 ET Assigned Physician: Rosa Maria Elizabeth Reviewed and Electronically Signed By: Rosa Maria Elizabeth Signed Date: 01/16/2025 15:11 ET Workstation ID: [id number] Transcribed By: Self Edit Transcribed Date: 01/16/2025 15:09 ET Shanice Shelton MD IMG BI PROCEDURES Final Result * FIT-DNA (Cologuard) (10/05/2023) [facility] Colorectal Cancer Screening: FIT-DNA (Cologuard) Negative, Abstracted Historical Provider HEALTH MAINTENANCE Final Result * Hepatitis C Screening (05/25/2012) [facility] Hepatitis C Screening Abstracted Historical Provider HEALTH MAINTENANCE Final Result from Last 3 Months or Most Recently Relevant to Health Maintenance Insurance MEDICARE MEDICAID - MD Advance Directives * Full Code - Default [...] currently active code status orders. Care Teams Plastics Factory Worker Relationship Specialty Start Date End Date Shanice Shelton MD [address] [place] [phone] PCP - General Internal Medicine 08/16/22
--- OUTSIDE RECORDS SUMMARY | 2025-11-06 12:23 | XMS_ITS | Encounter Summary ---
Author Organization [facility] Address [address] [place] [address] Care Team Providers Care Angle Dozer Operator Name Role Phone Shanice Shelton MD Primary Care Prov ider Reason for Visit * Reason Onset Date Comments vna 11/01/2025 Encounter Details Date Type Department Care Team ([facility] st Contact Info) Description 11/01/2025 Telephone Adult Medicine [facility] [address] [place] [address] Shanice Shelton MD [address] [place], [place] Social History Tobacco Use Types Packs/Day [...] 11/01/2025 1:53 PM Ambrocio Jackson RN * [place] Suicide Severity Rating Scale (Screener/Recent Self-Report) Question [...] VNA CALL Which VNA office is calling? [facility] Full name of caller: rosi P - [phone] The caller is A nurse Is the caller at the patients home?: no Reason for call: suppose to see pt for lab visit, went to [facility] for an appointment and was sent to [facility]. VNA couldn't see patient today 11/01/25 Does caller need an urgent call back? no Was CONTACT Telephone # obtained above?: yes Fax #: N/A documented in this encounter Plan of Treatment Upcoming Encounters Date Type Department Care Team (Late st Contact Info) Description 11/26/2025 10:00 AM EST Office Visit Infectious Disease - [place] [address] [place] [address] Olivier Casillas MD [address] [place] [address] 12/12/2025 9:15 AM EST Office Visit Bariatric Surgery - [place] [address] [place] [address] Alexander Silva MD [address] [place] [address] 12/17/2025 8:00 AM EST Office Visit Neurosurgery - [place] [address] [place] [phone] Brain Griffin MD [address] [facility] [address] [place] [address] 01/03/2026 12:30 PM EST Telemedicine Bariatric Surgery - [place] 175 [facility] [address] [place] [phone] MattErnestineNelson Nevaeh, RD 175 [facility] [address] [place] [phone] 02/04/2026 8:30 AM EDT Office Visit Adult Medicine [facility] [address] [place], [place] [phone] Srinath Nolan MD [address] [place], [place] 05/28/2026 9:30 AM EDT Office Visit Vascular Surgery - [place] [address] [place] [address] Veronika Lamb MD [address] [place] [phone] documented as of this encounter Visit Diagnoses Not on filedocumented in this encounter Additional Health Concerns Assessment Noted Time PHQ-9 Depression Total Score: 23 12/27/ 025 4:56 PM EST documented as of this encounter Care Teams Angle Dozer Operator Relationship Specialty Start Date End Date Shanice Shelton MD [address] [place] [address] PCP - General Internal Medicine 08/16/22 documented as of this encounter
--- OUTSIDE RECORDS SUMMARY | 2025-11-06 12:24 | XMS_ITS | Encounter Summary ---
Author Organization [facility] Address [address] [place] [address] Care Team Providers Care Photo Equipment Technician Name Role Phone Shanice Shelton MD Primary Care Prov ider Encounter Details Date Type Department Care Team ([facility] Contact Info) Description 11/05/2025 Telephone Adult Medicine [address] [phone] Lacie Suarez RN Social History Tobacco Use Types Packs/Day Years [...] your loved ones. 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 * Srinath Nolan MD - 11/05/2025 2:49 PM EST Thank you please keep me updated. * Lacie Suarez RN - 11/05/2025 2:30 PM EST LM for Dana to call my direct line She called right back When at cylinder and sent to [facility] Told the hospital she had supplies at home but did not. It is the pt responsibility to call to the pharmacy for her refills Dana did reach out to [facility] who supplies the pt ID note says 1200 mg Q 12 H Advised [facility] discharge says 1500 mg Q 12 H She is going to call the infusion company for the actual hard copy orders * Lacie Suarez RN - 11/05/2025 11:26 AM EST Spoke with Dana and she is going to reach out to PA and the pharmacy * Lacie Suarez RN - 11/05/2025 11:11 AM EST Called to [facility] Spoke with Dana Per provider she has missed 2 doses of the IV Vanco, has not been delivered yet She is going to check on the status and call back documented in this encounter Plan of Treatment Upcoming Encounters Date Type Department Care Team (Late st Contact Info) Description 11/26/2025 10:00 AM EST Office Visit Infectious Disease - [place] [address] [place] [address] Olivier Casillas MD [address] [place] [address] 12/12/2025 9:15 AM EST Office Visit Bariatric Surgery - [place] [address] [facility] [address] [place] [address] Alexander Silva MD [address] [place] [phone] 12/17/2025 8:00 AM EST Office Visit Neurosurgery - [place] [address] [place] [phone] Brain Griffin MD [address] [place] [address] [place], [place] [phone] 01/03/2026 12:30 PM EST Telemedicine Bariatric Surgery - [place] 175 [facility] 120 [place] [address] Nevaeh Cunha, RD 175 [facility] [address] [place] [phone] 02/04/2026 8:30 AM EDT Office Visit Adult Medicine [facility] [address] [place], [place] [phone] Srinath Nolan MD [address] [place], [place] 05/28/2026 9:30 AM EDT Office Visit Vascular Surgery - [place] [address] [place] [phone] Veronika Lamb MD [address] [place] [phone] documented as of this encounter Visit Diagnoses Not on filedocumented in this encounter Additional Health Concerns Assessment Noted Time PHQ-9 Depression Total Score: 10 025 10:41 AM EST documented as of this encounter Care Teams Photo Equipment Technician Relationship Specialty Start Date End Date Shanice Shelton MD [address] [place] [address] PCP - General Internal Medicine 08/16/22 documented as of this encounter
--- OUTSIDE RECORDS SUMMARY | 2025-11-06 12:24 | XMS_ITS | Encounter Summary ---
Author Organization [facility] Address [address] [place] [address] Care Team Providers Care Weighing Station Operator Name Role Phone Provider, Generic External Data Primary Care Pro vider Unavailable Encounter Details Date Type Department Care Team (Late st Contact Info) Description 07/29/2025 Scanned Document [facility] Heart & Vascular [facility] - Electrophysiology [address] [place] [phone] Yanick Caballero MD [address] [place] [phone] Social History Tobacco Use Types Packs/Day Years [...] [facility] Heart Vascular [facility] - Electrophysiology [address] [place] [phone] Yanick Caballero MD [address] [place] [address] documented as of this encounter Visit Diagnoses Not on filedocumented in this encounter Care Teams Weighing Station Operator Relationship Specialty Start Date End Date Provider, Generic External Data PCP - General 08/21/25 documented as of this encounter
--- OUTSIDE RECORDS SUMMARY | 2025-11-06 12:24 | XMS_ITS | Encounter Summary ---
Author Organization [facility] Address [address] [place] [address] Care Team Providers Care Human Resources Project Coordinator Name Role Phone Shanice Shelton MD Primary Care Prov ider Reason for Referral * Imaging (Routine) - Closed Specialty Diagnoses / Procedures Referred By Contac t Referred To Contact Radiology Diagnoses Abnormal MRI Procedures MR Cervical Spine wo and w Contrast MR Cervical Spine w Contrast Shanice Shelton MD [address] [place] [address] Phone: tel: fax: [address] [phone] Phone: tel: Referral ID Status Reason Start Date Expiration Date Visits Re quested Visits Authorized [id number] Closed 09/30/2025 09/30/2026 1 1 * Consultation (Routine) - Closed Specialty Diagnoses / Procedures Referred By Contact Referred To Contact Physical Medicine and Rehabilitation Diagnoses Chronic bilateral thoracic back pain Shanice Shelton MD [address] [place] [address] Phone: tel: fax: Armando Vásquez DO [address] [address] Phone: tel:[phone] fax:[phone] Referral ID Status Reason Start Date Expiration Date V isits Requested Visits Authorized [id number] Closed Specialty Services Required 09/30/2025 09/30/2026 1 1 Encounter Details Date Type Department Care Team (Late st Contact Info) Description 09/30/2025 Results Follow-Up Adult Medicine [facility] [address] [place] [address] Shanice Shelton MD [address] [place], [place] Social History Tobacco Use Types Packs/Day [...] for your loved ones. 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 [...] AM EST Office Visit Infectious Disease - [facility] [address] [place] [address] Olivier Casillas MD [address] [place], [place] [phone] 12/12/2025 9:15 AM EST Office Visit Bariatric Surgery - [facility] [address] [facility] [address] [place] [address] Alexander Silva MD [address] [place] [phone] 12/17/2025 8:00 AM EST Office Visit Neurosurgery - [facility] [address] [place] [phone] Brain Griffin MD [address] [place] [address] [place] [address] 01/03/2026 12:30 PM EST Telemedicine Bariatric Surgery - [facility] [address] [facility] [address] [place] [address] Nevaeh Cunha, RD 175 [facility] [address] [place] [address] 02/04/2026 8:30 AM EDT Office Visit Adult Medicine [facility] [address] [place], [place] [phone] Srinath Nolan MD [address] [place], [place] 05/28/2026 9:30 AM EDT Office Visit Vascular Surgery - [facility] [address] [facility] [address] [place] [phone] Veronika Lamb MD [address] [place] [phone] Scheduled Referrals Name Type Priority Associated Diagnoses [...] Signed Date: 10/15/2025 17:34 ET Workstation ID: [id number] Transcribed By: Self Edit Transcribed Date: 10/15/2025 [...] the normal cervical lordosis is similar compared [id number]. Anterior discectomy and fusion at C5-C7. Abnormal [...] are suspicious for osteomyelitis/discitis at the fused C5-Z5xisgxjabj bodies with small ventral epidural abscess. No high-gradespinal canal stenosis, mass effect upon the cord, or cord signalabnormality. -------- FINAL REPORT -------- Dictated By: RENETTA NAVARRO Dictated Date: 10/15/2025 17:17 ET Assigned Physician: RENETTA NAVARRO Reviewed and Electronically Signed By: RENETTA NAVARRO Signed Date: 10/15/2025 17:34 ET Workstation ID: [id number] Transcribed By: Self Edit Transcribed Date: 10/15/2025 17:17 ET Shanice Shelton MD [facility] [place]ED[place] Final Result documented in this [...] documented as of this encounter Care Teams Human Resources Project Coordinator Relationship Specialty Start Date End Date Shanice Shelton MD [address] [place] [phone] PCP - General Internal Medicine 08/16/22 documented as of this encounter
--- OUTSIDE RECORDS SUMMARY | 2025-11-06 12:24 | XMS_ITS | Clinical Summary ---
Author Organization [facility] Address [address] [place] [address] Care Team Providers Care Land Developer Name Role Phone Provider, Generic External Data [...] Info) Description 01/09/2026 9:30 AM EST Consult [facility] Heart & Vascular [place] - [facility] [address] [place] [phone] Yanick Caballero MD [address] [place] [address] Health Maintenance Due Date Last Done Comments [...] - 1-dose 75+ series) 2048 Care Teams Land Developer Relationship Specialty Start Date End Date Provider, Generic External Data PCP - General 08/21/25
--- OUTSIDE RECORDS SUMMARY | 2025-12-23 19:00 | XMS_ITS | Clinical Summary ---
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 Name Role Phone MARIANA GRIFFITH MD, REKHA Unavailable Unavail able NIKI GONZALEZ, HENRY Unavailable Unavailable Payers Payer Name Policy Type Policy Number Effective Date Expira tion Date [place]IC[place] - [place] [id number] Problems Condition Name Condition Details Condition Category Status Onset Date Resolution Date Last Treatment Date Treating Clinician Comments OSTEOMYELITI S OF [place], CERVICAL REGION Active 2024-11 00:00: 00 FUSION OF SPINE, CERVICAL REGION Active 2024-11 00:00: 00 CERVICALGIA Active 1- 00:00: 00 POSTURAL ORTHOSTATIC TACHYCARDIA SYNDROME [POTS] Active 1- 00:00: 00 GENERALIZED ANXIETY DISORDER Active 1- 00:00: 00 BRADYCARDIA, UNSPECIFIED Active 1- 00:00: 00 HEART FAILURE, UNSPECIFIED Active 1- 00:00: 00 Allergies, Adverse Reactions, Alerts Allergy Name Allergy Type Status Severity Reaction(s) Onset Date Inactive Date Treating Clinician Comments NKA Propensity to adverse reactions Active 2025-10 20:13:5 4 Immunizations Ordered Immunization Name Filled Immunization Name Date Status Comments Refusal Reason COVID-19, COVID-19 2024-11-12 00:00:00 Vital Signs Vital Name Observation Time Observation Value Commen ts Temperature 2025-10-30 12:11:00.000 97.6 [degF] Temperature 2025-10-26 14:59:00.000 98.4 [degF] BMI (%) 2025-10-26 14:59:00.000 26 kg/m2 Height 2025-10-26 14:59:00.000 63 [in_us] Pulse 2025-10-30 12:11:00.000 74 /min Pulse 2025-10-26 14:59:00.000 69 /min O2 Saturation (%) 2025-10-30 12:11:00.000 98 % O2 Saturation (%) 2025-10-26 14:59:00.000 100 % Respirations 2025-10-30 12:11:00.000 20 /min Respirations 2025-10-26 14:59:00.000 20 /min Weight (lbs) 2025-10-26 14:59:00.000 152 [lb_av] Systolic Blood Pressure 2025-10-30 12:11:00.000 114 mm [Hg] Systolic Blood Pressure 2025-10-26 14:59:00.000 104 mm [Hg] Diastolic Blood Pressure 2025-10-30 12:11:00.000 70 mm [Hg] Diastolic Blood Pressure 2025-10-26 14:59:00.000 70 mm [Hg] Plan of Treatment Planned Activity Planned Date Details Comments Future Scheduled Test SKILLED NU RSE TO EVALUATE PATIENT, IDENTIFY PRIMARY AND CO-MORBID CONDITIONS CODED PER CODING GUIDELINES, AND DEVELOP PATIENT SPECIFIC PLAN OF CARE THAT INCLUDES PATIENT GOAL FOR HOME HEALTH. PLAN OF CARE TO INCLUDE 3 PRN VISIT(S) FOR OASIS DATA COLLECTION/COMPREHENSIVE ASSESSMENT AT TIMEPOINTS PER FEDERAL REGULATIONS. THIS INCLUDES VISITS FOR CHRISTIANA, RECERT, SCIC, AND/OR DC. [code = SKILLED NURSE TO EVALUATE PATIENT, IDENTIFY PRIMARY AND CO-MORBID CONDITIONS CODED PER CODING GUIDELINES, AND DEVELOP PATIENT SPECIFIC PLAN OF CARE THAT INCLUDES PATIENT GOAL FOR HOME HEALTH. PLAN OF CARE TO INCLUDE 3 PRN VISIT(S) FOR OASIS DATA COLLECTION/COMPREHENSIVE ASSESSMENT AT TIMEPOINTS PER FEDERAL REGULATIONS. THIS INCLUDES VISITS FOR CHRISTIANA, RECERT, SCIC, AND/OR DC.] Future Scheduled Test SKILLED NU RSE TO REVIEW PATIENT MEDICATIONS (PRESCRIPTION/OTC). INSTRUCT PATIENT/CAREGIVER ON ALL MEDICATIONS INCLUDING PURPOSE, WHEN TO TAKE, IMPORTANCE OF MEDICATION ADHERENCE, MONITORING OF EFFECTIVENESS, ADVERSE DRUG REACTIONS, POSSIBLE SIDE EFFECTS, AND WHEN TO NOTIFY AGENCY OR PHYSICIAN/PROVIDER OF ANY CONCERNS. [code = SKILLED NURSE TO REVIEW PATIENT MEDICATIONS (PRESCRIPTION/OTC). INSTRUCT PATIENT/CAREGIVER ON ALL MEDICATIONS INCLUDING PURPOSE, WHEN TO TAKE, IMPORTANCE OF MEDICATION ADHERENCE, MONITORING OF EFFECTIVENESS, ADVERSE DRUG REACTIONS, POSSIBLE SIDE EFFECTS, AND WHEN TO NOTIFY AGENCY OR PHYSICIAN/PROVIDER OF ANY CONCERNS.] Future Scheduled Test PATIENT EDWARD S A RISK OF HOSPITALIZATION AND ED USE. SKILLED NURSE TO ESTABLISH SUPPORT MEASURES TO MINIMIZE RISK OF HOSPITALIZATION AND ED USE, AND INSTRUCT PATIENT/CAREGIVER ON METHODS TO REDUCE AVOIDABLE HOSPITALIZATION AND ED USE. [code = PATIENT HAS A RISK OF HOSPITALIZATION AND ED USE. SKILLED NURSE TO ESTABLISH SUPPORT MEASURES TO MINIMIZE RISK OF HOSPITALIZATION AND ED USE, AND INSTRUCT PATIENT/CAREGIVER ON METHODS TO REDUCE AVOIDABLE HOSPITALIZATION AND ED USE.] Future Scheduled Test SKILLED NU RSE TO PROVIDE INSTRUCTION TO PATIENT/CAREGIVER RELATED TO DISCHARGE PLANNING. [code = SKILLED NURSE TO PROVIDE INSTRUCTION TO PATIENT/CAREGIVER RELATED TO DISCHARGE PLANNING.] Future Scheduled Test SKILLED NU RSE TO PERFORM ENVIRONMENTAL SAFETY RISK ASSESSMENT AND FALL RISK ASSESSMENT AND PROVIDE INSTRUCTION TO IMPLEMENT ENVIRONMENTAL SAFETY AND FALL PREVENTION STRATEGIES THROUGHOUT THE CERTIFICATION PERIOD. SKILLED NURSE WILL MAINTAIN SITUATIONAL AWARENESS AND WILL NOTIFY CLINICAL SURVEY RODMAN AND PHYSICIAN/PROVIDER WITH ANY CHANGE IN CONDITION. [code = SKILLED NURSE TO PERFORM ENVIRONMENTAL SAFETY RISK ASSESSMENT AND FALL RISK ASSESSMENT AND PROVIDE INSTRUCTION TO IMPLEMENT ENVIRONMENTAL SAFETY AND FALL PREVENTION STRATEGIES THROUGHOUT THE CERTIFICATION PERIOD. SKILLED NURSE WILL MAINTAIN SITUATIONAL AWARENESS AND WILL NOTIFY CLINICAL SURVEY RODMAN AND PHYSICIAN/PROVIDER WITH ANY CHANGE IN CONDITION.] Future Scheduled Test SKILLED NU RSE FOR OBSERVATION AND ASSESSMENT OF PATIENT S PAIN LEVEL AND EFFECTIVENESS OF PAIN MANAGEMENT REGIMEN. SKILLED NURSE TO INSTRUCT PATIENT/CAREGIVER REGARDING PHARMACOLOGIC AND NON-PHARMACOLOGIC PAIN CONTROL MEASURES. SKILLED NURSE TO REPORT TO PHYSICIAN IF PAIN LEVEL IS OUTSIDE OF ESTABLISHED PARAMETERS. [code = SKILLED NURSE FOR OBSERVATION AND ASSESSMENT OF PATIENT S PAIN LEVEL AND EFFECTIVENESS OF PAIN MANAGEMENT REGIMEN. SKILLED NURSE TO INSTRUCT PATIENT/CAREGIVER REGARDING PHARMACOLOGIC AND NON-PHARMACOLOGIC PAIN CONTROL MEASURES. SKILLED NURSE TO REPORT TO PHYSICIAN IF PAIN LEVEL IS OUTSIDE OF ESTABLISHED PARAMETERS.] Future Scheduled Test SKILLED NU RSE TO ASSESS PATIENT'S SKIN INTEGRITY AND INSTRUCT PATIENT/CAREGIVER ON MEASURES TO PREVENT PRESSURE ULCERS. [code = SKILLED NURSE TO ASSESS PATIENT'S SKIN INTEGRITY AND INSTRUCT PATIENT/CAREGIVER ON MEASURES TO PREVENT PRESSURE ULCERS.] Future Scheduled Test SKILLED NU RSE TO ASSESS ANXIETY AND PROVIDE ASSISTANCE TO PATIENT FOR UNDERSTANDING AND MANAGEMENT OF FEELINGS. [code = SKILLED NURSE TO ASSESS ANXIETY AND PROVIDE ASSISTANCE TO PATIENT FOR UNDERSTANDING AND MANAGEMENT OF FEELINGS.] Future Scheduled Test SKILLED NU RSE FOR O/A, TEACHING AND SELF-MANAGEMENT RELATED TO HEART FAILURE. INSTRUCT PATIENT/CAREGIVER ON SIGNS AND SYMPTOMS OF EXACERBATION TO REPORT AND IMPORTANCE OF OBTAINING AND RECORDING DAILY WEIGHT AND/OR MEASUREMENTS. SN OR TRAINED PATIENT/CAREGIVER TO OBTAIN WEIGHT DAILY AND WEIGHT GAIN OF 2 LBS OVERNIGHT OR 5 LBS IN 1 WEEK TO BE REPORTED TO PHYSICIAN/PROVIDER. IF UNABLE TO WEIGH PATIENT, SN OR TRAINED PATIENT/CAREGIVER TO OBTAIN MEASUREMENT OF L CALF IN CM DAILY AND REPORT AN INCREASE OF 2 CM TO PHYSICIAN/PROVIDER. [code = SKILLED NURSE FOR O/A, TEACHING AND SELF-MANAGEMENT RELATED TO HEART FAILURE. INSTRUCT PATIENT/CAREGIVER ON SIGNS AND SYMPTOMS OF EXACERBATION TO REPORT AND IMPORTANCE OF OBTAINING AND RECORDING DAILY WEIGHT AND/OR MEASUREMENTS. SN OR TRAINED PATIENT/CAREGIVER TO OBTAIN WEIGHT DAILY AND WEIGHT GAIN OF 2 LBS OVERNIGHT OR 5 LBS IN 1 WEEK TO BE REPORTED TO PHYSICIAN/PROVIDER. IF UNABLE TO WEIGH PATIENT, SN OR TRAINED PATIENT/CAREGIVER TO OBTAIN MEASUREMENT OF L CALF IN CM DAILY AND REPORT AN INCREASE OF 2 CM TO PHYSICIAN/PROVIDER.] Future Scheduled Test SKILLED NU RSE FOR O/A AND SKILLED TEACHING RELATED TO SIGNS AND SYMPTOMS AND MANAGEMENT OF CERVICALGIA [code = SKILLED NURSE FOR O/A AND SKILLED TEACHING RELATED TO SIGNS AND SYMPTOMS AND MANAGEMENT OF CERVICALGIA] Future Scheduled Test SKILLED NU RSE TO OBTAIN BLOOD SPECIMEN VIA PICC FOR LABS ORDERED CBC, LFT, CREATININE, VANCO TROUGH, C-REACTIVE PROTIEN, ESR OBTAIN LAB RESULTS AND REPORT TO PHYSICIAN. [code = SKILLED NURSE TO OBTAIN BLOOD SPECIMEN VIA PICC FOR LABS ORDERED CBC, LFT, CREATININE, VANCO TROUGH, C-REACTIVE PROTIEN, ESR OBTAIN LAB RESULTS AND REPORT TO PHYSICIAN.] Future Scheduled Test SKILLED NU RSE FOR O/A AND TEACHING ON IV SITE CARE, INFUSION PROCEDURE, SIGNS AND SYMPTOMS OF INFECTION/COMPLICATIONS. SKILLED NURSE TO OBTAIN IV ACCESS TO CENTRAL LINE VIA PICC TO RUE. SKILLED NURSE OR TRAINED PATIENT/CAREGIVER TO ADMINISTER IV THERAPY OF VANCO 1650MG, CEFAZOLIN 2G, 10ML SALINE PRE AND POST ABX ADMINISTERATION, 3ML HEPARIN Q 24 HOUR. UNTIL 11/26, RN TO REMOVE PICC AT THE COMPLETION OF ABX THERAPY. SKILLED NURSE TO CHANGE DRESSING USING STERILE TECHNIQUE WEEKLY AND PRN FOR SOILED OR LOOSE DRESSING. [code = SKILLED NURSE FOR O/A AND TEACHING ON IV SITE CARE, INFUSION PROCEDURE, SIGNS AND SYMPTOMS OF INFECTION/COMPLICATIONS. SKILLED NURSE TO OBTAIN IV ACCESS TO CENTRAL LINE VIA PICC TO RUE. SKILLED NURSE OR TRAINED PATIENT/CAREGIVER TO ADMINISTER IV THERAPY OF VANCO 1650MG, CEFAZOLIN 2G, 10ML SALINE PRE AND POST ABX ADMINISTERATION, 3ML HEPARIN Q 24 HOUR. UNTIL 11/26, RN TO REMOVE PICC AT THE COMPLETION OF ABX THERAPY. SKILLED NURSE TO CHANGE DRESSING USING STERILE TECHNIQUE WEEKLY AND PRN FOR SOILED OR LOOSE DRESSING.] Future Scheduled Test SKILLED NU RSE FOR O/A AND SKILLED TEACHING RELATED TO SIGNS AND SYMPTOMS OF INFECTION AND INFECTION CONTROL MEASURES. [code = SKILLED NURSE FOR O/A AND SKILLED TEACHING RELATED TO SIGNS AND SYMPTOMS OF INFECTION AND INFECTION CONTROL MEASURES.] Future Scheduled Test SKILLED NU RSE TO INSTRUCT PATIENT/CAREGIVER ON PREVENTION OF SEPSIS, AND SIGNS AND SYMPTOMS OF SEPSIS TO REPORT. [code = SKILLED NURSE TO INSTRUCT PATIENT/CAREGIVER ON PREVENTION OF SEPSIS, AND SIGNS AND SYMPTOMS OF SEPSIS TO REPORT.] Goal Patient Goal - TO GET RID OF THIS PICC Goal Provider Goal - A PLAN OF CARE WILL BE ESTABLISHED THAT MEETS PATIENT'S LONG-TERM NEEDS AND INCLUDES PATIENT GOAL FOR HOME HEALTH. Goal Provider Goal - PATIENT/CAREGIVER WILL VERBALIZE UNDERSTANDING OF EDUCATION PROVIDED ON MEDICATIONS BY THE END OF THE CERTIFICATION PERIOD. Goal Provider Goal - PATIENT WILL HAVE SUPPORT MEASURES ESTABLISHED TO PREVENT HOSPITALIZATION AND ED USE AND PATIENT/CAREGIVER WILL VERBALIZE/DEMONSTRATE METHODS TO REDUCE AVOIDABLE HOSPITALIZATION AND ED USE BY END OF EPISODE. Goal Provider Goal - PATIENT/CAREGIVER WILL VERBALIZE UNDERSTANDING OF DISCHARGE PLANNING INSTRUCTIONS BY DATE OF DISCHARGE. Goal Provider Goal - PATIENT/CAREGIVER WILL VERBALIZE/DEMONSTRATE EFFECTIVE ENVIRONMENTAL SAFETY AND FALL PREVENTION STRATEGIES, WILL REMAIN SAFE IN THE COMMUNITY, AND WILL BE FREE OF DANGER TO SELF AND OTHERS THROUGHOUT THE CERTIFICATION PERIOD. Goal Provider Goal - PATIENT/CAREGIVER WILL DEMONSTRATE UNDERSTANDING OF PHARMACOLOGIC AND NONPHARMACOLOGIC PAIN CONTROL MEASURES AND PATIENT WILL HAVE IMPROVEMENT IN PAIN INTERFERING WITH ACTIVITY EVIDENCED BY PAIN AT A LEVEL THAT IS ACCEPTABLE TO THE PATIENT AND PAIN LEVEL WITHIN ESTABLISHED PARAMETERS BY END OF CERTIFICATION PERIOD. Goal Provider Goal - PATIENT/CAREGIVER WILL VERBALIZE UNDERSTANDING OF PRESSURE ULCER PREVENTION BY END OF THE EPISODE. Goal Provider Goal - SYMPTOMS OF ANXIETY ARE IDENTIFIED AND INTERVENTIONS INITIATED TO ENABLE PATIENT TO UNDERSTAND AND MANAGE FEELINGS THROUGHOUT EPISODE. Goal Provider Goal - PATIENT/CAREGIVER WILL VERBALIZE/DEMONSTRATE KNOWLEDGE AND MANAGEMENT OF HEART FAILURE DISEASE PROCESS BY END OF EPISODE. Goal Provider Goal - PATIENT/CAREGIVER WILL VERBALIZE UNDERSTANDING OF MUSCULOSKELETAL DISEASE INCLUDING SIGNS AND SYMPTOMS, MANAGEMENT, AND PRESCRIBED TREATMENT REGIMEN BY END OF EPISODE. Goal Provider Goal - SKILLED NURSE TO PERFORM LAB PROCEDURE AND REPORT RESULTS TO PHYSICIAN. Goal Provider Goal - PATIENT WILL VERBALIZE/DEMONSTRATE TOLERANCE TO CENTRAL LINE ACCESS PROCEDURE, IV MEDICATION ADMINISTRATION, AND DRESSING CHANGES ORDERED THROUGH CERTIFICATION PERIOD. Goal Provider Goal - PATIENT/CAREGIVER WILL VERBALIZE/DEMONSTRATE UNDERSTANDING OF S/S OF INFECTION AND INFECTION CONTROL MEASURES. SIGNS AND SYMPTOMS OF INFECTION WILL BE IDENTIFIED AND PHYSICIAN NOTIFIED FOR PROMPT INTERVENTION THROUGHOUT THE CERTIFICATION PERIOD. Goal Provider Goal - PATIENT WILL BE FREE FROM INFECTION AND PATIENT/CAREGIVER WILL VERBALIZE UNDERSTANDING OF SIGNS AND SYMPTOMS AND METHODS TO PREVENT SEPSIS BY END OF THE EPISODE. Encounters Start Date/Time End Date/Time Encounter Type Admission Type Attending [facility] Care Department Encounter ID Discharge Date Discharge Status Discharge Condition Discharge Reason Percent Goals Met 2025-10-26 00:00:00 2025-12-24 00:00:00 Outpatient NEW ADMISSION [facility] [id number] 24.14
== END 2025-11-06 10:30 | disposition home or self-care (01) ==
LOC: HO.HSM 10:09
PROVIDERS: PCP Internal Medicine; Visit Provider Registered Nurse
DX: G43.009 Migraine without aura, not intractable, without status migrainosus (principal)
CPT/HCPCS: 99214

== ENCOUNTER → 2025-11-06 10:09 | Outpatient (BNVA) | payer MEDICARE, MEDICAID, SELFPAY | PROVIDERS: PCP Internal Medicine; Visit Provider Registered Nurse | DX: G43.009 Migraine without aura, not intractable, without status migrainosus (principal) | CPT/HCPCS: 99212 ==

== ENCOUNTER 2025-11-11 10:44 | Outpatient (AMB) | payer MEDICARE, MEDICAID, SELFPAY ==
--- OUTSIDE RECORDS SUMMARY | 2025-11-11 13:17 | XMS_ITS | Clinical Summary ---
Author Organization [facility] Address [address] [place] [address] Care Team Providers Care Eyeletter Name Role Phone Provider, Generic External Data [...] Info) Description 01/09/2026 9:30 AM EST Consult [facility] Heart & Vascular [place] - [facility] [address] [place] [phone] Yanick Caballero MD [address] [place] [address] Health Maintenance Due Date Last Done Comments [...] - 1-dose 75+ series) 2048 Care Teams Eyeletter Relationship Specialty Start Date End Date Provider, Generic External Data PCP - General 08/21/25
--- OUTSIDE RECORDS SUMMARY | 2025-11-11 13:17 | XMS_ITS | Encounter Summary ---
Author Organization [facility] Address [address] [place] [address] Care Team Providers Care Oceanographer Geological Name Role Phone Provider, Generic External Data Primary Care Pro vider Unavailable Encounter Details Date Type Department Care Team (Late st Contact Info) Description 07/29/2025 Scanned Document [facility] Heart & Vascular [facility] - Electrophysiology [address] [place] [phone] Yanick Caballero MD [address] [place] [address] Social History Tobacco Use Types Packs/Day Years [...] Info) Description 01/09/2026 9:30 AM EST Consult [facility] Heart Vascular [facility] - Electrophysiology [address] [place] [phone] Yanick Caballero MD [address] [place] [address] documented as of this encounter Visit Diagnoses Not on filedocumented in this encounter Care Teams Oceanographer Geological Relationship Specialty Start Date End Date Provider, Generic External Data PCP - General 08/21/25 documented as of this encounter
== END 2025-11-11 10:44 | disposition home or self-care (01) ==
LOC: HO.HMGAL 10:44
PROVIDERS: PCP Internal Medicine; Visit Provider Registered Nurse Emergency
DX: J30.89 Other allergic rhinitis (principal)
CPT/HCPCS: 95117; 95165